=== PATIENT | male | born 1940 | race Caucasian/White ===

== ENCOUNTER 2016-10-16 04:47 | Observation (INO) | payer OTHER ==
[2016-10-08 10:37] VITALS: BMI 28.0
--- NOTE | 2016-10-08 11:37 | PAT Medication Instructions ---
Service Date Oct 08, 2016. Current Home Medication List Acetaminophen (Tylenol), 325 MG PO Q4 Carbidopa/Levodopa (Sinemet 25MG/100MG), 1 TAB PO TID Cholecalciferol (Vitamin D3), 5,000 PO QDL Docusate Sodium (Docusate Sodium), 1 CAP PO BID Enalapril (Vasotec), 10 MG PO QAM Levothyroxine Sodium (Levothyroxine Sodium), 1 TAB PO QAM Omeprazole (Prilosec), 20 MG PO QAM Venlafaxine Hcl (Effexor), 75 MG PO QAM Medication Instructions For Your Scheduled Surgery - Hold the following medications the morning of surgery: Enalapril (Vasotec), 10 MG PO QAM Docusate Sodium (Docusate Sodium), 1 CAP PO BID Cholecalciferol (Vitamin D3), 5,000 PO QDL - Take the following medications the morning of surgery with a sip of water: Omeprazole (Prilosec), 20 MG PO QAM Venlafaxine Hcl (Effexor), 75 MG PO QAM Levothyroxine Sodium (Levothyroxine Sodium), 1 TAB PO QAM Carbidopa/Levodopa (Sinemet 25MG/100MG), 1 TAB PO TID Acetaminophen (Tylenol), 325 MG PO Q4 (if needed) - Take the following medications as scheduled the night before surgery: Docusate Sodium (Docusate Sodium), 1 CAP PO BID. Acetaminophen (Tylenol), 325 MG PO Q4 Carbidopa/Levodopa (Sinemet 25MG/100MG), 1 TAB PO TID If you have any questions please call us at [phone] or [phone] ( Luanne) or [phone]
[2016-10-08 12:46] LABS: BASO % 0.4 %; BASO ABS # 0.03 K/uL (0-0.2); COMPLETE YES; EOS % 5.1 %; HEMATOCRIT 46.5 % (42-52); IG% 0.3 %; LYMPH % 20.5 %; LYMPH ABS # 1.56 K/uL (1.2-3.4); MEAN CELL VOLUME 88.9 fL (80-100); MEAN CORPUSCULAR HEMOGLOBIN 29.4 pg (25-34); MEAN CORPUSCULAR HGB CONC 33.1 g/dl (32-36); MEAN PLATELET VOLUME 10.4 fL (7.4-10.4); NEUT % 67.7 %; PLATELET COUNT 205 K/uL (130-400); RED BLOOD COUNT 5.23 M/uL (4.7-6.1); WHITE BLOOD COUNT 7.61 K/uL (4.8-10.8)
[2016-10-08 13:17] LABS: BUN/CREATININE RATIO 18.5 (10-20); CALCIUM 9.2 mg/dl (8.5-10.1); POTASSIUM 3.6 mmol/L (3.5-5.1)
[2016-10-16] VITALS (12 sets, daily range): BP systolic 159–192; BP diastolic 81–122; PULSE 73–95; TEMP 36.7–37.1; O2SAT 93–97; Ht 162.6 cm; Wt 75.7 kg
[~2016-10-16] VITALS: Ht 162.6 cm; Wt 75.7 kg
[~2016-10-16 04:47] MED LIST: ACET-1311 PO
[2016-10-16] MEDS ORDERED: CLINDAMYCIN IV 900 MG in DEXTROSE 5% ADD-VANTAGE 100ML 100 ML IV SCH (06:00)
[2016-10-16] MEDS ORDERED: LACTATED RINGER'S 1000ML 1,000 ML IV SCH (06:00)
[2016-10-16] MEDS ORDERED: LIDOCAINE HCL 2% 2 ML VIAL (20MG/ML) ONE (06:46)
[2016-10-16] MEDS ORDERED: ROCURONIUM BROMIDE 10 MG/ML 5 ML VIAL ONE ×2 (06:46→07:40)
[2016-10-16] MEDS ORDERED: FENTANYL CITRATE INJ 50 MCG/1 ML 2 ML VIAL ONE ×2 (06:46→08:19)
[2016-10-16] MEDS ORDERED: PROPOFOL IV EMULSION 10 MG/ML 20 ML VIAL IV ONE (06:46)
[2016-10-16] MEDS ORDERED: MIDAZOLAM HCL 1 MG/ML 2ML VIAL ONE (06:46)
--- NOTE | 2016-10-16 06:49 | History & Physical Bridge Note ---
H&P Re-Evaluation Bridge Note: I have examined the patient, reviewed the History & Physical and in the interval since the performance of the History & Physical I have noted the following changes of clinical significance: No changes noted
[2016-10-16] MEDS ORDERED: DEXAMETHASONE SOD INJ 4 MG/ML VIAL ONE (07:09)
[2016-10-16] MEDS ORDERED: ONDANSETRON INJ 2 MG/ML 2 ML VIAL ONE (07:09)
[2016-10-16] MEDS ORDERED: GLYCOPYRROLATE INJ 0.2 MG/ML VIAL ONE ×2 (07:09→09:00)
[2016-10-16] MEDS ORDERED: NEOSTIGMINE METHYLSULFATE 5 MG/5 ML SYR ONE (07:09)
[2016-10-16] MEDS ORDERED: LACTATED RINGER'S 1000ML 1,000 ML IV PRN (07:12)
[2016-10-16] MEDS ORDERED: FENTANYL CITRATE INJ 50 MCG/1 ML 2 ML VIAL IV PRN (07:15)
[2016-10-16] MEDS ORDERED: ONDANSETRON INJ 2 MG/ML 2 ML VIAL IV PRN ×2 (07:15→09:00)
[2016-10-16] MEDS ORDERED: BUPIVACAINE 0.5 % 5 MG/1 ML MPF 30ML VIAL INJ ONE (08:35)
[2016-10-16] MEDS ORDERED: CEFAZOLIN SOD 1 GM VIAL IRRIG ONE (08:43)
--- NOTE | 2016-10-16 08:59 | [facility] Operative Report ---
Operative Report Operative Date Oct 16, 2016. Pre-Operative Diagnosis Bilateral Inguinal Hernias Post-Operative Diagnosis same Procedure(s) Performed bilateral inguinal hernia repairs Surgeon Dr. Armand Mukherjee Manager Of Development Surgeon(s) Daniel Baires PA-C Estimated Blood Loss 20mL Findings Lg both sides- indirect RT with colon in sac Specimens none, Per Surgeon Drains #[address] Rd GALLITO to Rt side Complication(s) None Disposition Recovery Room / PACU I attest to the content of the Intraoperative Record and any orders documented therein. Any exceptions are noted below.
[2016-10-16] MEDS ORDERED: MoRPHine SULFATE 4 MG/ML 1 ML CARP\\VIAL IV PRN (09:00)
[2016-10-16] MEDS ORDERED: PROMETHAZINE HCL INJ 25 MG in SODIUM CHLORIDE 0.9% 50ML 50 ML IV PRN (09:00)
[2016-10-16] MEDS: CARBIDOPA/LEVODOPA 25/100MG TAB PO SCH ×3 (09:00→21:36)
[2016-10-16] MEDS ORDERED: HYDROCODONE/ACETAMOPHEN 5/325MG TAB PO PRN ×2 (09:00)
[2016-10-16] MEDS ORDERED: MoRPHine SULFATE 2 MG/ML CARP IV PRN (09:00)
--- NOTE | 2016-10-16 09:16 | OPERATIVE REPORT ---
DATE OF OPERATION: 10/16/2016 PREOPERATIVE DIAGNOSIS: Bilateral inguinal hernias. POSTOPERATIVE DIAGNOSIS: Same. NAME OF OPERATION: Bilateral inguinal hernia repair. STAFF SURGEON: Dr. Mukherjee. HEAD UP OPERATOR HELPER: Jenaro Baires PA-C. FINDINGS: The patient had bilateral large indirect hernia sacs with the colon in the right side. ANESTHESIA: General. OPERATION AND FINDINGS: PROCEDURE: The patient was brought in the operating room and placed on the operating table in supine position. Rodriguez catheter was placed. His inguinal areas were prepped and draped bilaterally. The right side was approached first. This was larger side, 0.5% plain Marcaine was used to anesthetize skin and subcutaneous tissue on both sides. Incision made carrying dissection down on the right side to the external oblique fibers incising them along their length to the external ring. The patient had a very large hernia which on dissection was a large indirect hernia with colon. The colon was reduced. The hernia sac was opened and dissected away from the cord structures and then closed using 2-0 Ethibond suture and 0 chromic catgut suture. It was then reduced. An extra large mesh plug was then placed into the defect, secured to surrounding tissue using 2-0 Ethibond suture, then a large piece of mesh placed into the floor of the canal around the cord structures over the plug and secured to surrounding tissue using 2-0 Ethibond suture. The site was irrigated with antibiotic solution. The external oblique fibers were then closed over the mesh around the cord structures using 2-0 Ethibond suture. A 15 round Yosef-Huynh drain placed into the wound down into the hernia sac into the scrotum, secured to the skin using 3-0 nylon suture. Subcutaneous tissue was reapproximated using 2-0 plain catgut suture then the skin reapproximated using 4-0 nylon suture. At this point, the left side was approached similar incision, carrying dissection down to the external oblique fibers incising them along their length, mobilizing the cord structures. The patient had a large indirect hernia. I did not think there was bowel within the sac. The sac was reduced and then the defect at the internal ring reinforced using a mesh plug, secured to surrounding tissue using 2-0 Ethibond suture. A large mesh patch was then placed into the floor of the canal around the cord structures secured using 2-0 Ethibond suture. The external oblique fibers were then closed over the mesh around the cord structures using 2-0 Ethibond suture. The site was then anesthetized using 0.5% plain Marcaine. This was also done on the right side. Subcutaneous tissue on the left then closed using 2-0 plain catgut suture then the skin reapproximated using 4-0 nylon suture. On both sides the ilioinguinal and iliohypogastric nerves were identified. Dressings were applied. Rodriguez was left in place. The patient transferred to recovery room in stable condition. I attest to the content of the Intraoperative Record and any orders documented therein. Any exceptio ns are noted below.
--- NOTE | 2016-10-16 09:27 | Anesthesiology Progress Note ---
Anesthesia Post Op Note Date & Time Oct 16, 2016 at 09:26 Vital Signs Pain Intensity: 0 Vital Signs Past 12 Hours Date Time Temp Pulse Resp B/P Pulse Ox O2 Delivery O2 Flow Rate FiO2 10/16/16 09:20 87 19 165/105 98 Mask 10 10/16/16 09:11 37.1 93 20 162/103 96 Mask 10 10/16/16 06:08 36.7 91 22 185/122 95 Room Air Notes Mental Status: alert / awake / arousable, participated in evaluation Pt Amnestic to Procedure: Yes Nausea / Vomiting: adequately controlled Pain: adequately controlled Airway Patency, RR, SpO2: stable & adequate BP & HR: stable & adequate Hydration State: stable & adequate Anesthetic Complications: no major complications apparent Pt doing well. No pain. DBP remains elevated as it was in PAT and pre-op today.
[2016-10-16] MEDS ORDERED: PHENYLEPHRINE 100MCG/ML 5ML SYR ONE (10:08)
[2016-10-16] MEDS: LACTATED RINGER'S 1000ML 1,000 ML IV SCH (10:35)
[2016-10-16] MEDS ORDERED: IV FLUIDS COMPLETED PRN (11:15)
[2016-10-16] MEDS ORDERED: PROMETHAZINE HCL INJ 12.5 MG in SODIUM CHLORIDE 0.9% 50ML 50 ML IV PRN (11:30)
[2016-10-16] MEDS ORDERED: HydrALAZINE HCL 20 MG/ML VIAL IV. PRN ×2 (11:45→17:45)
--- NOTE | 2016-10-16 12:56 | Medical Consult ---
Consultation Date of Consultation: Oct 16, 2016. Attending Physician: Armand Mukherjee M.D. Reason for Consultation: Medical management History of Present Illness This patient is a 76-year-old male that underwent a bilateral inguinal hernia repair today with Dr. Mukherjee. The patient currently complains of minimal pain. He is having difficulty urinating. He did have a Rodriguez catheter that was discontinued in the PACU. He denies any dysuria or hematuria. He denies any recent urinary symptoms. No fever or chills. He denies any nausea. He has not yet passed gas since the surgery. He denies any recent chest pain or pressure. No shortness of breath. No dizziness or heart palpitations. The patient denies any known history of coronary artery disease or blood clots. Past Medical/Surgical History Medical Problems: (1) Proximal humerus fracture Status: Acute History of "Parkinson's" like symptoms Graves' disease status post radioactive iodine History of dysphasia with PEG tube placement that was discontinued-once dysphasia was resolved. Thought to be due to esophagitis and gastritis Unspecified mood disorder Major depressive disorder OCD Degenerative disc disease Status post cholecystectomy and appendectomy Family History Hypertension Kidney disease or stones Social History Smoking Status: Former Smoker Alcohol Use: none Marital Status: Housing Status: assisted Occupation Status: retired Allergies Coded Allergies: Penicillins (Verified Allergy, Unknown, HIVES, 10/16/16) Home Medications Sinemet 10/100 TID Enalapril 10 mg in the morning Synthroid 130 g daily Prilosec 20 mg daily Effexor 75 mg daily Current Inpatient Medications Current Inpatient Medications Medications (Trade) Dose Ordered Sig/Aiden Route Start Time Stop Time Status Last Admin Dose Admin Lactated Ringer's (Lr 1000ml) 1,000 ml @ 15 mls/hr Q24H IV 10/16/16 06:00 10/17/16 05:59 10/16/16 06:36 15 MLS/HR Carbidopa/Levodopa (Sinemet 25/ 100MG Tab) 1 tab TID PO 10/16/16 09:00 11/15/16 08:59 Enalapril Maleate (Vasotec Tab) 10 mg QAM PO 10/17/16 09:00 11/16/16 08:59 Levothyroxine Sodium (Synthroid Tab) 137 mcg DAILYBB PO 10/17/16 06:00 11/16/16 05:59 Venlafaxine HCl (effeXOR EXTENDED REL CAP) 75 mg QAM PO 10/17/16 09:00 11/16/16 08:59 Pantoprazole Sodium 40 mg 40 mg QAM PO 10/17/16 09:00 11/16/16 08:59 Lactated Ringer's 1,000 ml @ 50 mls/hr Q20H IV 10/16/16 08:49 11/15/16 08:48 10/16/16 10:35 50 MLS/HR Clindamycin Phosphate/Dextrose (Cleocin Iv/ Dextrose Add-Hermosa 50ML) 54 ml @ 100 mls/hr Q8H IV 10/16/16 14:00 10/17/16 13:59 Acetaminophen/ Hydrocodone Bitart ([place] 5/325 Tab) 1 tab Q4 PRN PO 10/16/16 09:00 10/30/16 08:59 Acetaminophen/ Hydrocodone Bitart ([place] 5/325 Tab) 2 tab Q4 PRN PO 10/16/16 09:00 10/30/16 08:59 Morphine Sulfate (MoRPHine SULFATE INJ) 2 mg Q4H PRN IV 10/16/16 09:00 10/30/16 08:59 10/16/16 10:35 2 MG Morphine Sulfate 4 mg 4 mg Q4H PRN IV 10/16/16 09:00 10/30/16 08:59 Promethazine HCl/ Sodium Chloride (Phenergan Inj/ Nss 50ml) 51 ml @ 204 mls/hr Q6H PRN IV 10/16/16 09:00 11/15/16 08:59 Senna/Docusate Sodium (Senokot S Tab) 1 tab BID PO 10/16/16 13:00 11/15/16 12:59 Magnesium Hydroxide (Milk Of Magnesia Susp) 30 ml BID PO 10/16/16 13:00 11/15/16 12:59 Ondansetron HCl (Zofran Inj) 4 mg Q6H PRN IV 10/16/16 09:00 11/15/16 08:59 Miscellaneous 1 ea 1 ea PRN PRN N/A 10/16/16 11:15 10/16/17 11:14 Promethazine HCl/ Sodium Chloride (Phenergan Inj/ Nss 50ml) 50.5 ml @ 202 mls/hr Q6H PRN IV 10/16/16 11:30 11/15/16 11:29 Hydralazine HCl (HydrALAZINE INJ) 5 mg Q6H PRN IV. 10/16/16 11:45 11/15/16 11:44 10/16/16 11:51 5 MG Review of Systems 10 system review performed and negative unless noted in HPI or below Physical Exam Date Time Temp Pulse Resp B/P Pulse Ox O2 Delivery O2 Flow Rate FiO2 10/16/16 11:15 36.8 79 16 175/95 96 2.0 10/16/16 10:48 36.8 84 16 171/98 95 2.0 10/16/16 10:44 94 Nasal Cannula 2.0 10/16/16 10:28 94 Nasal Cannula 2.0 10/16/16 10:15 37.1 82 18 169/104 94 Nasal Cannula 2.0 10/16/16 10:00 77 24 159/97 94 Nasal Cannula 2 10/16/16 09:50 84 20 159/97 95 Nasal Cannula 2 10/16/16 09:40 37.2 82 24 165/103 94 Nasal Cannula 2 10/16/16 09:30 81 22 158/105 98 Mask 10 10/16/16 09:20 87 19 165/105 98 Mask 10 10/16/16 09:11 37.1 93 20 162/103 96 Mask 10 10/16/16 06:08 36.7 91 22 185/122 95 Room Air General Appearance: no apparent distress Head: normocephalic Eyes: EOMI ENT: + pertinent finding (oral mucosa dry) Neck: no JVD Respiratory/Chest: lungs clear Cardiovascular: + pertinent finding (regularly irregular) Abdomen/GI: soft, + pertinent finding (no tenderness appreciated in the upper abdomen. Dressing clean. Bowel sounds present, but hypoactive.) Extremities/Musculoskelatal: no calf tenderness, no pedal edema Neurologic/Psych: no motor/sensory deficits, oriented x 3 Skin: warm/dry Assessment & Plan 76-year-old male with a history of major depressive disorder, hypertension, OCD , Parkinson's like syndrome and Graves' disease underwent a bilateral inguinal hernia repair today Inguinal hernia repair 10/16/2016 -pain management, DVT prophylaxis, PT per primary team Hypertension-the patient is hypertensive. He did not take his enalapril yet today. Also, has IVF running -Hydralazine 10 mg IV q 6 hr PRN -Hold enalapril today to ensure no hypotensive episodes or renal dysfunction overnight -May start enalapril 10 mg (home dose) tomorrow morning. If he remains hypertensive, consider going up on his enalapril to 20 mg daily. This was discussed at his last PCP appointment ? Urinary retention-bladder scan reveals only 34 mL a urine -Bladder scan every 8 hour-insert Rodriguez if greater than 400 mL -If symptoms persist, will send a UA tomorrow ? Irregular heart rhythm-noted on outpt records. Asymptomatic. Had cardiac w/ u in Nov 28-no tx recommended. Parkinson's like syndrome -Continue home dose of Sinemet Graves' disease status post radioactive iodine -Continue Synthroid 130 g daily Major depressive disorder/mood disorder -Continue Effexor 75 mg daily -May use low-dose Haldol sparingly if patient comes agitated overnight Thank you for this consult, we will continue to follow Additional Copies To Annamarie Bean PA-C Reviewed: Pt Seen/Exam by Me, RN Notes, HO Notes, Prior Records, Labs, RAD, EKG History I agree with PA consult with some modifications as below 76-year-old male with a history of major depressive disorder, hypertension, OCD , Parkinson's like syndrome and Graves' disease underwent a bilateral inguinal hernia repair today. C/o pain in his abdomen and also feels that he can`t urinate EENTM: denies: blurred vision Respiratory: negative: cough Gastrointestinal/Abdominal: positive: abdominal pain Genitourinary: negative discharge Musculoskeletal: negative: back pain Skin: negative: change in color Neurological/Psych: negative: anxiety Hematologic/Lymphatic: negative: anemia General Appearance: WD/WN, no apparent distress Eye Exam: bilateral eye normal inspection Ears, Nose, Throat: hearing grossly normal, pharynx normal Neck: non-tender, supple Respiratory: lungs clear, no respiratory distress Cardiovascular: normal peripheral pulses, no edema Gastrointestinal: normal bowel sounds, no organomegaly, tenderness (diffuse), other (dressing in place) Extremities: non-tender, normal inspection Neurologic/Psychiatric: no motor/sensory deficits, normal mood/affect Skin Characteristics: normal color Assessment/Plan 76-year-old male with a history of major depressive disorder, hypertension, OCD , Parkinson's like syndrome and Graves' disease underwent a bilateral inguinal hernia repair today Inguinal hernia repair 10/16/2016 cont pain management, DVT prophylaxis, PT per primary team Hypertension-the patient is hypertensive. cont Hydralazine 10 mg IV q 6 hr PRN Hold enalapril Urinary retention-bladder scan reveals only 34 mL a urine Bladder scan every 8 hour-insert Rodriguez if greater than 400 mL Irregular heart rhythm-noted on outpt records. Asymptomatic. Had cardiac w/u in Nov 28-no tx recommended. Parkinson's like syndrome Continue home dose of Sinemet Graves' disease status post radioactive iodine Continue Synthroid 130 g daily Major depressive disorder/mood disorder Continue Effexor 75 mg daily case discussed with Bindu Lagos time spent 40 min
[2016-10-16] MEDS: DOCUSATE SODIUM/SENNA 50/8.6MG TAB PO SCH ×2 (13:00→21:36)
[2016-10-16] MEDS: MAGNESIUM HYDROXIDE SUSP 30 ML UDC PO SCH ×2 (13:00→21:00)
[2016-10-16] MEDS: CLINDAMYCIN IV 600 MG in DEXTROSE 5% ADD-VANTAGE 50ML 50 ML IV SCH ×2 (13:30→21:40)
[2016-10-16] MEDS ORDERED: HYDR-5688 PO (15:26)
[2016-10-16] MEDS ORDERED: CIPR-255 PO (15:26)
--- NOTE | 2016-10-16 15:29 | Discharge Instructions ---
Discharge Instructions Admission Reason for Admission: Bilateral Inguinal Hernias Discharge Discharge Diagnosis / Problem: bilateral inguinal hernias Discharge Goals Goal(s): Decrease discomfort, Improve function, Improve disease control Activity Recommendations Activity Limitations: as noted below Lifting Limitations: no more than 10 pounds Exercise/Sports Limitations: until after follow-up appointment May Resume Sexual Activity: when tolerated Shower/Bathe: tomorrow Driving or Machine Use: 1 week . Instructions / Follow-Up Instructions / Follow-Up SPECIAL CARE INSTRUCTIONS: * Cover incisions and change daily for comfort/drainage. * Empty drain 2-3 times per day and record. * Avoid constipation- may use Milk of magnesia and Senokot S twice daily as directed on the package * May use ibuprofen for pain as tolerated. * Expect some swelling and bruising. Call your doctor if: * Temperature above 101 degrees * Pain not relieved by pain medicine ordered * There is increased drainage or redness from any incision * You have any unanswered questions or concerns [phone]. FOLLOW UP VISIT: If not already scheduled, please call the office for a follow-up visit. for - drain check, possible removal OFFICE PHONE NUMBER: Dr. Mukherjee Office Current Hospital Diet Patient's current hospital diet: Regular Diet Discharge Diet Recommended Diet: Regular Diet Procedures Procedures Performed: Open bilateral inguinal hernia repair with mesh Pending Studies Studies pending at discharge: no Medical Emergencies . Who to Call and When: Medical Emergencies: If at any time you feel your situation is an emergency, please call 911 immediately. . Non-Emergent Contact Non-Emergency issues call your: Surgeon . "Provider Documentation" section prepared by Armand Mukherjee. VTE Core Measure Inpt VTE Proph given/why not?: SCD's
[2016-10-16] MEDS ORDERED: NURSING VERBAL MED ORDER ONE (18:00)
[2016-10-16] MEDS ORDERED: ACETAMINOPHEN 325 MG TAB PO PRN (18:15)
[2016-10-17 03:52] VITALS: BP 173/98; PULSE 79; TEMP 36.8; O2SAT 96
[2016-10-17] MEDS: LACTATED RINGER'S 1000ML 1,000 ML IV SCH (05:37)
[2016-10-17] MEDS: CLINDAMYCIN IV 600 MG in DEXTROSE 5% ADD-VANTAGE 50ML 50 ML IV SCH (05:37)
[2016-10-17] MEDS ORDERED: LEVOTHYROXINE 137 MCG TAB PO SCH (06:00)
[2016-10-17 06:02] LABS: BASO % 0.1 %; BASO ABS # 0.01 K/uL (0-0.2); COMPLETE YES; EOS % 0.2 %; HEMATOCRIT 44.3 % (42-52); IG% 0.2 %; LYMPH % 11.2 %; LYMPH ABS # 1.49 K/uL (1.2-3.4); MEAN CELL VOLUME 89.9 fL (80-100); MEAN CORPUSCULAR HEMOGLOBIN 29.8 pg (25-34); MEAN CORPUSCULAR HGB CONC 33.2 g/dl (32-36); MEAN PLATELET VOLUME 10.7 fL (7.4-10.4); MONO % 9.4 %; NEUT % 78.9 %; PLATELET COUNT 194 K/uL (130-400); RED BLOOD COUNT 4.93 M/uL (4.7-6.1); WHITE BLOOD COUNT 13.27 K/uL (4.8-10.8)
[2016-10-17 06:10] VITALS: BP 179/101
[2016-10-17] MEDS ORDERED: OXYC-57 PO (06:25)
[2016-10-17] MEDS ORDERED: OXYCODONE/ACETAMINOPHEN 5-325 TAB PO PRN (06:30)
--- NOTE | 2016-10-17 06:30 | Surgery Progress Note ---
Surgery Progress Note Date of Service Oct 17, 2016. Subjective Post OP Day: 1 min pain, good ur outpt, had some emesis- no N/V now Objective Vital Signs: Date Time Temp Pulse Resp B/P Pulse Ox O2 Delivery O2 Flow Rate FiO2 10/17/16 06:10 179/101 10/17/16 03:52 36.8 79 16 173/98 96 Nasal Cannula 2.0 10/16/16 23:13 36.8 79 16 159/97 95 Nasal Cannula 2.0 10/16/16 23:12 Nasal Cannula 2.0 10/16/16 21:34 85 167/103 10/16/16 18:44 166/103 10/16/16 15:30 93 Nasal Cannula 2.0 10/16/16 15:00 36.8 95 20 175/81 93 Nasal Cannula 2.0 10/16/16 13:15 36.7 73 16 192/81 97 2.0 10/16/16 11:15 36.8 79 16 175/95 96 2.0 10/16/16 10:48 36.8 84 16 171/98 95 2.0 10/16/16 10:44 94 Nasal Cannula 2.0 10/16/16 10:28 94 Nasal Cannula 2.0 10/16/16 10:15 37.1 82 18 169/104 94 Nasal Cannula 2.0 10/16/16 10:00 77 24 159/97 94 Nasal Cannula 2 10/16/16 09:50 84 20 159/97 95 Nasal Cannula 2 10/16/16 09:40 37.2 82 24 165/103 94 Nasal Cannula 2 10/16/16 09:30 81 22 158/105 98 Mask 10 10/16/16 09:20 87 19 165/105 98 Mask 10 10/16/16 09:11 37.1 93 20 162/103 96 Mask 10 General Appearance: no apparent distress Respiratory/Chest: no respiratory distress Incision(s): dry, intact, drainage (GALLITO with expected output) Laboratory Results: Results Past 24 Hours Test 10/17/16 05:07 Range/Units White Blood Count 13.27 4.8-10.8 K/uL Red Blood Count 4.93 4.7-6.1 M/uL Hemoglobin 14.7 14.0-18.0 g/dL Hematocrit 44.3 42-52 % Mean Corpuscular Volume 89.9 80-100 fL Mean Corpuscular Hemoglobin 29.8 25-34 pg Mean Corpuscular Hemoglobin Concent 33.2 32-36 g/dl Platelet Count 194 130-400 K/uL Mean Platelet Volume 10.7 7.4-10.4 fL Neutrophils (%) (Auto) 78.9 % Lymphocytes (%) (Auto) 11.2 % Monocytes (%) (Auto) 9.4 % Eosinophils (%) (Auto) 0.2 % Basophils (%) (Auto) 0.1 % Neutrophils # (Auto) 10.47 1.4-6.5 K/uL Lymphocytes # (Auto) 1.49 1.2-3.4 K/uL Monocytes # (Auto) 1.25 0.11-0.59 K/uL Eosinophils # (Auto) 0.03 0-0.5 K/uL Basophils # (Auto) 0.01 0-0.2 K/uL RDW Standard Deviation 47.1 36.4-46.3 fL RDW Coefficient of Variation 14.3 11.5-14.5 % Immature Granulocyte % (Auto) 0.2 % Immature Granulocyte # (Auto) 0.02 0.00-0.02 K/uL Assessment & Plan 10/17/16- s/p bilateral open ing hernia repair- plan d/c back to [facility] if able to take po and assistance available
[2016-10-17 06:35] LABS: BUN/CREATININE RATIO 14.4 (10-20); CALCIUM 8.6 mg/dl (8.5-10.1)
[2016-10-17 06:54] VITALS: BP 143/88; PULSE 98; TEMP 36.9; O2SAT 96
[2016-10-17] MEDS: OXYCODONE/ACETAMINOPHEN 5-325 TAB PO PRN ×2 (07:37→12:28)
--- NOTE | 2016-10-17 08:18 | Anesthesiology Progress Note ---
Anesthesia Post Op Note Date & Time Oct 17, 2016 at 08:17 Vital Signs Vital Signs Past 12 Hours Date Time Temp Pulse Resp B/P Pulse Ox O2 Delivery O2 Flow Rate FiO2 10/17/16 06:54 36.9 98 16 143/88 96 Nasal Cannula 2.0 10/17/16 06:10 179/101 10/17/16 03:52 36.8 79 16 173/98 96 Nasal Cannula 2.0 10/16/16 23:13 36.8 79 16 159/97 95 Nasal Cannula 2.0 10/16/16 23:12 Nasal Cannula 2.0 10/16/16 21:34 85 167/103 Notes Mental Status: alert / awake / arousable, participated in evaluation Pt Amnestic to Procedure: Yes Nausea / Vomiting: adequately controlled Pain: adequately controlled Airway Patency, RR, SpO2: stable & adequate BP & HR: stable & adequate Hydration State: stable & adequate Anesthetic Complications: no major complications apparent
[2016-10-17] MEDS: CARBIDOPA/LEVODOPA 25/100MG TAB PO SCH (08:57)
[2016-10-17] MEDS: MAGNESIUM HYDROXIDE SUSP 30 ML UDC PO SCH (08:57)
[2016-10-17] MEDS ORDERED: PANTOprazole SOD 40 MG TAB PO SCH (09:00)
[2016-10-17] MEDS: DOCUSATE SODIUM/SENNA 50/8.6MG TAB PO SCH (09:00)
[2016-10-17] MEDS ORDERED: ENALAPRIL MALEATE 10 MG TAB PO SCH (09:00)
[2016-10-17] MEDS ORDERED: VENLAFAXINE HCL XR 75 MG CAPXR PO SCH (09:00)
[2016-10-17 12:00] VITALS: BP 143/88; PULSE 98; TEMP 36.9; O2SAT 96
[2016-10-17 12:08] VITALS: BP 113/67; PULSE 85; TEMP 36.7; O2SAT 93
--- NOTE | 2016-10-17 12:27 | Hospitalist Progress Note ---
Hospitalist Progress Note Date of Service Oct 17, 2016. (Cat Lagos PA-C) 10/17/16 pt denies complains, feels better agree with PA Note (Napoleon Medel MD) Subjective Pt evaluation today including: conversation w/ patient, conversation w/ family , chart review, lab review, review of inpatient medication list feeling well. Urinating w/o difficulty. Denies burning. No significant pain. Passing gas. No nausea. Tolerating a diet. Additional Comments: 6 system review negative. Please see pertinent positives in the history of present illness section. (Cat Lagos PA-C) Pt evaluation today including: conversation w/ patient, physical exam, chart review, review of studies, review of inpatient medication list Constitutional: No fever ENT: No hearing loss Respiratory: No cough Abdomen: No pain Male : No dysuria Neurologic: No memory loss Psychiatric: No depression symptoms Endo: No fatigue (Napoleon Medel MD) Objective Vital Signs Date Time Temp Pulse Resp B/P Pulse Ox O2 Delivery O2 Flow Rate FiO2 10/17/16 12:08 36.7 85 18 113/67 93 Room Air 10/17/16 12:00 36.9 98 16 96 Room Air 10/17/16 07:30 Room Air 10/17/16 06:54 36.9 98 16 143/88 96 Nasal Cannula 2.0 10/17/16 06:10 179/101 10/17/16 03:52 36.8 79 16 173/98 96 Nasal Cannula 2.0 10/16/16 23:13 36.8 79 16 159/97 95 Nasal Cannula 2.0 10/16/16 23:12 Nasal Cannula 2.0 10/16/16 21:34 85 167/103 10/16/16 18:44 166/103 10/16/16 15:30 93 Nasal Cannula 2.0 10/16/16 15:00 36.8 95 20 175/81 93 Nasal Cannula 2.0 10/16/16 13:15 36.7 73 16 192/81 97 2.0 (Cat Lagos PA-C) Physical Exam General Appearance: WD/WN, no apparent distress Eyes: normal inspection, EOMI ENT: hearing grossly normal, pharynx normal Neck: supple, no JVD Respiratory/Chest: normal breath sounds Cardiovascular: no gallop Abdomen: normal bowel sounds, no organomegaly Extremities: normal inspection Neurologic/Psychiatric: normal mood/affect Skin: normal color (Napoleon Medel MD) Laboratory Results Last 24 Hours Test 10/17/16 05:07 White Blood Count 13.27 K/uL Red Blood Count 4.93 M/uL Hemoglobin 14.7 g/dL Hematocrit 44.3 % Mean Corpuscular Volume 89.9 fL Mean Corpuscular Hemoglobin 29.8 pg Mean Corpuscular Hemoglobin Concent 33.2 g/dl Platelet Count 194 K/uL Mean Platelet Volume 10.7 fL Neutrophils (%) (Auto) 78.9 % Lymphocytes (%) (Auto) 11.2 % Monocytes (%) (Auto) 9.4 % Eosinophils (%) (Auto) 0.2 % Basophils (%) (Auto) 0.1 % Neutrophils # (Auto) 10.47 K/uL Lymphocytes # (Auto) 1.49 K/uL Monocytes # (Auto) 1.25 K/uL Eosinophils # (Auto) 0.03 K/uL Basophils # (Auto) 0.01 K/uL RDW Standard Deviation 47.1 fL RDW Coefficient of Variation 14.3 % Immature Granulocyte % (Auto) 0.2 % Immature Granulocyte # (Auto) 0.02 K/uL Sodium Level 141 mmol/L Potassium Level 4.0 mmol/L Chloride Level 103 mmol/L Carbon Dioxide Level 31 mmol/L Anion Gap 7.0 mmol/L Blood Urea Nitrogen 14 mg/dl Creatinine 1.00 mg/dl Est Creatinine Clear Calc Drug Dose 57.6 ml/min Estimated GFR () 83.8 Estimated GFR (Non- 72.3 BUN/Creatinine Ratio 14.4 Random Glucose 84 mg/dl Calcium Level 8.6 mg/dl (Cat Lagos, PAIrvingC) Assessment and Plan 76-year-old male with a history of major depressive disorder, hypertension, OCD , Parkinson's like syndrome and Graves' disease underwent a bilateral inguinal hernia repair 10/16 Inguinal hernia repair 10/16/2016 -pain management, DVT prophylaxis, PT per primary team BP improved -Restart enalapril 10 mg daily today Urinary retention-resolved Parkinson's like syndrome -Continue home dose of Sinemet Graves' disease status post radioactive iodine -Continue Synthroid 130 g daily Major depressive disorder/mood disorder -Continue Effexor 75 mg daily Stable for D/C from a medical stand point. The medicine service will sign off. Please contact the [facility] Hospitalist for any further medical concerns. (Cat Lagos PA-C) 76-year-old male with a history of major depressive disorder, hypertension, OCD , Parkinson's like syndrome and Graves' disease underwent a bilateral inguinal hernia repair 10/16 Inguinal hernia repair 10/16/2016 pain management, DVT prophylaxis, PT per primary team BP improved Restart enalapril 10 mg daily today Urinary retention-resolved Parkinson's like syndrome Continue home dose of Sinemet Graves' disease status post radioactive iodine Continue Synthroid 130 g daily Major depressive disorder/mood disorder Continue Effexor 75 mg daily Stable for D/C from a medical stand point. f/u PCP 2 weeks (Napoleon Medel MD)
--- NOTE | 2016-10-22 14:11 | DISCHARGE SUMMARY ---
PRIMARY DISCHARGE DIAGNOSIS: Bilateral inguinal hernias. SECONDARY DISCHARGE DIAGNOSES: 1. Hypertension. 2. Depression. 3. Graves' disease. PROCEDURE PERFORMED: Open bilateral inguinal hernia repairs with mesh. CONSULTATIONS: [facility] Hospitalist to assist in medical management. HOSPITAL COURSE: The patient is a 76-year-old male with large bilateral inguinal hernias, admitted through same day and taken to the operating room for open repairs. The procedure was well tolerated. He was transferred to the surgical floor and observed overnight. Rodriguez catheter was removed in PACU. He is able to later void without difficulty. On postoperative day 1, he was tolerating diet and oral analgesics. His blood pressure had been elevated postoperatively, likely due to pain, but at discharge was 113/67. The incisions were clean and dry. He was stable for transfer back to [facility]. DISCHARGE INSTRUCTIONS: Transfer back to [facility]. Follow up with Dr. Mukherjee in 5 days. He was discharged home with a drain on the right side. DISCHARGE MEDICATIONS: Cipro 500 mg p.o. b.i.d. x7 and Percocet 1-2 tablets every 4-6 hours as needed. Continue his home Sinemet 25/100 mg daily, vitamin D supplement, docusate 100 mg b.i.d., Vasotec 10 mg daily, levothyroxine 137 mcg daily, Prilosec 20 mg daily, Effexor 75 mg daily. MTDD
[2016-12-18] MEDS ORDERED: NITR1CAP32 PO (09:41)
[2017-01-06] MEDS ORDERED: OXYC-57 PO (09:41)
[2017-01-06] MEDS ORDERED: NITR-5 PO (09:55)
[2017-01-06] MEDS ORDERED: EFF75 PO (10:36)
[2017-01-06] MEDS ORDERED: PRLSR20 PO (10:36)
[2017-01-06] MEDS ORDERED: ENAL10TA88 PO (10:36)
[2017-01-06] MEDS ORDERED: DOCU100C31 PO (10:36)
[2017-01-06] MEDS ORDERED: LEVO137T3 PO (10:36)
[2017-01-06] MEDS ORDERED: CARB25TA12 PO ×2 (10:36→15:28)
[2017-01-06] MEDS ORDERED: VTMD1000 PO (10:36)
== END 2016-10-17 13:40 | disposition home or self-care (01) ==
LOC: ENRESERVTM → ENRESERVDT → C.ACU 04:47 → C.MSN 08:56
PROVIDERS: ADMIT Surgery; ATTEND Surgery
DX: K40.20 Bilateral inguinal hernia, without obstruction or gangrene, not specified as recurrent (principal); R33.9 Retention of urine, unspecified; F32.9 Major depressive disorder, single episode, unspecified; F60.5 Obsessive-compulsive personality disorder; E05.00 Thyrotoxicosis with diffuse goiter without thyrotoxic crisis or storm; I10 Essential (primary) hypertension; E78.5 Hyperlipidemia, unspecified; E55.9 Vitamin D deficiency, unspecified; E03.9 Hypothyroidism, unspecified; Z87.440 Personal history of urinary (tract) infections; Z88.0 Allergy status to penicillin; Z87.891 Personal history of nicotine dependence; Z82.49 Family history of ischemic heart disease and other diseases of the circulatory system; Z81.8 Family history of other mental and behavioral disorders; Z80.42 Family history of malignant neoplasm of prostate

== ENCOUNTER → 2016-11-29 | Outpatient (CLI) | payer OTHER ==
[~2016-11-29] MED LIST changes: +CARB25TA12 PO; +CIPR-255 PO; +DOCU100C31 PO; +EFF75 PO; +EFFSR/75 PO; +ENAL10TA88 PO; +IBUP-1050 PO; +LEVO137T3 PO; +MENTOIN12 TOP; +NITR-5 PO; +NITR1CAP32 PO; +OXYC-57 PO; +PRLSR20 PO; +TIZA2TAB3 PO; +VTMD1000 PO
--- NOTE | 2016-11-29 10:29 | DIAGNOSTIC IMAGING REPORT ---
L-SPINE MIN 4 VIEWS ROUTINE CLINICAL HISTORY: Chronic back pain. COMPARISON: Lumbar spine radiograph January 24, 2012. FINDINGS: Note is made of a 4.6 x 2.3 cm staghorn calculus within the lower pole of the left kidney. A few smaller bilateral renal calculi measure up to 1.1 cm. Pelvic calcifications represent phleboliths. No ureteral calculi are identified. There is slight loss of height of the superior endplates of of L3 and L4 when compared to exam of January 24, 2012. There is moderate disc space narrowing at L5-S1. Mild multilevel facet arthrosis is present. IMPRESSION: 1. Mild interval loss of height of the superior endplates of L3 and L4 since exam of January 24, 2012. The findings likely reflect old mild compression deformities. 2. Mild to moderate multilevel degenerative disc disease and facet arthrosis lumbar spine. 3. Extensive bilateral nephrolithiasis, including a 4.6 x 2.3 cm left renal staghorn calculus. Electronically signed by: Sae Gregorio M.D. 11/29/2016 10:28 AM Dictated Date/Time: 11/29/2016 10:24 AM
== END | disposition home or self-care (01) ==
LOC: C.RAD1850 10:05
PROVIDERS: ATTEND Internal Medicine
DX: M54.9 Dorsalgia, unspecified (principal); N20.0 Calculus of kidney

== ENCOUNTER → 2016-12-03 | Outpatient (CLI) | payer OTHER | END | disposition home or self-care (01) | LOC: C.LABSPEC 17:32 | PROVIDERS: ATTEND Nurse Practitioner Adult Health | DX: N20.0 Calculus of kidney (principal) ==

== ENCOUNTER 2017-01-06 13:37 | Inpatient (IN) | payer OTHER ==
[~2017-01-06] VITALS: Ht 162.6 cm; Wt 87.2 kg
[~2017-01-06 13:37] MED LIST changes: -ACET-1311 PO; -CIPR-255 PO; -EFFSR/75 PO; -IBUP-1050 PO; -MENTOIN12 TOP; -TIZA2TAB3 PO
[2017-01-06] MEDS ORDERED: SODIUM CHLORIDE 0.9% 1000ML 1,000 ML IV ONE (14:00)
--- NOTE | 2017-01-06 14:15 | EMERGENCY ROOM VISIT NOTE ---
History Report prepared by Anyi: Mau Strauss Under the Supervision of: Dr. Bruce Rabago M.D. First contact with patient: 13:45 Stated Complaint: AMS/PEDAL EDEMA History of Present Illness The patient is a 76 year old male who presents to the Emergency Room with complaints of persistent confusion for the past few days. The patient's son notes that he has been acting more confused than normal for the past few days and saying things that don't make sense. He has had two falls in the past few days as well. Per nursing staff, he has bruises on his back and it is unclear if he hit his head when he fell. He also has two kidney stones which he has been taking Ibuprofen and Percocet to help relieve his discomfort since he has been complaining about low back pain. Per patient's son, the patient has also been complaining of some shortness of breath and has swelling in his ankles. He also had a low temperature of about 94 when they took it at his skilled nursing, [facility]. Upon arrival at the ED, the patient had an episode of vomiting with yellow fluid, his nails started to turn blue, and he is hypotensive. Per patient's son, the patient pressure is usually normal or high. Recently, it has been pretty well controlled on his hypertension medications. Source of History: patient, family, skilled nursing notes Onset: the past few days Position: other (global) Timing: other (persistent) Associated Symptoms: + SOB, + back pain (lower back ), + vomiting (yellow fluid) Note: Other associated symptoms: falls, kidney stones, swelling in his ankles, low temperature, hypotensive, fingernails turning blue Review of Systems All systems have been listed, reviewed, and are negative other than those previously mentioned. Please see Additional Medical History Sheet. 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 (15) UTI (lower urinary tract infection) (16) UTI (urinary tract infection) Surgical Problems: (1) H/O lithotripsy (2) S/P appendectomy (3) S/P cholecystectomy Family History Hypertension Kidney disease or stones Social History Smoking Status: Former Smoker Marital Status: Housing Status: skilled nursing Occupation Status: retired Current/Historical Medications Scheduled Carbidopa/Levodopa (Sinemet 25MG/100MG), 1 TAB PO TID Carbidopa/Levodopa (Sinemet 25MG/100MG), 2 TAB PO DAILY Cholecalciferol (Vitamin D3), 5,000 PO QDL Docusate Sodium (Docusate Sodium), 1 CAP PO BID Enalapril (Vasotec), 10 MG PO QAM Levothyroxine Sodium (Levothyroxine Sodium), 1 TAB PO QAM Nitrofurantoin Monohyd Macrocr (Macrobid), 100 MG PO HS Omeprazole (Prilosec), 20 MG PO QAM Oxycodone/Acetaminophen 5MG/325MG (Percocet 5MG/325MG), 1 TABLET PO Q12 Venlafaxine Hcl (Effexor), 75 MG PO QAM Scheduled PRN Ibuprofen (Advil), 400 MG PO Q6 PRN for Pain Menthol-Zinc Oxide (Risamine), 1 APPLN TOP for BUTTOCKS EXCORIATION Tizanidine Hcl (Zanaflex), 2 MG PO Q12 PRN for Muscle Spasms Allergies Coded Allergies: Penicillins (Verified Allergy, Unknown, HIVES, 10/16/16) Physical Exam Vital Signs Date Time Temp Pulse Resp B/P Pulse Ox O2 Delivery O2 Flow Rate FiO2 01/06/17 16:18 99 18 107/60 100 Nasal Cannula 4.0 01/06/17 15:33 90 16 95/65 100 Nasal Cannula 4.0 01/06/17 14:56 67 20 108/57 100 01/06/17 14:50 100 01/06/17 14:45 93 98/60 01/06/17 14:40 90 01/06/17 14:38 98/62 01/06/17 14:35 92 01/06/17 14:30 88 01/06/17 14:25 79 01/06/17 13:50 36.5 115 18 93/77 Nasal Cannula 4.0 01/06/17 13:50 90 01/06/17 13:50 Nasal Cannula 4.0 01/06/17 13:50 Room Air Physical Exam GENERAL: Patient is confused and disoriented. SKIN: No erythema, pallor, cyanosis or rash HEENT: Normal head, no bruises or bumps noted, pupils equal, reactive to light and accommodation. Ears normal. Oral cavity and posterior pharynx appear normal. Neck: Without adenopathy, no neck vein distention. LUNGS: Clear to auscultation. No wheezes, no rales, no rhonchi. HEART: Muffled tones appreciated. ABDOMEN: No masses, no rebound, no hepatomegaly or splenomegaly. Soft nontender right-sided oblique scar and bilateral inguinal bruises noted. BACK: Patient has moderate kyphosis. EXTREMITIES: Patient has blue fingernails, 3+ non-pitting pretibial and pedal edema. No calf or thigh tenderness. NEUROLOGIC: Cranial nerves II-XII within normal limits. No gross motor sensory function deficits. Medical Decision & Procedures ER Provider Diagnostic Interpretation: X ray results are stated below per my interpretation and the radiologist's interpretation. CHEST ONE VIEW PORTABLE CLINICAL HISTORY: Central line placement COMPARISON STUDY: 03/22/2016 FINDINGS: The heart is enlarged. There is been interval placement of a right subclavian central venous catheter. The tip projects in the right atrium. No pneumothorax is visualized. There is no focal pulmonary consolidation. There is mild right hilar prominence. There is no failure.[ IMPRESSION: No evidence of pneumothorax status post right subclavian central venous catheter placement. The tip projects over the right atrium. Electronically signed by: Naveen Parks M.D. 01/06/2017 3:17 PM Dictated Date/Time: 01/06/2017 3:17 PM Laboratory Results 01/06/17 14:15 Red Blood Count 3.93, Mean Corpuscular Volume 88.0, Mean Corpuscular Hemoglobin 29.8, Mean Corpuscular Hemoglobin Concent 33.8, Mean Platelet Volume 10.5, Neutrophils (%) (Auto) 79.3, Lymphocytes (%) (Auto) 8.9, Monocytes (%) (Auto) 6.7, Eosinophils (%) (Auto) 4.2, Basophils (%) (Auto) 0.4, Neutrophils # (Auto) 8.78, Lymphocytes # (Auto) 0.99, Monocytes # (Auto) 0.74, Eosinophils # (Auto) 0.47, Basophils # (Auto) 0.04 01/06/17 14:15 Test 01/06/17 14:15 01/06/17 15:00 01/06/17 15:45 01/06/17 16:52 White Blood Count 11.07 K/uL (4.8-10.8) Red Blood Count 3.93 M/uL (4.7-6.1) Hemoglobin 11.7 g/dL (14.0-18.0) Hematocrit 34.6 % (42-52) Mean Corpuscular Volume 88.0 fL (80-100) Mean Corpuscular Hemoglobin 29.8 pg (25-34) Mean Corpuscular Hemoglobin Concent 33.8 g/dl (32-36) Platelet Count 196 K/uL (130-400) Mean Platelet Volume 10.5 fL (7.4-10.4) Neutrophils (%) (Auto) 79.3 % Lymphocytes (%) (Auto) 8.9 % Monocytes (%) (Auto) 6.7 % Eosinophils (%) (Auto) 4.2 % Basophils (%) (Auto) 0.4 % Neutrophils # (Auto) 8.78 K/uL (1.4-6.5) Lymphocytes # (Auto) 0.99 K/uL (1.2-3.4) Monocytes # (Auto) 0.74 K/uL (0.11-0.59) Eosinophils # (Auto) 0.47 K/uL (0-0.5) Basophils # (Auto) 0.04 K/uL (0-0.2) RDW Standard Deviation 49.4 fL (36.4-46.3) RDW Coefficient of Variation 15.3 % (11.5-14.5) Immature Granulocyte % (Auto) 0.5 % Immature Granulocyte # (Auto) 0.05 K/uL (0.00-0.02) Anion Gap 13.0 mmol/L (3-11) Est Creatinine Clear Calc Drug Dose 10.9 ml/min Estimated GFR () 11.4 Estimated GFR (Non- 9.8 BUN/Creatinine Ratio 18.4 (10-20) Calcium Level 9.0 mg/dl (8.5-10.1) Total Bilirubin 0.4 mg/dl (0.2-1) Aspartate Amino Transf (AST/SGOT) 25 U/L (15-37) Alanine Aminotransferase (ALT/SGPT) 8 U/L (12-78) Alkaline Phosphatase 137 U/L (45-117) Troponin I < 0.015 ng/ml (0-0.045) Total Protein 8.0 gm/dl (6.4-8.2) Albumin 3.4 gm/dl (3.4-5.0) Globulin 4.6 gm/dl (2.5-4.0) Albumin/Globulin Ratio 0.7 (0.9-2) Lactic Acid Level 0.7 mmol/L (0.4-2.0) Urine Color DK YELLOW Urine Appearance CLOUDY (CLEAR) Urine pH 5.0 (4.5-7.5) Urine Specific [place]nis 1.022 (1.000-1.030) Urine Protein 2+ (NEG) Urine Glucose (UA) NEG (NEG) Urine Ketones NEG (NEG) Urine Occult Blood 2+ (NEG) Urine Nitrite POS (NEG) Urine Bilirubin NEG (NEG) Urine Urobilinogen NEG (NEG) Urine Leukocyte Esterase MODERATE (NEG) Urine WBC (Auto) >30 /hpf (0-5) Urine RBC (Auto) 10-30 /hpf (0-4) Urine Hyaline Casts (Auto) 5-10 /lpf (0-5) Urine Epithelial Cells (Auto) >30 /lpf (0-5) Urine Bacteria (Auto) NEG (NEG) Urine Renal Epithelial Cells /lpf (0-5) Urine Pathogenic Casts /lpf (0) Laboratory results as stated above per my review. Medications Administered Medications (Trade) Dose Ordered Sig/Aiden Route Start Time Stop Time Status Last Admin Dose Admin Sodium Chloride (Nss 1000ml) 1,000 ml @ 1,000 mls/hr Q1H ONCE IV 01/06/17 14:00 01/06/17 14:59 DC 01/06/17 14:00 1,000 MLS/HR Procedure Central Venous Catheter Indication: Hypotension Catheter type: 16 gauge triple lumen Location: Right subclavian Verbal consent was obtained after the risks and benefits were explained. At this time, the risks of the procedure are less than the risks of NOT performing the procedure. A time out was taken and the correct patient and site identified. The patient was placed in the Tredelenburg position and the skin was prepped in the standard fashion with chlorhexidine and full sterile drapes applied. The proper landmarks were identified with ultrasound, anesthetized with 1% lidocaine without epinephrine, and the needle was inserted through the skin in the standard fashion. The guidewire was placed uneventfully. The vessel is dilated and the catheter was placed. It was sutured into position. There was good blood return from all ports. The patient tolerated the procedure well and there were no complications. Post procedure x-ray was normal. ECG Indication: other Rate (beats per minute): 101 Rhythm: atrial fibrillation Findings: nonspecific-ST abn, other (rapid ventricular response) ED Course 1354: Past medical records reviewed. The patient was evaluated in room B12. A complete history and physical examination was performed. 1400: Ordered NSS 1000 ml @ 1000 mls/hr IV 1401: At this time, I discussed the patient's care with his son. He said he would want his father to be resuscitated if necessary. 1436: At this time, I performed a Central Venous Procedure on the patient. See procedure note above. 1521: At this time, I discussed the patients case with Dr. Matamoros - Yong BOWMAN and she agreed to accept the patient for further evaluation. Medical Decision Differential diagnoses include shock, sepsis, multiple contusions, CHF, peripheral edema, metabolic disorder, anemia, UTI, or pneumonia. The patient arrives here confused and disoriented. He has blue nailbeds. Blood pressure was low. An IV was started and he was started on IV fluids. Central line was placed in the right subclavian without complication. Please see above. Multiple labs, EKG and imaging were obtained and evaluated. Please see above. The patient appears to be in acute renal failure. Potassium is not elevated. The patient does not appear septic at this time. The patient does have a urinary tract infection and may have urinary obstruction. Versus dehydration. The patient did improve with IV fluid administration. I started the patient on high volumes of IV fluids but with caution due to his significant peripheral edema and known renal failure. I discussed care at length with the patient, patient's son and hospitalist. The patient will obviously require further evaluation in the hospital. Consults Time Called: 1516 Consulting Physician: Dr. Shiloh BOWMAN Returned Call: 1521 At this time, I discussed the patients case with Dr. Matamoros and she agreed to accept the patient for further evaluation. Impression Primary Impression: Shock Additional Impressions: Renal failure Urinary tract infection Critical Care I have personally spent greater than 35 minutes of critical care time in the direct management of this patient. This includes bedside care, interpretation of diagnostic studies, and testing, discussion with consultants, patient, and family members, and other required patient management activities. This 35 minutes is in excess of all separately billable procedures. Scribe Attestation The scribe's documentation has been prepared under my direction and personally reviewed by me in its entirety. I confirm that the note above accurately reflects all work, treatment, procedures, and medical decision making performed by me. Departure Information Dispostion Being Evaluated By Hospitalist Referrals RV. Mendoza MD (PCP) Problem Qualifiers
[2017-01-06 14:40] LABS: BASO % 0.4 %; BASO ABS # 0.04 K/uL (0-0.2); COMPLETE YES; EOS % 4.2 %; HEMATOCRIT 34.6 % (42-52); IG% 0.5 %; LYMPH % 8.9 %; LYMPH ABS # 0.99 K/uL (1.2-3.4); MEAN CORPUSCULAR HEMOGLOBIN 29.8 pg (25-34); MEAN CORPUSCULAR HGB CONC 33.8 g/dl (32-36); MEAN PLATELET VOLUME 10.5 fL (7.4-10.4); MONO % 6.7 %; NEUT % 79.3 %; PLATELET COUNT 196 K/uL (130-400); RED BLOOD COUNT 3.93 M/uL (4.7-6.1); WHITE BLOOD COUNT 11.07 K/uL (4.8-10.8)
[2017-01-06 15:12] LABS: ALB/GLOB RATIO 0.7 (0.9-2); ALKALINE PHOSPHATASE 137 U/L (45-117); ALT/SGPT 8 U/L (12-78); AST/SGOT 25 U/L (15-37); BLOOD UREA NITROGEN 94 mg/dl (7-18); BUN/CREATININE RATIO 18.4 (10-20); CARBON DIOXIDE 25 mmol/L (21-32); CHLORIDE 99 mmol/L (98-107); GLUCOSE 85 mg/dl (70-99); POTASSIUM 3.7 mmol/L (3.5-5.1); SODIUM 137 mmol/L (136-145)
--- NOTE | 2017-01-06 15:19 | DIAGNOSTIC IMAGING REPORT ---
CHEST ONE VIEW PORTABLE CLINICAL HISTORY: Central line placement COMPARISON STUDY: 03/22/2016 FINDINGS: The heart is enlarged. There is been interval placement of a right subclavian central venous catheter. The tip projects in the right atrium. No pneumothorax is visualized. There is no focal pulmonary consolidation. There is mild right hilar prominence. There is no failure.[ IMPRESSION: No evidence of pneumothorax status post right subclavian central venous catheter placement. The tip projects over the right atrium. Electronically signed by: Naveen Parks M.D. 01/06/2017 3:17 PM Dictated Date/Time: 01/06/2017 3:17 PM
[2017-01-06] MEDS ORDERED: CARB25TA12 PO (15:28)
[2017-01-06] MEDS ORDERED: MENTOIN12 TOP (15:28)
[2017-01-06] MEDS ORDERED: TIZA2TAB3 PO (15:28)
[2017-01-06] MEDS ORDERED: IBUP-1050 PO (15:28)
[2017-01-06 16:22] LABS: URINE APPEARANCE CLOUDY (CLEAR); URINE COLOR DK YELLOW; URINE EPITHELIAL CELL AUTO >30 /lpf (0-5); URINE NITRITE POS (NEG); URINE SPECIFIC GRAVITY 1.022 (1.000-1.030); UROBILINOGEN NEG (NEG); ZZURINE CULT IF INDIC CATH YES
[2017-01-06 16:27] LABS: MANUAL MICROSCOPIC REQUIRED? NO; REVIEW REQ? YES
[2017-01-06 16:29] LABS: URINE BILIRUBIN NEG (NEG)
[2017-01-06] MEDS ORDERED: ONDANSETRON INJ 2 MG/ML 2 ML VIAL IV PRN (16:45)
[2017-01-06] MEDS ORDERED: ACETAMINOPHEN 325 MG TAB PO PRN (16:45)
[2017-01-06] MEDS ORDERED: MENTHOL-ZINC OXIDE 360 APPLN/120 GM TUBE EXT PRN (17:00)
--- NOTE | 2017-01-06 17:09 | DIAGNOSTIC IMAGING REPORT ---
HEAD CT NONCONTRAST CT DOSE: 1437.38 mGy.cm HISTORY: Trauma. Mental status change. confusion recent falls TECHNIQUE: Multiaxial CT images of the head were performed without the use of intravenous contrast. Comparison: 01/31/2013 Findings: The paranasal sinuses and mastoid air cells are clear. There is a considerable chronic small vessel change throughout the cerebral hemispheres bilaterally. No acute intracranial hemorrhage. No midline shift. Impression: Considerable age-related chronic small vessel change. No acute intracranial abnormality. Electronically signed by: Shakeel Coello M.D. 01/06/2017 5:08 PM Dictated Date/Time: 01/06/2017 5:07 PM
--- NOTE | 2017-01-06 17:21 | DIAGNOSTIC IMAGING REPORT ---
ABDOMEN AND PELVIS CT WITHOUT CONTRAST CT DOSE: 294.03 mGy.cm HISTORY: Pain. Renal failure. renal failure, r/o ureterolithiasis, hydronephrosis TECHNIQUE: Multiaxial CT images of the abdomen and pelvis were performed without contrast. COMPARISON STUDY: 10/26/2011 FINDINGS: Small parenchymal infiltrate right base. Minimal infiltrative/atelectatic changes left base. Hepatic cirrhotic change with progressive space-occupying lesions within the right as well as left hepatic lobe. Spleen is uniform. Interval development of bulky periaortic and mesenteric adenopathy. Conglomerate vonda dimensions at the level of the renal arteries is approximately 7.5 x 5.5 cm. Adenopathy extends inferiorly and occupies components of the para-aortic region. Enlarged nodes are identified scattered throughout the mesentery. There are findings of significant nodes within the left and to a lesser extent right lobe pelvic sidewall and lower pelvic inguinal regions. Nodes on the left measuring up to 2.2 cm with nodes of the right 2.15 cm. Bowel pattern overall is nonobstructive. There is atherosclerotic change of the abdominal aorta as well as iliac vasculature. There are bilateral renal calcifications. There is developing staghorn calculus of the left renal pelvis. There are multiple smaller renal calcifications of the right kidney. Cortical scarring of the kidneys bilaterally with several renal hypodensities are present there is trace amount perihepatic ascites. There is trace amount of ascites within the right paracolic cutters region. IMPRESSION: 1. Development of bulky adenopathy within the retroperitoneum abdomen and mesenteric region. 2. Less prominent vonda change in the pelvic sidewall and inguinal regions bilaterally. 3. Developing staghorn calculus of the left kidney with multiple nonobstructing right renal calcifications. 4. High suspicion of developing hepatic metastatic change. 5. Bibasilar infiltrative change 6. An entity such as lymphoma, with diffuse metastatic change must be consideration. Electronically signed by: Shakeel Coello M.D. 01/06/2017 5:19 PM Dictated Date/Time: 01/06/2017 5:11 PM
[2017-01-06] MEDS ORDERED: LEVOFLOXACIN / D5W 750 MG in PREMIXED IN D5W 150 ML IV ONE (18:15)
[2017-01-06 18:34] VITALS: BP 110/71; PULSE 67; TEMP 36.2; O2SAT 95; Ht 162.6 cm; Wt 87.2 kg
[2017-01-06 18:42] VITALS: BP 110/71; PULSE 67; TEMP 36.2; O2SAT 95
[2017-01-06] MEDS ORDERED: EFFSR/75 PO (18:51)
[2017-01-06 19:33] LABS: INR 1.1 (0.9-1.1); PROTHROMBIN TIME (PATIENT) 11.3 SECONDS (9.0-12.0)
[2017-01-06] MEDS ORDERED: LEVOFLOXACIN CONSULT ACTIVE PRN (19:45)
[2017-01-06 20:00] VITALS: O2SAT 95
[2017-01-06 20:12] VITALS: BP 100/67; PULSE 68; TEMP 36.8; O2SAT 100
[2017-01-06] MEDS: OXYCODONE/ACETAMINOPHEN 5-325 TAB PO PRN (20:13)
[2017-01-06] MEDS: SODIUM CHLORIDE 0.9% 1000ML 1,000 ML IV SCH (20:14)
[2017-01-06] MEDS: CARBIDOPA/LEVODOPA 25/100MG TAB PO SCH (20:15)
[2017-01-06] MEDS: DOCUSATE SODIUM 100 MG CAP PO SCH (20:16)
[2017-01-06] MEDS: HEPARIN SOD 5000 UNIT/0.5 ML CARP SQ SCH (20:44)
--- NOTE | 2017-01-06 22:29 | History and Physical ---
History & Physical Date & Time of Service: Jan 06, 2017 at 16:44 Chief Complaint: Ams/Pedal Edema Primary Care Physician: RV. Mendoza MD History of Present Illness Source: patient, family (son) The patient is a 76-year-old male with a history of nephrolithiasis with a left staghorn calculus, chronic low back pain, hypertension, parkinsonian syndrome, hypothyroidism, GERD, and severe depression, who presents to the ER with some confusion the last 2 days and weakness with 2 falls in the last week. The EMS reports his blood pressure was in the 60s over 40s. When he presented to the ER , he was relatively hypotensive with a systolic blood pressure of 90, and a right-sided subclavian central line was placed by the ER physician and he was bolused with 2 L of normal saline. The son noted that patient's fingertips seemed to had one episode of vomiting prior to coming to the ER. He was found to be in acute renal failure with a creatinine of 5.2 up from a baseline of 1.0 from 2 months ago. The patient and his son report that he has had increasing lower back pain for the last 6 weeks. On x-ray of lumbar spine, he was found to have bilateral kidney stones that were large including a 4 cm left staghorn calculus. He was referred to urology who recommended that he see a urologist at [facility] for possible surgical excision of some sort of this staghorn calculus. That appointment was canceled due to the bad weather in the middle of December. He was however found to have significant urinary tract infection at his appointment at Dr. Sweet's office at the end of November was placed on Cipro. Patient was also seen by pain management in the last month as thought was given that his lower back pain was due to degenerative disc disease. They recommended topical analgesic and Percocet when necessary. He has been taking NSAIDs as needed for his pain. Patient reports since that time, he has been mostly sedentary to the point of developing a sacral decubitus ulcer. He does drink fluids but isn't able to get around very well due to his pain. He is also noted significant leg swelling just in the last 2 or 3 days. He denies urinary frequency and in fact, it sounds like he has not been urinating much at all in the last couple of days. A Rodriguez was placed here in the ER and drained about 100 mL of foul-smelling dark urine. He was also noted to be in atrial fibrillation with a heart rate of 100 which is also new for him. His urinalysis was also grossly abnormal for urinary tract infection in the setting of a known staghorn calculus. He will be admitted to the PCU for acute kidney injury and hypotension. 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 Thought to be due to esophagitis and gastritis (6) tonsillectomy Family History Hypertension Kidney disease or stones Noncontributory Social History Smoking Status: Former Smoker Alcohol Use: none Drug Use: none Marital Status: Housing status: halfway Occupational Status: retired Immunizations History of Influenza Vaccine: No History of Tetanus Vaccine?: Yes History of Pneumococcal: Yes History of Hepatitis B Vaccine: Unknown Multi-Drug Resistant Organisms History of MDRO: No Allergies Coded Allergies: Penicillins (Verified Allergy, Unknown, HIVES, 10/16/16) Home Medications Scheduled Carbidopa/Levodopa (Sinemet 25MG/100MG), 1 TAB PO TID Carbidopa/Levodopa (Sinemet 25MG/100MG), 2 TAB PO DAILY Cholecalciferol (Vitamin D3), 5,000 PO QDL Docusate Sodium (Docusate Sodium), 1 CAP PO BID Enalapril (Vasotec), 10 MG PO QAM Levothyroxine Sodium (Levothyroxine Sodium), 1 TAB PO QAM Nitrofurantoin Monohyd Macrocr (Macrobid), 100 MG PO HS Omeprazole (Prilosec), 20 MG PO QAM Oxycodone/Acetaminophen 5MG/325MG (Percocet 5MG/325MG), 1 TABLET PO Q12 Venlafaxine HCl (Venlafaxine HCl ER), 75 MG PO DAILY Scheduled PRN Ibuprofen (Advil), 400 MG PO Q6 PRN for Pain Menthol-Zinc Oxide (Risamine), 1 APPLN TOP for BUTTOCKS EXCORIATION Tizanidine Hcl (Zanaflex), 2 MG PO Q12 PRN for Muscle Spasms Review of Systems Constitutional: No chills, No fever Eyes: No problem reported ENT: No problem reported Respiratory: No shortness of breath Cardiovascular: + edema, No chest pain, No palpitations Abdomen: + nausea, + vomiting, No GI bleeding, No constipation, No diarrhea, No pain Musculoskeletal: + joint pain (feet and hands) Genitourinary - Male: No dysuria, No hematuria, No urinary frequency, No urinary retention Neurologic: + memory loss, + weakness (in legs, generalized) Psychiatric: + depression symptoms Endocrine: + fatigue Hematologic / Lymphatic: No problem reported Integumentary: + new/changing skin lesions (chronic wounds on the bottom of the right foot and bilateral great toes for years), No rash Allergic / Immunologic: No problem reported Physical Exam Vital Signs Date Time Temp Pulse Resp B/P Pulse Ox O2 Delivery O2 Flow Rate FiO2 01/06/17 16:18 99 18 107/60 100 Nasal Cannula 4.0 01/06/17 15:33 90 16 95/65 100 Nasal Cannula 4.0 01/06/17 14:56 67 20 108/57 100 01/06/17 14:50 100 01/06/17 14:45 93 98/60 01/06/17 14:40 90 01/06/17 14:38 98/62 01/06/17 14:35 92 01/06/17 14:30 88 01/06/17 14:25 79 01/06/17 13:50 36.5 115 18 93/77 Nasal Cannula 4.0 01/06/17 13:50 90 01/06/17 13:50 Nasal Cannula 4.0 01/06/17 13:50 Room Air General Appearance: no apparent distress, + thin (masked facies) Head: normocephalic, atraumatic Eyes: normal inspection, PERRL, EOMI, sclerae normal ENT: hearing grossly normal, + pertinent finding (pharynx with dry tongue and mucous membranes) Neck: supple, trachea midline Respiratory/Chest: lungs clear, normal breath sounds, no respiratory distress, no accessory muscle use Cardiovascular: + irregularly irregular (with normal rate in the 80s, no murmur gallop or rub appreciated), + pertinent finding (3+ pitting edema to the thighs bilaterally) Abdomen/GI: normal bowel sounds, soft, no organomegaly, no pulsatile mass, + tenderness (in bilateral lower quadrants without guarding or rebound, large bilateral incisional scars are well-healed in the inguinal regions) Genitourinary - Male: normal male genitalia (Rodriguez catheter in place draining dark brown cloudy urine) Back: normal inspection Extremities/Musculoskelatal: + pertinent finding (joint deformities in the hands with radial deviation fifth PIPs and DIPs, bilateral hammertoes) Neurologic/Psych: alert, + depressed affect, + pertinent finding (can move all extremities, speech is slow) Skin: normal color, no rash, + pertinent finding (right plantar surface of foot with dressing in place with large callus, no surrounding erythema or drainage, bilateral great toes with superficial ulcerations on the dorsal surface; also with small superficial abrasion on the left elbow ) Diagnostics Laboratory Results Results Past 24 Hours Test 01/06/17 14:15 01/06/17 15:00 01/06/17 15:45 Range/Units White Blood Count 11.07 4.8-10.8 K/uL Red Blood Count 3.93 4.7-6.1 M/uL Hemoglobin 11.7 14.0-18.0 g/dL Hematocrit 34.6 42-52 % Mean Corpuscular Volume 88.0 80-100 fL Mean Corpuscular Hemoglobin 29.8 25-34 pg Mean Corpuscular Hemoglobin Concent 33.8 32-36 g/dl Platelet Count 196 130-400 K/uL Mean Platelet Volume 10.5 7.4-10.4 fL Neutrophils (%) (Auto) 79.3 % Lymphocytes (%) (Auto) 8.9 % Monocytes (%) (Auto) 6.7 % Eosinophils (%) (Auto) 4.2 % Basophils (%) (Auto) 0.4 % Neutrophils # (Auto) 8.78 1.4-6.5 K/uL Lymphocytes # (Auto) 0.99 1.2-3.4 K/uL Monocytes # (Auto) 0.74 0.11-0.59 K/uL Eosinophils # (Auto) 0.47 0-0.5 K/uL Basophils # (Auto) 0.04 0-0.2 K/uL RDW Standard Deviation 49.4 36.4-46.3 fL RDW Coefficient of Variation 15.3 11.5-14.5 % Immature Granulocyte % (Auto) 0.5 % Immature Granulocyte # (Auto) 0.05 0.00-0.02 K/uL Sodium Level 137 136-145 mmol/L Potassium Level 3.7 3.5-5.1 mmol/L Chloride Level 99 98-107 mmol/L Carbon Dioxide Level 25 21-32 mmol/L Anion Gap 13.0 3-11 mmol/L Blood Urea Nitrogen 94 7-18 mg/dl Creatinine 5.20 0.60-1.40 mg/dl Est Creatinine Clear Calc Drug Dose 10.9 ml/min Estimated GFR () 11.4 Estimated GFR (Non- 9.8 BUN/Creatinine Ratio 18.4 10-20 Random Glucose 85 70-99 mg/dl Calcium Level 9.0 8.5-10.1 mg/dl Total Bilirubin 0.4 0.2-1 mg/dl Aspartate Amino Transf (AST/SGOT) 25 15-37 U/L Alanine Aminotransferase (ALT/SGPT) 8 12-78 U/L Alkaline Phosphatase 137 45-117 U/L Troponin I < 0.015 0-0.045 ng/ml Total Protein 8.0 6.4-8.2 gm/dl Albumin 3.4 3.4-5.0 gm/dl Globulin 4.6 2.5-4.0 gm/dl Albumin/Globulin Ratio 0.7 0.9-2 Lactic Acid Level 0.7 0.4-2.0 mmol/L Urine Color DK YELLOW Urine Appearance CLOUDY CLEAR Urine pH 5.0 4.5-7.5 Urine Specific [place] 1.022 1.000-1.030 Urine Protein 2+ NEG Urine Glucose (UA) NEG NEG Urine Ketones NEG NEG Urine Occult Blood 2+ NEG Urine Nitrite POS NEG Urine Bilirubin NEG NEG Urine Urobilinogen NEG NEG Urine Leukocyte Esterase MODERATE NEG Microbiology Results 01/06/17 Blood Culture, Received Pending 01/06/17 Blood Culture, Received Pending 01/06/17 Urine Culture, Received Pending Diagnostic Radiology CT, chest x-ray reviewed EKG EKG with new atrial fibrillation with rapid response, heart rate 101, left axis deviation with nonspecific intraventricular conduction delay and T-wave inversions in the lateral leads unchanged from previous Impression Assessment and Plan The patient is a 76-year-old male with a history of nephrolithiasis with a left staghorn calculus, chronic low back pain, hypertension, parkinsonian syndrome, hypothyroidism, GERD, and severe depression, who presents to the ER with some confusion the last 2 days and weakness with 2 falls in the last week. The EMS reports his blood pressure was in the 60s over 40s. When he presented to the ER , he was relatively hypotensive with a systolic blood pressure of 90, and a right-sided subclavian central line was placed by the ER physician and he was bolused with 2 L of normal saline. The son noted that patient's fingertips seemed to had one episode of vomiting prior to coming to the ER, and had new onset lower extremity edema in the last several days. He was found to be in acute renal failure with a creatinine of 5.2 up from a baseline of 1.0 from 2 months ago. Acute kidney injury/nephrolithiasis/UTI/lower extremity edema-creatinine 5.2 up from baseline of 1.0. He is oliguric and hypotensive and despite the edema in his lower extremities, he is clinically dry. He has known large kidney stones including a left staghorn calculus in his urine appears infected. He is not hyperkalemic or acidotic at this time and no urgent dialysis is needed. White blood cell count is mildly elevated at 11,000 and he was hypotensive and mildly tachycardic. Lactate is normal and he is afebrile. Suspect prerenal azotemia from dehydration but there may be a component of intrinsic renal failure due to infection and stones. -Was bolused 2 L of normal saline in the ER and now will continue at 75 mL per hour -Rodriguez placed, monitor strict I's and O's -Consult to nephrology is appreciated -Follow labs in the morning -Check CT of the abdomen and pelvis to see if kidney stones have progressed and are contributing to the new onset renal failure, check for hydronephrosis -Consult his urologist -Start Levaquin renally dosed for urinary tract infection and follow urine cultures and blood cultures -Check Doppler of the lower extremities to rule out DVT -Check echo to rule out congestive heart failure as cause of lower extremity edema and renal failure -Avoid nephrotoxins and renally dose all meds -Pain meds from home including Percocet when necessary for back pain Rapid atrial fibrillation/hypertension-rate is now controlled in the 80s after IV fluid boluses were given for hypotension. This is new in onset for him. Unable to start beta edie at this time due to hypotension. Will not start anticoagulation as may need procedure in the near future depending on what CT scan shows. Troponin was negative -Hold his BABAK inhibitor -Check echo -Consult cardiology for further evaluation and recommendations -Check ECG in the morning Parkinsonism/history of severe depression-stable at this time, has a history of electroconvulsive therapy with last maintenance treatment in July 2016. Has a history of hospitalization for severe parkinsonism symptoms causing failure to thrive requiring PEG tube placement which has since been removed. -Continue Sinemet and Effexor Hypothyroidism-TSH is mildly elevated at 6 here -Check free T3 and free T4 in the morning Continue levothyroxine at home dose for now GERD-stable -Continue PPI DVT prophylaxis OCRY gonzalez and heparin subcutaneous Disposition: full code, from [facility] Additional Copies To RV. Mendoza MD
[2017-01-06 23:35] VITALS: BP 113/69; PULSE 62; TEMP 36.4; O2SAT 97
[2017-01-07] VITALS (8 sets, daily range): BP systolic 66–113; BP diastolic 44–74; PULSE 56–88; TEMP 36.4–37; O2SAT 95–99
[2017-01-07] MEDS: OXYCODONE/ACETAMINOPHEN 5-325 TAB PO PRN (04:40)
[2017-01-07] MEDS: LEVOTHYROXINE 137 MCG TAB PO SCH (06:00)
[2017-01-07] MEDS: SODIUM CHLORIDE 0.9% 1000ML 1,000 ML IV SCH ×2 (06:02→18:48)
[2017-01-07 06:15] LABS: BASO % 0.4 %; BASO ABS # 0.03 K/uL (0-0.2); COMPLETE YES; HEMATOCRIT 29.2 % (42-52); IG% 0.4 %; LYMPH % 8.5 %; LYMPH ABS # 0.73 K/uL (1.2-3.4); MEAN CELL VOLUME 89.6 fL (80-100); MEAN CORPUSCULAR HEMOGLOBIN 30.1 pg (25-34); MEAN CORPUSCULAR HGB CONC 33.6 g/dl (32-36); MEAN PLATELET VOLUME 10.5 fL (7.4-10.4); MONO % 6.5 %; NEUT % 80.2 %; PLATELET COUNT 155 K/uL (130-400); RED BLOOD COUNT 3.26 M/uL (4.7-6.1); WHITE BLOOD COUNT 8.57 K/uL (4.8-10.8)
[2017-01-07 06:46] LABS: BUN/CREATININE RATIO 22.2 (10-20); CALCIUM 7.8 mg/dl (8.5-10.1); POTASSIUM 3.2 mmol/L (3.5-5.1)
--- NOTE | 2017-01-07 08:27 | Urology Consultation ---
History General Date of Service: Jan 07, 2017. Chief Complaint: Renal failure, stone disease Primary Care Physician: RV. Mendoza MD Pt seen a urologist before?: Yes If yes, why?: Our service for stone disease Nov 2016 History of Present Illness 76 yo male, initially evaluated by our service in outpatient consultation 2 months ago for his stone disease, now admitted with renal failure, hypotension, apparent UTI and a new findings of significant lymphadenopathy, possible lymphoma on CT scan imaging. Outpatient and inpatient notes reviewed, CT scan images personally reviewed. Patient notes his chronic back pain worsened over the past 1-2 weeks and his ER records note confusion per his son. On admission he was found to have a Cr of 5.4, currently improved to 4. His CT scan images showed no hydro or ureteral calculi, + large renal stones, L>R c/w his previous imaging findings as outpatient and diffuse lympadenopathy as well as suspected hepatic metastatic lesions. Patient is sedate in bed but communicative, notes his pain persists, worsened by activity. He denies new voiding symptoms or bother. Rodriguez in place. Urology consultation sought out to assist with his acute care. HPI - Stones Size: Staghorn on left, > 1 cm on R Location: left, right, kidney Pain: left & right flank, intermittent Imaging Imaging: CT Laboratory Last 24 Hours Test 01/06/17 14:08 01/06/17 14:15 01/06/17 15:00 01/06/17 15:45 Prothrombin Time 11.3 SECONDS Prothromb Time International Ratio 1.1 White Blood Count 11.07 K/uL Red Blood Count 3.93 M/uL Hemoglobin 11.7 g/dL Hematocrit 34.6 % Mean Corpuscular Volume 88.0 fL Mean Corpuscular Hemoglobin 29.8 pg Mean Corpuscular Hemoglobin Concent 33.8 g/dl Platelet Count 196 K/uL Mean Platelet Volume 10.5 fL Neutrophils (%) (Auto) 79.3 % Lymphocytes (%) (Auto) 8.9 % Monocytes (%) (Auto) 6.7 % Eosinophils (%) (Auto) 4.2 % Basophils (%) (Auto) 0.4 % Neutrophils # (Auto) 8.78 K/uL Lymphocytes # (Auto) 0.99 K/uL Monocytes # (Auto) 0.74 K/uL Eosinophils # (Auto) 0.47 K/uL Basophils # (Auto) 0.04 K/uL RDW Standard Deviation 49.4 fL RDW Coefficient of Variation 15.3 % Immature Granulocyte % (Auto) 0.5 % Immature Granulocyte # (Auto) 0.05 K/uL Sodium Level 137 mmol/L Potassium Level 3.7 mmol/L Chloride Level 99 mmol/L Carbon Dioxide Level 25 mmol/L Anion Gap 13.0 mmol/L Blood Urea Nitrogen 94 mg/dl Creatinine 5.20 mg/dl Est Creatinine Clear Calc Drug Dose 10.9 ml/min Estimated GFR () 11.4 Estimated GFR (Non- 9.8 BUN/Creatinine Ratio 18.4 Random Glucose 85 mg/dl Calcium Level 9.0 mg/dl Total Bilirubin 0.4 mg/dl Aspartate Amino Transf (AST/SGOT) 25 U/L Alanine Aminotransferase (ALT/SGPT) 8 U/L Alkaline Phosphatase 137 U/L Troponin I < 0.015 ng/ml Total Protein 8.0 gm/dl Albumin 3.4 gm/dl Globulin 4.6 gm/dl Albumin/Globulin Ratio 0.7 Thyroid Stimulating Hormone (TSH) 6.360 uIu/ml Lactic Acid Level 0.7 mmol/L Urine Color DK YELLOW Urine Appearance CLOUDY Urine pH 5.0 Urine Specific [place] 1.022 Urine Protein 2+ Urine Glucose (UA) NEG Urine Ketones NEG Urine Occult Blood 2+ Urine Nitrite POS Urine Bilirubin NEG Urine Urobilinogen NEG Urine Leukocyte Esterase MODERATE Urine WBC (Auto) >30 /hpf Urine RBC (Auto) 10-30 /hpf Urine Hyaline Casts (Auto) 5-10 /lpf Urine Epithelial Cells (Auto) >30 /lpf Urine Bacteria (Auto) NEG Urine Renal Epithelial Cells /lpf Urine Pathogenic Casts /lpf Test 01/07/17 05:40 White Blood Count 8.57 K/uL Red Blood Count 3.26 M/uL Hemoglobin 9.8 g/dL Hematocrit 29.2 % Mean Corpuscular Volume 89.6 fL Mean Corpuscular Hemoglobin 30.1 pg Mean Corpuscular Hemoglobin Concent 33.6 g/dl Platelet Count 155 K/uL Mean Platelet Volume 10.5 fL Neutrophils (%) (Auto) 80.2 % Lymphocytes (%) (Auto) 8.5 % Monocytes (%) (Auto) 6.5 % Eosinophils (%) (Auto) 4.0 % Basophils (%) (Auto) 0.4 % Neutrophils # (Auto) 6.88 K/uL Lymphocytes # (Auto) 0.73 K/uL Monocytes # (Auto) 0.56 K/uL Eosinophils # (Auto) 0.34 K/uL Basophils # (Auto) 0.03 K/uL RDW Standard Deviation 49.6 fL RDW Coefficient of Variation 15.1 % Immature Granulocyte % (Auto) 0.4 % Immature Granulocyte # (Auto) 0.03 K/uL Sodium Level 141 mmol/L Potassium Level 3.2 mmol/L Chloride Level 106 mmol/L Carbon Dioxide Level 24 mmol/L Anion Gap 11.0 mmol/L Blood Urea Nitrogen 89 mg/dl Creatinine 4.00 mg/dl Est Creatinine Clear Calc Drug Dose 14.2 ml/min Estimated GFR () 15.7 Estimated GFR (Non- 13.5 BUN/Creatinine Ratio 22.2 Random Glucose 78 mg/dl Calcium Level 7.8 mg/dl Magnesium Level 2.0 mg/dl Free Thyroxine 1.41 ng/dl Free Triiodothyronine 1.28 pg/ml Problem List Medical Problems: (1) Proximal humerus fracture Status: Acute (2) Renal failure Status: Acute (3) Shock Status: Acute (4) Urinary tract infection Status: Acute Past History anxiety, depression, GERD, high cholesterol, hypertension, kidney stones, renal disease, urinary tract infection, other (constipation, cerebral ischemia, history of Graves' disease, mitral regurgitation, Parkinsonism) Past Surgical History: appendectomy, cholecystectomy, lithotripsy, other ( hernia repair, oral surgery) Family History FHx: asthma Hypertension Kidney disease or stones Father: HTN, asthma, CHF Mother: depression Brother: HTN, CAP Social History Hx Tobacco Use In Past Year?: No Smoking: quit greater than 1 year Alcohol: no current use Marital status: Housing status: senior living Occupation status: retired Immunizations History of Influenza Vaccine: No History of Tetanus Vaccine?: Yes History of Pneumococcal: Yes History of Hepatitis B Vaccine: Unknown History of MDRO No Allergies Coded Allergies: Penicillins (Verified Allergy, Unknown, HIVES, 10/16/16) Medications Home Medications: Home Meds and Scripts Medications Dose Route/Sig Max Daily Dose Days Date Category Dose Instructions Venlafaxine HCl ER (Venlafaxine HCl) 75 Mg Capcr 75 Mg PO DAILY 3/27/17 Reported Sinemet 25MG/100MG (Carbidopa/Levodopa) Tab 2 Tab PO DAILY 01/06/17 Reported Zanaflex (Tizanidine Hcl) 2 Mg Tab 2 Mg PO Q12 PRN 01/06/17 Reported Risamine (Menthol-Zinc Oxide) 1 Oin Oin 1 Appln TOP PRN 01/06/17 Reported Advil (Ibuprofen) 200 Mg Tab 400 Mg PO Q6 PRN 01/06/17 Reported Macrobid (Nitrofurantoin Macrocrystals) 100 Mg Cap 100 Mg PO HS 12/18/16 Reported Percocet 5MG/325MG (Oxycodone/Acetaminophen) Tab 1 Tablet PO Q12 12/18/16 Reported PAIN Vitamin D3 (Cholecalciferol) 1,000 Inter.unit Tab 5,000 PO QDL 10/08/16 Reported Prilosec (Omeprazole) 20 Mg Capcr 20 Mg PO QAM 10/08/16 Reported Levothyroxine Sodium 137 Mcg Tab 1 Tab PO QAM 10/08/16 Reported Vasotec (Enalapril Maleate) 10 Mg Tab 10 Mg PO QAM 10/08/16 Reported Docusate Sodium 100 Mg Cap 1 Cap PO BID 10/08/16 Reported Sinemet 25MG/100MG (Carbidopa/Levodopa) Tab 1 Tab PO TID 10/08/16 Reported Inpatient Medications: Current Inpatient Medications Medications (Trade) Dose Ordered Sig/Aiden Route Start Time Stop Time Status Last Admin Dose Admin Heparin Sodium (Porcine) 5000 unit 5,000 unit Q12 SQ 01/06/17 21:00 02/05/17 20:59 01/06/17 20:44 5,000 UNIT Sodium Chloride (Nss 1000ml) 1,000 ml @ 75 mls/hr [id number] IV 01/06/17 16:45 02/05/17 16:44 01/07/17 06:02 75 MLS/HR Acetaminophen (Tylenol Tab) 650 mg Q4H PRN PO 01/06/17 16:45 02/05/17 16:44 Ondansetron HCl (Zofran Inj) 4 mg Q6H PRN IV 01/06/17 16:45 02/05/17 16:44 Carbidopa/Levodopa (Sinemet 25/ 100MG Tab) 1 tab TIDM PO 01/07/17 08:00 02/06/17 07:59 Carbidopa/Levodopa (Sinemet 25/ 100MG Tab) 2 tab HS PO 01/06/17 21:00 02/05/17 20:59 01/06/17 20:15 2 TAB Docusate Sodium (coLACE CAP) 100 mg BID PO 01/06/17 21:00 02/05/17 20:59 01/06/17 20:16 100 MG Levothyroxine Sodium (Synthroid Tab) 137 mcg DAILYBB PO 01/07/17 06:30 02/06/17 06:29 01/07/17 06:00 137 MCG Menthol/Zinc Oxide (Calmoseptine Oint) 1 appln BID PRN EXT 01/06/17 17:00 02/05/17 16:59 Oxycodone/ Acetaminophen (Percocet 5-325mg Tab) 1 tab Q6 PRN PO 01/06/17 17:00 01/20/17 16:59 01/07/17 04:40 1 TAB Tizanidine HCl (Zanaflex Tab) 2 mg Q12 PRN PO 01/06/17 17:00 02/05/17 16:59 01/07/17 00:04 2 MG Venlafaxine HCl (effeXOR EXTENDED REL CAP) 75 mg DAILY PO 01/07/17 09:00 02/06/17 08:59 Pantoprazole Sodium (Protonix Tab) 40 mg QAM PO 01/07/17 09:00 02/06/17 08:59 Levofloxacin 1 ea 1 ea UD PRN N/A 01/06/17 19:45 02/05/17 19:44 Levofloxacin/Prmx (Levaquin / D5W/ Premixed D5W) 100 ml @ 100 mls/hr Q48H IV 01/08/17 20:00 01/18/17 19:59 Heparin Sodium (Porcine) (Heparin 10 Unit/ ml 5 ml Flush) 5 ml PRN PRN FLUSH 01/07/17 00:15 02/06/17 00:14 01/07/17 05:45 5 ML Review of Systems Review of Systems Neurological: No seizures Endocrine: + tired/sluggish Gastrointestinal: No nausea Cardiovascular: No angina, No chest pain Respiratory: No coughing up blood Musculoskeletal: + arthritis, + back pain Ears / Nose / Throat: No hoarse voice Psychologic / Mental: No difficulty sleeping Male : + infections, + kidney stones, + see HPI Physical Exam Vital Signs: Vital Signs Past 12 Hours Date Time Temp Pulse Resp B/P Pulse Ox O2 Delivery O2 Flow Rate FiO2 01/07/17 07:40 36.8 85 18 76/44 97 Nasal Cannula 3.0 66/46 01/07/17 04:00 Nasal Cannula 3.0 01/07/17 00:00 Nasal Cannula 3.0 01/06/17 23:35 36.4 62 20 113/69 97 Nasal Cannula 3.0 Physical Exam: General Appearance: no apparent distress, + thin ENT: hearing grossly normal Neck: supple, no adenopathy Respiratory/Chest: no accessory muscle use Cardiovascular: no JVD Gastrointestinal: Abdomen: normal abdomen Renal: normal renal Liver: normal liver Spleen: normal spleen Extremities: non-tender Neurologic/Psychiatric: alert (arousable, communicative) Skin: normal color Assessment & Plan Assessment & Plan A/P 76 yo male with R lower pole renal stone, L partial staghorn calculus, UTI and improving renal failure, apparent diffuse lymphadenopathy and hepatic lesions. Suspicion of diffuse lymphoma noted. Patient's stone disease seem consistent with his previous imaging findings, chronic in nature. His imaging suggests his renal failure is not due to ongoing renal obstruction. He currently does not appear septic clinically. I therefore do not think acute ureteral stenting would be indicated in this patient. Patient had been scheduled for consultation for consideration of PCNL in early January 2017 with follow-up with Dr. Sweet in our office, but I suspect his current findings will take priority in terms of evaluation and intervention. Will follow the patient for now. Continue medical management of his ongoing comorbidities. Thank you for allowing us to participate in this patient's care. Please contact our service with any questions or concerns.
--- NOTE | 2017-01-07 09:35 | Clinical Documentation Query ---
CLINICAL DOCUMENTATION QUERY 76 year old male who presents to the Emergency Room with complaints of persistent confusion and falls. Query #1/2 In your clinical opinion is this patient being managed for: ( X ) Metabolic encephalopathy in setting of UTI, ARF, and hypotension. ( ) Other explanation of clinical findings (Please Explain) ( ) Unable to determine (Please Define) ( ) Need to Discuss ( ) Not Agree The medical record reflects the following clinical findings, treatment, and risk factors. Clinical Indicators: Confusion and disorientation, BP 66-70's/40's, WBC's 11.07, BUN 94, Creatinine 5.20, GFR 9.8, Treatment: IV Levofloxacin, IVF bolus, IVF's, Nephrology consult Risk Factors: Age, infection, renal failure, hypotension, Query #2/2 In your clinical opinion is this patient being managed for: (X ) ARF with ATN ( ) Other explanation of clinical findings (Please Explain) ( ) Unable to determine (Please Define) ( ) Need to Discuss ( ) Not Agree The medical record reflects the following clinical findings, treatment, and risk factors. Clinical Indicators: Hypotension 68-76/49-44, BUN 94, Creatinine 5.20, GFR 9.8, Upon placement of Rodriguez dark brown cloudy urine was returned. Treatment: IV Levofloxacin, IVF bolus, IVF's, Nephrology consult, Risk Factors: Age, hypotension, infection, ?obstructing nephrolithiasis. Please clarify and document your clinical opinion in the progress notes and discharge summary. Terms such as "probable", "suspected", "likely", "questionable", "possible", or "still to be ruled out" are acceptable. IF IN AGREEMENT, YOU MUST DOCUMENT ABOVE DIAGNOSTIC STATEMENT IN DAILY PROGRESS NOTES AND DISCHARGE SUMMARY. This document is not part of the patient's record. ATNWhat is Acute Renal Failure with Acute Tubular Necrosis? ARF with ATN is a medical condition involving the of the tubular cells that form the tubule; the tubule is responsible for transporting urine to the ureters while re-absorbing water and highly concentrating salts and metabolic byproducts. Tubular cells continually replace themselves and if the cause of ATN is treated, recovery is likely. There are 2 classifications of ATN: toxic and ischemic (generally due to hypotension). Toxic ATN occurs when the tubular cells are exposed to a nephrotoxic substance. Ischemic ATN occurs when the tubular cells do not get enough oxygen, a condition that they are highly sensitive and susceptible to due to their very high metabolism. What are the Risks? Blood transfusion reactions, injury or trauma that damages the muscles, septic shock or other forms of shock, hypotension lasting longer than 30 minutes (the sensitivity of individual patients to a decrease in renal perfusion is variable - in some patients, a few minutes of hypotension is sufficient to induce ATN, whereas others are able to tolerate hours of renal ischemia without structural damage to the kidney), exposure to medications that are toxic to the kidneys (aminoglycosides, amphotericin B, cisplatin, contrast media, pentamidine, foscarnet, heme-pigments (as in conditions such as rhabdomyolysis), IV immunoglobulin, and mannitol). What are the Clinical Indicators? Some or all of the following: nausea/vomiting, lethargy, delirium, coma, decreased urine output or oliguria (does not always occur), generalized edema How is it Diagnosed? The gold standard is a poor response to a fluid repletion within 24-72 hours. Diagnosis may be made by FeNA (fractional excretion of sodium) >2 and the presence of muddy brown granular and epithelial casts in the urinalysis. Urine sodium may be high (>250 meq/l/day). Importantly, the absence of these urinary findings does not exclude ATN. On histopathology, there is usually tubulorrhexis or localized necrosis of the epithelial lining in the renal tubules. Renal biopsy may be performed but is rarely done; ATN is generally a clinical diagnosis. How is it Treated? In many patients, ATN is reversible. The goal of treatment is supportive and to prevent life threatening complications. Treatment focuses on preventing the excess build-up of fluids and waste by-products, while allowing the kidneys to heal. Treatment may include: identification and treatment of the underlying cause, restricting fluid intake to a volume equal to the volume of urine produced, restricting substances normally filtered by the kidneys (protein, sodium, potassium), and dialysis in severe cases. Prognosis: The duration of symptoms varies. The decreased urine output phase (if it occurs) may last from a few days to 6 weeks or more. This is occasionally followed by a period of high urine output where the healed and newly functioning kidneys try to clear the body of excess fluid and waste. Possible long term acute care registered nurse complications include chronic renal failure. References: Dr. Colby Loving MD - [place], [facility]; Acute Tubular Necrosis (ATN). Nephrology Channel. InfluxDB. 2007; Messi REYNA, Padma J, PAT Haro (August 2001). "Coexpressed nitric oxide synthase and apical bets integrins influence tubule cell adhesion after cytokine-induced injury. Journal of the [place] Society of Nephrology 12(11):2370-83.PMID [id number]; Cheryl AGARWAL (1998). "Epithelial cell shedding in acute renal injury." Clinical and Experimental Pharmacology & Physiology 25 (3-4): 273-5. doi: 10.1111/j.[id number].t01-3.x. PMID [id number]; Acute Tubular Necrosis. www.nlm.nih.gov/medlineplus/ency/article/188095.htm Thank You, Jaleel Belle RN [phone]
[2017-01-07] MEDS: CARBIDOPA/LEVODOPA 25/100MG TAB PO SCH ×4 (09:53→21:01)
--- NOTE | 2017-01-07 10:24 | Cardiology Consultation ---
Cardiology Consultation Date of Consultation: Jan 07, 2017. Requesting Physician: Dr. Matamoros Reason for Consultation: Atrial fibrillation Pt evaluation today including: conversation w/ patient, physical exam, lab review, review of studies, review of inpatient medication list History of Present Illness This is a 76-year-old gentleman is not a very good historian therefore most of his history is from records. He has a long history of psychosis, I believe depression, for which he has received ECT. Additionally he has Parkinson's disease which makes it difficult for him to ambulate. He is therefore at [facility]. He also has a history of hypothyroidism and hypertension. He was also observed in the past to have an irregular heart rate and electrocardiography suggests frequent premature beats. He was evaluated in early 2015 for this irregular rhythm. A 24-hour Holter monitor was done on 11/13, this showed frequent premature atrial beats and brief runs of PAT but no atrial fibrillation. An echocardiogram around that time showed normal left ventricular function with left ventricular hypertrophy, minimal MR and aortic sclerosis. There are 2 electrocardiograms from 09/19/2015. Both show sinus rhythm with frequent premature atrial beats, on the one the baseline is quite irregular and it is interpreted as atrial fibrillation but I believe they are identical and do not represent atrial fibrillation. Otherwise left axis deviation is present, possibly left anterior fascicular block. With no clear documentation of atrial fibrillation and a controlled heart rate we did not treat him with rate control or anticoagulation. He now presents with worsening confusion, weakness and falling and was noted to be hypotensive. He also has been having a lot of difficulty with back pain and has a staghorn calculus, as well as urinary tract infection and presented with worsening renal function. He was also noted to be in atrial fibrillation with a rapid heart rate on admission. He evidently has been extremely inactive lately and has a sacral decubitus. He was admitted to telemetry, his atrial fibrillation quickly reverted to sinus rhythm where he has remained. At the time of my evaluation on the telemetry floor he is not very specific about symptoms, mostly is complaining about being woken up to eat his meal. He is not complaining of chest discomfort, he is not complaining of palpitations or shortness of breath.. 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 (7) Hyperlipidemia Nec/Nos (8) Hypothyroidism Nos (9) Parkinsonism (10) S/P appendectomy (11) S/P cholecystectomy (12) H/O lithotripsy Family History FHx: asthma Hypertension Kidney disease or stones Social History Smoking Status: Former Smoker History of Alcohol Use: No Review of Systems Constitutional: No fever, No weakness, No weight loss Respiratory: No cough, No dyspnea on exertion, No shortness of breath, No wheezing Cardiac: No PND, No chest pain, No edema, No orthopnea, No palpitations Abdomen: No GI bleeding, No diarrhea, No nausea, No pain, No vomiting Male : No nocturia more than once/night, No sexual dysfunction, No slowing stream, No urinary frequency Neurologic: No balance problems, No numbness/tingling, No paralysis, No weakness Heme: No abnormal bleeding/bruising, No clotting problems Endo: No fatigue Skin: No problem reported His review of systems is probably not very reliable All Other Systems: Reviewed and Negative Allergies Coded Allergies: Penicillins (Verified Allergy, Unknown, HIVES, 10/16/16) Medications Current Inpatient Medications Medications (Trade) Dose Ordered Sig/Aiden Route Start Time Stop Time Status Last Admin Dose Admin Heparin Sodium (Porcine) 5000 unit 5,000 unit Q12 SQ 01/06/17 21:00 02/05/17 20:59 01/06/17 20:44 5,000 UNIT Sodium Chloride (Nss 1000ml) 1,000 ml @ 75 mls/hr [id number] IV 01/06/17 16:45 02/05/17 16:44 01/07/17 06:02 75 MLS/HR Acetaminophen (Tylenol Tab) 650 mg Q4H PRN PO 01/06/17 16:45 02/05/17 16:44 Ondansetron HCl (Zofran Inj) 4 mg Q6H PRN IV 01/06/17 16:45 02/05/17 16:44 Carbidopa/Levodopa (Sinemet 25/ 100MG Tab) 1 tab TIDM PO 01/07/17 08:00 02/06/17 07:59 Carbidopa/Levodopa (Sinemet 25/ 100MG Tab) 2 tab HS PO 01/06/17 21:00 02/05/17 20:59 3/27/17 20:15 2 TAB Docusate Sodium (coLACE CAP) 100 mg BID PO 01/06/17 21:00 02/05/17 20:59 01/06/17 20:16 100 MG Levothyroxine Sodium (Synthroid Tab) 137 mcg DAILYBB PO 01/07/17 06:30 02/06/17 06:29 01/07/17 06:00 137 MCG Menthol/Zinc Oxide (Calmoseptine Oint) 1 appln BID PRN EXT 01/06/17 17:00 02/05/17 16:59 Oxycodone/ Acetaminophen (Percocet 5-325mg Tab) 1 tab Q6 PRN PO 01/06/17 17:00 01/20/17 16:59 01/07/17 04:40 1 TAB Tizanidine HCl (Zanaflex Tab) 2 mg Q12 PRN PO 01/06/17 17:00 02/05/17 16:59 01/07/17 00:04 2 MG Venlafaxine HCl (effeXOR EXTENDED REL CAP) 75 mg DAILY PO 01/07/17 09:00 02/06/17 08:59 Pantoprazole Sodium (Protonix Tab) 40 mg QAM PO 01/07/17 09:00 02/06/17 08:59 Levofloxacin 1 ea 1 ea UD PRN N/A 01/06/17 19:45 02/05/17 19:44 Levofloxacin/Prmx (Levaquin / D5W/ Premixed D5W) 100 ml @ 100 mls/hr Q48H IV 01/08/17 20:00 01/18/17 19:59 Heparin Sodium (Porcine) (Heparin 10 Unit/ ml 5 ml Flush) 5 ml PRN PRN FLUSH 01/07/17 00:15 02/06/17 00:14 01/07/17 05:45 5 ML Physical Exam Vital Signs Past 12 Hours Date Time Temp Pulse Resp B/P Pulse Ox O2 Delivery O2 Flow Rate FiO2 01/07/17 09:00 88 88/44 01/07/17 08:00 Nasal Cannula 3.0 01/07/17 07:40 36.8 85 18 76/44 97 Nasal Cannula 3.0 66/46 01/07/17 04:00 Nasal Cannula 3.0 01/07/17 00:00 Nasal Cannula 3.0 01/06/17 23:35 36.4 62 20 113/69 97 Nasal Cannula 3.0 Constitutional: General Apperance: cachectic Level of Distress: mild distress Ambulation: limited ambulation Psychiatric: Mental Status: confused Orientation: not oriented to time, not oriented to place Head: normocephalic Eyes: EOM: EOMI ENMT: normal ENT inspection, hearing grossly normal Neck: supple, no masses Lungs: Respiratory effort: no dyspnea, good air movement Auscultation: breath sounds normal, no wheezing Cardiovascular: Heart Auscultation: RRR, no rubs, no gallops, II/ FRANCISCO Peripheral Pulses: Bruits: none appreciated Abdomen: Bowel Sounds: normal Inspection & Palpation: soft, no tenderness, guarding & rebound, no masses Musculoskeletal: pertinent finding (cannot be adequately evaluated due to the patient's mental status) Extremities: edema (+2 bilaterally) Neurologic: Cranial Nerves: grossly intact Sensation: grossly intact Data Laboratory Results: Last 24 Hours Test 01/06/17 14:08 01/06/17 14:15 01/06/17 15:00 01/06/17 15:45 Prothrombin Time 11.3 SECONDS Prothromb Time International Ratio 1.1 White Blood Count 11.07 K/uL Red Blood Count 3.93 M/uL Hemoglobin 11.7 g/dL Hematocrit 34.6 % Mean Corpuscular Volume 88.0 fL Mean Corpuscular Hemoglobin 29.8 pg Mean Corpuscular Hemoglobin Concent 33.8 g/dl Platelet Count 196 K/uL Mean Platelet Volume 10.5 fL Neutrophils (%) (Auto) 79.3 % Lymphocytes (%) (Auto) 8.9 % Monocytes (%) (Auto) 6.7 % Eosinophils (%) (Auto) 4.2 % Basophils (%) (Auto) 0.4 % Neutrophils # (Auto) 8.78 K/uL Lymphocytes # (Auto) 0.99 K/uL Monocytes # (Auto) 0.74 K/uL Eosinophils # (Auto) 0.47 K/uL Basophils # (Auto) 0.04 K/uL RDW Standard Deviation 49.4 fL RDW Coefficient of Variation 15.3 % Immature Granulocyte % (Auto) 0.5 % Immature Granulocyte # (Auto) 0.05 K/uL Sodium Level 137 mmol/L Potassium Level 3.7 mmol/L Chloride Level 99 mmol/L Carbon Dioxide Level 25 mmol/L Anion Gap 13.0 mmol/L Blood Urea Nitrogen 94 mg/dl Creatinine 5.20 mg/dl Est Creatinine Clear Calc Drug Dose 10.9 ml/min Estimated GFR () 11.4 Estimated GFR (Non- 9.8 BUN/Creatinine Ratio 18.4 Random Glucose 85 mg/dl Calcium Level 9.0 mg/dl Total Bilirubin 0.4 mg/dl Aspartate Amino Transf (AST/SGOT) 25 U/L Alanine Aminotransferase (ALT/SGPT) 8 U/L Alkaline Phosphatase 137 U/L Troponin I < 0.015 ng/ml Total Protein 8.0 gm/dl Albumin 3.4 gm/dl Globulin 4.6 gm/dl Albumin/Globulin Ratio 0.7 Thyroid Stimulating Hormone (TSH) 6.360 uIu/ml Lactic Acid Level 0.7 mmol/L Urine Color DK YELLOW Urine Appearance CLOUDY Urine pH 5.0 Urine Specific [place] 1.022 Urine Protein 2+ Urine Glucose (UA) NEG Urine Ketones NEG Urine Occult Blood 2+ Urine Nitrite POS Urine Bilirubin NEG Urine Urobilinogen NEG Urine Leukocyte Esterase MODERATE Urine WBC (Auto) >30 /hpf Urine RBC (Auto) 10-30 /hpf Urine Hyaline Casts (Auto) 5-10 /lpf Urine Epithelial Cells (Auto) >30 /lpf Urine Bacteria (Auto) NEG Urine Renal Epithelial Cells /lpf Urine Pathogenic Casts /lpf Test 01/07/17 05:40 White Blood Count 8.57 K/uL Red Blood Count 3.26 M/uL Hemoglobin 9.8 g/dL Hematocrit 29.2 % Mean Corpuscular Volume 89.6 fL Mean Corpuscular Hemoglobin 30.1 pg Mean Corpuscular Hemoglobin Concent 33.6 g/dl Platelet Count 155 K/uL Mean Platelet Volume 10.5 fL Neutrophils (%) (Auto) 80.2 % Lymphocytes (%) (Auto) 8.5 % Monocytes (%) (Auto) 6.5 % Eosinophils (%) (Auto) 4.0 % Basophils (%) (Auto) 0.4 % Neutrophils # (Auto) 6.88 K/uL Lymphocytes # (Auto) 0.73 K/uL Monocytes # (Auto) 0.56 K/uL Eosinophils # (Auto) 0.34 K/uL Basophils # (Auto) 0.03 K/uL RDW Standard Deviation 49.6 fL RDW Coefficient of Variation 15.1 % Immature Granulocyte % (Auto) 0.4 % Immature Granulocyte # (Auto) 0.03 K/uL Sodium Level 141 mmol/L Potassium Level 3.2 mmol/L Chloride Level 106 mmol/L Carbon Dioxide Level 24 mmol/L Anion Gap 11.0 mmol/L Blood Urea Nitrogen 89 mg/dl Creatinine 4.00 mg/dl Est Creatinine Clear Calc Drug Dose 14.2 ml/min Estimated GFR () 15.7 Estimated GFR (Non- 13.5 BUN/Creatinine Ratio 22.2 Random Glucose 78 mg/dl Calcium Level 7.8 mg/dl Magnesium Level 2.0 mg/dl Free Thyroxine 1.41 ng/dl Free Triiodothyronine 1.28 pg/ml EKG: His admission electrocardiogram done on 01/06/2017 at 1348 shows atrial fibrillation with a heart rate of 101 bpm, left axis deviation with an IVCD ( possibly left bundle branch block). A repeat electrocardiogram done on 2016 at 7:45 AM shows sinus rhythm with first-degree AV block, similar intraventricular conduction. Telemetry reviewed: On arrival he was in atrial fibrillation with a somewhat rapid heart rate, shortly after presentation (within about an hour) he had reverted back to sinus rhythm and has remained. Assessment & Plan #1. Atrial fibrillation: Historically he has had an irregular heart rate, however when evaluated about one year ago we only clearly identified premature atrial beats causing an irregular rhythm. He now presents clearly with atrial fibrillation, however was very short lived. I don't know if he has atrial fibrillation at other times, it is certainly possible, but this may all be stress related. At the moment I certainly would not treat it, his heart rate was well-controlled when he came in (it was slightly fast but no circumstances that was probably appropriate), I would also not consider anticoagulation at this time. Whether he should be on anticoagulation at a future date is not clear. I would recommend keeping him on telemetry so we can see if he has recurrence of this arrhythmia which may alter our approach. #2. Systolic murmur: He does have a history of aortic sclerosis and a soft systolic murmur, currently this sounds consistent. He is scheduled for an echocardiogram. Thank you for allowing me to participate in his care.
[2017-01-07] MEDS: VENLAFAXINE HCL XR 75 MG CAPXR PO SCH (11:29)
[2017-01-07] MEDS: PANTOprazole SOD 40 MG TAB PO SCH (11:30)
[2017-01-07] MEDS: DOCUSATE SODIUM 100 MG CAP PO SCH ×2 (11:30→21:00)
[2017-01-07] MEDS: HEPARIN SOD 5000 UNIT/0.5 ML CARP SQ SCH (11:32)
--- NOTE | 2017-01-07 13:28 | DIAGNOSTIC IMAGING REPORT ---
ULTRASOUND VENOUS DOPPLER LWR EXT BILA CLINICAL HISTORY: Bilateral leg edema COMPARISON STUDY: No previous studies for comparison. FINDINGS: On the right, there is extensive occlusive thrombus extending from the common femoral vein to the calf. The thrombus diameter the level of the common femoral vein a 16 mm. On the left, there is nonocclusive thrombus within the common femoral greater saphenous profunda and proximal superficial femoral vein. At this point in the examination the patient refused further imaging. IMPRESSION: Extensive bilateral acute DVT. Electronically signed by: Naveen Parks M.D. 01/07/2017 1:26 PM Dictated Date/Time: 01/07/2017 1:24 PM
--- NOTE | 2017-01-07 14:20 | Nephrology Consultation ---
Nephrology Consultation Date & Providers Date of Consultation: Jan 07, 2017. Primary Care Provider: RV. Mendoza MD Referring Provider: Reason for Consultation Evaluation of acute on chronic kidney injury History of Present Illness Mr. Patel is a 76 year old white male who is seen at the request of Dr. Matamoros for the evaluation of acute on chronic kidney injury. Medical records in the EMR were reviewed today and are summarized as follows: Mr. Patel has stage II CKD. His baseline creatinine has been 1.0 w/ EGFR 72 cc/min. He is a resident of [facility]. His medical history is significant for kidney stones w/ left staghorn calculus, HTN, Parkinsons disease, GERD, depression and chronic lower back pain. Several weeks ago his back discomfort became worse. He began taking Ibuprofen on a regular basis. He was seen by Urology at [facility] and plans were made for surgical removal of his staghorn calculus. This was delayed due to inclement weather. Over the last week he suffered two falls and was brought to the [facility] ED yesterday for evaluation. There he was found to cystitis, hypotension (SBP 60's) and YUSUF w/ creatinine 5.2. Contrast negative abdominal CT was negative for hydronephrosis or ureteral stones. It did demonstrate bulky adenopathy within the retroperitoneum of the abdomen and mesenteric region. 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 Surgical: # H/o lithotripsy # Appendectomy # Cholecystectomy # Bilateral inguinal hernia repair # PEG tube placement and later removal Allergies Coded Allergies: Penicillins (Verified Allergy, Unknown, HIVES, 10/16/16) Inpatient Medications Current Inpatient Medications Medications (Trade) Dose Ordered Sig/Aiden Route Start Time Stop Time Status Last Admin Dose Admin Heparin Sodium (Porcine) 5000 unit 5,000 unit Q12 SQ 01/06/17 21:00 02/05/17 20:59 01/07/17 11:32 5,000 UNIT Sodium Chloride (Nss 1000ml) 1,000 ml @ 75 mls/hr [id number] IV 01/06/17 16:45 02/05/17 16:44 01/07/17 06:02 75 MLS/HR Acetaminophen (Tylenol Tab) 650 mg Q4H PRN PO 01/06/17 16:45 02/05/17 16:44 Ondansetron HCl (Zofran Inj) 4 mg Q6H PRN IV 01/06/17 16:45 02/05/17 16:44 Carbidopa/Levodopa (Sinemet 25/ 100MG Tab) 1 tab TIDM PO 01/07/17 08:00 02/06/17 07:59 01/07/17 11:30 1 TAB Carbidopa/Levodopa (Sinemet 25/ 100MG Tab) 2 tab HS PO 01/06/17 21:00 02/05/17 20:59 01/06/17 20:15 2 TAB Docusate Sodium (coLACE CAP) 100 mg BID PO 01/06/17 21:00 02/05/17 20:59 01/07/17 11:30 100 MG Levothyroxine Sodium (Synthroid Tab) 137 mcg DAILYBB PO 01/07/17 06:30 02/06/17 06:29 01/07/17 06:00 137 MCG Menthol/Zinc Oxide (Calmoseptine Oint) 1 appln BID PRN EXT 01/06/17 17:00 02/05/17 16:59 Oxycodone/ Acetaminophen (Percocet 5-325mg Tab) 1 tab Q6 PRN PO 01/06/17 17:00 01/20/17 16:59 01/07/17 04:40 1 TAB Tizanidine HCl (Zanaflex Tab) 2 mg Q12 PRN PO 01/06/17 17:00 02/05/17 16:59 01/07/17 00:04 2 MG Venlafaxine HCl (effeXOR EXTENDED REL CAP) 75 mg DAILY PO 01/07/17 09:00 02/06/17 08:59 01/07/17 11:29 75 MG Pantoprazole Sodium (Protonix Tab) 40 mg QAM PO 01/07/17 09:00 02/06/17 08:59 01/07/17 11:30 40 MG Levofloxacin 1 ea 1 ea UD PRN N/A 01/06/17 19:45 02/05/17 19:44 Levofloxacin/Prmx (Levaquin / D5W/ Premixed D5W) 100 ml @ 100 mls/hr Q48H IV 01/08/17 20:00 01/18/17 19:59 Heparin Sodium (Porcine) (Heparin 10 Unit/ ml 5 ml Flush) 5 ml PRN PRN FLUSH 01/07/17 00:15 02/06/17 00:14 01/07/17 05:45 5 ML Heparin Sodium/ Dextrose 1 ea NOW STAT N/A 01/07/17 14:10 01/07/17 14:11 UNV Family History FHx: asthma Hypertension Kidney disease or stones Negative for CKD/ESRD Social History Smoking Status: Former Smoker Alcohol Use: none Drug Use: none Marital Status: Housing Status: fpc Occupation: retired Retired from [employer]. Resident at [facility] Review of Systems Constitutional: No fever Respiratory: No shortness of breath Cardiovascular: No chest pain Abdomen: No nausea, No pain, No vomiting Musculoskeletal: + problem reported (back pain) Genitourinary - Male: No hematuria Integumentary: No rash A complete review of systems was performed. Pertinent positives are noted above. All other systems are negative. Physical Exam Date Time Temp Pulse Resp B/P Pulse Ox O2 Delivery O2 Flow Rate FiO2 01/07/17 12:00 Nasal Cannula 3.0 01/07/17 11:20 36.4 85 20 98 Room Air 01/07/17 10:54 67 91/56 01/07/17 10:12 84 78/48 01/07/17 09:00 88 88/44 01/07/17 08:00 Nasal Cannula 3.0 01/07/17 07:40 36.8 85 18 76/44 97 Nasal Cannula 3.0 66/46 01/07/17 04:00 Nasal Cannula 3.0 01/07/17 00:00 Nasal Cannula 3.0 01/06/17 23:35 36.4 62 20 113/69 97 Nasal Cannula 3.0 01/06/17 20:12 36.8 68 18 100/67 100 Nasal Cannula 3.0 01/06/17 20:00 95 Nasal Cannula 3.0 01/06/17 18:42 36.2 67 16 110/71 95 01/06/17 18:34 36.2 67 16 110/71 95 Nasal Cannula 3.0 01/06/17 17:36 97 16 108/61 99 Nasal Cannula 3.0 01/06/17 17:15 101 16 81/58 100 Nasal Cannula 3.0 01/06/17 16:18 99 18 107/60 100 Nasal Cannula 4.0 01/06/17 15:33 90 16 95/65 100 Nasal Cannula 4.0 01/06/17 14:56 67 20 108/57 100 01/06/17 14:50 100 01/06/17 14:45 93 98/60 01/06/17 14:40 90 01/06/17 14:38 98/62 01/06/17 14:35 92 01/06/17 14:30 88 01/06/17 14:25 79 General Appearance: + thin (frail, chronically ill appearing) Head: atraumatic (temporal muscle wasting) Eyes: PERRL, EOMI Neck: no adenopathy Respiratory/Chest: lungs clear, no respiratory distress Cardiovascular: regular rate, rhythm Abdomen/GI: normal bowel sounds, non tender Extremities/Musculoskelatal: + swelling (trace pretibial edema) Neurologic/Psych: alert, + pertinent finding (oriented to self and place but not month) Laboratory Results Last 24 Hours Test 01/06/17 15:00 01/06/17 15:45 01/07/17 05:40 Lactic Acid Level 0.7 mmol/L Urine Color DK YELLOW Urine Appearance CLOUDY Urine pH 5.0 Urine Specific [place] 1.022 Urine Protein 2+ Urine Glucose (UA) NEG Urine Ketones NEG Urine Occult Blood 2+ Urine Nitrite POS Urine Bilirubin NEG Urine Urobilinogen NEG Urine Leukocyte Esterase MODERATE Urine WBC (Auto) >30 /hpf Urine RBC (Auto) 10-30 /hpf Urine Hyaline Casts (Auto) 5-10 /lpf Urine Epithelial Cells (Auto) >30 /lpf Urine Bacteria (Auto) NEG Urine Renal Epithelial Cells /lpf Urine Pathogenic Casts /lpf White Blood Count 8.57 K/uL Red Blood Count 3.26 M/uL Hemoglobin 9.8 g/dL Hematocrit 29.2 % Mean Corpuscular Volume 89.6 fL Mean Corpuscular Hemoglobin 30.1 pg Mean Corpuscular Hemoglobin Concent 33.6 g/dl Platelet Count 155 K/uL Mean Platelet Volume 10.5 fL Neutrophils (%) (Auto) 80.2 % Lymphocytes (%) (Auto) 8.5 % Monocytes (%) (Auto) 6.5 % Eosinophils (%) (Auto) 4.0 % Basophils (%) (Auto) 0.4 % Neutrophils # (Auto) 6.88 K/uL Lymphocytes # (Auto) 0.73 K/uL Monocytes # (Auto) 0.56 K/uL Eosinophils # (Auto) 0.34 K/uL Basophils # (Auto) 0.03 K/uL RDW Standard Deviation 49.6 fL RDW Coefficient of Variation 15.1 % Immature Granulocyte % (Auto) 0.4 % Immature Granulocyte # (Auto) 0.03 K/uL Sodium Level 141 mmol/L Potassium Level 3.2 mmol/L Chloride Level 106 mmol/L Carbon Dioxide Level 24 mmol/L Anion Gap 11.0 mmol/L Blood Urea Nitrogen 89 mg/dl Creatinine 4.00 mg/dl Est Creatinine Clear Calc Drug Dose 14.2 ml/min Estimated GFR () 15.7 Estimated GFR (Non- 13.5 BUN/Creatinine Ratio 22.2 Random Glucose 78 mg/dl Calcium Level 7.8 mg/dl Magnesium Level 2.0 mg/dl Free Thyroxine 1.41 ng/dl Free Triiodothyronine 1.28 pg/ml Impression (1) Acute kidney injury (2) Chronic kidney disease, stage 2, mildly decreased GFR (3) Shock (4) Dehydration (5) UTI (lower urinary tract infection) (6) Kidney stones (7) Parkinsonian syndrome Mr. Patel was admitted to the hospital for evaluation of weakness and recurrent falls. He presented to the ED with hypotension and YUSUF. Evaluation revealed that he has been suffering from back pain. He has been treating this w / Ibuprofen. He was diagnosed w/ UTI and dehydration. His kidney function is improving w/ volume resuscitation. Patient has h/o kidney stones. Abdominal CT without contrast was negative for hydronephrosis. CT did reveal bulky retroperitoneal and mesenteric lymphadenopathy w/ possible liver metastasis concerning for lymphoma. 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 No IV contrast administered. No hydronephrosis. Patient does have bilateral renal calculi. Stone on the left is a staghorn -- Volume status and electrolyte balance remain acceptable at this time. No acute indication for OB/GYN NURSE. Monitor serial PRP -- Continue gentle hydration -- Avoid NSAIDS and known nephrotoxic agents CHRONIC KIDNEY DISEASE: -- Baseline creatinine has been 1.0 w/ EGFR 72 cc/min KIDNEY STONES: -- Management as per Urology -- No hydronephrosis on Abdominal CT ID: -- Agree w/ empiric antibiotic therapy (Levaquin) -- Pharmacy to dose adjust antibiotics for YUSUF -- Await results of blood and urine cultures ONCOLOGY: -- Recommend surgical consultation to evaluate for lymph node biopsy -- Recommend consultation w/ Oncology due to retroperitoneal and mesenteric lymphadenopathy
[2017-01-07 14:54] LABS: BASO % 0.3 %; BASO ABS # 0.02 K/uL (0-0.2); EOS % 4.3 %; HEMATOCRIT 30.5 % (42-52); IG% 0.3 %; LYMPH % 6.2 %; LYMPH ABS # 0.48 K/uL (1.2-3.4); MEAN CELL VOLUME 88.9 fL (80-100); MEAN CORPUSCULAR HEMOGLOBIN 29.7 pg (25-34); MEAN PLATELET VOLUME 10.2 fL (7.4-10.4); MONO % 7.6 %; NEUT % 81.3 %; PLATELET COUNT 124 K/uL (130-400); RED BLOOD COUNT 3.43 M/uL (4.7-6.1); WHITE BLOOD COUNT 7.75 K/uL (4.8-10.8)
[2017-01-07 14:55] LABS: COMPLETE YES; MEAN CORPUSCULAR HGB CONC 33.4 g/dl (32-36)
[2017-01-07] MEDS ORDERED: HEPARIN IV BOLUS 5,000 UNIT in SYRINGE 0 ML IV ONE (15:00)
[2017-01-07 15:11] LABS: INR 1.1 (0.9-1.1); PARTIAL THROMBOPLASTIN RATIO 1.2
[2017-01-07] MEDS: HEPARIN 25,000 UNIT/500ML D5W 500 ML IV PRN ×2 (15:13→23:10)
[2017-01-07 15:14] LABS: BUN/CREATININE RATIO 26.4 (10-20); CALCIUM 8.3 mg/dl (8.5-10.1); CREATININE 3.4 mg/dl (0.60-1.40); POTASSIUM 3.1 mmol/L (3.5-5.1)
--- NOTE | 2017-01-07 17:54 | Progress Note ---
Subjective Date of Service: Jan 07, 2017. Subjective Pt evaluation today including: conversation w/ patient, physical exam, lab review Problem List Medical Problems: (1) Proximal humerus fracture Status: Acute (2) Renal failure Status: Acute (3) Shock Status: Acute (4) Urinary tract infection Status: Acute Review of Systems Constitutional: + weakness, + weight loss Respiratory: No cough, No dyspnea at rest, No dyspnea on exertion, No hemoptysis, No problem reported, No see HPI, No shortness of breath, No sputum, No wheezing Cardiac: No PND, No chest pain, No claudication, No edema, No orthopnea, No palpitations, No problem reported, No see HPI Medications Medications (Trade) Dose Ordered Sig/Aiden Route Start Time Stop Time Status Last Admin Dose Admin Heparin Sodium (Porcine) 5000 unit 5,000 unit Q12 SQ 01/06/17 21:00 01/07/17 14:40 DC 01/07/17 11:32 5,000 UNIT Levofloxacin/Prmx (Levaquin / D5W/ Premixed D5W) 150 ml @ 100 mls/hr ONE ONCE IV 01/06/17 18:15 01/06/17 19:44 DC 01/06/17 20:13 100 MLS/HR Carbidopa/Levodopa (Sinemet 25/ 100MG Tab) 1 tab TIDM PO 01/07/17 08:00 02/06/17 07:59 01/07/17 16:47 1 TAB Carbidopa/Levodopa (Sinemet 25/ 100MG Tab) 2 tab HS PO 01/06/17 21:00 02/05/17 20:59 01/06/17 20:15 2 TAB Docusate Sodium (coLACE CAP) 100 mg BID PO 01/06/17 21:00 02/05/17 20:59 01/07/17 11:30 100 MG Levothyroxine Sodium (Synthroid Tab) 137 mcg DAILYBB PO 01/07/17 06:30 02/06/17 06:29 01/07/17 06:00 137 MCG Venlafaxine HCl (effeXOR EXTENDED REL CAP) 75 mg DAILY PO 01/07/17 09:00 02/06/17 08:59 01/07/17 11:29 75 MG Pantoprazole Sodium (Protonix Tab) 40 mg QAM PO 01/07/17 09:00 02/06/17 08:59 01/07/17 11:30 40 MG Heparin Sodium (Porcine) 5 ml 5 ml PRN PRN FLUSH 01/07/17 00:15 02/06/17 00:14 01/07/17 05:45 5 ML Heparin Sodium (Porcine) 5000 unit/Syringe 5 ml @ 10 mls/min TODAY@1500 ONCE IV 01/07/17 15:00 01/07/17 15:01 DC 01/07/17 15:12 10 MLS/MIN Heparin Sodium/ Dextrose (Heparin 25,000 Unit/500ml D5W) 500 ml @ 23 mls/hr [id number] PRN IV 01/07/17 14:30 02/06/17 14:29 01/07/17 15:13 23 MLS/HR Objective Vital Signs Date Time Temp Pulse Resp B/P Pulse Ox O2 Delivery O2 Flow Rate FiO2 01/07/17 16:00 Nasal Cannula 3.0 01/07/17 14:45 37.0 56 20 103/68 95 01/07/17 12:00 Nasal Cannula 3.0 01/07/17 11:20 36.4 85 20 98 Room Air 01/07/17 10:54 67 91/56 01/07/17 10:12 84 78/48 01/07/17 09:00 88 88/44 01/07/17 08:00 Nasal Cannula 3.0 01/07/17 07:40 36.8 85 18 76/44 97 Nasal Cannula 3.0 66/46 01/07/17 04:00 Nasal Cannula 3.0 01/07/17 00:00 Nasal Cannula 3.0 01/06/17 23:35 36.4 62 20 113/69 97 Nasal Cannula 3.0 01/06/17 20:12 36.8 68 18 100/67 100 Nasal Cannula 3.0 01/06/17 20:00 95 Nasal Cannula 3.0 01/06/17 18:42 36.2 67 16 110/71 95 01/06/17 18:34 36.2 67 16 110/71 95 Nasal Cannula 3.0 Physical Exam General Appearance: no apparent distress, + cachetic Eyes: normal inspection, PERRL ENT: normal ENT inspection Neck: supple, no adenopathy Respiratory/Chest: chest non-tender, lungs clear Cardiovascular: regular rate, rhythm Abdomen: normal bowel sounds, non tender, no organomegaly Extremities: normal range of motion Neurologic/Psychiatric: senior test analyst II-XII nml as tested, alert, oriented x 3 Laboratory Results Last 24 Hours Test 01/07/17 05:40 01/07/17 14:44 White Blood Count 8.57 K/uL 7.75 K/uL Red Blood Count 3.26 M/uL 3.43 M/uL Hemoglobin 9.8 g/dL 10.2 g/dL Hematocrit 29.2 % 30.5 % Mean Corpuscular Volume 89.6 fL 88.9 fL Mean Corpuscular Hemoglobin 30.1 pg 29.7 pg Mean Corpuscular Hemoglobin Concent 33.6 g/dl 33.4 g/dl Platelet Count 155 K/uL 124 K/uL Mean Platelet Volume 10.5 fL 10.2 fL Neutrophils (%) (Auto) 80.2 % 81.3 % Lymphocytes (%) (Auto) 8.5 % 6.2 % Monocytes (%) (Auto) 6.5 % 7.6 % Eosinophils (%) (Auto) 4.0 % 4.3 % Basophils (%) (Auto) 0.4 % 0.3 % Neutrophils # (Auto) 6.88 K/uL 6.31 K/uL Lymphocytes # (Auto) 0.73 K/uL 0.48 K/uL Monocytes # (Auto) 0.56 K/uL 0.59 K/uL Eosinophils # (Auto) 0.34 K/uL 0.33 K/uL Basophils # (Auto) 0.03 K/uL 0.02 K/uL RDW Standard Deviation 49.6 fL 49.4 fL RDW Coefficient of Variation 15.1 % 15.3 % Immature Granulocyte % (Auto) 0.4 % 0.3 % Immature Granulocyte # (Auto) 0.03 K/uL 0.02 K/uL Sodium Level 141 mmol/L 141 mmol/L Potassium Level 3.2 mmol/L 3.1 mmol/L Chloride Level 106 mmol/L 106 mmol/L Carbon Dioxide Level 24 mmol/L 23 mmol/L Anion Gap 11.0 mmol/L 12.0 mmol/L Blood Urea Nitrogen 89 mg/dl 90 mg/dl Creatinine 4.00 mg/dl 3.40 mg/dl Est Creatinine Clear Calc Drug Dose 14.2 ml/min 16.7 ml/min Estimated GFR () 15.7 19.1 Estimated GFR (Non- 13.5 16.5 BUN/Creatinine Ratio 22.2 26.4 Random Glucose 78 mg/dl 77 mg/dl Calcium Level 7.8 mg/dl 8.3 mg/dl Magnesium Level 2.0 mg/dl Free Thyroxine 1.41 ng/dl Free Triiodothyronine 1.28 pg/ml Prothrombin Time 12.0 SECONDS Prothromb Time International Ratio 1.1 Activated Partial Thromboplast Time 30.5 SECONDS Partial Thromboplastin Ratio 1.2 Assessment and Plan (1) Acute kidney failure (2) Hypertension (3) Chronic kidney disease, stage 2, mildly decreased GFR The patient is a 76-year-old male with a history of nephrolithiasis with a left staghorn calculus, chronic low back pain, hypertension, parkinsonian syndrome, hypothyroidism, GERD, and severe depression, who presents to the ER with some confusion the last 2 days and weakness with 2 falls in the last week. The EMS reports his blood pressure was in the 60s over 40s. When he presented to the ER , he was relatively hypotensive with a systolic blood pressure of 90, and a right-sided subclavian central line was placed by the ER physician and he was bolused with 2 L of normal saline. The son noted that patient's fingertips seemed to had one episode of vomiting prior to coming to the ER, and had new onset lower extremity edema in the last several days. He was found to be in acute renal failure with a creatinine of 5.2 up from a baseline of 1.0 from 2 months ago. Acute kidney injury/nephrolithiasis/UTI/lower extremity edema-creatinine 5.2 up from baseline of 1.0. He is oliguric and hypotensive and despite the edema in his lower extremities, he is clinically dry. He has known large kidney stones including a left staghorn calculus in his urine appears infected. He is not hyperkalemic or acidotic at this time and no urgent dialysis is needed. White blood cell count is mildly elevated at 11,000 and he was hypotensive and mildly tachycardic. Lactate is normal and he is afebrile. Suspect prerenal azotemia from dehydration but there may be a component of intrinsic renal failure due to infection and stones. -Was bolused 2 L of normal saline in the ER and now will continue at 75 mL per hour -Rodriguez placed, monitor strict I's and O's -Consult to nephrology is appreciated -Follow labs in the morning -Check CT of the abdomen and pelvis to see if kidney stones have progressed and are contributing to the new onset renal failure, check for hydronephrosis -Consult his urologist -Start Levaquin renally dosed for urinary tract infection and follow urine cultures and blood cultures -Doppler of the lower extremities + for extensive bilateral DVT- will start on heparin gtt. -Check echo to rule out congestive heart failure as cause of lower extremity edema and renal failure -Avoid nephrotoxins and renally dose all meds -Pain meds from home including Percocet when necessary for back pain Rapid atrial fibrillation/hypertension-rate is now controlled in the 80s after IV fluid boluses were given for hypotension. This is new in onset for him. Unable to start beta edie at this time due to hypotension. Troponin was negative -Hold his BABAK inhibitor -Check echo -Consult cardiology appreciated. Parkinsonism/history of severe depression-stable at this time, has a history of electroconvulsive therapy with last maintenance treatment in July 2016. Has a history of hospitalization for severe parkinsonism symptoms causing failure to thrive requiring PEG tube placement which has since been removed. -Continue Sinemet and Effexor Hypothyroidism-TSH is mildly elevated at 6 here -Check free T3 and free T4 in the morning Continue levothyroxine at home dose for now GERD-stable -Continue PPI
[2017-01-07 22:06] LABS: PARTIAL THROMBOPLASTIN RATIO 3.6
[2017-01-08] VITALS (9 sets, daily range): BP systolic 93–123; BP diastolic 62–74; PULSE 61–127; TEMP 36.3–37.1; O2SAT 91–100
[2017-01-08 04:13] LABS: BASO % 0.3 %; BASO ABS # 0.02 K/uL (0-0.2); COMPLETE YES; EOS % 3.8 %; HEMATOCRIT 30.1 % (42-52); IG% 0.3 %; LYMPH % 7.4 %; LYMPH ABS # 0.59 K/uL (1.2-3.4); MEAN CELL VOLUME 89.6 fL (80-100); MEAN CORPUSCULAR HEMOGLOBIN 30.1 pg (25-34); MEAN CORPUSCULAR HGB CONC 33.6 g/dl (32-36); MEAN PLATELET VOLUME 10.2 fL (7.4-10.4); MONO % 7.3 %; NEUT % 80.9 %; PLATELET COUNT 128 K/uL (130-400); RED BLOOD COUNT 3.36 M/uL (4.7-6.1); WHITE BLOOD COUNT 7.92 K/uL (4.8-10.8)
[2017-01-08 04:29] LABS: PARTIAL THROMBOPLASTIN RATIO 2.5
[2017-01-08 04:40] LABS: BUN/CREATININE RATIO 33.8 (10-20); CREATININE 2.2 mg/dl (0.60-1.40)
[2017-01-08] MEDS: LEVOTHYROXINE 137 MCG TAB PO SCH (06:03)
--- NOTE | 2017-01-08 07:24 | Progress Note ---
Subjective Date of Service: Jan 08, 2017. Subjective Pt evaluation today including: conversation w/ patient, physical exam, chart review Voiding: chaves catheter in place Problem List Medical Problems: (1) Proximal humerus fracture Status: Acute (2) Renal failure Status: Acute (3) Shock Status: Acute (4) Urinary tract infection Status: Acute Review of Systems Respiratory: No cough, No dyspnea at rest, No dyspnea on exertion, No hemoptysis, No problem reported, No see HPI, No shortness of breath, No sputum, No wheezing Cardiac: + edema Abdomen: No GI bleeding, No constipation, No diarrhea, No nausea, No pain, No problem reported, No see HPI, No vomiting Medications Medications (Trade) Dose Ordered Sig/Aiden Route Start Time Stop Time Status Last Admin Dose Admin Carbidopa/Levodopa (Sinemet 25/ 100MG Tab) 1 tab TIDM PO 01/07/17 08:00 02/06/17 07:59 01/07/17 16:47 1 TAB Venlafaxine HCl (effeXOR EXTENDED REL CAP) 75 mg DAILY PO 01/07/17 09:00 02/06/17 08:59 01/07/17 11:29 75 MG Pantoprazole Sodium 40 mg 40 mg QAM PO 01/07/17 09:00 02/06/17 08:59 01/07/17 11:30 40 MG Heparin Sodium (Porcine) 5000 unit/Syringe 5 ml @ 10 mls/min TODAY@1500 ONCE IV 01/07/17 15:00 01/07/17 15:01 DC 01/07/17 15:12 10 MLS/MIN Heparin Sodium/ Dextrose (Heparin 25,000 Unit/500ml D5W) 500 ml @ 20 mls/hr Q24H PRN IV 01/07/17 14:30 02/06/17 14:29 01/07/17 23:10 20 MLS/HR Objective Vital Signs Date Time Temp Pulse Resp B/P Pulse Ox O2 Delivery O2 Flow Rate FiO2 01/08/17 04:00 Nasal Cannula 3.0 01/08/17 03:05 37.1 70 18 96/65 91 Nasal Cannula 3.0 01/08/17 00:01 Nasal Cannula 3.0 01/07/17 23:15 36.7 66 18 101/70 97 Nasal Cannula 3.0 01/07/17 20:01 36.9 67 16 113/74 99 Nasal Cannula 3.0 01/07/17 20:00 Nasal Cannula 3.0 01/07/17 16:00 Nasal Cannula 3.0 01/07/17 14:45 37.0 56 20 103/68 95 01/07/17 12:00 Nasal Cannula 3.0 01/07/17 11:20 36.4 85 20 98 Room Air 01/07/17 10:54 67 91/56 01/07/17 10:12 84 78/48 01/07/17 09:00 88 88/44 01/07/17 08:00 Nasal Cannula 3.0 01/07/17 07:40 36.8 85 18 76/44 97 Nasal Cannula 3.0 66/46 Physical Exam General Appearance: WD/WN, no apparent distress Eyes: normal inspection, PERRL, EOMI ENT: normal ENT inspection, hearing grossly normal, TMs normal, pharynx normal Neck: supple, no adenopathy, thyroid normal Respiratory/Chest: chest non-tender, lungs clear, normal breath sounds Cardiovascular: no JVD, + irregularly irregular Abdomen: normal bowel sounds, non tender, soft Extremities: + pedal edema Neurologic/Psychiatric: hat binder II-XII nml as tested, oriented x 3 Skin: normal color Laboratory Results Last 24 Hours Test 01/07/17 14:44 01/07/17 21:31 01/08/17 04:00 White Blood Count 7.75 K/uL 7.92 K/uL Red Blood Count 3.43 M/uL 3.36 M/uL Hemoglobin 10.2 g/dL 10.1 g/dL Hematocrit 30.5 % 30.1 % Mean Corpuscular Volume 88.9 fL 89.6 fL Mean Corpuscular Hemoglobin 29.7 pg 30.1 pg Mean Corpuscular Hemoglobin Concent 33.4 g/dl 33.6 g/dl Platelet Count 124 K/uL 128 K/uL Mean Platelet Volume 10.2 fL 10.2 fL Neutrophils (%) (Auto) 81.3 % 80.9 % Lymphocytes (%) (Auto) 6.2 % 7.4 % Monocytes (%) (Auto) 7.6 % 7.3 % Eosinophils (%) (Auto) 4.3 % 3.8 % Basophils (%) (Auto) 0.3 % 0.3 % Neutrophils # (Auto) 6.31 K/uL 6.41 K/uL Lymphocytes # (Auto) 0.48 K/uL 0.59 K/uL Monocytes # (Auto) 0.59 K/uL 0.58 K/uL Eosinophils # (Auto) 0.33 K/uL 0.30 K/uL Basophils # (Auto) 0.02 K/uL 0.02 K/uL RDW Standard Deviation 49.4 fL 49.5 fL RDW Coefficient of Variation 15.3 % 15.1 % Immature Granulocyte % (Auto) 0.3 % 0.3 % Immature Granulocyte # (Auto) 0.02 K/uL 0.02 K/uL Prothrombin Time 12.0 SECONDS Prothromb Time International Ratio 1.1 Activated Partial Thromboplast Time 30.5 SECONDS 94.0 SECONDS 64.8 SECONDS Partial Thromboplastin Ratio 1.2 3.6 2.5 Sodium Level 141 mmol/L 144 mmol/L Potassium Level 3.1 mmol/L 3.0 mmol/L Chloride Level 106 mmol/L 110 mmol/L Carbon Dioxide Level 23 mmol/L 24 mmol/L Anion Gap 12.0 mmol/L 10.0 mmol/L Blood Urea Nitrogen 90 mg/dl 74 mg/dl Creatinine 3.40 mg/dl 2.20 mg/dl Est Creatinine Clear Calc Drug Dose 16.7 ml/min 25.8 ml/min Estimated GFR () 19.1 32.3 Estimated GFR (Non- 16.5 27.9 BUN/Creatinine Ratio 26.4 33.8 Random Glucose 77 mg/dl 73 mg/dl Calcium Level 8.3 mg/dl 8.0 mg/dl ULTRASOUND VENOUS DOPPLER LWR EXT BILA CLINICAL HISTORY: Bilateral leg edema COMPARISON STUDY: No previous studies for comparison. FINDINGS: On the right, there is extensive occlusive thrombus extending from the common femoral vein to the calf. The thrombus diameter the level of the common femoral vein a 16 mm. On the left, there is nonocclusive thrombus within the common femoral greater saphenous profunda and proximal superficial femoral vein. At this point in the examination the patient refused further imaging. IMPRESSION: Extensive bilateral acute DVT. Electronically signed by: Naveen Parks M.D. 01/07/2017 1:26 PM Dictated Date/Time: 01/07/2017 1:24 PM Assessment and Plan (1) Acute kidney failure (2) Hypertension (3) Chronic kidney disease, stage 2, mildly decreased GFR The patient is a 76-year-old male with a history of nephrolithiasis with a left staghorn calculus, chronic low back pain, hypertension, parkinsonian syndrome, hypothyroidism, GERD, and severe depression, who presents to the ER with some confusion the last 2 days and weakness with 2 falls in the last week. The EMS reports his blood pressure was in the 60s over 40s. When he presented to the ER , he was relatively hypotensive with a systolic blood pressure of 90, and a right-sided subclavian central line was placed by the ER physician and he was bolused with 2 L of normal saline. The son noted that patient's fingertips seemed to had one episode of vomiting prior to coming to the ER, and had new onset lower extremity edema in the last several days. He was found to be in acute renal failure with a creatinine of 5.2 up from a baseline of 1.0 from 2 months ago. Acute kidney injury/nephrolithiasis/UTI/lower extremity edema-creatinine 5.2 up from baseline of 1.0. He is oliguric and hypotensive and despite the edema in his lower extremities, he is clinically dry. He has known large kidney stones including a left staghorn calculus in his urine appears infected. He is not hyperkalemic or acidotic at this time and no urgent dialysis is needed. White blood cell count is mildly elevated at 11,000 and he was hypotensive and mildly tachycardic. Lactate is normal and he is afebrile. Suspect prerenal azotemia from dehydration but there may be a component of intrinsic renal failure due to infection and stones.Likely YUSUF with ATN -Renal function has improved with IV fluids. Appreciate Renal input. Cont. with IV fluids. -Chaves placed, monitor strict I's and O's -Start Levaquin renally dosed for urinary tract infection and follow urine cultures and blood cultures -Avoid nephrotoxins and renally dose all meds Bilateral lower extremities DVT -Doppler of the lower extremities + for extensive bilateral DVT- Continue heparin gtt, consider overlap with coumadin or NOAC (renally dosed) tomorrow. -Check echo to rule out congestive heart failure as cause of lower extremity edema and renal failure Altered MS Likely multifactorial-Metabolic encephalopathy in the setting of UTI, ARF, hypotension Improving. Rapid atrial fibrillation/hypertension-rate is now controlled in the 80s after IV fluid boluses were given for hypotension. This is new in onset for him. Unable to start beta edie at this time due to hypotension. Troponin was negative -Hold his BABAK inhibitor -Check echo -Consult cardiology appreciated. Renal stones/Staghorn calculus left kidney. Appreciate urology input. No indication for stenting at the present time. Parkinsonism/history of severe depression-stable at this time, has a history of electroconvulsive therapy with last maintenance treatment in July 2016. Has a history of hospitalization for severe parkinsonism symptoms causing failure to thrive requiring PEG tube placement which has since been removed. -Continue Sinemet and Effexor Hypothyroidism-TSH is mildly elevated at 6 here -Check free T3 and free T4 in the morning Continue levothyroxine at home dose for now GERD-stable -Continue PPI
[2017-01-08] MEDS: DOCUSATE SODIUM 100 MG CAP PO SCH ×2 (07:34→20:05)
[2017-01-08] MEDS: CARBIDOPA/LEVODOPA 25/100MG TAB PO SCH ×4 (07:34→20:05)
[2017-01-08] MEDS: VENLAFAXINE HCL XR 75 MG CAPXR PO SCH (07:34)
[2017-01-08] MEDS: PANTOprazole SOD 40 MG TAB PO SCH (07:36)
[2017-01-08] MEDS: SODIUM CHLORIDE 0.9% 1000ML 1,000 ML IV SCH ×2 (07:37→20:04)
--- NOTE | 2017-01-08 08:39 | Progress Note ---
Subjective Date of Service: Jan 08, 2017. Subjective Pt evaluation today including: conversation w/ patient, chart review, lab review Voiding: chaves catheter in place (patent, draining dark yellow urine ) 76 yo male with left staghorn calculus. Currently afebrile. White count has normalized. Cr improved to 2.2. Denies pain. + nausea. Blood and urine cultures preliminarily negative. Pt reports he has not been informed regarding CT findings and the possibility of lymphoma. Problem List Medical Problems: (1) Proximal humerus fracture Status: Acute (2) Renal failure Status: Acute (3) Shock Status: Acute (4) Urinary tract infection Status: Acute Review of Systems Constitutional: No chills, No fever Respiratory: No shortness of breath Cardiac: No chest pain Abdomen: + nausea, No pain, No vomiting Male : No hematuria Heme: No abnormal bleeding/bruising Objective Vital Signs Date Time Temp Pulse Resp B/P Pulse Ox O2 Delivery O2 Flow Rate FiO2 01/08/17 08:14 94 Nasal Cannula 3.0 01/08/17 07:55 36.3 127 20 107/66 94 Nasal Cannula 3.0 01/08/17 04:00 Nasal Cannula 3.0 01/08/17 03:05 37.1 70 18 96/65 91 Nasal Cannula 3.0 01/08/17 00:01 Nasal Cannula 3.0 01/07/17 23:15 36.7 66 18 101/70 97 Nasal Cannula 3.0 01/07/17 20:01 36.9 67 16 113/74 99 Nasal Cannula 3.0 01/07/17 20:00 Nasal Cannula 3.0 01/07/17 16:00 Nasal Cannula 3.0 01/07/17 14:45 37.0 56 20 103/68 95 01/07/17 12:00 Nasal Cannula 3.0 01/07/17 11:20 36.4 85 20 98 Room Air 01/07/17 10:54 67 91/56 01/07/17 10:12 84 78/48 01/07/17 09:00 88 88/44 Physical Exam General Appearance: no apparent distress Eyes: normal inspection ENT: hearing grossly normal Neck: no JVD Respiratory/Chest: no respiratory distress, no accessory muscle use Cardiovascular: no JVD Laboratory Results Last 24 Hours Test 01/07/17 14:44 3/28/17 21:31 01/08/17 04:00 White Blood Count 7.75 K/uL 7.92 K/uL Red Blood Count 3.43 M/uL 3.36 M/uL Hemoglobin 10.2 g/dL 10.1 g/dL Hematocrit 30.5 % 30.1 % Mean Corpuscular Volume 88.9 fL 89.6 fL Mean Corpuscular Hemoglobin 29.7 pg 30.1 pg Mean Corpuscular Hemoglobin Concent 33.4 g/dl 33.6 g/dl Platelet Count 124 K/uL 128 K/uL Mean Platelet Volume 10.2 fL 10.2 fL Neutrophils (%) (Auto) 81.3 % 80.9 % Lymphocytes (%) (Auto) 6.2 % 7.4 % Monocytes (%) (Auto) 7.6 % 7.3 % Eosinophils (%) (Auto) 4.3 % 3.8 % Basophils (%) (Auto) 0.3 % 0.3 % Neutrophils # (Auto) 6.31 K/uL 6.41 K/uL Lymphocytes # (Auto) 0.48 K/uL 0.59 K/uL Monocytes # (Auto) 0.59 K/uL 0.58 K/uL Eosinophils # (Auto) 0.33 K/uL 0.30 K/uL Basophils # (Auto) 0.02 K/uL 0.02 K/uL RDW Standard Deviation 49.4 fL 49.5 fL RDW Coefficient of Variation 15.3 % 15.1 % Immature Granulocyte % (Auto) 0.3 % 0.3 % Immature Granulocyte # (Auto) 0.02 K/uL 0.02 K/uL Prothrombin Time 12.0 SECONDS Prothromb Time International Ratio 1.1 Activated Partial Thromboplast Time 30.5 SECONDS 94.0 SECONDS 64.8 SECONDS Partial Thromboplastin Ratio 1.2 3.6 2.5 Sodium Level 141 mmol/L 144 mmol/L Potassium Level 3.1 mmol/L 3.0 mmol/L Chloride Level 106 mmol/L 110 mmol/L Carbon Dioxide Level 23 mmol/L 24 mmol/L Anion Gap 12.0 mmol/L 10.0 mmol/L Blood Urea Nitrogen 90 mg/dl 74 mg/dl Creatinine 3.40 mg/dl 2.20 mg/dl Est Creatinine Clear Calc Drug Dose 16.7 ml/min 25.8 ml/min Estimated GFR () 19.1 32.3 Estimated GFR (Non- 16.5 27.9 BUN/Creatinine Ratio 26.4 33.8 Random Glucose 77 mg/dl 73 mg/dl Calcium Level 8.3 mg/dl 8.0 mg/dl Assessment and Plan A/P 76 yo male with R lower pole renal stone, L partial staghorn calculus, apparent diffuse lymphadenopathy and hepatic lesions. Suspicion of diffuse lymphoma noted. Patient's stone disease seem consistent with his previous imaging findings, chronic in nature. His imaging suggests his renal failure is not due to ongoing renal obstruction. He currently does not appear septic clinically. Would avoid ureteral stent placement at this time. Patient had been scheduled for consultation for consideration of PCNL in early January 2017 with follow-up with Dr. Sweet in our office. Further management of CT findings per primary service. Consideration of stent placement or transfer for PCN in the event the pt were to decompensate.
--- NOTE | 2017-01-08 09:58 | Cardiology Follow-Up ---
Subjective Date of Service: Jan 08, 2017. Pt evaluation today including: conversation w/ patient, physical exam, lab review, review of studies, review of inpatient medication list History of Present Illness This is a 76-year-old gentleman is not a very good historian therefore most of his history is from records. He has a long history of psychosis, I believe depression, for which he has received ECT. Additionally he has Parkinson's disease which makes it difficult for him to ambulate. He is therefore at [facility]. He also has a history of hypothyroidism and hypertension. He was also observed in the past to have an irregular heart rate and electrocardiography suggests frequent premature beats. He was evaluated in early 2015 for this irregular rhythm. A 24-hour Holter monitor was done on 11/13, this showed frequent premature atrial beats and brief runs of PAT but no atrial fibrillation. An echocardiogram around that time showed normal left ventricular function with left ventricular hypertrophy, minimal MR and aortic sclerosis. There are 2 electrocardiograms from 09/19/2015. Both show sinus rhythm with frequent premature atrial beats, on the one the baseline is quite irregular and it is interpreted as atrial fibrillation but I believe they are identical and do not represent atrial fibrillation. Otherwise left axis deviation is present, possibly left anterior fascicular block. With no clear documentation of atrial fibrillation and a controlled heart rate we did not treat him with rate control or anticoagulation. He now presents with worsening confusion, weakness and falling and was noted to be hypotensive. He also has been having a lot of difficulty with back pain and has a staghorn calculus, as well as urinary tract infection and presented with worsening renal function. He was also noted to be in atrial fibrillation with a rapid heart rate on admission. He evidently has been extremely inactive lately and has a sacral decubitus. He was admitted to telemetry, his atrial fibrillation quickly reverted to sinus rhythm where he has remained. He was however started on intravenous heparin yesterday. He is not complaining of chest discomfort, he is not complaining of palpitations or shortness of breath.. Social History Smoking Status: Former Smoker History of Alcohol Use: No Review of Systems Respiratory: No shortness of breath Cardiac: No chest pain His review of systems is probably not very reliable Medications Cardiovascular: Item Value Date Time Heparin Sodium/ 500 ml @ 20 mls/hr 01/07/17 1430 Dextrose .Q24H PRN/IV 01/07/17 2310 Objective Vital Signs Past 12 Hours Date Time Temp Pulse Resp B/P Pulse Ox O2 Delivery O2 Flow Rate FiO2 01/08/17 08:14 94 Nasal Cannula 3.0 01/08/17 07:55 36.3 127 20 107/66 94 Nasal Cannula 3.0 01/08/17 04:00 Nasal Cannula 3.0 01/08/17 03:05 37.1 70 18 96/65 91 Nasal Cannula 3.0 01/08/17 00:01 Nasal Cannula 3.0 01/07/17 23:15 36.7 66 18 101/70 97 Nasal Cannula 3.0 Last Recorded Weight-Kilograms: 74.500 Intake & Output 8-Hour Column 01/07/17 01/07/17 01/08/17 15:59 23:59 07:59 Intake Total 563 ml 750 ml 760 ml Output Total 200 ml 525 ml 550 ml Balance 363 ml 225 ml 210 ml 24-Hour Column 01/08/17 07:59 Intake Total 2073 ml Output Total 1275 ml Balance 798 ml Physical Exam Constitutional: General Apperance: cachectic Level of Distress: mild distress Ambulation: limited ambulation Lungs: Respiratory effort: no dyspnea, good air movement Auscultation: breath sounds normal, no wheezing Cardiovascular: Heart Auscultation: RRR, no rubs, no gallops, II/ FRANCISCO, pertinent finding ( frequent premature beats) Peripheral Pulses: Bruits: none appreciated Extremities: edema (+2 bilaterally) Data Laboratory Results: Last 24 Hours Test 01/07/17 14:44 01/07/17 21:31 01/08/17 04:00 White Blood Count 7.75 K/uL 7.92 K/uL Red Blood Count 3.43 M/uL 3.36 M/uL Hemoglobin 10.2 g/dL 10.1 g/dL Hematocrit 30.5 % 30.1 % Mean Corpuscular Volume 88.9 fL 89.6 fL Mean Corpuscular Hemoglobin 29.7 pg 30.1 pg Mean Corpuscular Hemoglobin Concent 33.4 g/dl 33.6 g/dl Platelet Count 124 K/uL 128 K/uL Mean Platelet Volume 10.2 fL 10.2 fL Neutrophils (%) (Auto) 81.3 % 80.9 % Lymphocytes (%) (Auto) 6.2 % 7.4 % Monocytes (%) (Auto) 7.6 % 7.3 % Eosinophils (%) (Auto) 4.3 % 3.8 % Basophils (%) (Auto) 0.3 % 0.3 % Neutrophils # (Auto) 6.31 K/uL 6.41 K/uL Lymphocytes # (Auto) 0.48 K/uL 0.59 K/uL Monocytes # (Auto) 0.59 K/uL 0.58 K/uL Eosinophils # (Auto) 0.33 K/uL 0.30 K/uL Basophils # (Auto) 0.02 K/uL 0.02 K/uL RDW Standard Deviation 49.4 fL 49.5 fL RDW Coefficient of Variation 15.3 % 15.1 % Immature Granulocyte % (Auto) 0.3 % 0.3 % Immature Granulocyte # (Auto) 0.02 K/uL 0.02 K/uL Prothrombin Time 12.0 SECONDS Prothromb Time International Ratio 1.1 Activated Partial Thromboplast Time 30.5 SECONDS 94.0 SECONDS 64.8 SECONDS Partial Thromboplastin Ratio 1.2 3.6 2.5 Sodium Level 141 mmol/L 144 mmol/L Potassium Level 3.1 mmol/L 3.0 mmol/L Chloride Level 106 mmol/L 110 mmol/L Carbon Dioxide Level 23 mmol/L 24 mmol/L Anion Gap 12.0 mmol/L 10.0 mmol/L Blood Urea Nitrogen 90 mg/dl 74 mg/dl Creatinine 3.40 mg/dl 2.20 mg/dl Est Creatinine Clear Calc Drug Dose 16.7 ml/min 25.8 ml/min Estimated GFR () 19.1 32.3 Estimated GFR (Non- 16.5 27.9 BUN/Creatinine Ratio 26.4 33.8 Random Glucose 77 mg/dl 73 mg/dl Calcium Level 8.3 mg/dl 8.0 mg/dl Telemetry reviewed: Sinus rhythm with frequent premature beats and brief runs of PAT, no atrial fibrillation since just after admission. Assessment and Plan #1. Atrial fibrillation: Historically he has had an irregular heart rate, however when evaluated about one year ago we only clearly identified premature atrial beats and runs of atrial tachycardia causing an irregular rhythm. He now presents clearly with atrial fibrillation, however it was very short lived. I don't know if he has atrial fibrillation at other times, it is certainly possible, but this episode may be stress related. At the moment I would not treat it, his heart rate was well-controlled when he came in (it was slightly fast but no circumstances that was probably appropriate), I would also not consider anticoagulation at this time for his atrial fibrillation. Whether he should be on anticoagulation at a future date is not clear. I would recommend keeping him on telemetry so we can see if he has recurrence of this arrhythmia which may alter our approach. #2. Irregular rhythm: Telemetry shows sinus with frequent brief runs of paroxysmal atrial tachycardia and frequent premature atrial beats. These types of rhythm that can induce atrial fibrillation, however other than on admission we have not observed atrial fibrillation. In his case I don't know that this warrants anticoagulation. #3. Systolic murmur: He does have a history of aortic sclerosis and a soft systolic murmur, currently this sounds consistent. He is scheduled for an echocardiogram. Thank you for allowing me to participate in his care.
--- NOTE | 2017-01-08 10:49 | Nephrology Progress Note ---
Nephrology Progress Note Date of Service Jan 08, 2017. Chief Complaint Evaluation of acute on chronic kidney injury Subjective Mr. Patel was seen & examined in his hospital room this morning. He is alert and will answer questions appropriately. He appears to be very weak. He denies dyspnea or uremic symptoms. He is tolerating IV hydration. Review of Systems Constitutional: No fever Cardiovascular: No chest pain Respiratory: No dyspnea at rest Abdomen: No nausea, No pain, No vomiting Extremities: No leg edema A complete review of systems was performed. Pertinent positives are noted above. All other systems are negative. Vital Signs Last 8 Hrs Date Time Temp Pulse Resp B/P Pulse Ox O2 Delivery O2 Flow Rate FiO2 01/08/17 08:14 94 Nasal Cannula 3.0 01/08/17 07:55 36.3 127 20 107/66 94 Nasal Cannula 3.0 01/08/17 04:00 Nasal Cannula 3.0 01/08/17 03:05 37.1 70 18 96/65 91 Nasal Cannula 3.0 I & O 24-Hour Column 01/08/17 08:00 Intake Total 2073 ml Output Total 1275 ml Balance 798 ml Last Recorded Weight Weight (Kilograms): 74.500 Physical Exam General Appearance: no apparent distress Head: normocephalic, atraumatic Eyes: PERRL, EOMI Neck: no adenopathy Respiratory/Chest: lungs clear, no respiratory distress Cardiovascular: + tachycardia Abdomen/GI: normal bowel sounds, non tender, soft Extremities/Musculoskelatal: no calf tenderness, no pedal edema Neurologic/Psych: alert Family History FHx: asthma Hypertension Kidney disease or stones Negative for CKD/ESRD Social History Smoking Status: Former smoker Alcohol Use: none Drug Use: none Marital Status: Housing Status: long-term Occupation: retired Retired from [employer]. Resident at [facility] Laboratory Results Past 24 Hours 01/07/17 14:44 Red Blood Count 3.43, Mean Corpuscular Volume 88.9, Mean Corpuscular Hemoglobin 29.7, Mean Corpuscular Hemoglobin Concent 33.4, Mean Platelet Volume 10.2, Neutrophils (%) (Auto) 81.3, Lymphocytes (%) (Auto) 6.2, Monocytes (%) (Auto) 7.6, Eosinophils (%) (Auto) 4.3, Basophils (%) (Auto) 0.3, Neutrophils # (Auto) 6.31, Lymphocytes # (Auto) 0.48, Monocytes # (Auto) 0.59, Eosinophils # (Auto) 0.33, Basophils # (Auto) 0.02 01/08/17 04:00 Red Blood Count 3.36, Mean Corpuscular Volume 89.6, Mean Corpuscular Hemoglobin 30.1, Mean Corpuscular Hemoglobin Concent 33.6, Mean Platelet Volume 10.2, Neutrophils (%) (Auto) 80.9, Lymphocytes (%) (Auto) 7.4, Monocytes (%) (Auto) 7.3, Eosinophils (%) (Auto) 3.8, Basophils (%) (Auto) 0.3, Neutrophils # (Auto) 6.41, Lymphocytes # (Auto) 0.59, Monocytes # (Auto) 0.58, Eosinophils # (Auto) 0.30, Basophils # (Auto) 0.02 01/07/17 14:44 01/08/17 04:00 Test 01/07/17 14:44 01/07/17 21:31 01/08/17 04:00 White Blood Count 7.75 K/uL (4.8-10.8) 7.92 K/uL (4.8-10.8) Red Blood Count 3.43 M/uL (4.7-6.1) 3.36 M/uL (4.7-6.1) Hemoglobin 10.2 g/dL (14.0-18.0) 10.1 g/dL (14.0-18.0) Hematocrit 30.5 % (42-52) 30.1 % (42-52) Mean Corpuscular Volume 88.9 fL (80-100) 89.6 fL (80-100) Mean Corpuscular Hemoglobin 29.7 pg (25-34) 30.1 pg (25-34) Mean Corpuscular Hemoglobin Concent 33.4 g/dl (32-36) 33.6 g/dl (32-36) Platelet Count 124 K/uL (130-400) 128 K/uL (130-400) Mean Platelet Volume 10.2 fL (7.4-10.4) 10.2 fL (7.4-10.4) Neutrophils (%) (Auto) 81.3 % 80.9 % Lymphocytes (%) (Auto) 6.2 % 7.4 % Monocytes (%) (Auto) 7.6 % 7.3 % Eosinophils (%) (Auto) 4.3 % 3.8 % Basophils (%) (Auto) 0.3 % 0.3 % Neutrophils # (Auto) 6.31 K/uL (1.4-6.5) 6.41 K/uL (1.4-6.5) Lymphocytes # (Auto) 0.48 K/uL (1.2-3.4) 0.59 K/uL (1.2-3.4) Monocytes # (Auto) 0.59 K/uL (0.11-0.59) 0.58 K/uL (0.11-0.59) Eosinophils # (Auto) 0.33 K/uL (0-0.5) 0.30 K/uL (0-0.5) Basophils # (Auto) 0.02 K/uL (0-0.2) 0.02 K/uL (0-0.2) RDW Standard Deviation 49.4 fL (36.4-46.3) 49.5 fL (36.4-46.3) RDW Coefficient of Variation 15.3 % (11.5-14.5) 15.1 % (11.5-14.5) Immature Granulocyte % (Auto) 0.3 % 0.3 % Immature Granulocyte # (Auto) 0.02 K/uL (0.00-0.02) 0.02 K/uL (0.00-0.02) Prothrombin Time 12.0 SECONDS (9.0-12.0) Prothromb Time International Ratio 1.1 (0.9-1.1) Activated Partial Thromboplast Time 30.5 SECONDS (21.0-31.0) 94.0 SECONDS (21.0-31.0) 64.8 SECONDS (21.0-31.0) Partial Thromboplastin Ratio 1.2 3.6 2.5 Anion Gap 12.0 mmol/L (3-11) 10.0 mmol/L (3-11) Est Creatinine Clear Calc Drug Dose 16.7 ml/min 25.8 ml/min Estimated GFR () 19.1 32.3 Estimated GFR (Non- 16.5 27.9 BUN/Creatinine Ratio 26.4 (10-20) 33.8 (10-20) Calcium Level 8.3 mg/dl (8.5-10.1) 8.0 mg/dl (8.5-10.1) Allergies Coded Allergies: Penicillins (Verified Allergy, Unknown, HIVES, 10/16/16) Medications Current Inpatient Medications Medications (Trade) Dose Ordered Sig/Aiden Route Start Time Stop Time Status Last Admin Dose Admin Sodium Chloride (Nss 1000ml) 1,000 ml @ 75 mls/hr [id number] IV 01/06/17 16:45 02/05/17 16:44 01/08/17 07:37 75 MLS/HR Acetaminophen (Tylenol Tab) 650 mg Q4H PRN PO 01/06/17 16:45 02/05/17 16:44 Ondansetron HCl (Zofran Inj) 4 mg Q6H PRN IV 01/06/17 16:45 02/05/17 16:44 Carbidopa/Levodopa (Sinemet 25/ 100MG Tab) 1 tab TIDM PO 01/07/17 08:00 02/06/17 07:59 01/08/17 07:34 1 TAB Carbidopa/Levodopa (Sinemet 25/ 100MG Tab) 2 tab HS PO 01/06/17 21:00 02/05/17 20:59 01/07/17 21:01 2 TAB Docusate Sodium (coLACE CAP) 100 mg BID PO 01/06/17 21:00 02/05/17 20:59 01/08/17 07:34 100 MG Levothyroxine Sodium (Synthroid Tab) 137 mcg DAILYBB PO 01/07/17 06:30 02/06/17 06:29 01/08/17 06:03 137 MCG Menthol/Zinc Oxide (Calmoseptine Oint) 1 appln BID PRN EXT 01/06/17 17:00 02/05/17 16:59 Oxycodone/ Acetaminophen (Percocet 5-325mg Tab) 1 tab Q6 PRN PO 01/06/17 17:00 01/20/17 16:59 01/07/17 04:40 1 TAB Tizanidine HCl (Zanaflex Tab) 2 mg Q12 PRN PO 01/06/17 17:00 02/05/17 16:59 01/07/17 00:04 2 MG Venlafaxine HCl (effeXOR EXTENDED REL CAP) 75 mg DAILY PO 01/07/17 09:00 02/06/17 08:59 01/08/17 07:34 75 MG Pantoprazole Sodium (Protonix Tab) 40 mg QAM PO 01/07/17 09:00 02/06/17 08:59 01/08/17 07:36 40 MG Levofloxacin 1 ea 1 ea UD PRN N/A 01/06/17 19:45 02/05/17 19:44 Levofloxacin/Prmx (Levaquin / D5W/ Premixed D5W) 100 ml @ 100 mls/hr Q48H IV 01/08/17 20:00 01/18/17 19:59 Heparin Sodium (Porcine) 5 ml 5 ml PRN PRN FLUSH 01/07/17 00:15 02/06/17 00:14 01/08/17 04:12 5 ML Heparin Sodium/ Dextrose (Heparin 25,000 Unit/500ml D5W) 500 ml @ 20 mls/hr Q24H PRN IV 01/07/17 14:30 02/06/17 14:29 01/07/17 23:10 20 MLS/HR Impression (1) Acute kidney injury (2) Chronic kidney disease, stage 2, mildly decreased GFR (3) Shock (4) Dehydration (5) UTI (lower urinary tract infection) (6) Kidney stones (7) Parkinsonian syndrome Mr. Patel was admitted to the hospital for evaluation of weakness and recurrent falls. He presented to the ED with hypotension and YUSUF. Evaluation revealed that he has been suffering from back pain. He has been treating this w / Ibuprofen. He was diagnosed w/ UTI and dehydration. His kidney function is improving w/ volume resuscitation. Patient has h/o kidney stones. Abdominal CT without contrast was negative for hydronephrosis. CT did reveal bulky retroperitoneal and mesenteric lymphadenopathy w/ possible liver metastasis concerning for lymphoma. 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 No hydronephrosis. Patient does have bilateral renal calculi. Stone on the left is a staghorn -- Volume status and electrolyte balance remain acceptable at this time. 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 Continue IV hydration. Monitor volume status and serial PRP -- Avoid NSAIDS and known nephrotoxic agents CHRONIC KIDNEY DISEASE: -- Baseline creatinine has been 1.0 w/ EGFR 72 cc/min KIDNEY STONES: -- Management as per Urology -- No hydronephrosis on Abdominal CT ID: -- Urine culture w/ gram negative bacilli. Sensitivities pending -- Agree w/ empiric antibiotic therapy (Levaquin) -- Pharmacy to dose adjust antibiotics for YUSUF ONCOLOGY: -- Recommend surgical consultation to evaluate for lymph node biopsy -- Recommend consultation w/ Oncology due to retroperitoneal and mesenteric lymphadenopathy
[2017-01-08] MEDS: HEPARIN 25,000 UNIT/500ML D5W 500 ML IV PRN (16:52)
[2017-01-08] MEDS ORDERED: LEVOFLOXACIN 500MG / D5W IV SCH (20:00)
[2017-01-08] MEDS ORDERED: LEVOFLOXACIN / D5W 750 MG in PREMIXED IN D5W 150 ML IV SCH (20:00)
[2017-01-08] MEDS: OXYCODONE/ACETAMINOPHEN 5-325 TAB PO PRN (22:41)
[2017-01-09] VITALS (7 sets, daily range): BP systolic 102–132; BP diastolic 70–82; PULSE 71–95; TEMP 36.3–37.2; O2SAT 94–100
[2017-01-09 05:12] LABS: BASO % 0.2 %; BASO ABS # 0.02 K/uL (0-0.2); COMPLETE YES; EOS % 4.8 %; HEMATOCRIT 29.2 % (42-52); IG% 0.4 %; LYMPH % 7.5 %; LYMPH ABS # 0.68 K/uL (1.2-3.4); MEAN CELL VOLUME 88.5 fL (80-100); MEAN CORPUSCULAR HEMOGLOBIN 29.7 pg (25-34); MEAN CORPUSCULAR HGB CONC 33.6 g/dl (32-36); MEAN PLATELET VOLUME 9.9 fL (7.4-10.4); MONO % 7.5 %; NEUT % 79.6 %; PLATELET COUNT 140 K/uL (130-400); WHITE BLOOD COUNT 9.02 K/uL (4.8-10.8)
[2017-01-09 05:39] LABS: PARTIAL THROMBOPLASTIN RATIO 2.1
[2017-01-09 05:44] LABS: ALB/GLOB RATIO 0.6 (0.9-2); BUN/CREATININE RATIO 34.9 (10-20); CALCIUM 8.5 mg/dl (8.5-10.1); CREATININE 1.4 mg/dl (0.60-1.40)
[2017-01-09] MEDS: LEVOTHYROXINE 137 MCG TAB PO SCH (06:13)
--- NOTE | 2017-01-09 07:26 | Hospitalist Progress Note ---
Hospitalist Progress Note Date of Service Jan 09, 2017. Subjective Pt evaluation today including: conversation w/ patient, physical exam, chart review Medications Medications (Trade) Dose Ordered Sig/Aiden Route Start Time Stop Time Status Last Admin Dose Admin Levofloxacin/Prmx (Levaquin / D5W/ Premixed D5W) 150 ml @ 100 mls/hr Q48H IV 01/08/17 20:00 01/15/17 23:59 01/08/17 20:04 100 MLS/HR Objective Vital Signs Date Time Temp Pulse Resp B/P Pulse Ox O2 Delivery O2 Flow Rate FiO2 01/09/17 04:00 36.3 79 18 102/70 98 Nasal Cannula 3.0 01/09/17 04:00 Nasal Cannula 3.0 01/09/17 00:28 37.2 71 18 109/72 95 Nasal Cannula 3.0 01/09/17 00:00 Nasal Cannula 3.0 01/08/17 20:03 36.8 61 20 101/68 100 Nasal Cannula 3.0 01/08/17 20:00 Nasal Cannula 3.0 01/08/17 20:00 36.8 98 20 123/74 100 Nasal Cannula 3.0 01/08/17 16:09 99 Nasal Cannula 3.0 01/08/17 15:03 36.8 77 18 99/69 92 Nasal Cannula 3.0 01/08/17 12:19 99 Nasal Cannula 3.0 01/08/17 11:57 36.6 65 18 93/62 99 Nasal Cannula 3.0 01/08/17 08:14 94 Nasal Cannula 3.0 01/08/17 07:55 36.3 127 20 107/66 94 Nasal Cannula 3.0 Physical Exam General Appearance: WD/WN, no apparent distress Eyes: normal inspection, PERRL ENT: normal ENT inspection, hearing grossly normal, TMs normal Neck: supple, no adenopathy, thyroid normal Respiratory/Chest: chest non-tender, lungs clear, normal breath sounds Cardiovascular: regular rate, rhythm, no edema, no gallop, no JVD Abdomen: normal bowel sounds, non tender, soft, no organomegaly Extremities: normal range of motion, non-tender, normal inspection, + pedal edema 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, normal mood/affect, oriented x 3 Laboratory Results Last 24 Hours Test 01/08/17 12:50 01/09/17 04:35 Lactate Dehydrogenase 579 U/L White Blood Count 9.02 K/uL Red Blood Count 3.30 M/uL Hemoglobin 9.8 g/dL Hematocrit 29.2 % Mean Corpuscular Volume 88.5 fL Mean Corpuscular Hemoglobin 29.7 pg Mean Corpuscular Hemoglobin Concent 33.6 g/dl Platelet Count 140 K/uL Mean Platelet Volume 9.9 fL Neutrophils (%) (Auto) 79.6 % Lymphocytes (%) (Auto) 7.5 % Monocytes (%) (Auto) 7.5 % Eosinophils (%) (Auto) 4.8 % Basophils (%) (Auto) 0.2 % Neutrophils # (Auto) 7.17 K/uL Lymphocytes # (Auto) 0.68 K/uL Monocytes # (Auto) 0.68 K/uL Eosinophils # (Auto) 0.43 K/uL Basophils # (Auto) 0.02 K/uL RDW Standard Deviation 49.3 fL RDW Coefficient of Variation 15.2 % Immature Granulocyte % (Auto) 0.4 % Immature Granulocyte # (Auto) 0.04 K/uL Activated Partial Thromboplast Time 53.4 SECONDS Partial Thromboplastin Ratio 2.1 Sodium Level 147 mmol/L Potassium Level 3.0 mmol/L Chloride Level 113 mmol/L Carbon Dioxide Level 26 mmol/L Anion Gap 8.0 mmol/L Blood Urea Nitrogen 49 mg/dl Creatinine 1.40 mg/dl Est Creatinine Clear Calc Drug Dose 40.8 ml/min Estimated GFR () 55.8 Estimated GFR (Non- 48.1 BUN/Creatinine Ratio 34.9 Random Glucose 97 mg/dl Calcium Level 8.5 mg/dl Total Bilirubin 0.6 mg/dl Aspartate Amino Transf (AST/SGOT) 21 U/L Alanine Aminotransferase (ALT/SGPT) 9 U/L Alkaline Phosphatase 105 U/L Total Protein 6.1 gm/dl Albumin 2.3 gm/dl Globulin 3.8 gm/dl Albumin/Globulin Ratio 0.6 Diagnostic Results [~ rep ct add3]] ABDOMEN AND PELVIS CT WITHOUT CONTRAST CT DOSE: 294.03 mGy.cm HISTORY: Pain. Renal failure. renal failure, r/o ureterolithiasis, hydronephrosis TECHNIQUE: Multiaxial CT images of the abdomen and pelvis were performed without contrast. COMPARISON STUDY: 10/26/2011 FINDINGS: Small parenchymal infiltrate right base. Minimal infiltrative/atelectatic changes left base. Hepatic cirrhotic change with progressive space-occupying lesions within the right as well as left hepatic lobe. Spleen is uniform. Interval development of bulky periaortic and mesenteric adenopathy. Conglomerate vonda dimensions at the level of the renal arteries is approximately 7.5 x 5.5 cm. Adenopathy extends inferiorly and occupies components of the para-aortic region. Enlarged nodes are identified scattered throughout the mesentery. There are findings of significant nodes within the left and to a lesser extent right lobe pelvic sidewall and lower pelvic inguinal regions. Nodes on the left measuring up to 2.2 cm with nodes of the right 2.15 cm. Bowel pattern overall is nonobstructive. There is atherosclerotic change of the abdominal aorta as well as iliac vasculature. There are bilateral renal calcifications. There is developing staghorn calculus of the left renal pelvis. There are multiple smaller renal calcifications of the right kidney. Cortical scarring of the kidneys bilaterally with several renal hypodensities are present there is trace amount perihepatic ascites. There is trace amount of ascites within the right paracolic cutters region. IMPRESSION: 1. Development of bulky adenopathy within the retroperitoneum abdomen and mesenteric region. 2. Less prominent vonda change in the pelvic sidewall and inguinal regions bilaterally. 3. Developing staghorn calculus of the left kidney with multiple nonobstructing right renal calcifications. 4. High suspicion of developing hepatic metastatic change. 5. Bibasilar infiltrative change 6. An entity such as lymphoma, with diffuse metastatic change must be consideration. Electronically signed by: Shakeel Coello M.D. 01/06/2017 5:19 PM Dictated Date/Time: 01/06/2017 5:11 PM Assessment and Plan (1) Acute kidney failure (2) Hypertension (3) Chronic kidney disease, stage 2, mildly decreased GFR The patient is a 76-year-old male with a history of nephrolithiasis with a left staghorn calculus, chronic low back pain, hypertension, parkinsonian syndrome, hypothyroidism, GERD, and severe depression, who presents to the ER with some confusion the last 2 days and weakness with 2 falls in the last week. The EMS reports his blood pressure was in the 60s over 40s. When he presented to the ER , he was relatively hypotensive with a systolic blood pressure of 90, and a right-sided subclavian central line was placed by the ER physician and he was bolused with 2 L of normal saline. The son noted that patient's fingertips seemed to had one episode of vomiting prior to coming to the ER, and had new onset lower extremity edema in the last several days. He was found to be in acute renal failure with a creatinine of 5.2 up from a baseline of 1.0 from 2 months ago. Acute kidney injury/nephrolithiasis/UTI/lower extremity edema-creatinine 5.2 up from baseline of 1.0. He is oliguric and hypotensive and despite the edema in his lower extremities, he is clinically dry. He has known large kidney stones including a left staghorn calculus in his urine appears infected. He is not hyperkalemic or acidotic at this time and no urgent dialysis is needed. White blood cell count is mildly elevated at 11,000 and he was hypotensive and mildly tachycardic. Lactate is normal and he is afebrile. Suspect prerenal azotemia from dehydration but there may be a component of intrinsic renal failure due to infection and stones.Likely YUSUF with ATN -Renal function has improved with IV fluids. Appreciate Renal input. Cont. with IV fluids. -Rodriguez placed, monitor strict I's and O's -Start Levaquin renally dosed for urinary tract infection and follow urine cultures and blood cultures -Urine Cx are positive for Gram neg. rods. -Avoid nephrotoxins and renally dose all meds Bilateral lower extremities DVT -Doppler of the lower extremities + for extensive bilateral DVT- Continue heparin gtt, consider overlap with coumadin or NOAC (renally dosed) tomorrow. -Check echo to rule out congestive heart failure as cause of lower extremity edema and renal failure Altered MS Likely multifactorial-Metabolic encephalopathy in the setting of UTI, ARF, hypotension Improving. Rapid atrial fibrillation/hypertension-rate is now controlled in the 80s after IV fluid boluses were given for hypotension. This is new in onset for him. Unable to start beta edie at this time due to hypotension. Troponin was negative -Hold his BABAK inhibitor -Check echo -Consult cardiology appreciated. Renal stones/Staghorn calculus left kidney. Appreciate urology input. No indication for stenting at the present time. Parkinsonism/history of severe depression-stable at this time, has a history of electroconvulsive therapy with last maintenance treatment in July 2016. Has a history of hospitalization for severe parkinsonism symptoms causing failure to thrive requiring PEG tube placement which has since been removed. -Continue Sinemet and Effexor Hypothyroidism-TSH is mildly elevated at 6 here -Check free T3 and free T4 in the morning Continue levothyroxine at home dose for now GERD-stable -Continue PPI
[2017-01-09] MEDS: CARBIDOPA/LEVODOPA 25/100MG TAB PO SCH ×4 (08:22→19:23)
[2017-01-09] MEDS: DOCUSATE SODIUM 100 MG CAP PO SCH ×2 (08:22→19:22)
[2017-01-09] MEDS: PANTOprazole SOD 40 MG TAB PO SCH (08:22)
[2017-01-09] MEDS: VENLAFAXINE HCL XR 75 MG CAPXR PO SCH (08:22)
[2017-01-09] MEDS: SODIUM CHLORIDE 0.9% 1000ML 1,000 ML IV SCH ×2 (09:49→22:43)
[2017-01-09] MEDS: OXYCODONE/ACETAMINOPHEN 5-325 TAB PO PRN ×2 (10:48→19:24)
--- NOTE | 2017-01-09 10:59 | Progress Note ---
Subjective Date of Service: Jan 09, 2017. Subjective Pt evaluation today including: conversation w/ patient, chart review, lab review Voiding: chaves catheter in place (patent, draining clear, yellow urine ) 76 yo male with left staghorn calculus. Cr has normalized at 1.4. Pt denies pain this morning. Primarily c/o reflux this morning with occasional nausea. Denies vomiting. UC&S noted to be preliminarily positive and growing 40,000 colonies of gram negative bacilli. He is currently on Levaquin. Chaves remains in place draining clear, yellow urine. Problem List Medical Problems: (1) Proximal humerus fracture Status: Acute (2) Renal failure Status: Acute (3) Shock Status: Acute (4) Urinary tract infection Status: Acute Review of Systems Constitutional: No chills, No fever Respiratory: No shortness of breath Cardiac: No chest pain Abdomen: No nausea, No pain Male : No hematuria Heme: No abnormal bleeding/bruising Objective Vital Signs Date Time Temp Pulse Resp B/P Pulse Ox O2 Delivery O2 Flow Rate FiO2 01/09/17 08:00 Nasal Cannula 2.0 01/09/17 07:56 36.6 80 18 119/82 99 Nasal Cannula 2.0 01/09/17 04:00 36.3 79 18 102/70 98 Nasal Cannula 3.0 01/09/17 04:00 Nasal Cannula 3.0 01/09/17 00:28 37.2 71 18 109/72 95 Nasal Cannula 3.0 01/09/17 00:00 Nasal Cannula 3.0 01/08/17 20:03 36.8 61 20 101/68 100 Nasal Cannula 3.0 01/08/17 20:00 Nasal Cannula 3.0 01/08/17 20:00 36.8 98 20 123/74 100 Nasal Cannula 3.0 01/08/17 16:09 99 Nasal Cannula 3.0 01/08/17 15:03 36.8 77 18 99/69 92 Nasal Cannula 3.0 01/08/17 12:19 99 Nasal Cannula 3.0 01/08/17 11:57 36.6 65 18 93/62 99 Nasal Cannula 3.0 Physical Exam General Appearance: no apparent distress Eyes: normal inspection ENT: hearing grossly normal Neck: no JVD Respiratory/Chest: no respiratory distress, no accessory muscle use Cardiovascular: no JVD Extremities: normal inspection Neurologic/Psychiatric: alert, normal mood/affect, oriented x 3 Skin: normal color Laboratory Results Last 24 Hours Test 01/08/17 12:50 01/09/17 04:35 Lactate Dehydrogenase 579 U/L White Blood Count 9.02 K/uL Red Blood Count 3.30 M/uL Hemoglobin 9.8 g/dL Hematocrit 29.2 % Mean Corpuscular Volume 88.5 fL Mean Corpuscular Hemoglobin 29.7 pg Mean Corpuscular Hemoglobin Concent 33.6 g/dl Platelet Count 140 K/uL Mean Platelet Volume 9.9 fL Neutrophils (%) (Auto) 79.6 % Lymphocytes (%) (Auto) 7.5 % Monocytes (%) (Auto) 7.5 % Eosinophils (%) (Auto) 4.8 % Basophils (%) (Auto) 0.2 % Neutrophils # (Auto) 7.17 K/uL Lymphocytes # (Auto) 0.68 K/uL Monocytes # (Auto) 0.68 K/uL Eosinophils # (Auto) 0.43 K/uL Basophils # (Auto) 0.02 K/uL RDW Standard Deviation 49.3 fL RDW Coefficient of Variation 15.2 % Immature Granulocyte % (Auto) 0.4 % Immature Granulocyte # (Auto) 0.04 K/uL Activated Partial Thromboplast Time 53.4 SECONDS Partial Thromboplastin Ratio 2.1 Sodium Level 147 mmol/L Potassium Level 3.0 mmol/L Chloride Level 113 mmol/L Carbon Dioxide Level 26 mmol/L Anion Gap 8.0 mmol/L Blood Urea Nitrogen 49 mg/dl Creatinine 1.40 mg/dl Est Creatinine Clear Calc Drug Dose 40.8 ml/min Estimated GFR () 55.8 Estimated GFR (Non- 48.1 BUN/Creatinine Ratio 34.9 Random Glucose 97 mg/dl Calcium Level 8.5 mg/dl Total Bilirubin 0.6 mg/dl Aspartate Amino Transf (AST/SGOT) 21 U/L Alanine Aminotransferase (ALT/SGPT) 9 U/L Alkaline Phosphatase 105 U/L Total Protein 6.1 gm/dl Albumin 2.3 gm/dl Globulin 3.8 gm/dl Albumin/Globulin Ratio 0.6 Assessment and Plan A/P 76 yo male with R lower pole renal stone, L partial staghorn calculus, apparent diffuse lymphadenopathy and hepatic lesions, ARF, UTI Suspicion of diffuse lymphoma noted. Further management and evaluation per primary service. Patient's stone disease seem consistent with his previous imaging findings, chronic in nature. No hydro noted on CT scan, and renal failure improved. Would avoid stent placement for now. Consideration of stent placement or transfer for PCN in the event the pt were to decompensate. May attempt trial of void when chaves catheter no longer needed by primary service. Patient had been scheduled for consultation for consideration of PCNL in early January 2017 with follow-up with Dr. Sweet in our office later in the month. Continue Levaquin pending culture sensitivities. Adjust abx as needed per sensitivities. Would recommend a total of 10 days of therapy, and then would recommend he start a prophylactic abx such as nightly nitrofurantoin or trimethoprim until his stone has been managed. No further management at this time. Thanks for allowing us to participate in this pt's care. Recall PRN issues.
--- NOTE | 2017-01-09 12:18 | ONCOLOGY CONSULTATION ---
DATE OF CONSULTATION: 01/09/2017 MEDICAL ONCOLOGY CONSULTATION REASON FOR CONSULTATION: Suspicious findings on CT scan suggestive of emerging lymphoma. HISTORY OF PRESENT ILLNESS: Mr. Patel is a pleasant 76-year-old gentleman with multiple comorbid issues who presented to the Emergency Room hypotensive with confusion and generalized weakness. Apparently while at home, he suffered a couple of falls and when EMS was activated, his blood pressure was found to be in the 60/40 range. Workup in the Emergency Room confirmed the patient to be an active renal failure with a creatinine of 5.2, up from baseline of 1 a few months prior. Radiographic workup which included a KUB and CT scan of the abdomen and pelvis revealed left staghorn calculus and diffuse retroperitoneal and mesenteric lymphadenopathy. Again, Mr. Patel has multiple other comorbid issues ongoing including possible urinary tract infection and paroxysmal atrial fibrillation. I have been asked to evaluate him for possible emerging lymphoma. 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 PAST SURGICAL HISTORY: Includes lithotripsy, appendectomy, cholecystectomy, open bilateral inguinal hernia repair, PEG tube placement, and tonsillectomy. FAMILY HISTORY: Positive for hypertension and renal disease. SOCIAL HISTORY: Reformed smoker. He is , resides in a residential. Negative for alcohol or drugs. MEDICATIONS: Prior to admission include Sinemet 25/100 two tablets p.o. every day, cholecalciferol 5000 units p.o. every day, docusate sodium 1 capsule p.o. b.i.d., Vasotec 10 mg p.o. q.a.m., levothyroxine 1 tablet p.o. q.a.m. dose unknown, nitrofurantoin 100 mg p.o. at bedtime, omeprazole 25 mg p.o. every day, oxycodone/acetaminophen 5/325 one tablet p.o. q. 12 hours and Effexor 75 mg p.o. every day. ALLERGIES: PENICILLINS. REVIEW OF SYSTEMS: The patient is slow to respond to simple questions and therefore review of systems not performed. PHYSICAL EXAMINATION: GENERAL: Mr. Patel is lying supine in bed in no apparent distress. VITAL SIGNS: Temperature 36.6, pulse 80, respirations 18, blood pressure 119/82. SKIN: Warm, dry, noncyanotic with petechia, rash or ecchymosis. HEENT: Head atraumatic, normocephalic. EYES: PERRLA, EOMI. Sclerae nonicteric. No conjunctival injection. Nares patent without rhinorrhea or discharge. Throat clear. Tongue midline. Mucous membranes are moist. NECK: Supple without JVD or thyromegaly. LYMPH: No palpable cervical, supraclavicular or axillary lymphadenopathy. HEART: Regular rate and rhythm. LUNGS: Clear to auscultation bilaterally. ABDOMEN: Soft, nontender, nondistended, without palpable hepatosplenomegaly. EXTREMITIES: 2+ peripheral edema bilaterally. Strength is not tested. Pulses are equal. NEUROLOGICALLY: He is awake and alert but certainly orientation is in question. Motor and sensory testing not done. LABORATORY DATA: WBC count 9020, hemoglobin 9.8, platelet count 140,000. Sodium 147, potassium 3.0, chloride 113, carbon dioxide 26, creatinine 1.40, BUN 49. LDH 579, albumin 2.3. LFTs otherwise unremarkable. IMPRESSION: 1. Acute renal injury/nephrolithiasis/urinary tract infection. 2. Paroxysmal atrial fibrillation. 3. Parkinsonism. 4. Lymphadenopathy suspected lymphoproliferative process. 5. Hypothyroidism. 6. Bilateral deep vein thromboses. PLAN: The primary service asked me to evaluate Mr. Patel for the radiographs described in the HPI. Bulky retroperitoneal and midline mesenteric lymphadenopathy was identified. It is unclear whether the lymphadenopathy actually resulted in an obstructive uropathy translating into his acute renal injury. Nonetheless, these findings are suspicious for a neoplastic/lymphoproliferative process and unfortunately the only way to confirm the diagnosis is a laparoscopic harvest of a lymph node. Discussed this with the hospitalist service and they will pursue general surgery consultation. Once diagnosis is confirmed, I will provide formal recommendations. For now, agree with current medical management, his renal function seems to be improving and will follow with him periodically during his hospital stay. Thank you very much for allowing me to participate in his care. If you have any questions or concerns, feel free to contact me at any time. ROXANNE
--- NOTE | 2017-01-09 15:40 | Nephrology Progress Note ---
Nephrology Progress Note Date of Service Jan 09, 2017. Chief Complaint Evaluation of acute on chronic kidney injury Subjective Mr. Patel was seen & examined in his hospital room this morning. He is alert and will answer questions appropriately. He remains weak. He denies dyspnea or uremic symptoms. He is tolerating IV hydration. Review of Systems Constitutional: No fever Cardiovascular: No chest pain Respiratory: No dyspnea at rest Abdomen: + problem reported (back pain), No nausea, No pain, No vomiting Extremities: No leg edema A complete review of systems was performed. Pertinent positives are noted above. All other systems are negative. Vital Signs Last 8 Hrs Date Time Temp Pulse Resp B/P Pulse Ox O2 Delivery O2 Flow Rate FiO2 01/09/17 14:59 36.3 82 18 121/81 100 Nasal Cannula 3.0 01/09/17 12:00 Nasal Cannula 2.0 01/09/17 11:58 36.6 86 20 115/78 99 Nasal Cannula 3.0 01/09/17 08:00 Nasal Cannula 2.0 01/09/17 07:56 36.6 80 18 119/82 99 Nasal Cannula 2.0 I & O 24-Hour Column 01/09/17 08:00 Intake Total 2885 ml Output Total 1500 ml Balance 1385 ml Last Recorded Weight Weight (Kilograms): 75.900 Physical Exam General Appearance: no apparent distress, + thin (frail, chronically ill appearing) Head: atraumatic (temporal muscle wasting) Eyes: PERRL Neck: no adenopathy Respiratory/Chest: lungs clear Cardiovascular: regular rate, rhythm Abdomen/GI: normal bowel sounds, non tender, soft Extremities/Musculoskelatal: no calf tenderness, no pedal edema Neurologic/Psych: alert Family History FHx: asthma Hypertension Kidney disease or stones Negative for CKD/ESRD Social History Smoking Status: Former smoker Alcohol Use: none Drug Use: none Marital Status: Housing Status: custodial Occupation: retired Retired from [employer]. Resident at [facility] Laboratory Results Past 24 Hours 01/09/17 04:35 Red Blood Count 3.30, Mean Corpuscular Volume 88.5, Mean Corpuscular Hemoglobin 29.7, Mean Corpuscular Hemoglobin Concent 33.6, Mean Platelet Volume 9.9, Neutrophils (%) (Auto) 79.6, Lymphocytes (%) (Auto) 7.5, Monocytes (%) (Auto) 7.5, Eosinophils (%) (Auto) 4.8, Basophils (%) (Auto) 0.2, Neutrophils # (Auto) 7.17, Lymphocytes # (Auto) 0.68, Monocytes # (Auto) 0.68, Eosinophils # (Auto) 0.43, Basophils # (Auto) 0.02 01/09/17 04:35 Test 01/09/17 04:35 White Blood Count 9.02 K/uL (4.8-10.8) Red Blood Count 3.30 M/uL (4.7-6.1) Hemoglobin 9.8 g/dL (14.0-18.0) Hematocrit 29.2 % (42-52) Mean Corpuscular Volume 88.5 fL (80-100) Mean Corpuscular Hemoglobin 29.7 pg (25-34) Mean Corpuscular Hemoglobin Concent 33.6 g/dl (32-36) Platelet Count 140 K/uL (130-400) Mean Platelet Volume 9.9 fL (7.4-10.4) Neutrophils (%) (Auto) 79.6 % Lymphocytes (%) (Auto) 7.5 % Monocytes (%) (Auto) 7.5 % Eosinophils (%) (Auto) 4.8 % Basophils (%) (Auto) 0.2 % Neutrophils # (Auto) 7.17 K/uL (1.4-6.5) Lymphocytes # (Auto) 0.68 K/uL (1.2-3.4) Monocytes # (Auto) 0.68 K/uL (0.11-0.59) Eosinophils # (Auto) 0.43 K/uL (0-0.5) Basophils # (Auto) 0.02 K/uL (0-0.2) RDW Standard Deviation 49.3 fL (36.4-46.3) RDW Coefficient of Variation 15.2 % (11.5-14.5) Immature Granulocyte % (Auto) 0.4 % Immature Granulocyte # (Auto) 0.04 K/uL (0.00-0.02) Activated Partial Thromboplast Time 53.4 SECONDS (21.0-31.0) Partial Thromboplastin Ratio 2.1 Anion Gap 8.0 mmol/L (3-11) Est Creatinine Clear Calc Drug Dose 40.8 ml/min Estimated GFR () 55.8 Estimated GFR (Non- 48.1 BUN/Creatinine Ratio 34.9 (10-20) Calcium Level 8.5 mg/dl (8.5-10.1) Total Bilirubin 0.6 mg/dl (0.2-1) Aspartate Amino Transf (AST/SGOT) 21 U/L (15-37) Alanine Aminotransferase (ALT/SGPT) 9 U/L (12-78) Alkaline Phosphatase 105 U/L (45-117) Total Protein 6.1 gm/dl (6.4-8.2) Albumin 2.3 gm/dl (3.4-5.0) Globulin 3.8 gm/dl (2.5-4.0) Albumin/Globulin Ratio 0.6 (0.9-2) Allergies Coded Allergies: Penicillins (Verified Allergy, Unknown, HIVES, 10/16/16) Medications Current Inpatient Medications Medications (Trade) Dose Ordered Sig/Aiden Route Start Time Stop Time Status Last Admin Dose Admin Sodium Chloride (Nss 1000ml) 1,000 ml @ 75 mls/hr [id number] IV 01/06/17 16:45 02/05/17 16:44 01/09/17 09:49 75 MLS/HR Acetaminophen (Tylenol Tab) 650 mg Q4H PRN PO 01/06/17 16:45 02/05/17 16:44 Ondansetron HCl (Zofran Inj) 4 mg Q6H PRN IV 01/06/17 16:45 02/05/17 16:44 Carbidopa/Levodopa (Sinemet 25/ 100MG Tab) 1 tab TIDM PO 01/07/17 08:00 02/06/17 07:59 01/09/17 12:37 1 TAB Carbidopa/Levodopa (Sinemet 25/ 100MG Tab) 2 tab HS PO 01/06/17 21:00 02/05/17 20:59 01/08/17 20:05 2 TAB Docusate Sodium (coLACE CAP) 100 mg BID PO 01/06/17 21:00 02/05/17 20:59 01/09/17 08:22 100 MG Levothyroxine Sodium (Synthroid Tab) 137 mcg DAILYBB PO 01/07/17 06:30 02/06/17 06:29 01/09/17 06:13 137 MCG Menthol/Zinc Oxide (Calmoseptine Oint) 1 appln BID PRN EXT 01/06/17 17:00 02/05/17 16:59 Oxycodone/ Acetaminophen (Percocet 5-325mg Tab) 1 tab Q6 PRN PO 01/06/17 17:00 01/20/17 16:59 01/09/17 10:48 1 TAB Tizanidine HCl (Zanaflex Tab) 2 mg Q12 PRN PO 01/06/17 17:00 02/05/17 16:59 01/07/17 00:04 2 MG Venlafaxine HCl (effeXOR EXTENDED REL CAP) 75 mg DAILY PO 01/07/17 09:00 02/06/17 08:59 01/09/17 08:22 75 MG Pantoprazole Sodium (Protonix Tab) 40 mg QAM PO 01/07/17 09:00 02/06/17 08:59 01/09/17 08:22 40 MG Levofloxacin (Consult) 1 ea UD PRN N/A 01/06/17 19:45 01/15/17 23:59 Heparin Sodium (Porcine) 5 ml 5 ml PRN PRN FLUSH 01/07/17 00:15 02/06/17 00:14 01/09/17 04:35 5 ML Heparin Sodium/ Dextrose 500 ml @ 20 mls/hr Q24H PRN IV 01/07/17 14:30 02/06/17 14:29 01/08/17 16:52 20 MLS/HR Levofloxacin/Prmx (Levaquin / D5W/ Premixed D5W) 150 ml @ 100 mls/hr Q48H IV 01/08/17 20:00 01/15/17 23:59 01/08/17 20:04 100 MLS/HR Impression (1) Acute kidney injury (2) Chronic kidney disease, stage 2, mildly decreased GFR (3) Shock (4) Dehydration (5) UTI (lower urinary tract infection) (6) Kidney stones (7) Parkinsonian syndrome Mr. Patel was admitted to the hospital for evaluation of weakness and recurrent falls. He presented to the ED with hypotension and YUSUF. Evaluation revealed that he has been suffering from back pain. He has been treating this w / Ibuprofen. He was diagnosed w/ UTI and dehydration. His kidney function is improving w/ volume resuscitation. Patient has h/o kidney stones. Abdominal CT without contrast was negative for hydronephrosis. CT did reveal bulky retroperitoneal and mesenteric lymphadenopathy w/ possible liver metastasis concerning for lymphoma. 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 No hydronephrosis. Patient does have bilateral renal calculi. Stone on the left is a staghorn -- Avoid NSAIDS and known nephrotoxic agents -- Kidney function is nearing baseline -- Recommend changing IVF to 0.45 NS to avoid hypernatremia CHRONIC KIDNEY DISEASE: -- Baseline creatinine has been 1.0 w/ EGFR 72 cc/min KIDNEY STONES: -- Management as per Urology -- No hydronephrosis on Abdominal CT ID: -- Urine culture w/ gram negative bacilli. Sensitivities pending -- Agree w/ empiric antibiotic therapy (Levaquin) -- Pharmacy to dose adjust antibiotics for YUSUF ONCOLOGY: -- Recommend surgical consultation to evaluate for lymph node biopsy -- Recommend consultation w/ Oncology due to retroperitoneal and mesenteric lymphadenopathy OTHER: -- No further evaluation needed from a nephrology perspective. Kidney function is nearing baseline. IVF should be changed to 0.45 NS to avoid hypernatremia. Will sign off. Please call if further assistance is needed.
[2017-01-09] MEDS: HEPARIN 25,000 UNIT/500ML D5W 500 ML IV PRN (19:22)
[2017-01-10] VITALS: O2SAT 94
[2017-01-10 00:28] VITALS: BP 127/77; PULSE 92; TEMP 36.4; O2SAT 98
--- NOTE | 2017-01-10 01:27 | SURGICAL CONSULTATION ---
DATE OF CONSULTATION: 01/09/2017 I have been asked by Dr. Landa to see this 76-year-old male for evaluation of adenopathy. HISTORY OF PRESENT ILLNESS: The patient was admitted with possible sepsis. He had relative hypotension with systolic blood pressures in the 90s. The patient's son had noticed his fingertips seemed to be blue. He had one episode of vomiting in the ER. Most of this history has been obtained from the chart as the patient was not able to provide much information. He has a history of staghorn calculus. He has had other kidney stones in the past. He was placed on Cipro. He was noted to have acute kidney injury and felt to have a urinary tract infection as well. He underwent a CT scan of the abdomen and pelvis that demonstrated bulky adenopathy in the upper abdomen as well as multiple mesenteric lymph nodes and some dilated inguinal lymph nodes and we have been asked to help evaluate the adenopathy. He denies a history of night sweats. He is quite thin and appears unsure about weight loss. He underwent a CT scan of the abdomen and pelvis that demonstrated redevelopment of bulky adenopathy in the retroperitoneum with notable change in the pelvic sidewall and inguinal regions. This staghorn chronic calculus was also identified. There was also a suspicion of developing metastatic change. There was cerotic change noted with multiple space occupying lesions in both lobes. There was a conglomerate of notable dimension dilation at the level of the renal arteries measuring 7.5 x 5.5 cm. PAST MEDICAL HISTORY: Includes disk degeneration, hyperlipidemia, hypertension, hypothyroidism, kidney stones, Parkinson disease, GERD, and BPH. PAST SURGICAL HISTORY: Lithotripsy, appendectomy, cholecystectomy, bilateral inguinal hernia repair, PEG tube placement, and tonsillectomy. MEDICATIONS: At home included Sinemet, docusate sodium, vitamin D, Vasotec, levothyroxine, Macrobid, Prilosec, and Percocet. ALLERGIES: PENICILLIN. PHYSICAL EXAMINATION: GENERAL: Reveals a cachectic male who is not answering questions but is awake and alert. VITAL SIGNS: Blood pressure 121/81, heart rate 82, respirations 18, temperature 36.3, pulse oximetry is 100% on 3 liter nasal cannula. HEENT: Sclerae are anicteric. Mucous membranes are moist. NECK: Supple without adenopathy. BACK: Has no spinal or CVA tenderness. LUNGS: Clear. HEART: Regular. LYMPH: Axillae are without adenopathy. ABDOMEN: Has normoactive bowel sounds, soft with mild tenderness in multiple areas. Examination of the inguinal regions reveals fullness, but I cannot feel any discrete lymph nodes. LABORATORY DATA: WBC 9.02, H\T\H is 9.8 and 29.2, platelet count is 140,000. Sodium 147, potassium 3.0, chloride 113, CO2 26, BUN 49, creatinine 1.4, glucose is 97. Bilirubin is 0.6, AST is 21, ALT 9, alkaline phosphatase 105. IMAGING DATA: CT as per HPI. ASSESSMENT AND PLAN: This patient has multiple areas of lymphadenopathy suspicious for lymphoma. I would recommend an ultrasound of the inguinal region to identify lymph nodes there. It would be easier to perform an excisional lymph node biopsy there then to have to remove the intraabdominal lymph node which would be more difficult and also at this point I am not sure he would tolerate the general anesthesia. Thank you for allowing me to see this patient and participate in his care.
[2017-01-10 04:35] VITALS: BP 135/84; PULSE 72; TEMP 36.3; O2SAT 98
[2017-01-10 05:20] LABS: HEMATOCRIT 30.9 % (42-52); MEAN CELL VOLUME 91.2 fL (80-100); MEAN CORPUSCULAR HEMOGLOBIN 29.8 pg (25-34); MEAN CORPUSCULAR HGB CONC 32.7 g/dl (32-36); MEAN PLATELET VOLUME 9.8 fL (7.4-10.4); PLATELET COUNT 136 K/uL (130-400); RED BLOOD COUNT 3.39 M/uL (4.7-6.1); WHITE BLOOD COUNT 8.75 K/uL (4.8-10.8)
[2017-01-10 05:35] LABS: PARTIAL THROMBOPLASTIN RATIO 1.9
[2017-01-10] MEDS: LEVOTHYROXINE 137 MCG TAB PO SCH (05:54)
[2017-01-10 05:58] LABS: BUN/CREATININE RATIO 34.3 (10-20); CALCIUM 8.7 mg/dl (8.5-10.1); CREATININE 0.86 mg/dl (0.60-1.40)
[2017-01-10 07:25] VITALS: BP 119/84; PULSE 77; TEMP 36.7; O2SAT 95
[2017-01-10] MEDS: PANTOprazole SOD 40 MG TAB PO SCH (08:28)
[2017-01-10] MEDS: VENLAFAXINE HCL XR 75 MG CAPXR PO SCH (08:28)
[2017-01-10] MEDS: DOCUSATE SODIUM 100 MG CAP PO SCH ×2 (08:30→20:05)
[2017-01-10] MEDS: CARBIDOPA/LEVODOPA 25/100MG TAB PO SCH ×4 (08:30→20:05)
--- NOTE | 2017-01-10 09:04 | Surgery Progress Note ---
Surgery Progress Note Date of Service Jan 10, 2017. Subjective + diet, No nausea, No vomiting Subjectively unchanged Objective Vital Signs: Date Time Temp Pulse Resp B/P Pulse Ox O2 Delivery O2 Flow Rate FiO2 01/10/17 07:25 36.7 77 20 119/84 95 Nasal Cannula 3.0 01/10/17 04:35 36.3 72 18 135/84 98 Nasal Cannula 3.0 01/10/17 04:00 Nasal Cannula 3.0 01/10/17 00:28 36.4 92 18 127/77 98 Nasal Cannula 3.0 01/10/17 00:00 94 Nasal Cannula 3.0 01/09/17 20:12 94 Nasal Cannula 3.0 01/09/17 20:00 95 18 132/72 94 Nasal Cannula 3.0 01/09/17 16:00 Nasal Cannula 2.0 01/09/17 14:59 36.3 82 18 121/81 100 Nasal Cannula 3.0 01/09/17 12:00 Nasal Cannula 2.0 01/09/17 11:58 36.6 86 20 115/78 99 Nasal Cannula 3.0 Laboratory Results: Results Past 24 Hours Test 01/10/17 05:08 Range/Units White Blood Count 8.75 4.8-10.8 K/uL Red Blood Count 3.39 4.7-6.1 M/uL Hemoglobin 10.1 14.0-18.0 g/dL Hematocrit 30.9 42-52 % Mean Corpuscular Volume 91.2 80-100 fL Mean Corpuscular Hemoglobin 29.8 25-34 pg Mean Corpuscular Hemoglobin Concent 32.7 32-36 g/dl RDW Standard Deviation 51.3 36.4-46.3 fL RDW Coefficient of Variation 15.3 11.5-14.5 % Platelet Count 136 130-400 K/uL Mean Platelet Volume 9.8 7.4-10.4 fL Activated Partial Thromboplast Time 49.0 21.0-31.0 SECONDS Partial Thromboplastin Ratio 1.9 Sodium Level 149 136-145 mmol/L Potassium Level 3.0 3.5-5.1 mmol/L Chloride Level 116 98-107 mmol/L Carbon Dioxide Level 29 21-32 mmol/L Anion Gap 4.0 3-11 mmol/L Blood Urea Nitrogen 30 7-18 mg/dl Creatinine 0.86 0.60-1.40 mg/dl Est Creatinine Clear Calc Drug Dose 67.0 ml/min Estimated GFR () 96.9 Estimated GFR (Non- 83.6 BUN/Creatinine Ratio 34.3 10-20 Random Glucose 93 70-99 mg/dl Calcium Level 8.7 8.5-10.1 mg/dl Assessment & Plan Most likely lymphoma Multiple intraabdominal and inguinal nodes. Consider ultrasound guided biopsy of inguinal nodes which are not readily palpable
[2017-01-10 11:24] VITALS: BP 133/88; PULSE 71; TEMP 36.9; O2SAT 98
[2017-01-10] MEDS: LEVOFLOXACIN 250MG / D5W IV SCH (12:18)
[2017-01-10] MEDS: SODIUM CHLORIDE 0.9% 1000ML 1,000 ML IV SCH (12:19)
--- NOTE | 2017-01-10 16:11 | Hospitalist Progress Note ---
Hospitalist Progress Note Date of Service Jan 10, 2017. Subjective Pt evaluation today including: conversation w/ patient, physical exam, chart review Respiratory: No cough, No dyspnea at rest, No dyspnea on exertion, No hemoptysis, No problem reported, No see HPI, No shortness of breath, No sputum, No wheezing Cardiovascular: No PND, No chest pain, No claudication, No edema, No orthopnea, No palpitations, No problem reported, No see HPI Musculoskeletal: + joint pain (back pain) Medications Medications (Trade) Dose Ordered Sig/Aiden Route Start Time Stop Time Status Last Admin Dose Admin Levofloxacin/Prmx (Levaquin / D5W/ Premixed D5W) 50 ml @ 50 mls/hr Q24H IV 01/10/17 11:00 01/15/17 11:59 01/10/17 12:18 50 MLS/HR Objective Vital Signs Date Time Temp Pulse Resp B/P Pulse Ox O2 Delivery O2 Flow Rate FiO2 01/10/17 12:00 Nasal Cannula 2.0 01/10/17 11:24 36.9 71 18 133/88 98 Ambu-Bag 3.0 01/10/17 08:00 Nasal Cannula 2.0 01/10/17 07:25 36.7 77 20 119/84 95 Nasal Cannula 3.0 01/10/17 04:35 36.3 72 18 135/84 98 Nasal Cannula 3.0 01/10/17 04:00 Nasal Cannula 3.0 01/10/17 00:28 36.4 92 18 127/77 98 Nasal Cannula 3.0 01/10/17 00:00 94 Nasal Cannula 3.0 01/09/17 20:12 94 Nasal Cannula 3.0 01/09/17 20:00 95 18 132/72 94 Nasal Cannula 3.0 01/09/17 16:00 Nasal Cannula 2.0 01/09/17 14:59 36.3 82 18 121/81 100 Nasal Cannula 3.0 Physical Exam General Appearance: WD/WN, no apparent distress Eyes: normal inspection ENT: normal ENT inspection Neck: supple, no adenopathy Respiratory/Chest: chest non-tender, lungs clear, normal breath sounds Cardiovascular: regular rate, rhythm, no gallop, no JVD Abdomen: normal bowel sounds, non tender, soft Extremities: + pedal edema Neurologic/Psychiatric: alert, oriented x 3 Skin: + pallor Laboratory Results Last 24 Hours Test 01/10/17 05:08 White Blood Count 8.75 K/uL Red Blood Count 3.39 M/uL Hemoglobin 10.1 g/dL Hematocrit 30.9 % Mean Corpuscular Volume 91.2 fL Mean Corpuscular Hemoglobin 29.8 pg Mean Corpuscular Hemoglobin Concent 32.7 g/dl RDW Standard Deviation 51.3 fL RDW Coefficient of Variation 15.3 % Platelet Count 136 K/uL Mean Platelet Volume 9.8 fL Activated Partial Thromboplast Time 49.0 SECONDS Partial Thromboplastin Ratio 1.9 Sodium Level 149 mmol/L Potassium Level 3.0 mmol/L Chloride Level 116 mmol/L Carbon Dioxide Level 29 mmol/L Anion Gap 4.0 mmol/L Blood Urea Nitrogen 30 mg/dl Creatinine 0.86 mg/dl Est Creatinine Clear Calc Drug Dose 67.0 ml/min Estimated GFR () 96.9 Estimated GFR (Non- 83.6 BUN/Creatinine Ratio 34.3 Random Glucose 93 mg/dl Calcium Level 8.7 mg/dl Assessment and Plan (1) Acute kidney failure (2) Hypertension (3) Chronic kidney disease, stage 2, mildly decreased GFR The patient is a 76-year-old male with a history of nephrolithiasis with a left staghorn calculus, chronic low back pain, hypertension, parkinsonian syndrome, hypothyroidism, GERD, and severe depression, who presents to the ER with some confusion the last 2 days and weakness with 2 falls in the last week. The EMS reports his blood pressure was in the 60s over 40s. When he presented to the ER , he was relatively hypotensive with a systolic blood pressure of 90, and a right-sided subclavian central line was placed by the ER physician and he was bolused with 2 L of normal saline. The son noted that patient's fingertips seemed to had one episode of vomiting prior to coming to the ER, and had new onset lower extremity edema in the last several days. He was found to be in acute renal failure with a creatinine of 5.2 up from a baseline of 1.0 from 2 months ago. Acute kidney injury/nephrolithiasis/UTI/lower extremity edema-creatinine 5.2 up from baseline of 1.0. He is oliguric and hypotensive and despite the edema in his lower extremities, he is clinically dry. He has known large kidney stones including a left staghorn calculus in his urine appears infected. He is not hyperkalemic or acidotic at this time and no urgent dialysis is needed. White blood cell count is mildly elevated at 11,000 and he was hypotensive and mildly tachycardic. Lactate is normal and he is afebrile. Suspect prerenal azotemia from dehydration but there may be a component of intrinsic renal failure due to infection and stones.Likely YUSUF with ATN -Renal function has improved with IV fluids. Appreciate Renal input. Cont. with IV fluids. -Rodriguez placed, monitor strict I's and O's -Start Levaquin renally dosed for urinary tract infection and follow urine cultures and blood cultures -Urine Cx are positive for Gram neg. rods, Pseudomonas aeruginosa -Avoid nephrotoxins and renally dose all meds Bilateral lower extremities DVT -Doppler of the lower extremities + for extensive bilateral DVT- Continue heparin gtt, consider overlap with coumadin or NOAC (renally dosed) tomorrow. -Check echo to rule out congestive heart failure as cause of lower extremity edema and renal failure Mesenteric lymphadenopathy -Will ask Radiology for biopsy of inguinal lymph nodes under US guidance if possible today. Need to stop heparin 2 hours prior to biopsy. -Appreciate Onc and Surg. input Altered MS Likely multifactorial-Metabolic encephalopathy in the setting of UTI, ARF, hypotension Improving. Rapid atrial fibrillation/hypertension-rate is now controlled in the 80s after IV fluid boluses were given for hypotension. This is new in onset for him. Unable to start beta edie at this time due to hypotension. Troponin was negative -Hold his BABAK inhibitor -Check echo -Consult cardiology appreciated. Renal stones/Staghorn calculus left kidney. Appreciate urology input. No indication for stenting at the present time. Parkinsonism/history of severe depression-stable at this time, has a history of electroconvulsive therapy with last maintenance treatment in July 2016. Has a history of hospitalization for severe parkinsonism symptoms causing failure to thrive requiring PEG tube placement which has since been removed. -Continue Sinemet and Effexor Hypothyroidism-TSH is mildly elevated at 6 here -Check free T3 and free T4 in the morning Continue levothyroxine at home dose for now GERD-stable -Continue PPI
--- NOTE | 2017-01-10 16:14 | DIAGNOSTIC IMAGING REPORT ---
ULTRASOUND-GUIDED FINE-NEEDLE ASPIRATION OF THE RIGHT GROIN AND LIVER CLINICAL HISTORY: Hepatic metastases. Mass lesion in the region of the pancreatic head. Peritoneal implants.. COMPARISON STUDY: Abdominal CT dated 01/06/2017. PROCEDURE: The risks, benefits, and alternatives to the procedure were discussed with the patient. Written informed consent was obtained. The patient was placed supine in ultrasound, and the a nodule in the right groin was localized and selected for fine-needle aspiration. The right groin was prepped and draped in the usual sterile fashion. The right groin nodule was aspirated under ultrasound guidance with 4 passes utilizing 25-gauge needles. Specimens were reviewed by the pathologist and deemed unsatisfactory. A lesion in the left lobe of the liver was then localized by ultrasound. The upper abdomen was then prepped and draped in the usual sterile fashion. The liver lesion was aspirated under ultrasound guidance with 3 passes utilizing 25-gauge needles. Specimens were reviewed by the pathologist and deemed satisfactory. The patient tolerated the procedure well and left the department in satisfactory condition. IMPRESSION: 1. Fine-needle aspiration of the right groin was attempted and was inconclusive. 2. A left lobe hepatic lesion was then aspirated. Samples were deemed adequate for diagnosis. Electronically signed by: Ludwig Smith M.D. 01/10/2017 4:12 PM Dictated Date/Time: 01/10/2017 4:00 PM
[2017-01-10] MEDS: OXYCODONE/ACETAMINOPHEN 5-325 TAB PO PRN (17:42)
[2017-01-10 19:13] VITALS: BP 132/94; PULSE 96; TEMP 36.5; O2SAT 90
[2017-01-10] MEDS: HEPARIN 25,000 UNIT/500ML D5W 500 ML IV PRN (22:08)
[2017-01-11] VITALS (7 sets, daily range): BP systolic 110–134; BP diastolic 70–87; PULSE 72–142; TEMP 36.5–37.3; O2SAT 90–97
[2017-01-11] MEDS: SODIUM CHLORIDE 0.9% 1000ML 1,000 ML IV SCH (04:23)
[2017-01-11] MEDS: LEVOTHYROXINE 137 MCG TAB PO SCH (04:34)
[2017-01-11 06:03] LABS: BASO % 0.2 %; BASO ABS # 0.02 K/uL (0-0.2); COMPLETE YES; EOS % 4.4 %; HEMATOCRIT 32.6 % (42-52); IG% 0.3 %; LYMPH % 7.2 %; LYMPH ABS # 0.85 K/uL (1.2-3.4); MEAN CELL VOLUME 90.6 fL (80-100); MEAN CORPUSCULAR HGB CONC 33.1 g/dl (32-36); MONO % 5.8 %; NEUT % 82.1 %; PLATELET COUNT 150 K/uL (130-400); WHITE BLOOD COUNT 11.87 K/uL (4.8-10.8)
[2017-01-11 06:17] LABS: PARTIAL THROMBOPLASTIN RATIO 1.7
[2017-01-11 06:32] LABS: BUN/CREATININE RATIO 27.2 (10-20); CREATININE 0.78 mg/dl (0.60-1.40); POTASSIUM 3.1 mmol/L (3.5-5.1)
[2017-01-11] MEDS: CARBIDOPA/LEVODOPA 25/100MG TAB PO SCH ×4 (08:00→19:25)
[2017-01-11] MEDS: PANTOprazole SOD 40 MG TAB PO SCH (08:21)
[2017-01-11] MEDS: VENLAFAXINE HCL XR 75 MG CAPXR PO SCH (08:21)
[2017-01-11] MEDS: DOCUSATE SODIUM 100 MG CAP PO SCH ×2 (08:21→19:25)
[2017-01-11] MEDS ORDERED: SODIUM CHLOR 0.45% + 20MEQ KCL 1,000 ML IV SCH (10:15)
[2017-01-11] MEDS ORDERED: HEPARIN IV BOLUS 3,000 UNIT in SYRINGE 0 ML IV ONE (10:15)
--- NOTE | 2017-01-11 10:35 | SURGERY PROGRESS NOTE ---
DATE: 01/11/2017 SUBJECTIVE: Duane underwent a fine needle aspiration of a right groin yesterday by the radiologist. The operative site is fine. Bandage is intact. The path report is pending. At this point, we will await the path report until further recommendation. I am covering for Dr. Alva this weekend and he will resume care on Friday.
[2017-01-11] MEDS: LEVOFLOXACIN 250MG / D5W IV SCH (11:10)
--- NOTE | 2017-01-11 12:50 | DIAGNOSTIC IMAGING REPORT ---
CT OF THE THORACIC SPINE WITH AND WITHOUT CONTRAST CLINICAL HISTORY: Severe back pain. Evaluate for metastatic disease. TECHNIQUE: Axial images of the thoracic spine were obtained before and after intravenous ministration of 93 cc Optiray 320 IV. Sagittal and coronal reconstructions were viewed. COMPARISON STUDY: None. FINDINGS: Exaggerated kyphosis of the thoracic spine is noted. No acute thoracic spine fracture is identified. No osseous lesion is identified within the thoracic spine by CT. The central canal and neural foramen are suboptimally assessed by CT technique but no epidural mass is identified. By CT, the central canal is patent. Mild multilevel degenerative disc disease is present. There are small bilateral pleural effusions with associated bilateral lower lobe airspace opacities. Multiple pulmonary nodules are noted, the largest of which is a 1.2 cm left lower lobe nodule. There is mild dilatation of the ascending aorta. The heart is moderately enlarged. Innumerable liver metastases are noted as well as a necrotic retroperitoneal mass. There is mild right hydronephrosis. Renal calculi are noted bilaterally. Several pathologically enlarged thoracic lymph nodes are noted, including a 1.1 cm AP window lymph node. IMPRESSION: 1. No acute thoracic spine fracture or subluxation. 2. No evidence of metastatic disease within the thoracic spine by CT. 3. Redemonstration of the large necrotic retroperitoneal mass consistent with malignancy. Innumerable liver metastases with multiple small suspected pulmonary metastases. 4. Small bilateral pleural effusions with lower lobe opacities which could reflect atelectasis or consolidation. Electronically signed by: Sae Gregorio M.D. 01/11/2017 12:49 PM Dictated Date/Time: 01/11/2017 12:35 PM
--- NOTE | 2017-01-11 12:58 | DIAGNOSTIC IMAGING REPORT ---
CT OF THE LUMBAR SPINE WITH AND WITHOUT CONTRAST CT DOSE: 3289.04 mGy.cm CLINICAL HISTORY: Back pain. Evaluate for metastatic disease. TECHNIQUE: Images of the lumbar spine were obtained before and after intravenous administration 93 cc Optiray 320 IV. Sagittal and coronal reconstructed reviewed. COMPARISON STUDY: Lumbar spine radiographs November 29, 2016. FINDINGS: Alignment of lumbar spine is anatomic. There is mild loss of height of the L3 vertebral body. There is a Schmorl's node involving the superior endplate of L5. There is slight loss of height of L4. These fractures are age indeterminate although likely chronic. No acute fracture is identified within the lumbar spine by CT. No osseous lesion is identified by CT. The central canal and neural foramen are suboptimally assessed by CT but no epidural mass is identified. Mild multilevel degenerative disc disease and facet arthrosis is present. Note is again made of the large necrotic retroperitoneal mass which was shown on abdominal CT of January 06, 2017. This mass encases the celiac axis and superior mesenteric artery. Innumerable liver metastases are noted. There is a left renal cyst. There is a left staghorn calculus. Right renal calculi are noted. There is a calculus within the right renal pelvis. There is mild dilatation of the right renal pelvis. A small amount of retroperitoneal fluid is noted. IMPRESSION: 1. Mild L3 compression fracture with slight loss of height of L4. These compression fractures are age indeterminate although probably chronic. Although suboptimally evaluated by CT, a benign etiology for these fractures is favored. No convincing evidence for pathologic fracture. 2. Mild multilevel degenerative disc disease and facet arthrosis of the lumbar spine. 3. Redemonstration of the large necrotic retroperitoneal mass consistent with malignancy with innumerable liver metastases. 4. Bilateral renal calculi, including a left staghorn calculus. Electronically signed by: Sae Gregorio M.D. 01/11/2017 12:57 PM Dictated Date/Time: 01/11/2017 12:49 PM
--- NOTE | 2017-01-11 13:47 | Hospitalist Progress Note ---
Hospitalist Progress Note Date of Service Jan 11, 2017. Subjective Pt evaluation today including: conversation w/ patient, physical exam, chart review Constitutional: + fatigue Abdomen: + nausea, + vomiting Musculoskeletal: + problem reported (back pain) Objective Vital Signs Date Time Temp Pulse Resp B/P Pulse Ox O2 Delivery O2 Flow Rate FiO2 01/11/17 07:36 37.0 96 16 121/80 90 Nasal Cannula 3.0 01/11/17 05:11 36.5 93 18 132/87 90 Room Air 01/11/17 04:00 Room Air 01/11/17 00:49 36.6 93 18 118/83 91 Room Air 01/11/17 00:09 Room Air 01/10/17 20:00 Room Air 01/10/17 19:13 36.5 96 20 132/94 90 Room Air 01/10/17 12:00 Nasal Cannula 2.0 01/10/17 11:24 36.9 71 18 133/88 98 Ambu-Bag 3.0 Physical Exam General Appearance: WD/WN, no apparent distress Eyes: normal inspection ENT: normal ENT inspection Neck: supple, no adenopathy Respiratory/Chest: chest non-tender, lungs clear Cardiovascular: regular rate, rhythm, no JVD, + systolic murmur Abdomen: normal bowel sounds, non tender, soft Neurologic/Psychiatric: safety companion II-XII nml as tested, oriented x 3, + pertinent finding (Motor function-Severe weaknes of both LEs (proximal strength 1/5, distal 3/5)) Skin: + pallor, + pertinent finding (Ulcer plantar aspect of right foot.) Laboratory Results Last 24 Hours Test 01/11/17 05:27 White Blood Count 11.87 K/uL Red Blood Count 3.60 M/uL Hemoglobin 10.8 g/dL Hematocrit 32.6 % Mean Corpuscular Volume 90.6 fL Mean Corpuscular Hemoglobin 30.0 pg Mean Corpuscular Hemoglobin Concent 33.1 g/dl Platelet Count 150 K/uL Mean Platelet Volume 10.0 fL Neutrophils (%) (Auto) 82.1 % Lymphocytes (%) (Auto) 7.2 % Monocytes (%) (Auto) 5.8 % Eosinophils (%) (Auto) 4.4 % Basophils (%) (Auto) 0.2 % Neutrophils # (Auto) 9.75 K/uL Lymphocytes # (Auto) 0.85 K/uL Monocytes # (Auto) 0.69 K/uL Eosinophils # (Auto) 0.52 K/uL Basophils # (Auto) 0.02 K/uL RDW Standard Deviation 50.9 fL RDW Coefficient of Variation 15.4 % Immature Granulocyte % (Auto) 0.3 % Immature Granulocyte # (Auto) 0.04 K/uL Activated Partial Thromboplast Time 43.6 SECONDS Partial Thromboplastin Ratio 1.7 Sodium Level 151 mmol/L Potassium Level 3.1 mmol/L Chloride Level 117 mmol/L Carbon Dioxide Level 28 mmol/L Anion Gap 6.0 mmol/L Blood Urea Nitrogen 21 mg/dl Creatinine 0.78 mg/dl Est Creatinine Clear Calc Drug Dose 74.5 ml/min Estimated GFR () 100.9 Estimated GFR (Non- 87.1 BUN/Creatinine Ratio 27.2 Random Glucose 91 mg/dl Calcium Level 9.0 mg/dl Diagnostic Results [~ rep ct add3]] ULTRASOUND-GUIDED FINE-NEEDLE ASPIRATION OF THE RIGHT GROIN AND LIVER CLINICAL HISTORY: Hepatic metastases. Mass lesion in the region of the pancreatic head. Peritoneal implants.. COMPARISON STUDY: Abdominal CT dated 01/06/2017. PROCEDURE: The risks, benefits, and alternatives to the procedure were discussed with the patient. Written informed consent was obtained. The patient was placed supine in ultrasound, and the a nodule in the right groin was localized and selected for fine-needle aspiration. The right groin was prepped and draped in the usual sterile fashion. The right groin nodule was aspirated under ultrasound guidance with 4 passes utilizing 25-gauge needles. Specimens were reviewed by the pathologist and deemed unsatisfactory. A lesion in the left lobe of the liver was then localized by ultrasound. The upper abdomen was then prepped and draped in the usual sterile fashion. The liver lesion was aspirated under ultrasound guidance with 3 passes utilizing 25-gauge needles. Specimens were reviewed by the pathologist and deemed satisfactory. The patient tolerated the procedure well and left the department in satisfactory condition. IMPRESSION: 1. Fine-needle aspiration of the right groin was attempted and was inconclusive. 2. A left lobe hepatic lesion was then aspirated. Samples were deemed adequate for diagnosis. Electronically signed by: Ludwig Smith M.D. 01/10/2017 4:12 PM Dictated Date/Time: 01/10/2017 4:[address] OF THE LUMBAR SPINE WITH AND WITHOUT CONTRAST CT DOSE: 3289.04 mGy.cm CLINICAL HISTORY: Back pain. Evaluate for metastatic disease. TECHNIQUE: Images of the lumbar spine were obtained before and after intravenous administration 93 cc Optiray 320 IV. Sagittal and coronal reconstructed reviewed. COMPARISON STUDY: Lumbar spine radiographs November 29, 2016. FINDINGS: Alignment of lumbar spine is anatomic. There is mild loss of height of the L3 vertebral body. There is a Schmorl's node involving the superior endplate of L5. There is slight loss of height of L4. These fractures are age indeterminate although likely chronic. No acute fracture is identified within the lumbar spine by CT. No osseous lesion is identified by CT. The central canal and neural foramen are suboptimally assessed by CT but no epidural mass is identified. Mild multilevel degenerative disc disease and facet arthrosis is present. Note is again made of the large necrotic retroperitoneal mass which was shown on abdominal CT of January 06, 2017. This mass encases the celiac axis and superior mesenteric artery. Innumerable liver metastases are noted. There is a left renal cyst. There is a left staghorn calculus. Right renal calculi are noted. There is a calculus within the right renal pelvis. There is mild dilatation of the right renal pelvis. A small amount of retroperitoneal fluid is noted. IMPRESSION: 1. Mild L3 compression fracture with slight loss of height of L4. These compression fractures are age indeterminate although probably chronic. Although suboptimally evaluated by CT, a benign etiology for these fractures is favored. No convincing evidence for pathologic fracture. 2. Mild multilevel degenerative disc disease and facet arthrosis of the lumbar spine. 3. Redemonstration of the large necrotic retroperitoneal mass consistent with malignancy with innumerable liver metastases. 4. Bilateral renal calculi, including a left staghorn calculus. Electronically signed by: Sae Gregorio M.D. 01/11/2017 12:[address] OF THE THORACIC SPINE WITH AND WITHOUT CONTRAST CLINICAL HISTORY: Severe back pain. Evaluate for metastatic disease. TECHNIQUE: Axial images of the thoracic spine were obtained before and after intravenous ministration of 93 cc Optiray 320 IV. Sagittal and coronal reconstructions were viewed. COMPARISON STUDY: None. FINDINGS: Exaggerated kyphosis of the thoracic spine is noted. No acute thoracic spine fracture is identified. No osseous lesion is identified within the thoracic spine by CT. The central canal and neural foramen are suboptimally assessed by CT technique but no epidural mass is identified. By CT, the central canal is patent. Mild multilevel degenerative disc disease is present. There are small bilateral pleural effusions with associated bilateral lower lobe airspace opacities. Multiple pulmonary nodules are noted, the largest of which is a 1.2 cm left lower lobe nodule. There is mild dilatation of the ascending aorta. The heart is moderately enlarged. Innumerable liver metastases are noted as well as a necrotic retroperitoneal mass. There is mild right hydronephrosis. Renal calculi are noted bilaterally. Several pathologically enlarged thoracic lymph nodes are noted, including a 1.1 cm AP window lymph node. IMPRESSION: 1. No acute thoracic spine fracture or subluxation. 2. No evidence of metastatic disease within the thoracic spine by CT. 3. Redemonstration of the large necrotic retroperitoneal mass consistent with malignancy. Innumerable liver metastases with multiple small suspected pulmonary metastases. 4. Small bilateral pleural effusions with lower lobe opacities which could reflect atelectasis or consolidation. Electronically signed by: Sae Gregorio M.D. 01/11/2017 12:49 PM01/11/17 05:27 Red Blood Count 3.60, Mean Corpuscular Volume 90.6, Mean Corpuscular Hemoglobin 30.0, Mean Corpuscular Hemoglobin Concent 33.1, Mean Platelet Volume 10.0, Neutrophils (%) (Auto) 82.1, Lymphocytes (%) (Auto) 7.2, Monocytes (%) (Auto) 5.8, Eosinophils (%) (Auto) 4.4, Basophils (%) (Auto) 0.2, Neutrophils # (Auto) 9.75, Lymphocytes # (Auto) 0.85, Monocytes # (Auto) 0.69, Eosinophils # (Auto) 0.52, Basophils # (Auto) 0.02 01/11/17 05:27 Test 01/06/17 14:15 01/06/17 15:00 01/06/17 15:45 01/07/17 05:40 Troponin I < 0.015 ng/ml (0-0.045) Thyroid Stimulating Hormone (TSH) 6.360 uIu/ml (0.300-4.500) Lactic Acid Level 0.7 mmol/L (0.4-2.0) Urine Color DK YELLOW Urine Appearance CLOUDY (CLEAR) Urine pH 5.0 (4.5-7.5) Urine Specific Dalton 1.022 (1.000-1.030) Urine Protein 2+ (NEG) Urine Glucose (UA) NEG (NEG) Urine Ketones NEG (NEG) Urine Occult Blood 2+ (NEG) Urine Nitrite POS (NEG) Urine Bilirubin NEG (NEG) Urine Urobilinogen NEG (NEG) Urine Leukocyte Esterase MODERATE (NEG) Urine WBC (Auto) >30 /hpf (0-5) Urine RBC (Auto) 10-30 /hpf (0-4) Urine Hyaline Casts (Auto) 5-10 /lpf (0-5) Urine Epithelial Cells (Auto) >30 /lpf (0-5) Urine Bacteria (Auto) NEG (NEG) Urine Renal Epithelial Cells /lpf (0-5) Urine Pathogenic Casts /lpf (0) Magnesium Level 2.0 mg/dl (1.8-2.4) Free Thyroxine 1.41 ng/dl (0.80-1.60) Free Triiodothyronine 1.28 pg/ml (2.30-4.20) Test 01/07/17 14:44 01/08/17 12:50 01/09/17 04:35 01/11/17 05:27 Prothrombin Time 12.0 SECONDS (9.0-12.0) Prothromb Time International Ratio 1.1 (0.9-1.1) Lactate Dehydrogenase 579 U/L (87-241) Total Bilirubin 0.6 mg/dl (0.2-1) Aspartate Amino Transf (AST/SGOT) 21 U/L (15-37) Alanine Aminotransferase (ALT/SGPT) 9 U/L (12-78) Alkaline Phosphatase 105 U/L (45-117) Total Protein 6.1 gm/dl (6.4-8.2) Albumin 2.3 gm/dl (3.4-5.0) Globulin 3.8 gm/dl (2.5-4.0) Albumin/Globulin Ratio 0.6 (0.9-2) White Blood Count 11.87 K/uL (4.8-10.8) Red Blood Count 3.60 M/uL (4.7-6.1) Hemoglobin 10.8 g/dL (14.0-18.0) Hematocrit 32.6 % (42-52) Mean Corpuscular Volume 90.6 fL (80-100) Mean Corpuscular Hemoglobin 30.0 pg (25-34) Mean Corpuscular Hemoglobin Concent 33.1 g/dl (32-36) Platelet Count 150 K/uL (130-400) Mean Platelet Volume 10.0 fL (7.4-10.4) Neutrophils (%) (Auto) 82.1 % Lymphocytes (%) (Auto) 7.2 % Monocytes (%) (Auto) 5.8 % Eosinophils (%) (Auto) 4.4 % Basophils (%) (Auto) 0.2 % Neutrophils # (Auto) 9.75 K/uL (1.4-6.5) Lymphocytes # (Auto) 0.85 K/uL (1.2-3.4) Monocytes # (Auto) 0.69 K/uL (0.11-0.59) Eosinophils # (Auto) 0.52 K/uL (0-0.5) Basophils # (Auto) 0.02 K/uL (0-0.2) RDW Standard Deviation 50.9 fL (36.4-46.3) RDW Coefficient of Variation 15.4 % (11.5-14.5) Immature Granulocyte % (Auto) 0.3 % Immature Granulocyte # (Auto) 0.04 K/uL (0.00-0.02) Activated Partial Thromboplast Time 43.6 SECONDS (21.0-31.0) Partial Thromboplastin Ratio 1.7 Anion Gap 6.0 mmol/L (3-11) Est Creatinine Clear Calc Drug Dose 74.5 ml/min Estimated GFR () 100.9 Estimated GFR (Non- 87.1 BUN/Creatinine Ratio 27.2 (10-20) Calcium Level 9.0 mg/dl (8.5-10.1) Date/Time Source Procedure Growth Status 01/06/17 15:00 Blood Blood Culture - Preliminary NO GROWTH TO DATE. Resulted 01/06/17 15:45 Urine,Catheterized Urine Culture - Final Pseudomonas Aeruginosa Complete Assessment and Plan (1) Acute kidney failure (2) Hypertension (3) Chronic kidney disease, stage 2, mildly decreased GFR The patient is a 76-year-old male with a history of nephrolithiasis with a left staghorn calculus, chronic low back pain, hypertension, parkinsonian syndrome, hypothyroidism, GERD, and severe depression, who presents to the ER with some confusion the last 2 days and weakness with 2 falls in the last week. The EMS reports his blood pressure was in the 60s over 40s. When he presented to the ER , he was relatively hypotensive with a systolic blood pressure of 90, and a right-sided subclavian central line was placed by the ER physician and he was bolused with 2 L of normal saline. The son noted that patient's fingertips seemed to had one episode of vomiting prior to coming to the ER, and had new onset lower extremity edema in the last several days. He was found to be in acute renal failure with a creatinine of 5.2 up from a baseline of 1.0 from 2 months ago. Acute kidney injury/nephrolithiasis/UTI/lower extremity edema-creatinine 5.2 up from baseline of 1.0. He is oliguric and hypotensive and despite the edema in his lower extremities, he is clinically dry. He has known large kidney stones including a left staghorn calculus in his urine appears infected. He is not hyperkalemic or acidotic at this time and no urgent dialysis is needed. White blood cell count is mildly elevated at 11,000 and he was hypotensive and mildly tachycardic. Lactate is normal and he is afebrile. Suspect prerenal azotemia from dehydration but there may be a component of intrinsic renal failure due to infection and stones.Likely YUSUF with ATN -Renal function has improved with IV fluids. Appreciate Renal input. Cont. with IV fluids. -Will switch to Half NSS given hypernatremia. Serum sodium up to 151 today. -Rodriguez placed, monitor strict I's and O's -Start Levaquin renally dosed for urinary tract infection and follow urine cultures and blood cultures -Urine Cx are positive for Gram neg. rods, Pseudomonas aeruginosa (sensitive to Levaquin) -Avoid nephrotoxins and renally dose all meds Bilateral lower extremities DVT -Doppler of the lower extremities + for extensive bilateral DVT- Continue heparin gtt, consider overlap with coumadin or NOAC (renally dosed) tomorrow. -Check echo to rule out congestive heart failure as cause of lower extremity edema and renal failure Mesenteric lymphadenopathy -s/p Liver biopsy. Await pathology report -Appreciate Onc and Surg. input Back pain Obtained CT of T-L spine which shows no spinal mets and no evidence of spinal cord compression. Altered MS Likely multifactorial-Metabolic encephalopathy in the setting of UTI, ARF, hypotension Improving. Swallowing dysfunction N/V x 1 yesterday. Abd exam-benign. To undergo swallowing eval today Rapid atrial fibrillation/hypertension-rate is now controlled in the 80s after IV fluid boluses were given for hypotension. This is new in onset for him. Unable to start beta edie at this time due to hypotension. Troponin was negative -Hold his BABAK inhibitor -Check echo -Consult cardiology appreciated. Renal stones/Staghorn calculus left kidney. Appreciate urology input. No indication for stenting at the present time. Parkinsonism/history of severe depression-stable at this time, has a history of electroconvulsive therapy with last maintenance treatment in July 2016. Has a history of hospitalization for severe parkinsonism symptoms causing failure to thrive requiring PEG tube placement which has since been removed. -Continue Sinemet and Effexor Hypothyroidism-TSH is mildly elevated at 6 here -Low FT3. Continue Synthroid. GERD-stable -Continue PPI
--- NOTE | 2017-01-11 15:39 | Hospitalist Progress Note ---
Hospitalist Progress Note Date of Service Jan 11, 2017. Subjective ATSP Re: Vomiting Pt vomited x 1 (bilious). Also increased oxygen needs (up to 6 lits from 3 lits). Also A.fib with RVR (now HR in the 80's) Pt denies abd pain, CP, (+) SOB at rest Objective Vital Signs Date Time Temp Pulse Resp B/P Pulse Ox O2 Delivery O2 Flow Rate FiO2 01/11/17 12:00 Room Air 01/11/17 11:45 37.1 72 16 134/87 95 Nasal Cannula 3.0 01/11/17 08:00 Room Air 01/11/17 07:36 37.0 96 16 121/80 90 Nasal Cannula 3.0 01/11/17 05:11 36.5 93 18 132/87 90 Room Air 01/11/17 04:00 Room Air 01/11/17 00:49 36.6 93 18 118/83 91 Room Air 01/11/17 00:09 Room Air 01/10/17 20:00 Room Air 01/10/17 19:13 36.5 96 20 132/94 90 Room Air 01/10/17 16:00 Nasal Cannula 2.0 Physical Exam General Appearance: + mild distress Neck: supple, no adenopathy Respiratory/Chest: + respiratory distress, + decreased breath sounds, + rhonchi Cardiovascular: no JVD, + systolic murmur, + irregularly irregular Abdomen: + pertinent finding (Minimally distended, no rigidity,no RT, scant BS) Laboratory Results Last 24 Hours Test 01/11/17 05:27 White Blood Count 11.87 K/uL Red Blood Count 3.60 M/uL Hemoglobin 10.8 g/dL Hematocrit 32.6 % Mean Corpuscular Volume 90.6 fL Mean Corpuscular Hemoglobin 30.0 pg Mean Corpuscular Hemoglobin Concent 33.1 g/dl Platelet Count 150 K/uL Mean Platelet Volume 10.0 fL Neutrophils (%) (Auto) 82.1 % Lymphocytes (%) (Auto) 7.2 % Monocytes (%) (Auto) 5.8 % Eosinophils (%) (Auto) 4.4 % Basophils (%) (Auto) 0.2 % Neutrophils # (Auto) 9.75 K/uL Lymphocytes # (Auto) 0.85 K/uL Monocytes # (Auto) 0.69 K/uL Eosinophils # (Auto) 0.52 K/uL Basophils # (Auto) 0.02 K/uL RDW Standard Deviation 50.9 fL RDW Coefficient of Variation 15.4 % Immature Granulocyte % (Auto) 0.3 % Immature Granulocyte # (Auto) 0.04 K/uL Activated Partial Thromboplast Time 43.6 SECONDS Partial Thromboplastin Ratio 1.7 Sodium Level 151 mmol/L Potassium Level 3.1 mmol/L Chloride Level 117 mmol/L Carbon Dioxide Level 28 mmol/L Anion Gap 6.0 mmol/L Blood Urea Nitrogen 21 mg/dl Creatinine 0.78 mg/dl Est Creatinine Clear Calc Drug Dose 74.5 ml/min Estimated GFR () 100.9 Estimated GFR (Non- 87.1 BUN/Creatinine Ratio 27.2 Random Glucose 91 mg/dl Calcium Level 9.0 mg/dl Assessment and Plan (1) Acute kidney failure (2) Hypertension (3) Chronic kidney disease, stage 2, mildly decreased GFR ATSP Reg: Vomiting bilious fluid. Suspect ileus vs SBO (favor ileus since not much abd distension, non tender). ? secondary to electrolyte abnormalities Will keep NPO. (Eventual EGD as pt also failed swallowing eval and SLT recommends EGD) NGT to suction. Stat AXR, CXR, ABG Tx to ICU. Cont. with IV fluids. Will check CXR for aspiration given increased oxygen reqs. If aspiration noted will add flagyl and also consult Pulm. A.fib rate controlled. If rates are high use IV lopressor PRN as BP tolerates
[2017-01-11 16:10] LABS: BASO % 0.2 %; BASO ABS # 0.03 K/uL (0-0.2); EOS % 2.5 %; HEMATOCRIT 35.5 % (42-52); IG% 0.5 %; LYMPH % 6.7 %; LYMPH ABS # 1.01 K/uL (1.2-3.4); MEAN CELL VOLUME 89.9 fL (80-100); MEAN CORPUSCULAR HEMOGLOBIN 30.1 pg (25-34); MEAN PLATELET VOLUME 9.5 fL (7.4-10.4); MONO % 5.9 %; NEUT % 84.2 %; PLATELET COUNT 186 K/uL (130-400); RED BLOOD COUNT 3.95 M/uL (4.7-6.1); WHITE BLOOD COUNT 15.07 K/uL (4.8-10.8)
[2017-01-11 16:32] LABS: ALB/GLOB RATIO 0.5 (0.9-2); BUN/CREATININE RATIO 22.4 (10-20); CALCIUM 9.2 mg/dl (8.5-10.1); CREATININE 0.96 mg/dl (0.60-1.40); MAGNESIUM 1.7 mg/dl (1.8-2.4); POTASSIUM 3.5 mmol/L (3.5-5.1)
[2017-01-11 16:40] LABS: COMPLETE YES; MEAN CORPUSCULAR HGB CONC 33.5 g/dl (32-36)
[2017-01-11 16:43] LABS: PARTIAL THROMBOPLASTIN RATIO 2.1
[2017-01-11] MEDS: METRONIDAZOLE / NSS 500 MG in PREMIXED NSS 100 ML IV SCH (17:30)
[2017-01-11] MEDS ORDERED: MAGNESIUM SULFATE 1GM / D5W 1 GM in PREMIXED IN D5W 100 ML IV ONE (17:30)
[2017-01-11 17:42] LABS: ISTAT ALLEN TEST Pass; ISTAT ARTERIAL BLOOD GAS HCO3 24 meq/L (19-24); ISTAT ARTERIAL BLOOD GAS PCO2 36 mmHg (35-46); ISTAT ARTERIAL BLOOD GAS PO2 78 mmHg (80-95); ISTAT ARTERIAL BLOOD GAS pH 7.43 (7.35-7.45); ISTAT CARBON DIOXIDE 25 mEq/l (24-31); ISTAT DELIVERY SYSTEM Cannula; ISTAT SITE R Radial
--- NOTE | 2017-01-11 19:07 | DIAGNOSTIC IMAGING REPORT ---
PA CHEST RADIOGRAPH AND LEFT DECUBITUS AND SUPINE AP RADIOGRAPHS OF THE ABDOMEN CLINICAL HISTORY: Aspiration. Obstruction. COMPARISON STUDY: Chest radiograph and CT of the abdomen and pelvis January 06, 2017. FINDINGS: A right subclavian central line is in place. There is no pneumothorax. Cardiomediastinal silhouette is stable. There are small bilateral pleural effusions and associated bibasilar opacities. There is no evidence of pulmonary edema. No free air is present. There is mild to moderate gaseous distention of the stomach. A left staghorn calculus is present. There is persistent contrast within the right collecting system with moderate dilatation of the right renal pelvis and minimal calyceal dilatation. There is contrast within the bladder. There is no evidence for a bowel obstruction. IMPRESSION: 1. No free air or evidence of bowel obstruction. 2. Mild to moderate gaseous distention of the stomach. 3. Small bilateral pleural effusions with associated bibasilar opacities which could reflect atelectasis or consolidation. 4. Persistent contrast within the right renal collecting system with a suspected delayed right nephrogram. A partial obstruction would be difficult to exclude. 5. Left renal staghorn calculus. Electronically signed by: Sae Gregorio M.D. 01/11/2017 7:06 PM Dictated Date/Time: 01/11/2017 7:02 PM
--- NOTE | 2017-01-11 22:39 | Critical Care Consultation ---
Critical Care Consultation Date of Consultation: Jan 11, 2017. Attending Physician: Lena Matamoros MD Reason for Consultation: Respiratory distress, atrial fibrillation with rapid ventricular response History of Present Illness Patient is a 76-year-old male with a past medical history of nephrolithiasis chronic low back pain and hypertension Parkinson's syndrome hypothyroidism GERD and severe depression who presented to the emergency department on 01/06/2017 with increasing confusion, weakness, falls. EMS reported blood pressure was hypotensive 60/40, in the emergency department patient received a right subclavian line and was resuscitated with 2 L normal saline. Since that time the patient has had bouts of emesis, he has new onset atrial fibrillation with rapid ventricular response, and underwent a fine-needle aspiration of the right groin for suspicious lesions indicative of myeloma versus lymphoproliferative disease. Additionally a left hepatic lesion was aspirated as well. At this time pathology reports are pending. Patient was transferred to the ICU as he had a possible aspiration event and possible inadequate cough to clear his secretions. My conversation with the patient he is unaware whether he is been conclusively diagnosed with cancer, he has not had discussions regarding end-of-life and goals of care should he be a terminal condition. He reports that he would prefer his youngest son Aron at area code [phone] to be his surrogate decision maker if he is unable. At this time he desires to be full cardiac resuscitation in event of cardiac arrest. Past Medical/Surgical History As noted above Family History FHx: asthma Hypertension Kidney disease or stones Social History Smoking Status: Former Smoker Alcohol Use: none Drug Use: none Marital Status: Housing Status: [facility] Occupation Status: retired Allergies Coded Allergies: Penicillins (Verified Allergy, Unknown, HIVES, 10/16/16) Home Medications Scheduled Carbidopa/Levodopa (Sinemet 25MG/100MG), 1 TAB PO TID Carbidopa/Levodopa (Sinemet 25MG/100MG), 2 TAB PO DAILY Cholecalciferol (Vitamin D3), 5,000 PO QDL Docusate Sodium (Docusate Sodium), 1 CAP PO BID Enalapril (Vasotec), 10 MG PO QAM Levothyroxine Sodium (Levothyroxine Sodium), 1 TAB PO QAM Nitrofurantoin Monohyd Macrocr (Macrobid), 100 MG PO HS Omeprazole (Prilosec), 20 MG PO QAM Oxycodone/Acetaminophen 5MG/325MG (Percocet 5MG/325MG), 1 TABLET PO Q12 Venlafaxine HCl (Venlafaxine HCl ER), 75 MG PO DAILY Scheduled PRN Ibuprofen (Advil), 400 MG PO Q6 PRN for Pain Menthol-Zinc Oxide (Risamine), 1 APPLN TOP for BUTTOCKS EXCORIATION Tizanidine Hcl (Zanaflex), 2 MG PO Q12 PRN for Muscle Spasms Current Inpatient Medications Current Inpatient Medications Medications (Trade) Dose Ordered Sig/Aiden Route Start Time Stop Time Status Last Admin Dose Admin Acetaminophen (Tylenol Tab) 650 mg Q4H PRN PO 01/06/17 16:45 02/05/17 16:44 Ondansetron HCl (Zofran Inj) 4 mg Q6H PRN IV 01/06/17 16:45 02/05/17 16:44 01/11/17 04:34 4 MG Carbidopa/Levodopa (Sinemet 25/ 100MG Tab) 1 tab TIDM PO 01/07/17 08:00 02/06/17 07:59 01/10/17 17:31 1 TAB Carbidopa/Levodopa (Sinemet 25/ 100MG Tab) 2 tab HS PO 01/06/17 21:00 02/05/17 20:59 01/09/17 19:23 2 TAB Docusate Sodium (coLACE CAP) 100 mg BID PO 01/06/17 21:00 02/05/17 20:59 01/10/17 08:30 100 MG Levothyroxine Sodium (Synthroid Tab) 137 mcg DAILYBB PO 01/07/17 06:30 02/06/17 06:29 01/10/17 05:54 137 MCG Menthol/Zinc Oxide (Calmoseptine Oint) 1 appln BID PRN EXT 01/06/17 17:00 02/05/17 16:59 Oxycodone/ Acetaminophen (Percocet 5-325mg Tab) 1 tab Q6 PRN PO 01/06/17 17:00 01/20/17 16:59 01/10/17 17:42 1 TAB Tizanidine HCl (Zanaflex Tab) 2 mg Q12 PRN PO 01/06/17 17:00 02/05/17 16:59 01/10/17 08:28 2 MG Venlafaxine HCl (effeXOR EXTENDED REL CAP) 75 mg DAILY PO 01/07/17 09:00 02/06/17 08:59 01/10/17 08:28 75 MG Pantoprazole Sodium (Protonix Tab) 40 mg QAM PO 01/07/17 09:00 02/06/17 08:59 01/10/17 08:28 40 MG Levofloxacin (Consult) 1 ea UD PRN N/A 01/06/17 19:45 01/15/17 23:59 Heparin Sodium (Porcine) 5 ml 5 ml PRN PRN FLUSH 01/07/17 00:15 02/06/17 00:14 01/11/17 05:30 5 ML Heparin Sodium/ Dextrose 500 ml @ 23 mls/hr [id number] PRN IV 01/07/17 14:30 02/06/17 14:29 01/10/17 22:08 20 MLS/HR Levofloxacin 250 mg/Prmx 50 ml @ 50 mls/hr Q24H IV 01/10/17 11:00 01/15/17 11:59 01/11/17 11:10 50 MLS/HR Potassium Chloride/Sodium Chloride 1,000 ml @ 50 mls/hr Q20H IV 01/11/17 10:15 02/10/17 08:59 01/11/17 10:36 50 MLS/HR Metronidazole/Prmx (Flagyl / Nss/ Premixed Nss) 100 ml @ 100 mls/hr Q8@0200,1000,1800 IV 01/11/17 17:30 01/18/17 17:29 01/11/17 17:30 100 MLS/HR Review of Systems Respiratory: + cough, + shortness of breath Endocrine: + fatigue Physical Exam Date Time Temp Pulse Resp B/P Pulse Ox O2 Delivery O2 Flow Rate FiO2 01/11/17 20:00 Nasal Cannula 6.0 01/11/17 20:00 37.2 142 27 110/70 97 Nasal Cannula 6.0 01/11/17 16:00 Nasal Cannula 6.0 01/11/17 12:00 Room Air 01/11/17 11:45 37.1 72 16 134/87 95 Nasal Cannula 3.0 01/11/17 08:00 Room Air 01/11/17 07:36 37.0 96 16 121/80 90 Nasal Cannula 3.0 01/11/17 05:11 36.5 93 18 132/87 90 Room Air 01/11/17 04:00 Room Air 01/11/17 00:49 36.6 93 18 118/83 91 Room Air 01/11/17 00:09 Room Air General Appearance: mild distress, cachetic Head: normocephalic, atraumatic Eyes: PERRLA ENT: other (dry mucous around the lips) Neck: no tenderness, trachea midline Respiratory: rhonchi (diffuse bilaterally) Cardiovasular: irregular rate, abnormal rhythm (tachycardia), ectopy noted Abdomen: non tender, hypoactive bowel sounds Back: normal inspection Upper Extremities: other (right subclavian line in the right anterior chest without purulence) Neuro: alert, oriented x 3 Laboratory Results Last 24 Hours Test 01/11/17 05:27 01/11/17 16:00 01/11/17 17:31 White Blood Count 11.87 K/uL 15.07 K/uL Red Blood Count 3.60 M/uL 3.95 M/uL Hemoglobin 10.8 g/dL 11.9 g/dL Hematocrit 32.6 % 35.5 % Mean Corpuscular Volume 90.6 fL 89.9 fL Mean Corpuscular Hemoglobin 30.0 pg 30.1 pg Mean Corpuscular Hemoglobin Concent 33.1 g/dl 33.5 g/dl Platelet Count 150 K/uL 186 K/uL Mean Platelet Volume 10.0 fL 9.5 fL Neutrophils (%) (Auto) 82.1 % 84.2 % Lymphocytes (%) (Auto) 7.2 % 6.7 % Monocytes (%) (Auto) 5.8 % 5.9 % Eosinophils (%) (Auto) 4.4 % 2.5 % Basophils (%) (Auto) 0.2 % 0.2 % Neutrophils # (Auto) 9.75 K/uL 12.69 K/uL Lymphocytes # (Auto) 0.85 K/uL 1.01 K/uL Monocytes # (Auto) 0.69 K/uL 0.89 K/uL Eosinophils # (Auto) 0.52 K/uL 0.37 K/uL Basophils # (Auto) 0.02 K/uL 0.03 K/uL RDW Standard Deviation 50.9 fL 50.7 fL RDW Coefficient of Variation 15.4 % 15.5 % Immature Granulocyte % (Auto) 0.3 % 0.5 % Immature Granulocyte # (Auto) 0.04 K/uL 0.08 K/uL Activated Partial Thromboplast Time 43.6 SECONDS 54.4 SECONDS Partial Thromboplastin Ratio 1.7 2.1 Sodium Level 151 mmol/L 150 mmol/L Potassium Level 3.1 mmol/L 3.5 mmol/L Chloride Level 117 mmol/L 117 mmol/L Carbon Dioxide Level 28 mmol/L 26 mmol/L Anion Gap 6.0 mmol/L 7.0 mmol/L Blood Urea Nitrogen 21 mg/dl 22 mg/dl Creatinine 0.78 mg/dl 0.96 mg/dl Est Creatinine Clear Calc Drug Dose 74.5 ml/min 60.4 ml/min Estimated GFR () 100.9 88.0 Estimated GFR (Non- 87.1 75.9 BUN/Creatinine Ratio 27.2 22.4 Random Glucose 91 mg/dl 92 mg/dl Calcium Level 9.0 mg/dl 9.2 mg/dl Magnesium Level 1.7 mg/dl Total Bilirubin 0.8 mg/dl Aspartate Amino Transf (AST/SGOT) 23 U/L Alanine Aminotransferase (ALT/SGPT) 18 U/L Alkaline Phosphatase 138 U/L Total Protein 6.7 gm/dl Albumin 2.3 gm/dl Globulin 4.4 gm/dl Albumin/Globulin Ratio 0.5 Blood Gas Sample Site R Radial Bedside Blood Gas pH (LAB) 7.43 Bedside Blood Gas pCO2 (LAB) 36 mmHg Bedside Blood Gas pO2 (LAB) 78 mmHg Bedside Blood Gas HCO3 (LAB) 24 meq/L Bedside Blood Gas Total CO2 25 mEq/l Bedside Blood Gas Base Excess (LAB) 0.0 meq/L Bedside Blood Gas O2 Saturation 96.0 % Poli Test Pass Oxygen Delivery Device Cannula Diagnostic Results I have reviewed the CT scan of his head dated 01/06/2017 as well as the images and report. I reviewed the bilateral venous duplex report findings extensive bilateral acute DVT Reviewed the CT of the thoracic spine findings: Large necrotic retroperitoneal mass consistent with malignancy innumerable liver metastases with small multiple suspected pulmonary metastases, bilateral pleural effusions with lower lobe opacities which could reflect atelectasis or consolidation. Assessment & Plan (1) Malnutrition (2) Inability to swallow (3) Dysphagia (4) Urinary tract infection (5) Shock (6) Dehydration (7) Acute kidney injury (8) Chronic kidney disease, stage 2, mildly decreased GFR (9) Hypertension (10) Kidney stones (11) Sepsis (12) Parkinsonian syndrome Reason Critically Ill: Atrial fibrillation with rapid ventricular response, dehydration, pseudomonas urinary tract infection, multiorgan system failure PLAN: Neuro: CAM-ICU negative monitor for delirium Resp: Acute hypoxic respiratory failure without hypercarbia Probable lung metastases Extensive bilateral DVTs on systemic anticoagulation strong possibility for pulmonary embolus Severe aspiration risk CV: Atrial fibrillation with rapid ventricular response - Reviewed cardiology notes from January 07 of January 08 - Will proceed with digoxin loading for rate control, 250 mg now and 125 mg to be given IV at 6 AM, ordered daily digoxin 125 mg every morning with digoxin level to be obtained with morning labs January 13 - Awaiting echocardiogram, I have placed an order today - Boned to avoid beta blockers given possibility of compromised lungs - Avoiding diltiazem at this time as concerned for inducing hypotension - Need to closely monitor digoxin given recent history of renal dysfunction - Chek EKG patient on Levaquin and QTC was 483 --Repeat EKG revealed atrial fibrillation with a rapid ventricular response ventricular rate of 132, ST segment abnormalities, QTC is 488 Fluids/Renal: Status post acute kidney injury Hypernatremia Hyperchloremia Patient appears to be euvolemic: Patient 8 L positive for hospital stay - Will administer 50 g of albumin - Lasix diuresis given hypernatremia - Continue hypotonic fluid administration for gentle correction - Chek phosphate and replace I have reviewed nephrology and urology consultation of 01/07/2017 ID: Pseudomonas urinary tract infection: Complicated Patient started on 500 mg Flagyl at 1730 today 250 mg Levaquin IV every 24 hours patient is ordered a 6 day course, discontinued 01/12/2017 -Appears patient was on Levaquin and renally adjusted, it has not been changed since improvement in his creatinine clearance - Converted to cefepime 1 g twice a day, I'm not sure if we have maintained effective therapy so I will plan for 7 days of therapy --- Patient's urine is currently malodorous Repeat urine culture to evaluate for possible resistance GI/Nutrition: Nothing by mouth hepatic masses Cachexia, protein calorie malnutrition Needs NG tube placement Heme: Acute DVT - Heparin infusion Endocrine: Sugars within goal range Hypothyroidism Converted by mouth levo thyroxine 137 g daily to 100 g IV daily IV access: Right subclavian triple-lumen CODE STATUS: Full Surrogate decision maker: Youngest son Aron Salgado have personally spent 60 minutes of critical care time from 2300 until 2359 on 01/11/2017 and 60 minutes from 0000 on 11/14/2016 in the direct management of this patient. This is a life/limb threatening event. This includes time spent evaluating patient, direct bedside care, chart review, placing orders, interpretation of diagnostic studies, discussion with consultants, patient, and family members, as well as other required patient management activities. This time is exclusive of all separately billable procedures, and teaching time and separate from and in addition to any other critical care service time. Procedure Note Procedure Date Jan 12, 2017. Procedure Description Procedure Name: Limited bedside thoracic ultrasound Consent obtained: verbal Time of procedure: 23:30 Performed by: attending Indications: diagnostic Contraindications: none Description: Bilateral thorax ultrasound was performed, the right thorax revealed a type C profile with a small pleural effusion in the lung base, there were no B lines. The left hemithorax revealed a type C profile without significant pleural effusion noted. There were no B lines Limited echocardiogram performed there appeared to be global hypokinesis without significant wall motion abnormality with a depressed EF. I was unable to visualize the inferior vena cava to evaluate for respiratory variation Impression: Small right pleural effusion Atelectatic process bilaterally No evidence of pulmonary edema Reduced ejection fraction with global hypokinesis Complications: none Patient tolerated procedure: well Post-procedure vital signs: reviewed and stable
[2017-01-11] MEDS ORDERED: POTASSIUM PHOS 3 MMOL/1 ML INFUSION IV STA (23:41)
[2017-01-11] MEDS ORDERED: ALBUMIN HUMAN 25% 12.5 GM/50 ML VIAL IV ONE (23:45)
[2017-01-12] VITALS (40 sets, daily range): BP systolic 28–146; BP diastolic 25–92; PULSE 101; TEMP 36.5–36.7; O2SAT 78–100
[2017-01-12] MEDS ORDERED: DIGOXIN IV 250 MCG in SYRINGE 9 ML IV ONE
[2017-01-12] MEDS ORDERED: POTASSIUM PHOSPHATE INJ 15 MMOL in SODIUM CHLORIDE 0.9% 250ML 250 ML IV STA (00:20)
[2017-01-12] MEDS ORDERED: ALBUMIN 25% 50 ML with FUROSEMIDE INJ 40 MG IV ONE ×2 (00:30)
[2017-01-12] MEDS ORDERED: ACETAZOLAMIDE IV PUSH 500 MG in SYRINGE 0 ML IV ONE (00:30)
[2017-01-12] MEDS: D5W AND 1/4NSS + 20MEQ KCL 1,000 ML IV SCH ×2 (01:02→13:48)
[2017-01-12] MEDS: CEFEPIME IV 1,000 MG in DEXTROSE 5% 100ML 100 ML IV SCH ×2 (02:59→13:58)
[2017-01-12] MEDS: METRONIDAZOLE / NSS 500 MG in PREMIXED NSS 100 ML IV SCH (03:00)
[2017-01-12] MEDS ORDERED: VANCOMYCIN INJ 1,500 MG in SODIUM CHLORIDE 0.9% 500ML 500 ML IV STA (03:25)
[2017-01-12] MEDS ORDERED: VANCOMYCIN CONSULT ACTIVE PRN (05:15)
[2017-01-12] MEDS: DIGOXIN IV 125 MCG in SYRINGE 9.5 ML IV SCH ×2 (06:05→17:25)
[2017-01-12 06:11] LABS: HEMATOCRIT 32.5 % (42-52); MEAN CELL VOLUME 93.1 fL (80-100); MEAN CORPUSCULAR HEMOGLOBIN 29.8 pg (25-34); MEAN PLATELET VOLUME 10.1 fL (7.4-10.4); PLATELET COUNT 151 K/uL (130-400); RED BLOOD COUNT 3.49 M/uL (4.7-6.1); WHITE BLOOD COUNT 17.77 K/uL (4.8-10.8)
[2017-01-12 06:25] LABS: PARTIAL THROMBOPLASTIN RATIO 1.8
[2017-01-12 06:31] LABS: BASO % 0.1 %; BASO ABS # 0.02 K/uL (0-0.2); COMPLETE YES; EOS % 0.6 %; IG% 0.3 %; LYMPH % 3.7 %; LYMPH ABS # 0.66 K/uL (1.2-3.4); MONO % 5.1 %; NEUT % 90.2 %; OVALOCYTES 1+
[2017-01-12 06:44] LABS: BUN/CREATININE RATIO 22.4 (10-20); CALCIUM 8.7 mg/dl (8.5-10.1); CREATININE 0.96 mg/dl (0.60-1.40); MAGNESIUM 1.9 mg/dl (1.8-2.4); POTASSIUM 3.2 mmol/L (3.5-5.1)
[2017-01-12 07:07] LABS: PHOSPHORUS 3.3 mg/dl (2.5-4.9); PREALBUMIN 10.9 mg/dl (20-40)
--- NOTE | 2017-01-12 07:07 | DIAGNOSTIC IMAGING REPORT ---
KUB CLINICAL HISTORY: Examination for nasogastric tube placement COMPARISON STUDY: 01/11/2017 FINDINGS: There has been interval placement of a nasogastric tube which is positioned within the stomach. There is a staghorn left renal calculus. Right renal calculi are also visualized. There is no pathologic bowel dilatation. IMPRESSION: 1. Bilateral nephrolithiasis 2. Nasogastric tube within the stomach Electronically signed by: Naveen Parks M.D. 01/12/2017 7:05 AM Dictated Date/Time: 01/12/2017 7:04 AM
--- NOTE | 2017-01-12 07:09 | DIAGNOSTIC IMAGING REPORT ---
CHEST ONE VIEW PORTABLE CLINICAL HISTORY: respiratory distress COMPARISON STUDY: 01/11/2017 FINDINGS: There is a right subclavian central venous catheter. The tip projects of the right atrium. There is a nasogastric tube within the stomach. The cardiac and mediastinal contours remain stable. There is diffuse elevation of the interstitium. Mild pulmonary vascular congestion is suspected. There are bibasilar opacities, atelectatic versus inflammatory. There is a old proximal right humeral fracture.[ IMPRESSION: 1. Mild pulmonary vascular congestion 2. Bibasal airspace opacities, atelectatic versus inflammatory 3. Interval placement of a nasogastric tube. Electronically signed by: Naveen Parks M.D. 01/12/2017 7:07 AM Dictated Date/Time: 01/12/2017 7:06 AM
[2017-01-12] MEDS ORDERED: RAPID SEQUENCE INDUCTION BAG ONE (07:11)
[2017-01-12] MEDS: CARBIDOPA/LEVODOPA 25/100MG TAB PO SCH ×4 (07:15→21:00)
--- NOTE | 2017-01-12 07:15 | Hospitalist Progress Note ---
Hospitalist Progress Note Date of Service Jan 11, 2017. Medications Medications (Trade) Dose Ordered Sig/Aiden Route Start Time Stop Time Status Last Admin Dose Admin Potassium Chloride/Sodium Chloride 1,000 ml @ 50 mls/hr Q20H IV 01/11/17 10:15 02/10/17 08:59 01/11/17 10:36 50 MLS/HR Heparin Sodium (Porcine)/Syringe (Heparin Iv Bolus/Syringe) 3 ml @ 10 mls/min NOW ONCE IV 01/11/17 10:15 01/11/17 10:16 DC 01/11/17 10:42 10 MLS/MIN Objective Vital Signs Date Time Temp Pulse Resp B/P Pulse Ox O2 Delivery O2 Flow Rate FiO2 01/11/17 12:00 Room Air 01/11/17 11:45 37.1 72 16 134/87 95 Nasal Cannula 3.0 01/11/17 08:00 Room Air 01/11/17 07:36 37.0 96 16 121/80 90 Nasal Cannula 3.0 01/11/17 05:11 36.5 93 18 132/87 90 Room Air 01/11/17 04:00 Room Air 01/11/17 00:49 36.6 93 18 118/83 91 Room Air 01/11/17 00:09 Room Air 01/10/17 20:00 Room Air 01/10/17 19:13 36.5 96 20 132/94 90 Room Air 01/10/17 16:00 Nasal Cannula 2.0 Laboratory Results Last 24 Hours Test 01/11/17 05:27 White Blood Count 11.87 K/uL Red Blood Count 3.60 M/uL Hemoglobin 10.8 g/dL Hematocrit 32.6 % Mean Corpuscular Volume 90.6 fL Mean Corpuscular Hemoglobin 30.0 pg Mean Corpuscular Hemoglobin Concent 33.1 g/dl Platelet Count 150 K/uL Mean Platelet Volume 10.0 fL Neutrophils (%) (Auto) 82.1 % Lymphocytes (%) (Auto) 7.2 % Monocytes (%) (Auto) 5.8 % Eosinophils (%) (Auto) 4.4 % Basophils (%) (Auto) 0.2 % Neutrophils # (Auto) 9.75 K/uL Lymphocytes # (Auto) 0.85 K/uL Monocytes # (Auto) 0.69 K/uL Eosinophils # (Auto) 0.52 K/uL Basophils # (Auto) 0.02 K/uL RDW Standard Deviation 50.9 fL RDW Coefficient of Variation 15.4 % Immature Granulocyte % (Auto) 0.3 % Immature Granulocyte # (Auto) 0.04 K/uL Activated Partial Thromboplast Time 43.6 SECONDS Partial Thromboplastin Ratio 1.7 Sodium Level 151 mmol/L Potassium Level 3.1 mmol/L Chloride Level 117 mmol/L Carbon Dioxide Level 28 mmol/L Anion Gap 6.0 mmol/L Blood Urea Nitrogen 21 mg/dl Creatinine 0.78 mg/dl Est Creatinine Clear Calc Drug Dose 74.5 ml/min Estimated GFR () 100.9 Estimated GFR (Non- 87.1 BUN/Creatinine Ratio 27.2 Random Glucose 91 mg/dl Calcium Level 9.0 mg/dl Diagnostic Results 01/11/17 05:27 Red Blood Count 3.60, Mean Corpuscular Volume 90.6, Mean Corpuscular Hemoglobin 30.0, Mean Corpuscular Hemoglobin Concent 33.1, Mean Platelet Volume 10.0, Neutrophils (%) (Auto) 82.1, Lymphocytes (%) (Auto) 7.2, Monocytes (%) (Auto) 5.8, Eosinophils (%) (Auto) 4.4, Basophils (%) (Auto) 0.2, Neutrophils # (Auto) 9.75, Lymphocytes # (Auto) 0.85, Monocytes # (Auto) 0.69, Eosinophils # (Auto) 0.52, Basophils # (Auto) 0.02 01/11/17 05:27 Test 01/06/17 14:15 01/06/17 15:00 01/06/17 15:45 01/07/17 05:40 Troponin I < 0.015 ng/ml (0-0.045) Thyroid Stimulating Hormone (TSH) 6.360 uIu/ml (0.300-4.500) Lactic Acid Level 0.7 mmol/L (0.4-2.0) Urine Color DK YELLOW Urine Appearance CLOUDY (CLEAR) Urine pH 5.0 (4.5-7.5) Urine Specific [place] 1.022 (1.000-1.030) Urine Protein 2+ (NEG) Urine Glucose (UA) NEG (NEG) Urine Ketones NEG (NEG) Urine Occult Blood 2+ (NEG) Urine Nitrite POS (NEG) Urine Bilirubin NEG (NEG) Urine Urobilinogen NEG (NEG) Urine Leukocyte Esterase MODERATE (NEG) Urine WBC (Auto) >30 /hpf (0-5) Urine RBC (Auto) 10-30 /hpf (0-4) Urine Hyaline Casts (Auto) 5-10 /lpf (0-5) Urine Epithelial Cells (Auto) >30 /lpf (0-5) Urine Bacteria (Auto) NEG (NEG) Urine Renal Epithelial Cells /lpf (0-5) Urine Pathogenic Casts /lpf (0) Magnesium Level 2.0 mg/dl (1.8-2.4) Free Thyroxine 1.41 ng/dl (0.80-1.60) Free Triiodothyronine 1.28 pg/ml (2.30-4.20) Test 01/07/17 14:44 01/08/17 12:50 01/09/17 04:35 01/11/17 05:27 Prothrombin Time 12.0 SECONDS (9.0-12.0) Prothromb Time International Ratio 1.1 (0.9-1.1) Lactate Dehydrogenase 579 U/L (87-241) Total Bilirubin 0.6 mg/dl (0.2-1) Aspartate Amino Transf (AST/SGOT) 21 U/L (15-37) Alanine Aminotransferase (ALT/SGPT) 9 U/L (12-78) Alkaline Phosphatase 105 U/L (45-117) Total Protein 6.1 gm/dl (6.4-8.2) Albumin 2.3 gm/dl (3.4-5.0) Globulin 3.8 gm/dl (2.5-4.0) Albumin/Globulin Ratio 0.6 (0.9-2) White Blood Count 11.87 K/uL (4.8-10.8) Red Blood Count 3.60 M/uL (4.7-6.1) Hemoglobin 10.8 g/dL (14.0-18.0) Hematocrit 32.6 % (42-52) Mean Corpuscular Volume 90.6 fL (80-100) Mean Corpuscular Hemoglobin 30.0 pg (25-34) Mean Corpuscular Hemoglobin Concent 33.1 g/dl (32-36) Platelet Count 150 K/uL (130-400) Mean Platelet Volume 10.0 fL (7.4-10.4) Neutrophils (%) (Auto) 82.1 % Lymphocytes (%) (Auto) 7.2 % Monocytes (%) (Auto) 5.8 % Eosinophils (%) (Auto) 4.4 % Basophils (%) (Auto) 0.2 % Neutrophils # (Auto) 9.75 K/uL (1.4-6.5) Lymphocytes # (Auto) 0.85 K/uL (1.2-3.4) Monocytes # (Auto) 0.69 K/uL (0.11-0.59) Eosinophils # (Auto) 0.52 K/uL (0-0.5) Basophils # (Auto) 0.02 K/uL (0-0.2) RDW Standard Deviation 50.9 fL (36.4-46.3) RDW Coefficient of Variation 15.4 % (11.5-14.5) Immature Granulocyte % (Auto) 0.3 % Immature Granulocyte # (Auto) 0.04 K/uL (0.00-0.02) Activated Partial Thromboplast Time 43.6 SECONDS (21.0-31.0) Partial Thromboplastin Ratio 1.7 Anion Gap 6.0 mmol/L (3-11) Est Creatinine Clear Calc Drug Dose 74.5 ml/min Estimated GFR () 100.9 Estimated GFR (Non- 87.1 BUN/Creatinine Ratio 27.2 (10-20) Calcium Level 9.0 mg/dl (8.5-10.1) Date/Time Source Procedure Growth Status 01/06/17 15:00 Blood Blood Culture - Preliminary NO GROWTH TO DATE. Resulted 01/06/17 15:45 Urine,Catheterized Urine Culture - Final Pseudomonas Aeruginosa Complete [~ rep ct add3]] CT OF THE LUMBAR SPINE WITH AND WITHOUT CONTRAST CT DOSE: 3289.04 mGy.cm CLINICAL HISTORY: Back pain. Evaluate for metastatic disease. TECHNIQUE: Images of the lumbar spine were obtained before and after intravenous administration 93 cc Optiray 320 IV. Sagittal and coronal reconstructed reviewed. COMPARISON STUDY: Lumbar spine radiographs November 29, 2016. FINDINGS: Alignment of lumbar spine is anatomic. There is mild loss of height of the L3 vertebral body. There is a Schmorl's node involving the superior endplate of L5. There is slight loss of height of L4. These fractures are age indeterminate although likely chronic. No acute fracture is identified within the lumbar spine by CT. No osseous lesion is identified by CT. The central canal and neural foramen are suboptimally assessed by CT but no epidural mass is identified. Mild multilevel degenerative disc disease and facet arthrosis is present. Note is again made of the large necrotic retroperitoneal mass which was shown on abdominal CT of January 06, 2017. This mass encases the celiac axis and superior mesenteric artery. Innumerable liver metastases are noted. There is a left renal cyst. There is a left staghorn calculus. Right renal calculi are noted. There is a calculus within the right renal pelvis. There is mild dilatation of the right renal pelvis. A small amount of retroperitoneal fluid is noted. IMPRESSION: 1. Mild L3 compression fracture with slight loss of height of L4. These compression fractures are age indeterminate although probably chronic. Although suboptimally evaluated by CT, a benign etiology for these fractures is favored. No convincing evidence for pathologic fracture. 2. Mild multilevel degenerative disc disease and facet arthrosis of the lumbar spine. 3. Redemonstration of the large necrotic retroperitoneal mass consistent with malignancy with innumerable liver metastases. 4. Bilateral renal calculi, including a left staghorn calculus. Electronically signed by: Sae Gregorio M.D. 01/11/2017 12:[address] OF THE THORACIC SPINE WITH AND WITHOUT CONTRAST CLINICAL HISTORY: Severe back pain. Evaluate for metastatic disease. TECHNIQUE: Axial images of the thoracic spine were obtained before and after intravenous ministration of 93 cc Optiray 320 IV. Sagittal and coronal reconstructions were viewed. COMPARISON STUDY: None. FINDINGS: Exaggerated kyphosis of the thoracic spine is noted. No acute thoracic spine fracture is identified. No osseous lesion is identified within the thoracic spine by CT. The central canal and neural foramen are suboptimally assessed by CT technique but no epidural mass is identified. By CT, the central canal is patent. Mild multilevel degenerative disc disease is present. There are small bilateral pleural effusions with associated bilateral lower lobe airspace opacities. Multiple pulmonary nodules are noted, the largest of which is a 1.2 cm left lower lobe nodule. There is mild dilatation of the ascending aorta. The heart is moderately enlarged. Innumerable liver metastases are noted as well as a necrotic retroperitoneal mass. There is mild right hydronephrosis. Renal calculi are noted bilaterally. Several pathologically enlarged thoracic lymph nodes are noted, including a 1.1 cm AP window lymph node. IMPRESSION: 1. No acute thoracic spine fracture or subluxation. 2. No evidence of metastatic disease within the thoracic spine by CT. 3. Redemonstration of the large necrotic retroperitoneal mass consistent with malignancy. Innumerable liver metastases with multiple small suspected pulmonary metastases. 4. Small bilateral pleural effusions with lower lobe opacities which could reflect atelectasis or consolidation. Electronically signed by: Sae Gregorio M.D. 01/11/2017 12:49 PM Assessment and Plan (1) Acute kidney failure (2) Hypertension (3) Chronic kidney disease, stage 2, mildly decreased GFR IN ERROR: PLEASE SEE HOSPITALIST PROGRESS NOTE FROM TODAY. The patient is a 76-year-old male with a history of nephrolithiasis with a left staghorn calculus, chronic low back pain, hypertension, parkinsonian syndrome, hypothyroidism, GERD, and severe depression, who presents to the ER with some confusion the last 2 days and weakness with 2 falls in the last week. The EMS reports his blood pressure was in the 60s over 40s. When he presented to the ER , he was relatively hypotensive with a systolic blood pressure of 90, and a right-sided subclavian central line was placed by the ER physician and he was bolused with 2 L of normal saline. The son noted that patient's fingertips seemed to had one episode of vomiting prior to coming to the ER, and had new onset lower extremity edema in the last several days. He was found to be in acute renal failure with a creatinine of 5.2 up from a baseline of 1.0 from 2 months ago. Acute kidney injury/nephrolithiasis/UTI/lower extremity edema-creatinine 5.2 up from baseline of 1.0. He is oliguric and hypotensive and despite the edema in his lower extremities, he is clinically dry. He has known large kidney stones including a left staghorn calculus in his urine appears infected. He is not hyperkalemic or acidotic at this time and no urgent dialysis is needed. White blood cell count is mildly elevated at 11,000 and he was hypotensive and mildly tachycardic. Lactate is normal and he is afebrile. Suspect prerenal azotemia from dehydration but there may be a component of intrinsic renal failure due to infection and stones.Likely YUSUF with ATN -Renal function has improved with IV fluids. Appreciate Renal input. Cont. with IV fluids. -Rodriguez placed, monitor strict I's and O's -Start Levaquin renally dosed for urinary tract infection and follow urine cultures and blood cultures -Urine Cx are positive for Gram neg. rods, Pseudomonas aeruginosa -Avoid nephrotoxins and renally dose all meds Bilateral lower extremities DVT -Doppler of the lower extremities + for extensive bilateral DVT- Continue heparin gtt, consider overlap with coumadin or NOAC (renally dosed) tomorrow. -Check echo to rule out congestive heart failure as cause of lower extremity edema and renal failure Mesenteric lymphadenopathy -Will ask Radiology for biopsy of inguinal lymph nodes under US guidance if possible today. Need to stop heparin 2 hours prior to biopsy. -Appreciate Onc and Surg. input Altered MS Likely multifactorial-Metabolic encephalopathy in the setting of UTI, ARF, hypotension Improving. Rapid atrial fibrillation/hypertension-rate is now controlled in the 80s after IV fluid boluses were given for hypotension. This is new in onset for him. Unable to start beta edie at this time due to hypotension. Troponin was negative -Hold his BABAK inhibitor -Check echo -Consult cardiology appreciated. Renal stones/Staghorn calculus left kidney. Appreciate urology input. No indication for stenting at the present time. Parkinsonism/history of severe depression-stable at this time, has a history of electroconvulsive therapy with last maintenance treatment in July 2016. Has a history of hospitalization for severe parkinsonism symptoms causing failure to thrive requiring PEG tube placement which has since been removed. -Continue Sinemet and Effexor Hypothyroidism-TSH is mildly elevated at 6 here -Check free T3 and free T4 in the morning Continue levothyroxine at home dose for now GERD-stable -Continue PPI
--- NOTE | 2017-01-12 07:21 | Hospitalist Progress Note ---
Hospitalist Progress Note Date of Service Jan 12, 2017. Subjective Pt evaluation today including: physical exam, chart review Intubated this am due to resp.distress and hypoxia. Currently sedated and on vent. Medications Medications (Trade) Dose Ordered Sig/Aiden Route Start Time Stop Time Status Last Admin Dose Admin Potassium Chloride/Sodium Chloride 1,000 ml @ 50 mls/hr Q20H IV 01/11/17 10:15 01/12/17 00:17 DC 01/11/17 10:36 50 MLS/HR Heparin Sodium (Porcine) 3000 unit/Syringe 3 ml @ 10 mls/min NOW ONCE IV 01/11/17 10:15 01/11/17 10:16 DC 01/11/17 10:42 10 MLS/MIN Metronidazole 500 mg/Prmx 100 ml @ 100 mls/hr Q8@0200,1000,1800 IV 01/11/17 17:30 01/18/17 17:29 01/12/17 03:00 100 MLS/HR Magnesium Sulfate 1 gm/Prmx 100 ml @ 100 mls/hr 1730 ONCE IV 01/11/17 17:30 01/11/17 18:29 DC 01/11/17 17:30 100 MLS/HR Digoxin 250 mcg/ Syringe 10 ml @ 2 mls/min NOW ONCE IV 01/12/17 00:00 01/12/17 00:04 DC 01/12/17 00:02 2 MLS/MIN Digoxin 125 mcg/ Syringe 10 ml @ 2 mls/min DAILY@16 IV 01/12/17 06:00 02/11/17 05:59 01/12/17 06:05 2 MLS/MIN Furosemide/ Albumin Human (Lasix Inj/ Albumin 25%) 54 ml @ 54 mls/hr ONE ONCE IV 01/12/17 00:30 01/12/17 01:29 DC 01/12/17 01:05 54 MLS/HR Albumin Human 25 gm 25 gm ONE ONCE IV 01/11/17 23:45 01/12/17 00:18 DC 01/12/17 01:03 25 GM Acetazolamide Sodium 500 mg/ Syringe 5 ml @ 5 mls/min ONE ONCE IV 01/12/17 00:30 01/12/17 00:31 DC 01/12/17 01:04 5 MLS/MIN Potassium Chloride/Dextrose/ Sod Cl 1,000 ml @ 75 mls/hr [id number] IV 01/12/17 00:30 02/11/17 00:29 01/12/17 01:02 75 MLS/HR Potassium Phosphate 15 mmol/ Sodium Chloride 255 ml @ 125 mls/hr ONE STAT IV 01/12/17 00:20 01/12/17 02:22 DC 01/12/17 01:04 125 MLS/HR Cefepime HCl 1000 mg/Dextrose 111.3 ml @ 200 mls/hr Q12H IV 01/12/17 02:00 01/18/17 14:34 01/12/17 02:59 200 MLS/HR Vancomycin HCl/ Sodium Chloride (Vancomycin Inj/ Nss 500ml) 530 ml @ 200 mls/hr NOW STAT IV 01/12/17 03:25 01/12/17 06:03 DC 01/12/17 04:00 200 MLS/HR Objective Vital Signs Date Time Temp Pulse Resp B/P Pulse Ox O2 Delivery O2 Flow Rate FiO2 01/12/17 06:05 115 01/12/17 04:00 36.5 29 114/82 94 15.0 01/12/17 04:00 97 Mask 15.0 01/12/17 02:00 28 146/92 94 10.0 01/12/17 00:02 134 01/12/17 00:00 25 119/92 94 10.0 01/11/17 23:59 97 Mask 15.0 01/11/17 22:00 37.3 119 30 114/80 92 10.0 01/11/17 20:00 Nasal Cannula 6.0 01/11/17 20:00 37.2 142 27 110/70 97 Nasal Cannula 6.0 01/11/17 16:00 Nasal Cannula 6.0 01/11/17 12:00 Room Air 01/11/17 11:45 37.1 72 16 134/87 95 Nasal Cannula 3.0 01/11/17 08:00 Room Air 01/11/17 07:36 37.0 96 16 121/80 90 Nasal Cannula 3.0 Physical Exam General Appearance: + cachetic, + thin Neck: supple, no adenopathy, no JVD Respiratory/Chest: + decreased breath sounds, + pertinent finding (Intubated. ) Cardiovascular: + systolic murmur, + irregularly irregular Abdomen: + pertinent finding (minimally distended, scant BS, +NGT) Extremities: + pedal edema, + swelling Neurologic/Psychiatric: + pertinent finding (sedated on vent) Skin: + pallor Laboratory Results Last 24 Hours Test 01/11/17 16:00 01/11/17 17:31 01/12/17 00:42 01/12/17 05:38 White Blood Count 15.07 K/uL 17.77 K/uL Red Blood Count 3.95 M/uL 3.49 M/uL Hemoglobin 11.9 g/dL 10.4 g/dL Hematocrit 35.5 % 32.5 % Mean Corpuscular Volume 89.9 fL 93.1 fL Mean Corpuscular Hemoglobin 30.1 pg 29.8 pg Mean Corpuscular Hemoglobin Concent 33.5 g/dl 32.0 g/dl Platelet Count 186 K/uL 151 K/uL Mean Platelet Volume 9.5 fL 10.1 fL Neutrophils (%) (Auto) 84.2 % 90.2 % Lymphocytes (%) (Auto) 6.7 % 3.7 % Monocytes (%) (Auto) 5.9 % 5.1 % Eosinophils (%) (Auto) 2.5 % 0.6 % Basophils (%) (Auto) 0.2 % 0.1 % Neutrophils # (Auto) 12.69 K/uL 16.02 K/uL Lymphocytes # (Auto) 1.01 K/uL 0.66 K/uL Monocytes # (Auto) 0.89 K/uL 0.91 K/uL Eosinophils # (Auto) 0.37 K/uL 0.10 K/uL Basophils # (Auto) 0.03 K/uL 0.02 K/uL RDW Standard Deviation 50.7 fL 53.3 fL RDW Coefficient of Variation 15.5 % 15.7 % Immature Granulocyte % (Auto) 0.5 % 0.3 % Immature Granulocyte # (Auto) 0.08 K/uL 0.06 K/uL Activated Partial Thromboplast Time 54.4 SECONDS 45.5 SECONDS Partial Thromboplastin Ratio 2.1 1.8 Sodium Level 150 mmol/L 151 mmol/L Potassium Level 3.5 mmol/L 3.2 mmol/L Chloride Level 117 mmol/L 117 mmol/L Carbon Dioxide Level 26 mmol/L 26 mmol/L Anion Gap 7.0 mmol/L 8.0 mmol/L Blood Urea Nitrogen 22 mg/dl 22 mg/dl Creatinine 0.96 mg/dl 0.96 mg/dl Est Creatinine Clear Calc Drug Dose 60.4 ml/min 58.6 ml/min Estimated GFR () 88.0 88.0 Estimated GFR (Non- 75.9 75.9 BUN/Creatinine Ratio 22.4 22.4 Random Glucose 92 mg/dl 108 mg/dl Calcium Level 9.2 mg/dl 8.7 mg/dl Magnesium Level 1.7 mg/dl 1.9 mg/dl Total Bilirubin 0.8 mg/dl Aspartate Amino Transf (AST/SGOT) 23 U/L Alanine Aminotransferase (ALT/SGPT) 18 U/L Alkaline Phosphatase 138 U/L Total Protein 6.7 gm/dl Albumin 2.3 gm/dl Globulin 4.4 gm/dl Albumin/Globulin Ratio 0.5 Blood Gas Sample Site R Radial Bedside Blood Gas pH (LAB) 7.43 Bedside Blood Gas pCO2 (LAB) 36 mmHg Bedside Blood Gas pO2 (LAB) 78 mmHg Bedside Blood Gas HCO3 (LAB) 24 meq/L Bedside Blood Gas Total CO2 25 mEq/l Bedside Blood Gas Base Excess (LAB) 0.0 meq/L Bedside Blood Gas O2 Saturation 96.0 % Poli Test Pass Oxygen Delivery Device Cannula Phosphorus Level 2.4 mg/dl 3.3 mg/dl Ovalocytes 1+ Prealbumin 10.9 mg/dl Procalcitonin 0.40 ng/mL Diagnostic Results [~ rep ct add3]] KUB CLINICAL HISTORY: Examination for nasogastric tube placement COMPARISON STUDY: 01/11/2017 FINDINGS: There has been interval placement of a nasogastric tube which is positioned within the stomach. There is a staghorn left renal calculus. Right renal calculi are also visualized. There is no pathologic bowel dilatation. IMPRESSION: 1. Bilateral nephrolithiasis 2. Nasogastric tube within the stomach Electronically signed by: Naveen Parks M.D. 01/12/2017 7:05 AM Dictated Date/Time: 01/12/2017 7:04 AM [~ rep ct add3]] CHEST ONE VIEW PORTABLE CLINICAL HISTORY: respiratory distress COMPARISON STUDY: 01/11/2017 FINDINGS: There is a right subclavian central venous catheter. The tip projects of the right atrium. There is a nasogastric tube within the stomach. The cardiac and mediastinal contours remain stable. There is diffuse elevation of the interstitium. Mild pulmonary vascular congestion is suspected. There are bibasilar opacities, atelectatic versus inflammatory. There is a old proximal right humeral fracture.[ IMPRESSION: 1. Mild pulmonary vascular congestion 2. Bibasal airspace opacities, atelectatic versus inflammatory 3. Interval placement of a nasogastric tube. Electronically signed by: Naveen Parks M.D. 01/12/2017 7:07 AM [~ rep ct add3]] CHEST ONE VIEW PORTABLE CLINICAL HISTORY: Respiratory failure COMPARISON STUDY: Earlier in the day FINDINGS: There is been interval placement of endotracheal tube positioned 26 mm above the sandeep. The heart is mildly enlarged. There is a right subclavian central venous catheter unchanged in position. There is a nasogastric tube positioned within the stomach. There is bony vascular congestion. There is no lobar consolidation.[ IMPRESSION: 1. Interval placement of endotracheal tube 26 mm above the sandeep 2. Persistent pulmonary vascular congestion Electronically signed by: Naveen Parks M.D. 01/12/2017 8:28 AM Dictated Date/Time: 01/12/2017 8:27 AM Assessment and Plan (1) Acute kidney failure (2) Hypertension (3) Chronic kidney disease, stage 2, mildly decreased GFR The patient is a 76-year-old male with a history of nephrolithiasis with a left staghorn calculus, chronic low back pain, hypertension, parkinsonian syndrome, hypothyroidism, GERD, and severe depression, who presents to the ER with some confusion the last 2 days and weakness with 2 falls in the last week. The EMS reports his blood pressure was in the 60s over 40s. When he presented to the ER , he was relatively hypotensive with a systolic blood pressure of 90, and a right-sided subclavian central line was placed by the ER physician and he was bolused with 2 L of normal saline. The son noted that patient's fingertips seemed to had one episode of vomiting prior to coming to the ER, and had new onset lower extremity edema in the last several days. He was found to be in acute renal failure with a creatinine of 5.2 up from a baseline of 1.0 from 2 months ago. ARF secondary to pre renal azotemia -Renal function has improved with IV fluids. Appreciate Renal input. Cont. with IV fluids. -On D5 1/2hypernatremia. Serum sodium up to 151 today. -Rodriguez placed, monitor strict I's and O's -Started on IV Cefepime for Pseudomonas UTI. Bilateral lower extremities DVT -Doppler of the lower extremities + for extensive bilateral DVT- Continue heparin gtt. -Check echo to rule out congestive heart failure as cause of lower extremity edema and renal failure. Echo is pending Mesenteric lymphadenopathy -s/p Liver biopsy. Await pathology report -Appreciate Onc and Surg. input Back pain Obtained CT of T-L spine which shows no spinal mets and no evidence of spinal cord compression. Altered MS Likely multifactorial-Metabolic encephalopathy in the setting of UTI, ARF, hypotension Improving. Swallowing dysfunction Currently intubated. Reassess once extubated. Rapid atrial fibrillation/hypertension-rate is now controlled in the 80s after IV fluid boluses were given for hypotension. This is new in onset for him. Unable to start beta edie at this time due to hypotension. Troponin was negative -Started on cardizem gtt for better rate control. Also on IV digoxin 125mcg daily. Renal stones/Staghorn calculus left kidney. Appreciate urology input. No indication for stenting at the present time. Parkinsonism/history of severe depression-stable at this time, has a history of electroconvulsive therapy with last maintenance treatment in July 2016. Has a history of hospitalization for severe parkinsonism symptoms causing failure to thrive requiring PEG tube placement which has since been removed. -Continue Sinemet and Effexor Hypothyroidism- -Continue IV Synthroid. GERD-stable -Continue PPI Condition: Critical Called son, Aron Perez at [phone] and informed about father's critical illness.
[2017-01-12] MEDS: LEVOTHYROXINE SODIUM INJ 100 MCG in SYRINGE 0 ML IV SCH (08:29)
--- NOTE | 2017-01-12 08:30 | DIAGNOSTIC IMAGING REPORT ---
CHEST ONE VIEW PORTABLE CLINICAL HISTORY: Respiratory failure COMPARISON STUDY: Earlier in the day FINDINGS: There is been interval placement of endotracheal tube positioned 26 mm above the sandeep. The heart is mildly enlarged. There is a right subclavian central venous catheter unchanged in position. There is a nasogastric tube positioned within the stomach. There is bony vascular congestion. There is no lobar consolidation.[ IMPRESSION: 1. Interval placement of endotracheal tube 26 mm above the sandeep 2. Persistent pulmonary vascular congestion Electronically signed by: Naveen Parks M.D. 01/12/2017 8:28 AM Dictated Date/Time: 01/12/2017 8:27 AM
[2017-01-12] MEDS: PANTOprazole SOD 40 MG TAB PO SCH (09:00)
[2017-01-12] MEDS: DOCUSATE SODIUM 100 MG CAP PO SCH ×2 (09:00→21:00)
[2017-01-12] MEDS ORDERED: HEPARIN IV BOLUS 3,000 UNIT in SYRINGE 0 ML IV ONE (09:00)
[2017-01-12] MEDS: VENLAFAXINE HCL XR 75 MG CAPXR PO SCH (09:00)
[2017-01-12] MEDS ORDERED: DILTIAZEM BOLUS / DRIP IV STA (09:02)
--- NOTE | 2017-01-12 09:03 | Pharmacy Progress Note ---
Pharmacy Antibiotic Consult Date of Service: Jan 12, 2017. Pharmacy Dosing Scope Pharmacy is consulted to initiate vancomycin IV dosing therapy, order appropriate labs and adjust drug dose/frequency. Subjective The patient is a 76 year old male admitted on Jan 06, 2017 at 16:51 with hypotension and a fall. He was being treated with oral levofloxacin for complicated UTI Pseudomonas (S to all antibiotics listed except Azactam). Last night the patient developed emesis and possible aspirated. His heart rate was extremely elevated and he was sent to the ICU. Eventually this morning the patient was intubated. Objective Height (Feet): 5 Height (Inches): 4.00 Weight (Kilograms): 72.000 Lab Results (24hrs): Laboratory Tests Test 01/11/17 16:00 01/12/17 05:38 BUN/Creatinine Ratio 22.4 22.4 Blood Urea Nitrogen 22 mg/dl 22 mg/dl Creatinine 0.96 mg/dl 0.96 mg/dl White Blood Count 15.07 K/uL 17.77 K/uL Red Blood Count 3.95 M/uL 3.49 M/uL Hemoglobin 11.9 g/dL 10.4 g/dL Hematocrit 35.5 % 32.5 % Mean Corpuscular Volume 89.9 fL 93.1 fL Mean Corpuscular Hemoglobin 30.1 pg 29.8 pg Mean Corpuscular Hemoglobin Concent 33.5 g/dl 32.0 g/dl Platelet Count 186 K/uL 151 K/uL Mean Platelet Volume 9.5 fL 10.1 fL Neutrophils (%) (Auto) 84.2 % 90.2 % Lymphocytes (%) (Auto) 6.7 % 3.7 % Monocytes (%) (Auto) 5.9 % 5.1 % Eosinophils (%) (Auto) 2.5 % 0.6 % Basophils (%) (Auto) 0.2 % 0.1 % Neutrophils # (Auto) 12.69 K/uL 16.02 K/uL Lymphocytes # (Auto) 1.01 K/uL 0.66 K/uL Monocytes # (Auto) 0.89 K/uL 0.91 K/uL Eosinophils # (Auto) 0.37 K/uL 0.10 K/uL Basophils # (Auto) 0.03 K/uL 0.02 K/uL Assessment & Plan Loading dose: vancomycin 1500 mg (21 mg/kg) IV X 1 dose then: vancomycin 1100 mg IV every 14 hours (this was started 2 hours early as full loading dose was not given. Population pharmacokinetics suggest a half-life of 12.8 hours with an elimination constant of 0.054 hr-1). Goal peak level estimate: between 35 - 40 mcg/mL. Goal trough level estimate: between 15 - 20 mcg/mL (indication: pneumonia with MRSA nasal swab ordered). Trough has been ordered for: prior to 1000 dose. Pharmacy will continue to follow and will adjust dose/frequency as necessary. Thank you
[2017-01-12] MEDS ORDERED: MIDAZOLAM 125MG/250ML D5W 250 ML IV PRN (09:07)
[2017-01-12] MEDS ORDERED: DILTIAZEM HCL INJ 125 MG in DEXTROSE 5% 100ML IV PRN (09:15)
[2017-01-12] MEDS ORDERED: MAGNESIUM SULFATE 1GM / D5W 1 GM BAG IV STA (09:22)
[2017-01-12] MEDS ORDERED: POTASSIUM PHOS 3 MMOL/1 ML INFUSION IV STA (09:22)
[2017-01-12] MEDS ORDERED: GENTAMICIN CONSULT ACTIVE PRN (09:30)
[2017-01-12] MEDS ORDERED: CALCIUM GLUCONATE 10% 1,000 MG in SODIUM CHLORIDE 0.9% 50ML 50 ML IV ONE (09:30)
[2017-01-12 09:42] LABS: ISTAT ARTERIAL BLOOD GAS HCO3 21 meq/L (19-24); ISTAT ARTERIAL BLOOD GAS PCO2 34 mmHg (35-46); ISTAT ARTERIAL BLOOD GAS PO2 114 mmHg (80-95); ISTAT ARTERIAL BLOOD GAS pH 7.41 (7.35-7.45); ISTAT CARBON DIOXIDE 22 mEq/l (24-31); ISTAT DELIVERY SYSTEM Ventilator; ISTAT FIO2 80 %; ISTAT PEEP 10; ISTAT RATE 20; ISTAT SITE Art Line; VE 10; Vt 500
[2017-01-12] MEDS ORDERED: GENTAMICIN INJ 440 MG in DEXTROSE 5% 100ML 100 ML IV ONE (09:45)
--- NOTE | 2017-01-12 10:20 | Progress Note ---
Progress Note Date of Service Jan 12, 2017. Progress Note ID Consult Dictated #[id number] A/P: 1. 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 Leukocytosis - likely multifactorial -Continue cefepime, would give 14 day course -Will follow, thank you, please see consult for details
[2017-01-12] MEDS: PANTOprazole INJ 40 MG in SYRINGE 0 ML IV SCH (10:55)
[2017-01-12] MEDS: MAGNESIUM SULFATE 1GM / D5W 1 GM in PREMIXED IN D5W 100 ML IV SCH ×2 (10:57→12:16)
[2017-01-12] MEDS: POTASSIUM CHLR 20 MEQ / WTR 20 MEQ in PREMIXED WATER 100 ML IV SCH ×3 (10:57→15:22)
[2017-01-12] MEDS ORDERED: CHLOROTHIAZIDE INJ 500 MG in DEXTROSE 5% 50ML 50 ML IV ONE (11:00)
[2017-01-12] MEDS ORDERED: THIAMINE HCL 100 MG/ML 2 ML VIAL IM ONE (11:00)
[2017-01-12] MEDS ORDERED: POTASSIUM PHOSPHATE INJ 9 MMOL in SODIUM CHLORIDE 0.9% 250ML 250 ML IV ONE (11:00)
--- NOTE | 2017-01-12 12:56 | ECHOCARDIOGRAM REPORT ---
*NOTICE TO RECEIVING CONSTITUTION PARTY AGENCY This information is strictly Confidential and protected under [place] law. [place] law prohibits you from making any further disclosure of this information unless further disclosure is expressly permitted by the written consent of the person to whom it pertains or is authorized by law. A general authorization for the release of medical or other information is not sufficient for this purpose. Hospital accepts no responsibility if the information is made available to any other person, INCLUDING THE PATIENT. Interpretation Summary * Name: ИВАН VALENCIA Study Date: 01/12/2017 10:36 AM BP: 114/82 mmHg * Patient Location: .[facility]ICU\[id number]\E107\S\1 HR: 115 * : 1940 (M/d/yyy) Gender: Male Height: 64 in * Age: 76 yrs Ethnicity: CA Weight: 158 lb * Ordering Physician: Olman Valle * Performed By: Shu Allen RDCS * * Reason For Study: Atrial fibrillation * BSA: 1.8 m2 * -- Conclusions -- * 1. Study severely technically limited. * 2. LV is grossly normal in size and LV function appears to be low normal. Regional wall motion abnormalities could not be excluded. * 3. RV not well visualized * 4. Aortic valve sclerosis without stenosis. * 5. Moderate mitral annular calcification. * 6. Normal estimated RA pressure. * 7. Compared with prior study on 11/24/2014: Current study more limited. No significant changes noted. Procedure Details * A complete two-dimensional transthoracic echocardiogram was performed (2D, M-mode, Doppler and color flow Doppler). Left Ventricle * The left ventricle is grossly normal size. * There is normal left ventricular wall thickness. * Ejection Fraction = 50-55%. * Regional wall motion abnormalities cannot be excluded due to limited visualization. Right Ventricle * The right ventricle is not well visualized. * The right ventricle is grossly normal size. Atria * No ASD detected; PFO is not assessed. Mitral Valve * There is moderate mitral annular calcification. * The mitral valve is not well visualized. * There is no mitral valve stenosis. * Significant mitral regurgitation is absent. Tricuspid Valve * The tricuspid valve is not well visualized. * There is trace tricuspid regurgitation. Aortic Valve * Aortic valve sclerosis moderate, without significant aortic valvular stenosis. * No hemodynamically significant valvular aortic stenosis. * There is no significant aortic regurgitation. Pulmonic Valve * The pulmonary valve is inadequately visualized, but the Doppler data is adequate for interpretation. * Pulmonic stenosis is absent. * There is no significant pulmonary regurgitation. Great Vessels * The aortic root and proximal ascending aorta are normal sized. Pericardium/Pleural * There is no pericardial effusion. Great Vessels * Normal inferior vena cava size and collapsability with sniff indicates a normal right atrial pressure of 3 mmHg MMode 2D Measurements and Calculations IVSd 1.1 cm LVIDd 3.6 cm LVIDs 2.6 cm LVPWd 1.1 cm IVS/LVPW 10 FS 27.7 % EDV(Teich) 53.8 ml ESV(Teich) 24.4 ml EF(Teich) 54.7 % EDV(cubed) 46.0 ml ESV(cubed) 17.4 ml EF(cubed) 62.2 % LV mass(C)d 120.7 grams LV mass(C)dI 68.2 grams/m\S\2 SV(Teich) 29.4 ml SI(Teich) 16.6 ml/m\S\2 SV(cubed) 28.6 ml SI(cubed) 16.2 ml/m\S\2 Ao root diam 3.9 cm Ao root area 12.0 cm\S\2 LA dimension 2.0 cm asc Aorta Diam 3.4 cm LA/Ao 0.52 LVOT diam 2.0 cm LVOT area 3.3 cm\S\2 Doppler Measurements and Calculations MV E max tammi 52.4 cm/sec MV A max tammi 95.6 cm/sec MV E/A 0.55 MV dec time 0.52 sec Ao V2 max 110.3 cm/sec Ao max PG 4.9 mmHg Ao max PG (full) 2.8 mmHg NERISSA(V,A) 2.1 cm\S\2 NERISSA(V,D) 2.1 cm\S\2 LV V1 max PG 2.0 mmHg LV V1 max 71.3 cm/sec TR max tammi 126.0 cm/sec
--- NOTE | 2017-01-12 12:59 | Critical Care Progress Note ---
Critical Care Progress Note Date of Service Jan 12, 2017. Critical Care Progress Note I was able to discuss the patient's condition with his power of lead producer, son, Aron Perez at [phone]. He states his father does have a advanced directive in which an end-stage terminal condition he would not want heroic life sustaining measures undertaken, Aron particular he stated he would not want to undergo dialysis. I explained that the patient was in multi-system organ failure including bilateral DVTs necessitating lifelong anticoagulation, parkinsonism with esophageal dysmotility being at risk for falls and recurrent aspiration, atrial fibrillation with rapid ventricular response which would also necessitate lifelong anticoagulation, complicated urinary tract infection, possible bacteremia, possible pulmonary embolism. Aron stated his father has been progressively declining in health since 2014 and the family has been concerned about his overall prognosis for the past several months. He has had increasing bouts of severe depression necessitating electroconvulsive therapy, he is currently not a candidate for electroconvulsive therapy as he is a major anesthesia risk. In light of the above findings he believes the patient would not want to be a full resuscitation in event of cardiac arrest, I am in agreement with this. This conversation was witnessed by resident physician Dr. Tigre Calhoun.
--- NOTE | 2017-01-12 13:25 | Procedure Note ---
Procedure Note Date of Service Jan 12, 2017. Procedure Note Procedure Date: 01/12/2017 Procedure: Endotracheal intubation Pre-procedure Diagnosis: Hypoxic respiratory failure secondary to probable aspiration Post-procedure Diagnosis: same as above Prior to Procedure: Informed Consent: emergent Attending Staff: Memo Valle DO Indications: Patient continued to have likely aspiration events secondary to emesis as we were unable to easily place a NG tube. He became hypoxic into the 70s required supplemental oxygen was placed on a nonrebreather which did not improve his oxygen saturation sufficiently and he was emergently intubated. The identity of the patient was confirmed and a bedside time out was performed. Description of Procedure: Patient was evaluated and required intubation for respiratory failure. The patient was prepared in the usual fashion. A Mac 3 laryngoscope was used. A 8- 0 Fr endotrachial tube was placed tracheally to when he 3 cm at the teeth. A grade 1 view was obtained. The endotracheal tube was noted to pass through the vocal cords. Chest rise was bilateral. Bilateral breath sounds were heard without air sounds in the abdomen. Mist was noted in the endotracheal tube. End -tidal CO2 measurement was positive. Chest x-ray shows proper endotracheal tube placement. Complications: None Findings: hyperemic vocal cords and arytenoid cartilage consistent with probable chronic aspiration Specimens: not applicable Estimated blood loss: Zero
--- NOTE | 2017-01-12 13:30 | Procedure Note ---
Procedure Note Procedure Date Jan 12, 2017. Procedure Description Procedure Name: Radial arterial line Procedure time out: side/site verified, patient ID confirmed, correct procedure Consent obtained: emergent consent implied Time of procedure: 10:00 Performed by: resident Indications: diagnostic, therapeutic Contraindications: other (heparin infusion) Description: Patient was prepped with chlorhexidine and draped in sterile fashion, dynamic ultrasound guidance was employed. The left radial artery was visualized 1 mL of 1% lidocaine was instilled for anesthesia. Again using dynamic ultrasound guidance the right radial artery was cannulated with a 20-gauge arrow arterial line kit by a modified Seldinger technique. Ultrasound images were obtained and saved. Complications: none Patient tolerated procedure: well, other (trace blood loss) Post-procedure vital signs: reviewed and stable Comments: Procedure was performed by the resident physician Dr. Calhoun I was physically present during the entire procedure and assisted
--- NOTE | 2017-01-12 13:49 | Critical Care Progress Note ---
Critical Care Progress Note Date of Service Jan 12, 2017. ICU Day ICU Day Number: [address] Valle Subjective Patient intubated and sedated No history of obtainable New onset Afib with RVR Objective Constitutional: Vital signs below. Eyes: Pupils equal, round, and reactive to light. Extraocular muscles are intact. No proptosis. No photophobia. ENT: Mucous membranes are moist. Oropharynx is clear. No sinus tenderness. TMs are clear bilaterally. Cardiovascular: Heart with a regular rate and rhythm. Pulses are palpable and symmetric in all 4 extremities. No pedal edema appreciated. Irregularly irregular Respiratory: Coarse bilaterally ET tube in place; blood-streaked GI: Abdomen soft, nontender, nondistended. Normal active bowel sounds. No abdominal hernias appreciated. No rebound. No guarding. : No CVA tenderness appreciated. Musculoskeletal: No midline cervical or vertebral tenderness. No gross deformities. No bony tenderness. No calf swelling or tenderness. Integumentary: Warm, dry, no rashes appreciated. Neurological: Could not assess adequately as patient is sedated at this time RASS -4 Lymph: No cervical lymphadenopathy appreciated. Assessment & Plan 76 year old male on day 2 of ICU admission for respiratory distress and concern for possible aspiration. Patient was intubated early this morning and is currently sedated. Patient is being evaluated for probably malignancy of unknown source with pathological evaluation of multiple biopsy sites pending. His problem list includes: (1) Malnutrition (2) Inability to swallow (3) Dysphagia (4) Urinary tract infection (5) Shock (6) Dehydration (7) Acute kidney injury (8) Chronic kidney disease, stage 2, mildly decreased GFR (9) Hypertension (10) Kidney stones (11) Sepsis (12) Parkinsonian syndrome Our plan for him is as follows: NEUROLOGICAL - RASS-4 - Currently on Versed infusion Goal RASS today: -1 - Parkinsonian Syndrome Hold Sinemet as it cannot be crushed through the tube Hold Tinazidine - Depression: Hold Venlafaxine - Pain regimen: Start Fentanyl 25 mcg q 2 hours IV PRN for pain CARDIAC - BP: Maintaining goal MAP > 65 - Arterial line inserted at bedside, see separate procedure note - Vasopressor support: None currently - New onset Afib with RVR - Start Cardizem infusion with 10 mg IV bolus - Continue Digoxin - Patient started on IV heparin for DVT - Prolong QT - EKG this morning to follow - Hold/avoid any QT prolonging medications - IV Fluids: 1/4 NSS + D5 and 2 mEq KCl @ 75 ml/hr RESPIRATORY - Intubated and ventilated for hypercapnic respiratory failure, see procedure note - Ventilator settings: RR 20 / PEEP 10 / Tv 500 / FiO2 80 - Aspiration Pneumonia vs Pneumonitis Ventilator as above; repeat ABG at 1600 - Concern for possible PE Patient on IV heparin infusion CTPA cannot be done at this time due to recently resolved YUSUF GASTROINTESTINAL - Diet: NPO - GI Prophylaxis: Protonix 40 mg IV daily - Bowel regimen: No BM since 12/09 No evidence of abdominal distension No evidence of bowel obstruction RENAL//ENDOCRINE - Fluid Balance + 8397 ml globally Urine output 0.57 so far today; goal > 0.5 ml/kg/hr - Cr: 0.96 (Baseline: 1.0 - 1.1) - Electrolytes: Hypernatremia: Na 151; 500 mg IV diuril x 1; Continue maintenance with /4 NSS + D5 and 2 mEq Hypokalemia: K 3.2; 60 mEq KCl via central line; 9 mmol KPhos Hypomagnesemia 1.9; 2 g Mag sulfate 1 g Calcium gluconate - Repeat BMP at 1600 - BSG: within range; continue to follow with daily labs HEMATOLOGY / INFECTIOUS DISEASE - Tmax: 37.3 WBC: 17. increased from 15 - Hb/Hct 10.4/32.5 stable - Antibiotics: IV Cefepime Pseudomonas UTI from urine cultures from 01/06; Gram positive Bacilli from blood cultures Vancomycin and Flagyl discontinued ID consulted Repeat blood cultures x 2 with AM labs - Acute Bilateral DVT - IV heparin infusion - Concern for metastatic cancer - Primary unknown at this time - s/p hepatic lesion aspiration; right groin FNA; report pending LINES/IV ACCESS - Right subclavian triple lumen central venous catheter - Left radial artery catheter CODE STATUS - DNR DISPOSITION - OT and PT consulted - Patient requires continued ICU stay for mechanical ventilation Resident Physician Supervision Note: Dr. Calhoun was resident physician during care of patient. I separately evaluated patient and did history and exam. I discussed the case with the resident and generally agree with the findings and plan. Further hypoxia since last evaluation at 12 AM in the morning, required emergent intubation. Updated the family patient critically ill with multisystem organ dysfunction, poor prognosis, likely malignancy. I have personally spent 20 minutes of critical care time in the direct management of this patient. This is a life/limb threatening event. This includes time spent evaluating patient, direct bedside care, chart review, placing orders, interpretation of diagnostic studies, discussion with consultants, patient, and family members, as well as other required patient management activities. This time is exclusive of all separately billable procedures, and teaching time and separate from and in addition to any other critical care service time. Documented By: Olman Valle DO Consults & Procedures Consultants: cardiology gen surgery heme/onc urology Procedures: Intubation with artieral line done at bedside today Data Medications: Current Inpatient Medications Medications (Trade) Dose Ordered Sig/Aiden Route Start Time Stop Time Status Last Admin Dose Admin Acetaminophen (Tylenol Tab) 650 mg Q4H PRN PO 01/06/17 16:45 02/05/17 16:44 Carbidopa/Levodopa (Sinemet 25/ 100MG Tab) 1 tab TIDM PO 01/07/17 08:00 02/06/17 07:59 01/10/17 17:31 1 TAB Carbidopa/Levodopa (Sinemet 25/ 100MG Tab) 2 tab HS PO 01/06/17 21:00 02/05/17 20:59 01/09/17 19:23 2 TAB Docusate Sodium (coLACE CAP) 100 mg BID PO 01/06/17 21:00 02/05/17 20:59 01/10/17 08:30 100 MG Menthol/Zinc Oxide (Calmoseptine Oint) 1 appln BID PRN EXT 01/06/17 17:00 02/05/17 16:59 Oxycodone/ Acetaminophen (Percocet 5-325mg Tab) 1 tab Q6 PRN PO 01/06/17 17:00 01/20/17 16:59 01/10/17 17:42 1 TAB Tizanidine HCl (Zanaflex Tab) 2 mg Q12 PRN PO 01/06/17 17:00 02/05/17 16:59 01/10/17 08:28 2 MG Venlafaxine HCl (effeXOR EXTENDED REL CAP) 75 mg DAILY PO 01/07/17 09:00 02/06/17 08:59 01/10/17 08:28 75 MG Heparin Sodium (Porcine) 5 ml 5 ml PRN PRN FLUSH 01/07/17 00:15 02/06/17 00:14 01/11/17 05:30 5 ML Heparin Sodium/ Dextrose 500 ml @ 26 mls/hr [id number] PRN IV 01/07/17 14:30 02/06/17 14:29 01/10/17 22:08 20 MLS/HR Digoxin 125 mcg/ Syringe 10 ml @ 2 mls/min DAILY@16 IV 01/12/17 06:00 02/11/17 05:59 01/12/17 06:05 2 MLS/MIN Potassium Chloride/Dextrose/ Sod Cl 1,000 ml @ 75 mls/hr [id number] IV 01/12/17 00:30 02/11/17 00:29 01/12/17 01:02 75 MLS/HR Cefepime HCl 1000 mg/Dextrose 111.3 ml @ 200 mls/hr Q12H IV 01/12/17 02:00 01/25/17 14:34 01/12/17 02:59 200 MLS/HR Levothyroxine Sodium 100 mcg/ Syringe 5 ml @ 2 mls/min DAILY@09 IV 01/12/17 09:00 02/11/17 08:59 01/12/17 08:29 2 MLS/MIN Diltiazem HCl 125 mg/Dextrose 125 ml @ 0 mls/hr Q0M PRN IV 01/12/17 09:15 02/11/17 09:14 01/12/17 09:47 5 MLS/HR Midazolam HCl 250 ml @ 0 mls/hr Q0M PRN IV 01/12/17 09:07 02/11/17 09:06 Pantoprazole Sodium 40 mg/ Syringe 10 ml @ 5 mls/min DAILY@11 IV 01/12/17 11:00 02/11/17 10:59 01/12/17 10:55 5 MLS/MIN Potassium Chloride/Prmx (Kcl 20 Meq / Wtr/Premixed Water) 100 ml @ 50 mls/hr Q2H IV 01/12/17 10:00 01/12/17 15:59 01/12/17 10:57 50 MLS/HR Thiamine HCl (Vitamin B-1 Inj) 100 mg QAM IM 01/13/17 09:00 02/12/17 08:59 I & O: 24-Hour Column 01/12/17 08:00 Intake Total 3129 ml Output Total 1775 ml Balance 1354 ml Vital Signs: Date Time Temp Pulse Resp B/P Pulse Ox O2 Delivery O2 Flow Rate FiO2 01/12/17 12:00 36.7 29 92/63 100 01/12/17 12:00 80 01/12/17 12:00 100 Mechanical Ventilator 80 01/12/17 11:45 29 115/51 99 01/12/17 11:30 29 89/69 99 01/12/17 11:15 30 120/49 100 01/12/17 11:15 60 01/12/17 11:01 104/50 99 01/12/17 11:00 113/50 99 01/12/17 10:45 27 119/53 99 01/12/17 10:30 30 112/61 99 01/12/17 10:15 30 110/48 99 01/12/17 10:00 29 84/57 99 01/12/17 10:00 29 84/57 99 01/12/17 09:45 32 112/55 100 01/12/17 09:30 29 101/63 100 01/12/17 09:15 30 119/51 100 01/12/17 09:00 28 100/64 99 01/12/17 08:46 31 110/49 100 01/12/17 08:45 29 28/25 86 01/12/17 08:30 25 116/64 97 01/12/17 08:20 80 01/12/17 08:15 30 101/72 100 01/12/17 08:00 99 Mechanical Ventilator 80 01/12/17 08:00 36.7 33 90/61 78 01/12/17 08:00 80 01/12/17 06:05 115 01/12/17 04:00 36.5 29 114/82 94 15.0 01/12/17 04:00 97 Mask 15.0 01/12/17 02:00 28 146/92 94 10.0 01/12/17 00:02 134 01/12/17 00:00 25 119/92 94 10.0 01/11/17 23:59 97 Mask 15.0 01/11/17 22:00 37.3 119 30 114/80 92 10.0 01/11/17 20:00 Nasal Cannula 6.0 01/11/17 20:00 37.2 142 27 110/70 97 Nasal Cannula 6.0 01/11/17 16:00 Nasal Cannula 6.0 Laboratory Results: Last 24 Hours Test 01/11/17 16:00 01/11/17 17:31 01/12/17 00:42 01/12/17 05:38 White Blood Count 15.07 K/uL 17.77 K/uL Red Blood Count 3.95 M/uL 3.49 M/uL Hemoglobin 11.9 g/dL 10.4 g/dL Hematocrit 35.5 % 32.5 % Mean Corpuscular Volume 89.9 fL 93.1 fL Mean Corpuscular Hemoglobin 30.1 pg 29.8 pg Mean Corpuscular Hemoglobin Concent 33.5 g/dl 32.0 g/dl Platelet Count 186 K/uL 151 K/uL Mean Platelet Volume 9.5 fL 10.1 fL Neutrophils (%) (Auto) 84.2 % 90.2 % Lymphocytes (%) (Auto) 6.7 % 3.7 % Monocytes (%) (Auto) 5.9 % 5.1 % Eosinophils (%) (Auto) 2.5 % 0.6 % Basophils (%) (Auto) 0.2 % 0.1 % Neutrophils # (Auto) 12.69 K/uL 16.02 K/uL Lymphocytes # (Auto) 1.01 K/uL 0.66 K/uL Monocytes # (Auto) 0.89 K/uL 0.91 K/uL Eosinophils # (Auto) 0.37 K/uL 0.10 K/uL Basophils # (Auto) 0.03 K/uL 0.02 K/uL RDW Standard Deviation 50.7 fL 53.3 fL RDW Coefficient of Variation 15.5 % 15.7 % Immature Granulocyte % (Auto) 0.5 % 0.3 % Immature Granulocyte # (Auto) 0.08 K/uL 0.06 K/uL Activated Partial Thromboplast Time 54.4 SECONDS 45.5 SECONDS Partial Thromboplastin Ratio 2.1 1.8 Sodium Level 150 mmol/L 151 mmol/L Potassium Level 3.5 mmol/L 3.2 mmol/L Chloride Level 117 mmol/L 117 mmol/L Carbon Dioxide Level 26 mmol/L 26 mmol/L Anion Gap 7.0 mmol/L 8.0 mmol/L Blood Urea Nitrogen 22 mg/dl 22 mg/dl Creatinine 0.96 mg/dl 0.96 mg/dl Est Creatinine Clear Calc Drug Dose 60.4 ml/min 58.6 ml/min Estimated GFR () 88.0 88.0 Estimated GFR (Non- 75.9 75.9 BUN/Creatinine Ratio 22.4 22.4 Random Glucose 92 mg/dl 108 mg/dl Calcium Level 9.2 mg/dl 8.7 mg/dl Magnesium Level 1.7 mg/dl 1.9 mg/dl Total Bilirubin 0.8 mg/dl Aspartate Amino Transf (AST/SGOT) 23 U/L Alanine Aminotransferase (ALT/SGPT) 18 U/L Alkaline Phosphatase 138 U/L Total Protein 6.7 gm/dl Albumin 2.3 gm/dl Globulin 4.4 gm/dl Albumin/Globulin Ratio 0.5 Blood Gas Sample Site R Radial Bedside Blood Gas pH (LAB) 7.43 Bedside Blood Gas pCO2 (LAB) 36 mmHg Bedside Blood Gas pO2 (LAB) 78 mmHg Bedside Blood Gas HCO3 (LAB) 24 meq/L Bedside Blood Gas Total CO2 25 mEq/l Bedside Blood Gas Base Excess (LAB) 0.0 meq/L Bedside Blood Gas O2 Saturation 96.0 % Poli Test Pass Oxygen Delivery Device Cannula Phosphorus Level 2.4 mg/dl 3.3 mg/dl Ovalocytes 1+ Prealbumin 10.9 mg/dl Procalcitonin 0.40 ng/mL Random Cortisol 38.03 mcg/dl Test 01/12/17 09:28 01/12/17 10:34 Blood Gas Sample Site Art Line Bedside Blood Gas pH (LAB) 7.41 Bedside Blood Gas pCO2 (LAB) 34 mmHg Bedside Blood Gas pO2 (LAB) 114 mmHg Bedside Blood Gas HCO3 (LAB) 21 meq/L Bedside Blood Gas Total CO2 22 mEq/l Bedside Blood Gas Base Excess (LAB) -3.0 meq/L Bedside Blood Gas O2 Saturation 99.0 % Poli Test NA Oxygen Delivery Device Ventilator Bedside Oxygen Rate (breaths/min) 20 Blood Gas Minute Ventilation 10 Bedside FiO2 80 % Blood Gas Tidal Volume 500 Blood Gas PEEP 10 Lactic Acid Level 2.4 mmol/L
[2017-01-12 15:37] LABS: PARTIAL THROMBOPLASTIN RATIO 2.7
[2017-01-12 15:47] LABS: BUN/CREATININE RATIO 20.8 (10-20); CALCIUM 8.5 mg/dl (8.5-10.1); MAGNESIUM 2.2 mg/dl (1.8-2.4)
[2017-01-12 15:49] LABS: PHOSPHORUS 2.3 mg/dl (2.5-4.9)
[2017-01-12] MEDS ORDERED: VANCOMYCIN INJ 1,100 MG in SODIUM CHLORIDE 0.9% 250ML 250 ML IV SCH (16:00)
[2017-01-12 16:10] LABS: ISTAT ARTERIAL BLOOD GAS HCO3 22 meq/L (19-24); ISTAT ARTERIAL BLOOD GAS PCO2 31 mmHg (35-46); ISTAT ARTERIAL BLOOD GAS PO2 81 mmHg (80-95); ISTAT ARTERIAL BLOOD GAS pH 7.45 (7.35-7.45); ISTAT CARBON DIOXIDE 22 mEq/l (24-31); ISTAT DELIVERY SYSTEM Ventilator; ISTAT FIO2 60 %; ISTAT PEEP 5; ISTAT RATE 20; ISTAT SITE Art Line; VE 10; Vt 500
[2017-01-12] MEDS: PHENYLEPHRINE HCL INJ 20 MG in DEXTROSE 5% 500ML 500 ML IV PRN (17:23)
[2017-01-12] MEDS: HEPARIN 25,000 UNIT/500ML D5W 500 ML IV PRN (20:44)
--- NOTE | 2017-01-12 22:19 | INFECT. DISEASE CONSULTATION ---
DATE OF CONSULTATION: 01/12/2017 HISTORY OF PRESENT ILLNESS: This is a 76-year-old gentleman who was admitted to the hospital after he had worsening low back pain. He has had confusion and falls in the recent week, leading up to admission. His history is obtained from the chart as he is now in the intensive care unit, intubated. He did have imaging of his back upon arrival to the hospital by way of abdomen and pelvis CAT scan. This did show bulky lymphadenopathy concerning for underlying malignancy. He also had a staghorn calculus in the left kidney which was previously diagnosed. It appears per the chart, he has been on multiple antibiotic regimens recently by his urologist secondary to recurrent urinary tract infections and feeling of infected staghorn calculus. Per the H\T\P, he was on ciprofloxacin in November. He is also being followed by pain management. He did have reportedly urinary symptoms and change in color of his urine on admission to the hospital. He did undergo lumbar and thoracic spine CAT scan on the , which did show compression fractures. 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 He is being followed by surgery and heme/onc. He did undergo a lymph node biopsy as well as biopsy of a liver lesion. Pathology is pending. He did have some respiratory distress post his biopsies and was subsequently brought to the intensive care unit and intubated. Infectious diseases was asked to see this patient in consultation for pseudomonas bacteremia; however, upon review of his cultures, he did have 1/2 sets from the 27th growing gram-positive rods. The urine culture is growing pseudomonas with intermediate sensitivities to aztreonam. It appears that he was on Levaquin; however, this was discontinued secondary to a prolonged QT interval. He was then transitioned to cefepime and gentamicin was added today. He has been afebrile. He did have an initial white count of 8 and this has increased to 17,000. His urinalysis on admission had greater than 30 wbc's, however, there was no bacteria. Currently, I am unable to obtain any review of systems from the patient as he is intubated and sedated. PAST MEDICAL HISTORY: Significant for degenerative disk disease, hyperlipidemia, hypertension, hypothyroidism, kidney stones with staghorn calculus, osteoporosis, Parkinson, depression with psychosis, GERD, and BPH. PAST SURGICAL HISTORY: Significant for appendectomy, cholecystectomy, inguinal hernia repair, PEG placement, tonsillectomy, and lithotripsy. FAMILY HISTORY: Noncontributory. SOCIAL HISTORY: Significant for history of tobacco use. He currently lives at a nursing facility. There is no alcohol or drug use. ALLERGIES: HE HAS A REPORTED ALLERGY TO PENICILLIN. CURRENT MEDICATIONS: Include thiamine, Protonix, chlorothiazide, magnesium, potassium, diltiazem, levothyroxine, digoxin, cefepime, heparin, Effexor, Sinemet, subQ heparin, Colace, Zanaflex, Percocet, and Tylenol. PHYSICAL EXAMINATION: VITAL SIGNS: He is afebrile. Respiratory rate is in the 20s, pulse 115, his blood pressure is 84/57, and oxygen saturation is 99% on the ventilator. GENERAL: He is sedated on the vent. HEART: Regular. LUNGS: Clear bilaterally with decreased breath sounds at the bases. ABDOMEN: Nondistended. There is no edema. There is a right subclavian triple lumen catheter. LABORATORY STUDIES: CBC today reveals a white blood cell count of 17.7, hemoglobin 10.4, platelets are 151. Chemistry panel reveals a sodium of 151, potassium 3.2, chloride 117, bicarbonate 26, BUN 22, creatinine 0.9, glucose is 108. Urinalysis is as reviewed. Again, blood cultures from the , / bottles with gram-positive cocci and remaining cultures are negative and final. A urine culture from the is growing pseudomonas and a repeat urine culture from today is pending. IMAGING DATA: Chest x-ray from today shows vascular congestion. KUB done today shows stones bilaterally. ASSESSMENT AND PLAN: Urinary tract infection, likely infected staghorn calculus. He is certainly okay to continue with cefepime. He will likely require a prolonged course in the area of 14 days if there is concern for infected stone; however, I think the larger issue is management of his newly diagnosed retroperitoneal mass with metastatic disease. Goals of care will be established pending pathology. His white blood cell count is elevated and I suspect that this is multifactorial, considering his recent biopsies, need for intubation and underlying urine infection. If there is concern for bacteremia, repeat blood cultures can be obtained; however, I suspect that the gram-positive myrna from his initial blood cultures represents a skin contamination. He can remain on cefepime. His Levaquin has been discontinued secondary to prolonged QT. We will follow along with you. Thank you for this consultation. ROXANNE
[2017-01-13] VITALS (19 sets, daily range): BP systolic 86–127; BP diastolic 55–73; PULSE 69–90; TEMP 36.5–37.9; O2SAT 97–100
[2017-01-13] MEDS: CEFEPIME IV 1,000 MG in DEXTROSE 5% 100ML 100 ML IV SCH ×2 (02:29→14:22)
[2017-01-13] MEDS: PHENYLEPHRINE HCL INJ 20 MG in DEXTROSE 5% 500ML 500 ML IV PRN ×2 (02:40→11:12)
[2017-01-13] MEDS: D5W AND 1/4NSS + 20MEQ KCL 1,000 ML IV SCH ×2 (02:57→16:37)
[2017-01-13 06:08] LABS: PARTIAL THROMBOPLASTIN RATIO 2.4
[2017-01-13 06:39] LABS: CREATININE 0.84 mg/dl (0.60-1.40)
[2017-01-13] MEDS: CARBIDOPA/LEVODOPA 25/100MG TAB PO SCH ×6 (08:05→21:00)
[2017-01-13] MEDS: FENTANYL CITRATE INJ 50 MCG/1 ML 2 ML VIAL IV PRN ×3 (08:05→20:44)
[2017-01-13] MEDS: VENLAFAXINE HCL XR 75 MG CAPXR PO SCH (09:00)
[2017-01-13] MEDS: DOCUSATE SODIUM 100 MG CAP PO SCH ×2 (09:00→20:39)
[2017-01-13] MEDS ORDERED: THIAMINE HCL 100 MG/ML 2 ML VIAL IM SCH (09:00)
[2017-01-13 09:04] LABS: BASO % 0.2 %; BASO ABS # 0.04 K/uL (0-0.2); EOS % 7.5 %; IG% 0.5 %; LYMPH % 6.2 %; LYMPH ABS # 1.34 K/uL (1.2-3.4); MEAN CELL VOLUME 90.9 fL (80-100); MEAN CORPUSCULAR HEMOGLOBIN 30.3 pg (25-34); MEAN PLATELET VOLUME 9.8 fL (7.4-10.4); MONO % 5.2 %; NEUT % 80.4 %; PLATELET COUNT 170 K/uL (130-400); WHITE BLOOD COUNT 21.49 K/uL (4.8-10.8)
[2017-01-13 09:10] LABS: COMPLETE YES; MEAN CORPUSCULAR HGB CONC 33.3 g/dl (32-36)
[2017-01-13] MEDS ORDERED: SUCCINYLCHOLINE CHLORIDE 20 MG/ML 10 ML VIAL IV ONE (09:11)
[2017-01-13] MEDS ORDERED: ETOMIDATE 2 MG/ML 20 ML VIAL IV ONE (09:11)
[2017-01-13] MEDS: LEVOTHYROXINE SODIUM INJ 100 MCG in SYRINGE 0 ML IV SCH (09:14)
[2017-01-13] MEDS: PANTOprazole INJ 40 MG in SYRINGE 0 ML IV SCH (09:14)
[2017-01-13 09:26] LABS: BUN/CREATININE RATIO 23.8 (10-20); CALCIUM 8.3 mg/dl (8.5-10.1); CREATININE 0.81 mg/dl (0.60-1.40); MAGNESIUM 1.8 mg/dl (1.8-2.4); POTASSIUM 3.3 mmol/L (3.5-5.1)
[2017-01-13 09:29] LABS: ALB/GLOB RATIO 0.6 (0.9-2)
[2017-01-13] MEDS ORDERED: POTASSIUM PHOS 3 MMOL/1 ML INFUSION IV STA (10:29)
--- NOTE | 2017-01-13 10:37 | Progress Note ---
Subjective Date of Service: Jan 13, 2017. Subjective pt remains sedated on vent. no overnight events, path pending. repeat blood cultures and urine culture pending. tolerating cefepime. afebrile overnight. wbc 21 today. Problem List Medical Problems: (1) Proximal humerus fracture Status: Acute (2) Renal failure Status: Acute (3) Shock Status: Acute (4) Urinary tract infection Permanent Comment: Pseudomonas aeruginosa intermediate susceptibility to aztreonam culture date 01/06/2017 Status: Acute Objective Vital Signs Date Time Temp Pulse Resp B/P Pulse Ox O2 Delivery O2 Flow Rate FiO2 01/13/17 08:21 Mechanical Ventilator 60 01/13/17 07:45 60 01/13/17 06:00 82 33 97/63 98 Mechanical Ventilator 60 01/13/17 04:00 36.5 83 26 113/62 98 Mechanical Ventilator 60 01/13/17 04:00 60 01/13/17 04:00 99 Mechanical Ventilator 60 01/13/17 02:00 26 91/70 100 Mechanical Ventilator 60 01/13/17 01:13 60 01/13/17 00:00 36.7 28 100/71 99 Mechanical Ventilator 60 01/12/17 23:59 60 01/12/17 23:59 100 Mechanical Ventilator 60 01/12/17 22:03 60 01/12/17 22:00 26 104/71 98 Mechanical Ventilator 60 01/12/17 20:00 36.6 25 88/58 98 Mechanical Ventilator 60 01/12/17 20:00 60 01/12/17 20:00 99 Mechanical Ventilator 60 01/12/17 20:00 60 01/12/17 19:00 27 100/63 100 Mechanical Ventilator 60 01/12/17 17:53 60 01/12/17 17:25 83 01/12/17 17:00 28 94/57 98 01/12/17 16:45 27 82/49 97 01/12/17 16:35 27 82/50 97 01/12/17 16:30 26 80/58 97 01/12/17 16:15 29 90/53 97 01/12/17 16:00 60 01/12/17 16:00 98 Mechanical Ventilator 60 01/12/17 16:00 36.7 28 89/59 97 01/12/17 15:45 60 01/12/17 15:45 28 90/57 98 01/12/17 15:30 29 85/61 99 01/12/17 15:15 29 89/53 99 01/12/17 15:00 29 93/51 99 01/12/17 14:45 29 94/50 99 01/12/17 14:30 29 99/47 100 01/12/17 14:15 30 105/50 100 01/12/17 14:00 29 108/52 100 01/12/17 14:00 101 20 91/61 100 Mechanical Ventilator 60 110/49 01/12/17 12:00 36.7 29 92/63 100 01/12/17 12:00 80 01/12/17 12:00 100 Mechanical Ventilator 80 01/12/17 11:45 29 115/51 99 01/12/17 11:30 29 89/69 99 01/12/17 11:15 30 120/49 100 01/12/17 11:15 60 01/12/17 11:01 104/50 99 01/12/17 11:00 113/50 99 01/12/17 10:45 27 119/53 99 Physical Exam General Appearance: + pertinent finding (sedated on vent) Respiratory/Chest: lungs clear, + decreased breath sounds Cardiovascular: regular rate, rhythm, no edema Abdomen: soft Extremities: no pedal edema Skin: normal color Laboratory Results Item Value Date Time Urine Culture - Final Complete 01/06/17 1545 Urine,Catheterized Pseudomonas Aeruginosa Last 24 Hours Test 01/12/17 15:10 01/12/17 15:57 01/12/17 23:42 01/13/17 05:35 Activated Partial Thromboplast Time 68.9 SECONDS 62.3 SECONDS Partial Thromboplastin Ratio 2.7 2.4 Sodium Level 147 mmol/L Potassium Level 4.0 mmol/L Chloride Level 113 mmol/L Carbon Dioxide Level 25 mmol/L Anion Gap 9.0 mmol/L Blood Urea Nitrogen 21 mg/dl Creatinine 1.00 mg/dl 0.84 mg/dl Est Creatinine Clear Calc Drug Dose 56.3 ml/min 67.0 ml/min Estimated GFR () 83.8 97.9 Estimated GFR (Non- 72.3 84.5 BUN/Creatinine Ratio 20.8 Random Glucose 128 mg/dl Lactic Acid Level 1.9 mmol/L 1.6 mmol/L Calcium Level 8.5 mg/dl Phosphorus Level 2.3 mg/dl Magnesium Level 2.2 mg/dl Blood Gas Sample Site Art Line Bedside Blood Gas pH (LAB) 7.45 Bedside Blood Gas pCO2 (LAB) 31 mmHg Bedside Blood Gas pO2 (LAB) 81 mmHg Bedside Blood Gas HCO3 (LAB) 22 meq/L Bedside Blood Gas Total CO2 22 mEq/l Bedside Blood Gas Base Excess (LAB) -3.0 meq/L Bedside Blood Gas O2 Saturation 97.0 % Poli Test NA Oxygen Delivery Device Ventilator Bedside Oxygen Rate (breaths/min) 20 Blood Gas Minute Ventilation 10 Bedside FiO2 60 % Blood Gas Tidal Volume 500 Blood Gas PEEP 5 Bedside Glucose (other) 120 mg/dl Digoxin Level 0.7 ng/ml Test 01/13/17 06:15 01/13/17 08:50 Bedside Glucose (other) 113 mg/dl White Blood Count 21.49 K/uL Red Blood Count 3.30 M/uL Hemoglobin 10.0 g/dL Hematocrit 30.0 % Mean Corpuscular Volume 90.9 fL Mean Corpuscular Hemoglobin 30.3 pg Mean Corpuscular Hemoglobin Concent 33.3 g/dl Platelet Count 170 K/uL Mean Platelet Volume 9.8 fL Neutrophils (%) (Auto) 80.4 % Lymphocytes (%) (Auto) 6.2 % Monocytes (%) (Auto) 5.2 % Eosinophils (%) (Auto) 7.5 % Basophils (%) (Auto) 0.2 % Neutrophils # (Auto) 17.26 K/uL Lymphocytes # (Auto) 1.34 K/uL Monocytes # (Auto) 1.12 K/uL Eosinophils # (Auto) 1.62 K/uL Basophils # (Auto) 0.04 K/uL RDW Standard Deviation 52.2 fL RDW Coefficient of Variation 15.8 % Immature Granulocyte % (Auto) 0.5 % Immature Granulocyte # (Auto) 0.11 K/uL Sodium Level 142 mmol/L Potassium Level 3.3 mmol/L Chloride Level 109 mmol/L Carbon Dioxide Level 25 mmol/L Anion Gap 8.0 mmol/L Blood Urea Nitrogen 19 mg/dl Creatinine 0.81 mg/dl Est Creatinine Clear Calc Drug Dose 74.1 ml/min Estimated GFR () 99.4 Estimated GFR (Non- 85.7 BUN/Creatinine Ratio 23.8 Random Glucose 109 mg/dl Lactic Acid Level 1.4 mmol/L Calcium Level 8.3 mg/dl Phosphorus Level 2.0 mg/dl Magnesium Level 1.8 mg/dl Total Bilirubin 0.9 mg/dl Aspartate Amino Transf (AST/SGOT) 23 U/L Alanine Aminotransferase (ALT/SGPT) 17 U/L Alkaline Phosphatase 87 U/L Total Creatine Kinase 63 U/L Total Protein 5.8 gm/dl Albumin 2.1 gm/dl Globulin 3.7 gm/dl Albumin/Globulin Ratio 0.6
[2017-01-13] MEDS ORDERED: POTASSIUM PHOSPHATE INJ 15 MMOL in SODIUM CHLORIDE 0.9% 250ML 250 ML IV SCH (10:45)
[2017-01-13] MEDS ORDERED: DexMEDEtomidine IV DRIP IV STA (12:05)
--- NOTE | 2017-01-13 12:23 | Critical Care Progress Note ---
Critical Care Progress Note Date of Service Jan 13, 2017. ICU Day ICU Day Number: [address] Jones Subjective Remains on ventilator Still on pressors No further blood suctioned from the ET tube and the bleeding from the subglottic suction diminished significantly. 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 Assessment & Plan (1) Malnutrition (2) Inability to swallow (3) Dysphagia (4) Urinary tract infection (5) Shock (6) Dehydration (7) Acute kidney injury (8) Chronic kidney disease, stage 2, mildly decreased GFR (9) Hypertension (10) Kidney stones (11) Sepsis (12) Parkinsonian syndrome 76 year old male with severe depression (requiring ECT), parkinson, esophageal dysmotility/dysphagia, progressive deterioration and malnutrition, found to have abdominal mass with multiple liver and lung determinations (s/p biopsy of the mass and the liver), now intubated for airway protection, possible aspiration. Developed a-fib, also found to have b/l DVT (likely secondary to a malignancy). Plan: COAL TOWER OPERATOR: On Versed sedation. Change to Precedex, since he remains intubated, in the long run Versed may accumulate Off Sinemet (not crushable) Pulmonary: Continue vent support Not a weaning candidate, still in shock Possible PE, no need for CTA for now, just continue anticoagulation. He is just recovering from YUSUF Titrate down FiO2 as tolerated CVS: Fully anticoagulated for the new onset a-fib Not a alf AC candidate though due to falls On Micah-synephrine Digoxin for rate control Renal/metabolic Creatinine improved Urine output borderline Supplement Kphos Hypernatremia improving with 1/4 NSS ID: Abx changed to Cefepime yesterday. Has Pseudomonas UTI Heme/Onc:WBC rising, maybe secondary to sepsis, the abdominal mass may also contribute Awaiting biopsy report Fully AC for now for b/l DVT GI: Start Reglan to try to improve motility. No BM since admission. NGT to suction Endo: Euglycemic Resume levothyroxine Overall prognosis is poor. It will be very difficult to safely extubate the patient. DNR issued by the family. Further decisions to made based on the results and his clinical course Critical care time spent greater than 35 minutes Consults & Procedures Consultants: cardiology gen surgery heme/onc urology Procedures: Intubation 01/11 A-line 01/11 Data Medications: Current Inpatient Medications Medications (Trade) Dose Ordered Sig/Aiden Route Start Time Stop Time Status Last Admin Dose Admin Acetaminophen (Tylenol Tab) 650 mg Q4H PRN PO 01/06/17 16:45 02/05/17 16:44 Carbidopa/Levodopa (Sinemet 25/ 100MG Tab) 1 tab TIDM PO 01/07/17 08:00 02/06/17 07:59 01/10/17 17:31 1 TAB Carbidopa/Levodopa (Sinemet 25/ 100MG Tab) 2 tab HS PO 01/06/17 21:00 02/05/17 20:59 01/09/17 19:23 2 TAB Docusate Sodium (coLACE CAP) 100 mg BID PO 01/06/17 21:00 02/05/17 20:59 01/10/17 08:30 100 MG Menthol/Zinc Oxide (Calmoseptine Oint) 1 appln BID PRN EXT 01/06/17 17:00 02/05/17 16:59 Oxycodone/ Acetaminophen (Percocet 5-325mg Tab) 1 tab Q6 PRN PO 01/06/17 17:00 01/20/17 16:59 01/10/17 17:42 1 TAB Tizanidine HCl (Zanaflex Tab) 2 mg Q12 PRN PO 01/06/17 17:00 02/05/17 16:59 01/10/17 08:28 2 MG Venlafaxine HCl (effeXOR EXTENDED REL CAP) 75 mg DAILY PO 01/07/17 09:00 02/06/17 08:59 01/10/17 08:28 75 MG Heparin Sodium (Porcine) 5 ml 5 ml PRN PRN FLUSH 01/07/17 00:15 02/06/17 00:14 01/11/17 05:30 5 ML Heparin Sodium/ Dextrose 500 ml @ 26 mls/hr [id number] PRN IV 01/07/17 14:30 02/06/17 14:29 01/12/17 20:44 26 MLS/HR Digoxin 125 mcg/ Syringe 10 ml @ 2 mls/min DAILY@16 IV 01/12/17 06:00 02/11/17 05:59 01/12/17 17:25 2 MLS/MIN Potassium Chloride/Dextrose/ Sod Cl 1,000 ml @ 75 mls/hr [id number] IV 01/12/17 00:30 02/11/17 00:29 01/13/17 02:57 75 MLS/HR Cefepime HCl 1000 mg/Dextrose 111.3 ml @ 200 mls/hr Q12H IV 01/12/17 02:00 01/25/17 14:34 01/13/17 02:29 200 MLS/HR Levothyroxine Sodium 100 mcg/ Syringe 5 ml @ 2 mls/min DAILY@09 IV 01/12/17 09:00 02/11/17 08:59 01/13/17 09:14 2 MLS/MIN Midazolam HCl 250 ml @ 0 mls/hr Q0M PRN IV 01/12/17 09:07 02/11/17 09:06 Pantoprazole Sodium/Syringe (Protonix Inj/ Syringe) 10 ml @ 5 mls/min DAILY@11 IV 01/12/17 11:00 02/11/17 10:59 01/13/17 09:14 5 MLS/MIN Thiamine HCl (Vitamin B-1 Inj) 100 mg QAM IM 01/13/17 09:00 02/12/17 08:59 01/13/17 09:15 100 MG Fentanyl Citrate 25 mcg 25 mcg Q2H PRN IV 01/12/17 13:30 01/26/17 13:29 01/13/17 08:05 25 MCG Phenylephrine HCl 20 mg/Dextrose 502 ml @ 0 mls/hr Q0M PRN IV 01/12/17 16:47 02/11/17 16:46 01/13/17 11:12 54 MLS/HR Potassium Phosphate/Sodium Chloride (Potassium Phosphate Inj/Nss 250ml) 255 ml @ 127 mls/hr TODAY@1045 IV 01/13/17 10:45 01/13/17 12:46 01/13/17 11:12 127 MLS/HR I & O: 24-Hour Column 01/13/17 07:59 Intake Total 4878 ml Output Total 2050 ml Balance 2828 ml Vital Signs: Date Time Temp Pulse Resp B/P Pulse Ox O2 Delivery O2 Flow Rate FiO2 01/13/17 10:40 60 01/13/17 08:21 Mechanical Ventilator 60 01/13/17 08:00 Mechanical Ventilator 60 01/13/17 07:45 60 01/13/17 06:00 82 33 97/63 98 Mechanical Ventilator 60 01/13/17 04:00 36.5 83 26 113/62 98 Mechanical Ventilator 60 01/13/17 04:00 60 01/13/17 04:00 99 Mechanical Ventilator 60 01/13/17 02:00 26 91/70 100 Mechanical Ventilator 60 01/13/17 01:13 60 01/13/17 00:00 36.7 28 100/71 99 Mechanical Ventilator 60 01/12/17 23:59 60 01/12/17 23:59 100 Mechanical Ventilator 60 01/12/17 22:03 60 01/12/17 22:00 26 104/71 98 Mechanical Ventilator 60 01/12/17 20:00 36.6 25 88/58 98 Mechanical Ventilator 60 01/12/17 20:00 60 01/12/17 20:00 99 Mechanical Ventilator 60 01/12/17 20:00 60 01/12/17 19:00 27 100/63 100 Mechanical Ventilator 60 01/12/17 17:53 60 01/12/17 17:25 83 01/12/17 17:00 28 94/57 98 01/12/17 16:45 27 82/49 97 01/12/17 16:35 27 82/50 97 01/12/17 16:30 26 80/58 97 01/12/17 16:15 29 90/53 97 01/12/17 16:00 60 01/12/17 16:00 98 Mechanical Ventilator 60 01/12/17 16:00 36.7 28 89/59 97 01/12/17 15:45 60 01/12/17 15:45 28 90/57 98 01/12/17 15:30 29 85/61 99 01/12/17 15:15 29 89/53 99 01/12/17 15:00 29 93/51 99 01/12/17 14:45 29 94/50 99 01/12/17 14:30 29 99/47 100 01/12/17 14:15 30 105/50 100 01/12/17 14:00 29 108/52 100 01/12/17 14:00 101 20 91/61 100 Mechanical Ventilator 60 110/49 01/12/17 12:00 36.7 29 92/63 100 01/12/17 12:00 80 01/12/17 12:00 100 Mechanical Ventilator 80 Laboratory Results: Last 24 Hours Test 01/12/17 15:10 01/12/17 15:57 01/12/17 23:42 01/13/17 05:35 Activated Partial Thromboplast Time 68.9 SECONDS 62.3 SECONDS Partial Thromboplastin Ratio 2.7 2.4 Sodium Level 147 mmol/L Potassium Level 4.0 mmol/L Chloride Level 113 mmol/L Carbon Dioxide Level 25 mmol/L Anion Gap 9.0 mmol/L Blood Urea Nitrogen 21 mg/dl Creatinine 1.00 mg/dl 0.84 mg/dl Est Creatinine Clear Calc Drug Dose 56.3 ml/min 67.0 ml/min Estimated GFR () 83.8 97.9 Estimated GFR (Non- 72.3 84.5 BUN/Creatinine Ratio 20.8 Random Glucose 128 mg/dl Lactic Acid Level 1.9 mmol/L 1.6 mmol/L Calcium Level 8.5 mg/dl Phosphorus Level 2.3 mg/dl Magnesium Level 2.2 mg/dl Blood Gas Sample Site Art Line Bedside Blood Gas pH (LAB) 7.45 Bedside Blood Gas pCO2 (LAB) 31 mmHg Bedside Blood Gas pO2 (LAB) 81 mmHg Bedside Blood Gas HCO3 (LAB) 22 meq/L Bedside Blood Gas Total CO2 22 mEq/l Bedside Blood Gas Base Excess (LAB) -3.0 meq/L Bedside Blood Gas O2 Saturation 97.0 % Poli Test NA Oxygen Delivery Device Ventilator Bedside Oxygen Rate (breaths/min) 20 Blood Gas Minute Ventilation 10 Bedside FiO2 60 % Blood Gas Tidal Volume 500 Blood Gas PEEP 5 Bedside Glucose (other) 120 mg/dl Digoxin Level 0.7 ng/ml Test 01/13/17 06:15 01/13/17 08:50 Bedside Glucose (other) 113 mg/dl White Blood Count 21.49 K/uL Red Blood Count 3.30 M/uL Hemoglobin 10.0 g/dL Hematocrit 30.0 % Mean Corpuscular Volume 90.9 fL Mean Corpuscular Hemoglobin 30.3 pg Mean Corpuscular Hemoglobin Concent 33.3 g/dl Platelet Count 170 K/uL Mean Platelet Volume 9.8 fL Neutrophils (%) (Auto) 80.4 % Lymphocytes (%) (Auto) 6.2 % Monocytes (%) (Auto) 5.2 % Eosinophils (%) (Auto) 7.5 % Basophils (%) (Auto) 0.2 % Neutrophils # (Auto) 17.26 K/uL Lymphocytes # (Auto) 1.34 K/uL Monocytes # (Auto) 1.12 K/uL Eosinophils # (Auto) 1.62 K/uL Basophils # (Auto) 0.04 K/uL RDW Standard Deviation 52.2 fL RDW Coefficient of Variation 15.8 % Immature Granulocyte % (Auto) 0.5 % Immature Granulocyte # (Auto) 0.11 K/uL Sodium Level 142 mmol/L Potassium Level 3.3 mmol/L Chloride Level 109 mmol/L Carbon Dioxide Level 25 mmol/L Anion Gap 8.0 mmol/L Blood Urea Nitrogen 19 mg/dl Creatinine 0.81 mg/dl Est Creatinine Clear Calc Drug Dose 74.1 ml/min Estimated GFR () 99.4 Estimated GFR (Non- 85.7 BUN/Creatinine Ratio 23.8 Random Glucose 109 mg/dl Lactic Acid Level 1.4 mmol/L Calcium Level 8.3 mg/dl Phosphorus Level 2.0 mg/dl Magnesium Level 1.8 mg/dl Total Bilirubin 0.9 mg/dl Aspartate Amino Transf (AST/SGOT) 23 U/L Alanine Aminotransferase (ALT/SGPT) 17 U/L Alkaline Phosphatase 87 U/L Total Creatine Kinase 63 U/L Total Protein 5.8 gm/dl Albumin 2.1 gm/dl Globulin 3.7 gm/dl Albumin/Globulin Ratio 0.6
--- NOTE | 2017-01-13 14:12 | Progress Note ---
Subjective Date of Service: Jan 13, 2017. Subjective Pt evaluation today including: physical exam, chart review, lab review, review of studies, conversation w/ storage consultant, review of inpatient medication list Still on the Vent support, with pressure medication, remains critical, Tmax was 37.9 last 24 hour, urine output is more than 2000, Problem List Medical Problems: (1) Proximal humerus fracture Status: Acute (2) Renal failure Status: Acute (3) Shock Status: Acute (4) Urinary tract infection Permanent Comment: Pseudomonas aeruginosa intermediate susceptibility to aztreonam culture date 01/06/2017 Status: Acute Review of Systems Constitutional: + problem reported (not able to obtain the patient is not wake up) Objective Vital Signs Date Time Temp Pulse Resp B/P Pulse Ox O2 Delivery O2 Flow Rate FiO2 01/13/17 12:00 Mechanical Ventilator 60 01/13/17 12:00 60 01/13/17 11:00 90 29 116/59 98 Mechanical Ventilator 60 01/13/17 10:40 60 01/13/17 10:00 37.2 88 28 125/66 100 Mechanical Ventilator 60 01/13/17 08:21 Mechanical Ventilator 60 01/13/17 08:00 60 01/13/17 08:00 37.9 82 24 92/70 98 Mechanical Ventilator 60 01/13/17 08:00 Mechanical Ventilator 60 01/13/17 07:45 60 01/13/17 06:00 82 33 97/63 98 Mechanical Ventilator 60 01/13/17 04:00 36.5 83 26 113/62 98 Mechanical Ventilator 60 01/13/17 04:00 60 01/13/17 04:00 99 Mechanical Ventilator 60 01/13/17 02:00 26 91/70 100 Mechanical Ventilator 60 01/13/17 01:13 60 01/13/17 00:00 36.7 28 100/71 99 Mechanical Ventilator 60 01/12/17 23:59 60 01/12/17 23:59 100 Mechanical Ventilator 60 01/12/17 22:03 60 01/12/17 22:00 26 104/71 98 Mechanical Ventilator 60 01/12/17 20:00 36.6 25 88/58 98 Mechanical Ventilator 60 01/12/17 20:00 60 01/12/17 20:00 99 Mechanical Ventilator 60 01/12/17 20:00 60 01/12/17 19:00 27 100/63 100 Mechanical Ventilator 60 01/12/17 17:53 60 01/12/17 17:25 83 01/12/17 17:00 28 94/57 98 01/12/17 16:45 27 82/49 97 01/12/17 16:35 27 82/50 97 01/12/17 16:30 26 80/58 97 01/12/17 16:15 29 90/53 97 01/12/17 16:00 60 01/12/17 16:00 98 Mechanical Ventilator 60 01/12/17 16:00 36.7 28 89/59 97 01/12/17 15:45 60 01/12/17 15:45 28 90/57 98 01/12/17 15:30 29 85/61 99 01/12/17 15:15 29 89/53 99 01/12/17 15:00 29 93/51 99 01/12/17 14:45 29 94/50 99 01/12/17 14:30 29 99/47 100 01/12/17 14:15 30 105/50 100 Physical Exam General Appearance: + pertinent finding (on when support) Eyes: sclerae normal, + pertinent finding (tawny pupils equal round, watery sluggish to light) ENT: normal ENT inspection, hearing grossly normal, pharynx normal Neck: supple, no adenopathy, thyroid normal, no JVD, no carotid bruits, trachea midline Respiratory/Chest: chest non-tender, normal breath sounds, no respiratory distress, no accessory muscle use, + decreased breath sounds Cardiovascular: regular rate, rhythm, no edema, no gallop, no JVD, no murmur Abdomen: normal bowel sounds, non tender, soft, no organomegaly, no pulsatile mass Extremities: normal range of motion, non-tender, normal inspection, no pedal edema, no calf tenderness, normal capillary refill, pelvis stable Neurologic/Psychiatric: major account representative II-XII nml as tested, no motor/sensory deficits, alert, normal mood/affect, oriented x 3 Skin: normal color, warm/dry, no rash Lymphatic: no adenopathy Laboratory Results Last 24 Hours Test 01/12/17 15:10 01/12/17 15:57 01/12/17 23:42 01/13/17 05:35 Activated Partial Thromboplast Time 68.9 SECONDS 62.3 SECONDS Partial Thromboplastin Ratio 2.7 2.4 Sodium Level 147 mmol/L Potassium Level 4.0 mmol/L Chloride Level 113 mmol/L Carbon Dioxide Level 25 mmol/L Anion Gap 9.0 mmol/L Blood Urea Nitrogen 21 mg/dl Creatinine 1.00 mg/dl 0.84 mg/dl Est Creatinine Clear Calc Drug Dose 56.3 ml/min 67.0 ml/min Estimated GFR () 83.8 97.9 Estimated GFR (Non- 72.3 84.5 BUN/Creatinine Ratio 20.8 Random Glucose 128 mg/dl Lactic Acid Level 1.9 mmol/L 1.6 mmol/L Calcium Level 8.5 mg/dl Phosphorus Level 2.3 mg/dl Magnesium Level 2.2 mg/dl Blood Gas Sample Site Art Line Bedside Blood Gas pH (LAB) 7.45 Bedside Blood Gas pCO2 (LAB) 31 mmHg Bedside Blood Gas pO2 (LAB) 81 mmHg Bedside Blood Gas HCO3 (LAB) 22 meq/L Bedside Blood Gas Total CO2 22 mEq/l Bedside Blood Gas Base Excess (LAB) -3.0 meq/L Bedside Blood Gas O2 Saturation 97.0 % Poli Test NA Oxygen Delivery Device Ventilator Bedside Oxygen Rate (breaths/min) 20 Blood Gas Minute Ventilation 10 Bedside FiO2 60 % Blood Gas Tidal Volume 500 Blood Gas PEEP 5 Bedside Glucose (other) 120 mg/dl Digoxin Level 0.7 ng/ml Test 01/13/17 06:15 01/13/17 08:50 Bedside Glucose (other) 113 mg/dl White Blood Count 21.49 K/uL Red Blood Count 3.30 M/uL Hemoglobin 10.0 g/dL Hematocrit 30.0 % Mean Corpuscular Volume 90.9 fL Mean Corpuscular Hemoglobin 30.3 pg Mean Corpuscular Hemoglobin Concent 33.3 g/dl Platelet Count 170 K/uL Mean Platelet Volume 9.8 fL Neutrophils (%) (Auto) 80.4 % Lymphocytes (%) (Auto) 6.2 % Monocytes (%) (Auto) 5.2 % Eosinophils (%) (Auto) 7.5 % Basophils (%) (Auto) 0.2 % Neutrophils # (Auto) 17.26 K/uL Lymphocytes # (Auto) 1.34 K/uL Monocytes # (Auto) 1.12 K/uL Eosinophils # (Auto) 1.62 K/uL Basophils # (Auto) 0.04 K/uL RDW Standard Deviation 52.2 fL RDW Coefficient of Variation 15.8 % Immature Granulocyte % (Auto) 0.5 % Immature Granulocyte # (Auto) 0.11 K/uL Sodium Level 142 mmol/L Potassium Level 3.3 mmol/L Chloride Level 109 mmol/L Carbon Dioxide Level 25 mmol/L Anion Gap 8.0 mmol/L Blood Urea Nitrogen 19 mg/dl Creatinine 0.81 mg/dl Est Creatinine Clear Calc Drug Dose 74.1 ml/min Estimated GFR () 99.4 Estimated GFR (Non- 85.7 BUN/Creatinine Ratio 23.8 Random Glucose 109 mg/dl Lactic Acid Level 1.4 mmol/L Calcium Level 8.3 mg/dl Phosphorus Level 2.0 mg/dl Magnesium Level 1.8 mg/dl Total Bilirubin 0.9 mg/dl Aspartate Amino Transf (AST/SGOT) 23 U/L Alanine Aminotransferase (ALT/SGPT) 17 U/L Alkaline Phosphatase 87 U/L Total Creatine Kinase 63 U/L Total Protein 5.8 gm/dl Albumin 2.1 gm/dl Globulin 3.7 gm/dl Albumin/Globulin Ratio 0.6 Assessment and Plan (1) Acute kidney failure (2) Hypertension (3) Chronic kidney disease, stage 2, mildly decreased GFR 76-year-old male with a history of nephrolithiasis with a left staghorn calculus , chronic low back pain, hypertension, parkinsonian syndrome, hypothyroidism, GERD, and severe depression, admitted on 01/06/2017 Per report prior to arriving to ER with some confusion for 2 days and weakness with 2 falls in the last week. The EMS reports his blood pressure was in the 60s over 40s. When he presented to the ER, he was relatively hypotensive with a systolic blood pressure of 90, and a right-sided subclavian central line was placed by the ER physician and he was bolused with 2 L of normal saline. The son noted that patient's fingertips seemed to had one episode of vomiting prior to the ER, and had new onset lower extremity edema in the last several days. He was found to be in acute renal failure with a creatinine of 5.2 up from a baseline of 1.0 from 2 months ago. Acute renal failure secondary to pre renal azotemia -Renal function has improved with IV fluids. Appreciate Renal input. Cont. with IV fluids. -Rodriguez placed, monitor strict I's and O's, fair urine output -Started on IV Cefepime for Pseudomonas UTI. Bilateral lower extremities DVT -Doppler of the lower extremities + for extensive bilateral DVT- Continue heparin gtt. -Checked echo ( . LV is grossly normal in size and LV function appears to be low normal on 01/12/2017), Urinary tract infection, likely infected staghorn calculus. continue with cefepime. , Will follow-up on the culture results, Levaquin was discontinued because of prolonged QT Mesenteric lymphadenopathy -s/p Liver biopsy. Await pathology report -Appreciate Onc and Surg. input Back pain Obtained CT of T-L spine which shows no spinal mets and no evidence of spinal cord compression. Altered MS Likely multifactorial-Metabolic encephalopathy in the setting of UTI, acute respiratory failure, hypotension Swallowing dysfunction Currently intubated. Reassess once extubated. Rapid atrial fibrillation/hypertension-rate is now controlled in the 80s after IV fluid boluses were given for hypotension. This is new in onset for him. Unable to start beta edie at this time due to hypotension. Troponin was negative -Started on cardizem gtt for better rate control. Also on IV digoxin 125mcg daily. Patient is hypotensive need to pressure support Renal stones/Staghorn calculus left kidney. Appreciate urology input. No indication for stenting at the present time. Parkinsonism/history of severe depression-stable at this time, has a history of electroconvulsive therapy with last maintenance treatment in July 2016. Has a history of hospitalization for severe parkinsonism symptoms causing failure to thrive requiring PEG tube placement which has since been removed. Was on Sinemet and Effexor, Sinemet possible not able to be crushed Hypothyroidism- -Continue IV Synthroid. No nutrition support for now, continue IV fluid GERD-stable -Continue PPI Patient remains very critical possible poor prognosis, his conditions possible has been declining for several months prior to admission Continued [facility] stay due to: multiple IV medications needed Discharge planning: uncertain
[2017-01-13] MEDS: METOCLOPRAMIDE HCL INJ 5 MG/ML 2 ML VIAL IV SCH ×2 (14:22→21:14)
[2017-01-13] MEDS: DIGOXIN IV 125 MCG in SYRINGE 9.5 ML IV SCH (16:37)
[2017-01-13] MEDS: HEPARIN 25,000 UNIT/500ML D5W 500 ML IV PRN (17:19)
[2017-01-14] VITALS (48 sets, daily range): BP systolic 76–142; BP diastolic 45–93; PULSE 72–105; TEMP 36.3–37.1; O2SAT 93–100
[2017-01-14] MEDS: CEFEPIME IV 1,000 MG in DEXTROSE 5% 100ML 100 ML IV SCH ×2 (01:37→14:00)
[2017-01-14] MEDS: METOCLOPRAMIDE HCL INJ 5 MG/ML 2 ML VIAL IV SCH ×4 (01:37→20:42)
[2017-01-14] MEDS: D5W AND 1/4NSS + 20MEQ KCL 1,000 ML IV SCH (05:37)
[2017-01-14 05:48] LABS: BASO % 0.1 %; BASO ABS # 0.02 K/uL (0-0.2); COMPLETE YES; EOS % 6.8 %; HEMATOCRIT 31.5 % (42-52); IG% 0.5 %; LYMPH % 5.7 %; LYMPH ABS # 0.87 K/uL (1.2-3.4); MEAN CELL VOLUME 90.3 fL (80-100); MEAN CORPUSCULAR HEMOGLOBIN 30.1 pg (25-34); MEAN CORPUSCULAR HGB CONC 33.3 g/dl (32-36); MEAN PLATELET VOLUME 10.3 fL (7.4-10.4); MONO % 5.1 %; NEUT % 81.8 %; PLATELET COUNT 118 K/uL (130-400); RED BLOOD COUNT 3.49 M/uL (4.7-6.1); WHITE BLOOD COUNT 15.21 K/uL (4.8-10.8)
[2017-01-14] MEDS ORDERED: LEVOTHYROXINE 137 MCG TAB PO SCH (06:00)
[2017-01-14 06:08] LABS: PARTIAL THROMBOPLASTIN RATIO 2.1
[2017-01-14 06:22] LABS: BUN/CREATININE RATIO 22.7 (10-20); CALCIUM 8.1 mg/dl (8.5-10.1); CREATININE 0.73 mg/dl (0.60-1.40); MAGNESIUM 1.6 mg/dl (1.8-2.4); POTASSIUM 3.5 mmol/L (3.5-5.1)
[2017-01-14 06:24] LABS: ALB/GLOB RATIO 0.6 (0.9-2); PHOSPHORUS 2.4 mg/dl (2.5-4.9)
[2017-01-14 07:02] LABS: ISTAT ARTERIAL BLOOD GAS HCO3 21 meq/L (19-24); ISTAT ARTERIAL BLOOD GAS PCO2 32 mmHg (35-46); ISTAT ARTERIAL BLOOD GAS PO2 98 mmHg (80-95); ISTAT ARTERIAL BLOOD GAS pH 7.43 (7.35-7.45); ISTAT CARBON DIOXIDE 22 mEq/l (24-31); ISTAT DELIVERY SYSTEM Ventilator; ISTAT FIO2 60 %; ISTAT PEEP 5; ISTAT RATE 20; ISTAT SITE Art Line; VE 9.8; Vt 500
[2017-01-14] MEDS: CARBIDOPA/LEVODOPA 25/100MG TAB PO SCH ×4 (07:15→20:37)
--- NOTE | 2017-01-14 07:49 | DIAGNOSTIC IMAGING REPORT ---
CHEST ONE VIEW PORTABLE HISTORY: Respiratory failure, aspiration COMPARISON: Chest 01/12/2017. FINDINGS: Patient is rotated on this study. Endotracheal tube terminates approximately 2 cm from the sandeep. Nasogastric tube terminates in the proximal stomach. No pneumothorax. The heart remains mildly enlarged. Perihilar interstitial thickening consistent with mild pulmonary edema. This remains unchanged. Mild elevation the right hemidiaphragm. Suspect trace bilateral pleural effusions. Right subclavian central venous catheter terminates at the right atrium. Low lung volumes. IMPRESSION: 1. Mild interstitial pulmonary edema persists. 2. Elevation of the right hemidiaphragm. 3. Suspect trace bilateral pleural effusions. 4. Support lines and tubes remain unchanged in position. Electronically signed by: Ryan Rodrigez M.D. 01/14/2017 7:47 AM Dictated Date/Time: 01/14/2017 7:45 AM
[2017-01-14] MEDS ORDERED: POTASSIUM PHOS 3 MMOL/1 ML INFUSION IV STA (08:17)
[2017-01-14] MEDS ORDERED: POTASSIUM PHOSPHATE INJ 15 MMOL in SODIUM CHLORIDE 0.9% 250ML 250 ML IV SCH (08:30)
[2017-01-14] MEDS ORDERED: NORMOSOL R 1,000 ML IV SCH (08:45)
[2017-01-14] MEDS: DOCUSATE SODIUM 100 MG CAP PO SCH ×2 (09:00→20:37)
[2017-01-14] MEDS: VENLAFAXINE HCL XR 75 MG CAPXR PO SCH (09:00)
[2017-01-14] MEDS: LEVOTHYROXINE SODIUM INJ 100 MCG in SYRINGE 0 ML IV SCH (09:25)
[2017-01-14] MEDS: FENTANYL CITRATE INJ 50 MCG/1 ML 2 ML VIAL IV PRN ×5 (09:25→23:22)
[2017-01-14] MEDS: MAGNESIUM SULFATE 1GM / D5W 1 GM in PREMIXED IN D5W 100 ML IV SCH ×2 (09:26→11:37)
[2017-01-14] MEDS ORDERED: VANCOMYCIN TROUGH SCH (09:30)
[2017-01-14] MEDS: NORMOSOL R 1,000 ML IV SCH ×2 (09:45→21:18)
--- NOTE | 2017-01-14 10:05 | Critical Care Progress Note ---
Critical Care Progress Note Date of Service Jan 14, 2017. Attending Dr. Jones Subjective Unable to obtain as patient is currently intubated Objective GENERAL: Patient is in no acute distress, intubated HEENT: normocephalic atraumatic, ET tube in place LUNGS: coarse breath sounds HEART: Irregularly irregular ABDOMEN: Soft, nontender, EXTREMITIES: b/l LE edema NEUROLOGIC: Sedated but responds to voice commands Assessment & Plan 69-year-old male with a history of renal calculus ,depression, Parkinson's disease , esophageal dysmotility/dysphagia, progressive deterioration and malnutrition, found to have abdominal mass with multiple liver and lung determinations (s/p biopsy of the mass and the liver), currently intubated for possible aspiration . Was admitted with hypotension, pseudomonal UTI and found to be in A. fib and had DVTs in bilateral extremities Neuro: - Currently on Versed - Parkinsonian Syndrome Hold Sinemet - Pain control with Fentanyl CARDIAC - On neosynephrine - Afib with RVR - Continue Digoxin - AC with IV heparin ( started for DVT RESPIRATORY - Currently intubated - Ventilator settings: RR 20 / PEEP 5 / Tv 500 / FiO2 40 - Concern for possible PE( DVT on B/l LE) Patient on IV heparin infusion CTPA avoided( recent YUSUF) GASTROINTESTINAL - Diet: NPO - GI Prophylaxis: Protonix 40 mg IV daily - Bowel regimen: No BM since 12/09 - Reglan for motility RENAL//ENDOCRINE - Cr at 0.7 - Electrolytes: Hypernatremia: resolved, Na at 137 K at 3.5, Mg at 1.6, Phos at 2.4 - Euglycemic ID Pseudomonas UTI - IV Cefepime - ID consulted- appreciate input Heme/Onc - Acute Bilateral DVT - IV heparin infusion - Concern for metastatic cancer - Primary unknown - s/p hepatic lesion aspiration; right groin FNA; omental fat FNA- not diagnostic. Liver pending CODE STATUS - DNR - palliative consult Resident Physician Supervision Note: I was present with Dr. Regine Lopez during the history and exam. I discussed the case with the resident and agree with the findings and plan as documented in the note. Any exceptions or clarifications are listed here: Had a long discussion today with the son and the palliative care team, went over the medical problems. Patient is DNR, it seems unlikely that the son will proceed with trach/PEG if the patient does not improve. Awaiting the liver biopsy results for the time being. Critical care time spent greater than 45 minutes Documented By: Evert Jones MD Consults & Procedures Consultants: cardiology gen surgery heme/onc/ urology/ Infectious disease Procedures: Intubation 01/11 A-line 01/11 Data Medications: Current Inpatient Medications Medications (Trade) Dose Ordered Sig/Aiden Route Start Time Stop Time Status Last Admin Dose Admin Acetaminophen (Tylenol Tab) 650 mg Q4H PRN PO 01/06/17 16:45 02/05/17 16:44 Carbidopa/Levodopa (Sinemet 25/ 100MG Tab) 1 tab TIDM PO 01/07/17 08:00 02/06/17 07:59 01/10/17 17:31 1 TAB Carbidopa/Levodopa (Sinemet 25/ 100MG Tab) 2 tab HS PO 01/06/17 21:00 02/05/17 20:59 01/09/17 19:23 2 TAB Docusate Sodium (coLACE CAP) 100 mg BID PO 01/06/17 21:00 02/05/17 20:59 01/10/17 08:30 100 MG Menthol/Zinc Oxide (Calmoseptine Oint) 1 appln BID PRN EXT 01/06/17 17:00 02/05/17 16:59 Oxycodone/ Acetaminophen (Percocet 5-325mg Tab) 1 tab Q6 PRN PO 01/06/17 17:00 01/20/17 16:59 01/10/17 17:42 1 TAB Tizanidine HCl (Zanaflex Tab) 2 mg Q12 PRN PO 01/06/17 17:00 02/05/17 16:59 01/10/17 08:28 2 MG Venlafaxine HCl (effeXOR EXTENDED REL CAP) 75 mg DAILY PO 01/07/17 09:00 02/06/17 08:59 01/10/17 08:28 75 MG Heparin Sodium (Porcine) 5 ml 5 ml PRN PRN FLUSH 01/07/17 00:15 02/06/17 00:14 01/11/17 05:30 5 ML Heparin Sodium/ Dextrose 500 ml @ 26 mls/hr [id number] PRN IV 01/07/17 14:30 02/06/17 14:29 01/13/17 17:19 26 MLS/HR Digoxin 125 mcg/ Syringe 10 ml @ 2 mls/min DAILY@16 IV 01/12/17 06:00 02/11/17 05:59 01/13/17 16:37 2 MLS/MIN Cefepime HCl 1000 mg/Dextrose 111.3 ml @ 200 mls/hr Q12H IV 01/12/17 02:00 01/25/17 14:34 01/14/17 01:37 200 MLS/HR Levothyroxine Sodium 100 mcg/ Syringe 5 ml @ 2 mls/min DAILY@09 IV 01/12/17 09:00 02/11/17 08:59 01/14/17 09:25 2 MLS/MIN Pantoprazole Sodium/Syringe (Protonix Inj/ Syringe) 10 ml @ 5 mls/min DAILY@11 IV 01/12/17 11:00 02/11/17 10:59 01/13/17 09:14 5 MLS/MIN Fentanyl Citrate 25 mcg 25 mcg Q2H PRN IV 01/12/17 13:30 01/26/17 13:29 01/14/17 09:25 25 MCG Phenylephrine HCl 20 mg/Dextrose 502 ml @ 0 mls/hr Q0M PRN IV 01/12/17 16:47 02/11/17 16:46 01/13/17 11:12 54 MLS/HR Dexmedetomidine HCl/Sodium Chloride (PreCEDEX INJ/ Nss 50ml) 50 ml @ 0 mls/hr Q0M PRN IV 01/13/17 12:15 01/17/17 12:14 Metoclopramide HCl 10 mg 10 mg Q6H IV 01/13/17 14:00 02/12/17 12:44 01/14/17 09:24 10 MG Magnesium Sulfate 1 gm/Prmx 100 ml @ 100 mls/hr Q1H IV 01/14/17 08:45 01/14/17 10:44 01/14/17 09:26 100 MLS/HR Potassium Phosphate 15 mmol/ Sodium Chloride 255 ml @ 127 mls/hr TODAY@0830 IV 01/14/17 08:30 01/14/17 10:31 01/14/17 09:26 127 MLS/HR Parenteral Electrolyte Solution (Normosol R) 1,000 ml @ 75 mls/hr [id number] IV 01/14/17 08:45 02/13/17 08:44 01/14/17 09:26 75 MLS/HR I & O: 24-Hour Column 01/14/17 07:58 Intake Total 3961 ml Output Total 1325 ml Balance 2636 ml Vital Signs: Date Time Temp Pulse Resp B/P Pulse Ox O2 Delivery O2 Flow Rate FiO2 01/14/17 07:45 40 01/14/17 07:40 60 01/14/17 06:06 60 01/14/17 06:00 72 20 94/72 100 94/72 01/14/17 05:30 78 21 97/69 97 01/14/17 05:00 74 27 142/63 99 01/14/17 04:01 36.4 88 26 118/54 98 92/63 01/14/17 04:00 86 25 116/53 99 01/14/17 04:00 100 Mechanical Ventilator 60.0 60 01/14/17 04:00 60 01/14/17 03:00 80 25 112/48 100 01/14/17 02:00 60 01/14/17 02:00 94 27 108/52 95 111/78 01/14/17 01:00 89 24 103/54 99 01/14/17 00:00 36.3 81 26 100/64 98 100/64 01/14/17 00:00 98 Mechanical Ventilator 60.0 60 01/14/17 00:00 60 01/13/17 23:45 87 26 123/64 100 105/72 01/13/17 23:00 76 22 127/64 100 98/73 01/13/17 23:00 60 01/13/17 22:00 78 20 98/73 100 Mechanical Ventilator 60 01/13/17 20:00 98 Mechanical Ventilator 60.0 60 01/13/17 20:00 37.3 80 29 94/67 97 Mechanical Ventilator 60 119/59 01/13/17 20:00 60 01/13/17 19:30 60 01/13/17 18:00 87 29 101/72 98 Mechanical Ventilator 60 01/13/17 17:00 89 28 115/66 98 Mechanical Ventilator 60 01/13/17 16:37 104 01/13/17 16:23 60 01/13/17 16:00 36.9 82 27 104/70 100 Mechanical Ventilator 60 01/13/17 16:00 60 01/13/17 16:00 Mechanical Ventilator 60 01/13/17 15:00 71 27 86/61 97 Mechanical Ventilator 60 01/13/17 14:25 60 01/13/17 14:01 79 28 102/69 100 Mechanical Ventilator 60 01/13/17 14:00 37.2 89 28 116/61 100 Mechanical Ventilator 60 01/13/17 13:00 77 25 102/56 100 Mechanical Ventilator 60 01/13/17 12:00 Mechanical Ventilator 60 01/13/17 12:00 37.0 69 22 114/55 99 Mechanical Ventilator 60 01/13/17 12:00 60 01/13/17 11:00 90 29 116/59 98 Mechanical Ventilator 60 01/13/17 10:40 60 01/13/17 10:00 37.2 88 28 125/66 100 Mechanical Ventilator 60 Laboratory Results: Last 24 Hours Test 01/14/17 05:38 01/14/17 06:49 01/14/17 09:23 White Blood Count 15.21 K/uL Red Blood Count 3.49 M/uL Hemoglobin 10.5 g/dL Hematocrit 31.5 % Mean Corpuscular Volume 90.3 fL Mean Corpuscular Hemoglobin 30.1 pg Mean Corpuscular Hemoglobin Concent 33.3 g/dl Platelet Count 118 K/uL Mean Platelet Volume 10.3 fL Neutrophils (%) (Auto) 81.8 % Lymphocytes (%) (Auto) 5.7 % Monocytes (%) (Auto) 5.1 % Eosinophils (%) (Auto) 6.8 % Basophils (%) (Auto) 0.1 % Neutrophils # (Auto) 12.45 K/uL Lymphocytes # (Auto) 0.87 K/uL Monocytes # (Auto) 0.77 K/uL Eosinophils # (Auto) 1.03 K/uL Basophils # (Auto) 0.02 K/uL RDW Standard Deviation 51.0 fL RDW Coefficient of Variation 15.7 % Immature Granulocyte % (Auto) 0.5 % Immature Granulocyte # (Auto) 0.07 K/uL Activated Partial Thromboplast Time 54.4 SECONDS Partial Thromboplastin Ratio 2.1 Sodium Level 137 mmol/L Potassium Level 3.5 mmol/L Chloride Level 106 mmol/L Carbon Dioxide Level 21 mmol/L Anion Gap 10.0 mmol/L Blood Urea Nitrogen 17 mg/dl Creatinine 0.73 mg/dl Est Creatinine Clear Calc Drug Dose 81.9 ml/min Estimated GFR () 103.7 Estimated GFR (Non- 89.5 BUN/Creatinine Ratio 22.7 Random Glucose 104 mg/dl Lactic Acid Level 1.5 mmol/L Calcium Level 8.1 mg/dl Phosphorus Level 2.4 mg/dl Magnesium Level 1.6 mg/dl Total Bilirubin 1.2 mg/dl Aspartate Amino Transf (AST/SGOT) 43 U/L Alanine Aminotransferase (ALT/SGPT) 18 U/L Alkaline Phosphatase 90 U/L Total Protein 5.6 gm/dl Albumin 2.0 gm/dl Globulin 3.6 gm/dl Albumin/Globulin Ratio 0.6 Blood Gas Sample Site Art Line Bedside Blood Gas pH (LAB) 7.43 Bedside Blood Gas pCO2 (LAB) 32 mmHg Bedside Blood Gas pO2 (LAB) 98 mmHg Bedside Blood Gas HCO3 (LAB) 21 meq/L Bedside Blood Gas Total CO2 22 mEq/l Bedside Blood Gas Base Excess (LAB) -4.0 meq/L Bedside Blood Gas O2 Saturation 98.0 % Poli Test NA Oxygen Delivery Device Ventilator Bedside Oxygen Rate (breaths/min) 20 Blood Gas Minute Ventilation 9.8 Bedside FiO2 60 % Blood Gas Tidal Volume 500 Blood Gas PEEP 5
[2017-01-14] MEDS: PANTOprazole INJ 40 MG in SYRINGE 0 ML IV SCH (11:37)
--- NOTE | 2017-01-14 13:25 | Palliative Care Consultation ---
Consultation Date of Consultation: Jan 14, 2017. Requesting Physician: Dr. Jones Attending Physician: Dr. Dhillon, Dr. Jones Reason for Consultation: Goals of care History of Present Illness This 76 year old male patient presented to the ED eight days ago with complaints of confusion, weakness, and 2 falls occurring in one week. History obtained from report. EMS found patient to be hypotensive, 60/40s. In ED, SBP in 90s, right subclavian triple lumen CVC inserted and a 2 liter bolus was given. Patient was also in new onset atrial fibrillation, rate controlled and improved with rehydration. His creatinine was 5.2 upon admission, baseline 1.0 two months ago. Apparently the patient had been having issues with his chronic back pain, was not moving much to the point of developing a decubitus ulcer, and was taking NSAIDs for the pain. this patient has a very complicated past medical history including severe depression and psychosis for which he's received ECT, 4cm left staghorn renal calculus, Parkinson's disease, PEG tube in the past, and others listed below. This admission, CT negative for hydronephrosis or ureteral stones, but did show bulky adenopathy within the retroperitoneum of abdomen and mesenteric region, liver lesion. Inguinal ultrasound also showed lymphadenopathy. Needle biopsy of the right groin showed no diagnostic cells, liver lesion biopsy still pending. Oncology consulted and following. Patient also has nephrology, urology, and cardiology consults as well. A few days ago, patient had an acute event of possible aspiration and required transfer to ICU-- in acute hypoxic respiratory failure 2/2 possible lung mets. He is now intubated, was requiring pressors for BP support which were discontinued this morning. He was shown to have extensive bilateral DVTs, on IV heparin for that now but is not long-term anticoagulation candidate. Also being treated for pseudomonas UTI, repeat culture of urine negative. Repeat blood cultures pending. Echo shows EF of 50-55%, aortic sclerosis without stenosis. No treatment for the afib at this time as he is rate controlled. Patient has not had BM since admission per record, is putting out very large amounts of blue/green bile from OGT. KUB on 01/11 showed no evidence of obstruction. Given the patient's multi-organ system failure and overall very poor prognosis, palliative care consulted to help establish goals of care. I met with the patient in the room. He was spontaneously awake, following commands and moving all extremities. Nodded head "yes" to pain. He was coughing with ETT in place and i noted a large amount of brown/blood-tinged, thick sputum coming from ETT which I did suction until clear. He is no longer on pressors, SBP 90-110s. Patient appears uncomfortable, deconditioned, and has multiple skin issues. He could not provide a ROS. I called the son/POA, Aron, who will be coming in this afternoon. I will meet and discuss goals of care. Apparently the patient does have a living will which states he would not want heroic measures in the case he is in an end-stage medical condition. 1450: Met with patient's son/POA, Aron Patel, and Dr. Jones. Aron stated his understanding of the patient's condition. Questions/concerns were answered by myself or Dr. Jones. He understands that his father is still not able to come off the ventilator, and when talking about trach/PEG and possible LTACH, he does not believe his father would want those things. However , given the progress that his father has made even from yesterday, such as increased alertness/following commands and no longer on pressors, Aron would like to continue to attempt weaning the ventilator to give his father a better fighting chance. He does understand that in his father's current condition, he likely would not do well if he were extubated. If there is no progress made in the next couple days, Aron believes that he will most likely choose to make his father comfort measures only and allow natural . We are also still waiting on the liver biopsy results to further help make decisions. Past Medical/Surgical History Medical History: Nephrolithiasis with left staghorn calculus Chronic low back pain Htn Parkinson's Disease Hypothyroidism GERD Severe depression with psychosis- ECT Degenerative disc disease Osteoporosis BPH Surgical History: Lithotripsy Appendectomy Cholecystectomy Social History Smoking Status: Former Smoker History of Alcohol Use: No Drug Use: none Housing Status: [facility] Occupation Status: retired Review of Systems unable to obtain due to patient condition Allergies Coded Allergies: Penicillins (Verified Allergy, Unknown, HIVES, 10/16/16) Medications Current Inpatient Medications Medications (Trade) Dose Ordered Sig/Aiden Route Start Time Stop Time Status Last Admin Dose Admin Acetaminophen (Tylenol Tab) 650 mg Q4H PRN PO 01/06/17 16:45 02/05/17 16:44 Carbidopa/Levodopa (Sinemet 25/ 100MG Tab) 1 tab TIDM PO 01/07/17 08:00 02/06/17 07:59 01/10/17 17:31 1 TAB Carbidopa/Levodopa (Sinemet 25/ 100MG Tab) 2 tab HS PO 01/06/17 21:00 02/05/17 20:59 01/09/17 19:23 2 TAB Docusate Sodium (coLACE CAP) 100 mg BID PO 01/06/17 21:00 02/05/17 20:59 01/10/17 08:30 100 MG Menthol/Zinc Oxide (Calmoseptine Oint) 1 appln BID PRN EXT 01/06/17 17:00 02/05/17 16:59 Oxycodone/ Acetaminophen (Percocet 5-325mg Tab) 1 tab Q6 PRN PO 01/06/17 17:00 01/20/17 16:59 01/10/17 17:42 1 TAB Tizanidine HCl (Zanaflex Tab) 2 mg Q12 PRN PO 01/06/17 17:00 02/05/17 16:59 01/10/17 08:28 2 MG Venlafaxine HCl (effeXOR EXTENDED REL CAP) 75 mg DAILY PO 01/07/17 09:00 02/06/17 08:59 01/10/17 08:28 75 MG Heparin Sodium (Porcine) 5 ml 5 ml PRN PRN FLUSH 01/07/17 00:15 02/06/17 00:14 01/11/17 05:30 5 ML Heparin Sodium/ Dextrose 500 ml @ 26 mls/hr [id number] PRN IV 01/07/17 14:30 02/06/17 14:29 01/13/17 17:19 26 MLS/HR Digoxin 125 mcg/ Syringe 10 ml @ 2 mls/min DAILY@16 IV 01/12/17 06:00 02/11/17 05:59 01/13/17 16:37 2 MLS/MIN Cefepime HCl 1000 mg/Dextrose 111.3 ml @ 200 mls/hr Q12H IV 01/12/17 02:00 01/25/17 14:34 01/14/17 01:37 200 MLS/HR Levothyroxine Sodium 100 mcg/ Syringe 5 ml @ 2 mls/min DAILY@09 IV 01/12/17 09:00 02/11/17 08:59 01/14/17 09:25 2 MLS/MIN Pantoprazole Sodium/Syringe (Protonix Inj/ Syringe) 10 ml @ 5 mls/min DAILY@11 IV 01/12/17 11:00 02/11/17 10:59 01/14/17 11:37 5 MLS/MIN Fentanyl Citrate 25 mcg 25 mcg Q2H PRN IV 01/12/17 13:30 01/26/17 13:29 01/14/17 09:25 25 MCG Phenylephrine HCl 20 mg/Dextrose 502 ml @ 0 mls/hr Q0M PRN IV 01/12/17 16:47 02/11/17 16:46 01/13/17 11:12 54 MLS/HR Dexmedetomidine HCl/Sodium Chloride (PreCEDEX INJ/ Nss 50ml) 50 ml @ 0 mls/hr Q0M PRN IV 01/13/17 12:15 01/17/17 12:14 Metoclopramide HCl 10 mg 10 mg Q6H IV 01/13/17 14:00 02/12/17 12:44 01/14/17 09:24 10 MG Parenteral Electrolyte Solution 1,000 ml @ 75 mls/hr [id number] IV 01/14/17 08:45 02/13/17 08:44 01/14/17 09:26 75 MLS/HR Parenteral Electrolyte Solution (Normosol R) 1,000 ml @ 75 mls/hr [id number] IV 01/14/17 09:45 02/13/17 09:44 01/14/17 09:45 75 MLS/HR Physical Exam Date Time Temp Pulse Resp B/P Pulse Ox O2 Delivery O2 Flow Rate FiO2 01/14/17 11:20 40 01/14/17 10:00 97 20 87/65 97 Mechanical Ventilator 60 98/51 01/14/17 08:00 Mechanical Ventilator 40 01/14/17 08:00 100 Mechanical Ventilator 60 01/14/17 08:00 36.7 105 23 94/72 100 Mechanical Ventilator 60 115/60 01/14/17 08:00 60 01/14/17 07:45 40 01/14/17 07:40 60 01/14/17 06:06 60 01/14/17 06:00 72 20 94/72 100 94/72 01/14/17 05:30 78 21 97/69 97 01/14/17 05:00 74 27 142/63 99 01/14/17 04:01 36.4 88 26 118/54 98 92/63 01/14/17 04:00 86 25 116/53 99 01/14/17 04:00 100 Mechanical Ventilator 60.0 60 01/14/17 04:00 60 01/14/17 03:00 80 25 112/48 100 01/14/17 02:00 60 01/14/17 02:00 94 27 108/52 95 111/78 01/14/17 01:00 89 24 103/54 99 01/14/17 00:00 36.3 81 26 100/64 98 100/64 01/14/17 00:00 98 Mechanical Ventilator 60.0 60 01/14/17 00:00 60 01/13/17 23:45 87 26 123/64 100 105/72 01/13/17 23:00 76 22 127/64 100 98/73 01/13/17 23:00 60 01/13/17 22:00 78 20 98/73 100 Mechanical Ventilator 60 01/13/17 20:00 98 Mechanical Ventilator 60.0 60 01/13/17 20:00 37.3 80 29 94/67 97 Mechanical Ventilator 60 119/59 01/13/17 20:00 60 01/13/17 19:30 60 01/13/17 18:00 87 29 101/72 98 Mechanical Ventilator 60 01/13/17 17:00 89 28 115/66 98 Mechanical Ventilator 60 01/13/17 16:37 104 01/13/17 16:23 60 01/13/17 16:00 36.9 82 27 104/70 100 Mechanical Ventilator 60 01/13/17 16:00 60 01/13/17 16:00 Mechanical Ventilator 60 01/13/17 15:00 71 27 86/61 97 Mechanical Ventilator 60 01/13/17 14:25 60 01/13/17 14:01 79 28 102/69 100 Mechanical Ventilator 60 01/13/17 14:00 37.2 89 28 116/61 100 Mechanical Ventilator 60 01/13/17 13:00 77 25 102/56 100 Mechanical Ventilator 60 General Appearance: no apparent distress, + pertinent finding (critically ill in ICU) ENT: + pertinent finding (tongue has scabs/bleeding. ETT present) Neck: no JVD, trachea midline Respiratory: + rhonchi (extremely coarse throughout), + pertinent finding ( large amount of thick brown secretions from ETT. ) Cardiovascular: + irregularly irregular (distant heart sounds) Abdomen: soft, + abnormal bowel sounds (hypoactive), + distended, + pertinent finding (OGT draining a large amount of dark green bile.) Musculoskeletal: pertinent finding (deconditioned, poor muscle mass) Neurologic/Psychiatric: + pertinent finding (opened eyes, moved all extremities , follows commands) Laboratory Results Last 24 Hours Test 01/14/17 05:38 01/14/17 06:49 01/14/17 09:23 White Blood Count 15.21 K/uL Red Blood Count 3.49 M/uL Hemoglobin 10.5 g/dL Hematocrit 31.5 % Mean Corpuscular Volume 90.3 fL Mean Corpuscular Hemoglobin 30.1 pg Mean Corpuscular Hemoglobin Concent 33.3 g/dl Platelet Count 118 K/uL Mean Platelet Volume 10.3 fL Neutrophils (%) (Auto) 81.8 % Lymphocytes (%) (Auto) 5.7 % Monocytes (%) (Auto) 5.1 % Eosinophils (%) (Auto) 6.8 % Basophils (%) (Auto) 0.1 % Neutrophils # (Auto) 12.45 K/uL Lymphocytes # (Auto) 0.87 K/uL Monocytes # (Auto) 0.77 K/uL Eosinophils # (Auto) 1.03 K/uL Basophils # (Auto) 0.02 K/uL RDW Standard Deviation 51.0 fL RDW Coefficient of Variation 15.7 % Immature Granulocyte % (Auto) 0.5 % Immature Granulocyte # (Auto) 0.07 K/uL Activated Partial Thromboplast Time 54.4 SECONDS Partial Thromboplastin Ratio 2.1 Sodium Level 137 mmol/L Potassium Level 3.5 mmol/L Chloride Level 106 mmol/L Carbon Dioxide Level 21 mmol/L Anion Gap 10.0 mmol/L Blood Urea Nitrogen 17 mg/dl Creatinine 0.73 mg/dl Est Creatinine Clear Calc Drug Dose 81.9 ml/min Estimated GFR () 103.7 Estimated GFR (Non- 89.5 BUN/Creatinine Ratio 22.7 Random Glucose 104 mg/dl Lactic Acid Level 1.5 mmol/L Calcium Level 8.1 mg/dl Phosphorus Level 2.4 mg/dl Magnesium Level 1.6 mg/dl Total Bilirubin 1.2 mg/dl Aspartate Amino Transf (AST/SGOT) 43 U/L Alanine Aminotransferase (ALT/SGPT) 18 U/L Alkaline Phosphatase 90 U/L Total Protein 5.6 gm/dl Albumin 2.0 gm/dl Globulin 3.6 gm/dl Albumin/Globulin Ratio 0.6 Blood Gas Sample Site Art Line Bedside Blood Gas pH (LAB) 7.43 Bedside Blood Gas pCO2 (LAB) 32 mmHg Bedside Blood Gas pO2 (LAB) 98 mmHg Bedside Blood Gas HCO3 (LAB) 21 meq/L Bedside Blood Gas Total CO2 22 mEq/l Bedside Blood Gas Base Excess (LAB) -4.0 meq/L Bedside Blood Gas O2 Saturation 98.0 % Poli Test NA Oxygen Delivery Device Ventilator Bedside Oxygen Rate (breaths/min) 20 Blood Gas Minute Ventilation 9.8 Bedside FiO2 60 % Blood Gas Tidal Volume 500 Blood Gas PEEP 5 Vancomycin Level Trough 1.7 mcg/ml Assessment & Plan Palliative Performance Scale: 20 % Problem list: Malnutrition Dysphagia Aspiration UTI- Pseudomonas, repeat culture negative Shock- improving, no longer on pressors Dehydration ?Neoplastic process/malignancy- liver biopsy pending. Right groin biopsy nondiagnostic. YUSUF on CKD- resolved with creatinine of 0.73 Htn Kidney stones Sepsis Parkinsonism Constipation- no BM since admission Goals of care (Z51.5) Palliative care plan: discussed with patient's son/POA, Aron Patel, and Dr. Jones. -DNR/DNI as previously discussed -Continue current medical treatment in hopes of weaning ventilator -Increase focus on comfort as discussed with Aron and Dr. Jones. Recommend increasing fentanyl to 50mcg Q2h PRN. Patient's son understands that we can give too much pain medication if there are hopes of patient waking up and weaning the ventilator. -Waiting for liver biopsy results- ?metastatic cancer. If no improvement in next few days, son/POA states that he will probably make the decision to transition to [employer]. Thank you kindly for this consult. I will follow as needed.
[2017-01-14] MEDS: DIGOXIN IV 125 MCG in SYRINGE 9.5 ML IV SCH (16:13)
--- NOTE | 2017-01-14 16:20 | Progress Note ---
Subjective Date of Service: Jan 14, 2017. Subjective Pt evaluation today including: conversation w/ patient, physical exam, chart review, lab review, review of studies, conversation w/ [employer] security consultant, review of inpatient medication list Voiding: no voiding problems Off pressor support in 6 AM, blood pressure continue to be good, has off sedation, per report was able to wake up and respond to sons worse, but he did not response to me, NG suctioning is going on with green drainages, continue on the when support, no spiking fever Problem List Medical Problems: (1) Proximal humerus fracture Status: Acute (2) Renal failure Status: Acute (3) Shock Status: Acute (4) Urinary tract infection Permanent Comment: Pseudomonas aeruginosa intermediate susceptibility to aztreonam culture date 01/06/2017 Status: Acute Review of Systems Constitutional: + problem reported (not able to obtain because patient not responsive) Objective Vital Signs Date Time Temp Pulse Resp B/P Pulse Ox O2 Delivery O2 Flow Rate FiO2 01/14/17 14:10 40 01/14/17 12:00 99 24 99/47 99 Mechanical Ventilator 107/54 01/14/17 12:00 94 BiPAP 65 01/14/17 12:00 60 01/14/17 11:20 40 01/14/17 10:00 97 20 87/65 97 Mechanical Ventilator 60 98/51 01/14/17 08:00 Mechanical Ventilator 40 01/14/17 08:00 100 Mechanical Ventilator 60 01/14/17 08:00 36.7 105 23 94/72 100 Mechanical Ventilator 60 115/60 01/14/17 08:00 60 01/14/17 07:45 40 01/14/17 07:40 60 01/14/17 06:06 60 01/14/17 06:00 72 20 94/72 100 94/72 01/14/17 05:30 78 21 97/69 97 01/14/17 05:00 74 27 142/63 99 01/14/17 04:01 36.4 88 26 118/54 98 92/63 01/14/17 04:00 86 25 116/53 99 01/14/17 04:00 100 Mechanical Ventilator 60.0 60 01/14/17 04:00 60 01/14/17 03:00 80 25 112/48 100 01/14/17 02:00 60 01/14/17 02:00 94 27 108/52 95 111/78 01/14/17 01:00 89 24 103/54 99 01/14/17 00:00 36.3 81 26 100/64 98 100/64 01/14/17 00:00 98 Mechanical Ventilator 60.0 60 01/14/17 00:00 60 01/13/17 23:45 87 26 123/64 100 105/72 01/13/17 23:00 76 22 127/64 100 98/73 01/13/17 23:00 60 01/13/17 22:00 78 20 98/73 100 Mechanical Ventilator 60 01/13/17 20:00 98 Mechanical Ventilator 60.0 60 01/13/17 20:00 37.3 80 29 94/67 97 Mechanical Ventilator 60 119/59 01/13/17 20:00 60 01/13/17 19:30 60 01/13/17 18:00 87 29 101/72 98 Mechanical Ventilator 60 01/13/17 17:00 89 28 115/66 98 Mechanical Ventilator 60 01/13/17 16:37 104 01/13/17 16:23 60 Physical Exam General Appearance: + pertinent finding (unresponsive) Eyes: sclerae normal ENT: + pertinent finding (check tube in place) Neck: supple Respiratory/Chest: + decreased breath sounds, + rales Cardiovascular: regular rate, rhythm, + pertinent finding (know her extremity edema 2+) Abdomen: + guarding (mild), + pertinent finding (a little withdrwaral when I press harder) Extremities: non-tender, + pedal edema Neurologic/Psychiatric: + pertinent finding (unresponsive droop) Laboratory Results Last 24 Hours Test 01/14/17 05:38 01/14/17 06:49 01/14/17 09:23 White Blood Count 15.21 K/uL Red Blood Count 3.49 M/uL Hemoglobin 10.5 g/dL Hematocrit 31.5 % Mean Corpuscular Volume 90.3 fL Mean Corpuscular Hemoglobin 30.1 pg Mean Corpuscular Hemoglobin Concent 33.3 g/dl Platelet Count 118 K/uL Mean Platelet Volume 10.3 fL Neutrophils (%) (Auto) 81.8 % Lymphocytes (%) (Auto) 5.7 % Monocytes (%) (Auto) 5.1 % Eosinophils (%) (Auto) 6.8 % Basophils (%) (Auto) 0.1 % Neutrophils # (Auto) 12.45 K/uL Lymphocytes # (Auto) 0.87 K/uL Monocytes # (Auto) 0.77 K/uL Eosinophils # (Auto) 1.03 K/uL Basophils # (Auto) 0.02 K/uL RDW Standard Deviation 51.0 fL RDW Coefficient of Variation 15.7 % Immature Granulocyte % (Auto) 0.5 % Immature Granulocyte # (Auto) 0.07 K/uL Activated Partial Thromboplast Time 54.4 SECONDS Partial Thromboplastin Ratio 2.1 Sodium Level 137 mmol/L Potassium Level 3.5 mmol/L Chloride Level 106 mmol/L Carbon Dioxide Level 21 mmol/L Anion Gap 10.0 mmol/L Blood Urea Nitrogen 17 mg/dl Creatinine 0.73 mg/dl Est Creatinine Clear Calc Drug Dose 81.9 ml/min Estimated GFR () 103.7 Estimated GFR (Non- 89.5 BUN/Creatinine Ratio 22.7 Random Glucose 104 mg/dl Lactic Acid Level 1.5 mmol/L Calcium Level 8.1 mg/dl Phosphorus Level 2.4 mg/dl Magnesium Level 1.6 mg/dl Total Bilirubin 1.2 mg/dl Aspartate Amino Transf (AST/SGOT) 43 U/L Alanine Aminotransferase (ALT/SGPT) 18 U/L Alkaline Phosphatase 90 U/L Total Protein 5.6 gm/dl Albumin 2.0 gm/dl Globulin 3.6 gm/dl Albumin/Globulin Ratio 0.6 Blood Gas Sample Site Art Line Bedside Blood Gas pH (LAB) 7.43 Bedside Blood Gas pCO2 (LAB) 32 mmHg Bedside Blood Gas pO2 (LAB) 98 mmHg Bedside Blood Gas HCO3 (LAB) 21 meq/L Bedside Blood Gas Total CO2 22 mEq/l Bedside Blood Gas Base Excess (LAB) -4.0 meq/L Bedside Blood Gas O2 Saturation 98.0 % Poli Test NA Oxygen Delivery Device Ventilator Bedside Oxygen Rate (breaths/min) 20 Blood Gas Minute Ventilation 9.8 Bedside FiO2 60 % Blood Gas Tidal Volume 500 Blood Gas PEEP 5 Vancomycin Level Trough 1.7 mcg/ml Assessment and Plan (1) Acute kidney failure (2) Hypertension (3) Chronic kidney disease, stage 2, mildly decreased GFR 76-year-old male with a history of nephrolithiasis with a left staghorn calculus , chronic low back pain, hypertension, parkinsonian syndrome, hypothyroidism, GERD, and severe depression, admitted on 01/06/2017 Per report prior to arriving to ER with some confusion for 2 days and weakness with 2 falls in the last week. The EMS reports his blood pressure was in the 60s over 40s. When he presented to the ER, he was relatively hypotensive with a systolic blood pressure of 90, and a right-sided subclavian central line was placed by the ER physician and he was bolused with 2 L of normal saline. The son noted that patient's fingertips seemed to had one episode of vomiting prior to the ER, and had new onset lower extremity edema in the last several days. He was found to be in acute renal failure with a creatinine of 5.2 up from a baseline of 1.0 from 2 months ago. Acute respiratory failure likely secondary to sepsis on the vent Acute renal failure secondary to pre renal azotemia Continue improving and resolving, creatinine normalized Continue Rodriguez monitor strict I's and O's, fair urine output Pseudomonas UTI, continue cefepime Urinary tract infection, likely infected staghorn calculus. Renal stones/Staghorn calculus left kidney. Appreciate urology input. No indication for stenting at the present time. Will follow-up on the culture results, Levaquin was discontinued because of prolonged QT Bilateral lower extremities DVT -Doppler of the lower extremities + for extensive bilateral DVT- Continue heparin gtt. Mesenteric lymphadenopathy -s/p Liver biopsy. Await pathology report -Appreciate Onc and Surg. input Back pain, we'll continue try best because the goal on the care will be pain control, most focus on comfort methods Obtained CT of T-L spine which shows no spinal mets and no evidence of spinal cord compression. Altered MS Likely multifactorial-Metabolic encephalopathy in the setting of UTI, acute respiratory failure, hypotension Swallowing dysfunction Currently intubated. Reassess once extubated. Rapid atrial fibrillation/hypertension-rate is now controlled was on cardizem gtt Now is on IV digoxin 125mcg daily. Parkinsonism/history of severe depression-stable at this time, has a history of electroconvulsive therapy with last maintenance treatment in July 2016. Has a history of hospitalization for severe parkinsonism symptoms causing failure to thrive requiring PEG tube placement which has since been removed. Was on Sinemet and Effexor, Sinemet possible not able to be crushed Hypothyroidism- -Continue IV Synthroid. No nutrition support for now, continue IV fluid GERD-stable -Continue PPI Patient remains very critical possible poor prognosis, his conditions possible has been declining for several months prior to admission, palliative care saw the patient we'll continue follow-up, goal on the future will be comfort methods and pain release Continued [facility] stay due to: multiple IV medications needed Discharge planning: uncertain
[2017-01-14] MEDS: PHENYLEPHRINE HCL INJ 20 MG in DEXTROSE 5% 500ML 500 ML IV PRN (21:17)
[2017-01-15] VITALS (17 sets, daily range): BP systolic 82–137; BP diastolic 48–83; PULSE 56–96; TEMP 36.7–37.6; O2SAT 91–99
[2017-01-15] MEDS: CEFEPIME IV 1,000 MG in DEXTROSE 5% 100ML 100 ML IV SCH ×2 (01:35→13:45)
[2017-01-15] MEDS: METOCLOPRAMIDE HCL INJ 5 MG/ML 2 ML VIAL IV SCH ×4 (02:06→19:52)
[2017-01-15] MEDS: FENTANYL CITRATE INJ 50 MCG/1 ML 2 ML VIAL IV PRN ×5 (02:22→21:30)
[2017-01-15] MEDS: HEPARIN 25,000 UNIT/500ML D5W 500 ML IV PRN (05:10)
[2017-01-15 05:25] LABS: PARTIAL THROMBOPLASTIN RATIO 2.3
[2017-01-15 05:31] LABS: BUN/CREATININE RATIO 25.5 (10-20); CALCIUM 7.9 mg/dl (8.5-10.1); CREATININE 0.66 mg/dl (0.60-1.40); POTASSIUM 3.7 mmol/L (3.5-5.1)
[2017-01-15 05:33] LABS: ALB/GLOB RATIO 0.5 (0.9-2); PHOSPHORUS 2.5 mg/dl (2.5-4.9)
[2017-01-15 06:05] LABS: HEMATOCRIT 31.1 % (42-52); MEAN CELL VOLUME 89.4 fL (80-100); MEAN CORPUSCULAR HEMOGLOBIN 29.9 pg (25-34); MEAN CORPUSCULAR HGB CONC 33.4 g/dl (32-36); MEAN PLATELET VOLUME 10.4 fL (7.4-10.4); PLATELET COUNT 203 K/uL (130-400); RED BLOOD COUNT 3.48 M/uL (4.7-6.1); WHITE BLOOD COUNT 20.08 K/uL (4.8-10.8)
[2017-01-15 06:08] LABS: BASO % 0.2 %; BASO ABS # 0.04 K/uL (0-0.2); COMPLETE YES; EOS % 4.1 %; IG% 0.8 %; LYMPH % 5.4 %; LYMPH ABS # 1.09 K/uL (1.2-3.4); MONO % 6.1 %; NEUT % 83.4 %; OVALOCYTES 1+; TOXIC GRANULATION 1+
[2017-01-15 06:09] LABS: ISTAT ARTERIAL BLOOD GAS HCO3 22 meq/L (19-24); ISTAT ARTERIAL BLOOD GAS PCO2 32 mmHg (35-46); ISTAT ARTERIAL BLOOD GAS PO2 80 mmHg (80-95); ISTAT ARTERIAL BLOOD GAS pH 7.44 (7.35-7.45); ISTAT CARBON DIOXIDE 23 mEq/l (24-31); ISTAT DELIVERY SYSTEM Ventilator; ISTAT FIO2 40 %; ISTAT PEEP 5; ISTAT SITE Art Line
[2017-01-15] MEDS: CARBIDOPA/LEVODOPA 25/100MG TAB PO SCH ×4 (07:15→19:52)
[2017-01-15] MEDS: VENLAFAXINE HCL XR 75 MG CAPXR PO SCH (07:57)
[2017-01-15] MEDS: DOCUSATE SODIUM 100 MG CAP PO SCH ×2 (07:57→19:52)
[2017-01-15] MEDS: ERYTHROMYCIN IV 250 MG in SODIUM CHLORIDE 0.9% 250ML 250 ML IV SCH ×3 (09:26→19:52)
[2017-01-15] MEDS: LEVOTHYROXINE SODIUM INJ 100 MCG in SYRINGE 0 ML IV SCH (09:26)
[2017-01-15] MEDS: DexMEDEtomidine HCL IV 200 MCG in SODIUM CHLORIDE 0.9% 50ML 48 ML IV PRN ×2 (09:36→19:21)
[2017-01-15] MEDS: PANTOprazole INJ 40 MG in SYRINGE 0 ML IV SCH (10:15)
[2017-01-15] MEDS: PHENYLEPHRINE HCL INJ 20 MG in DEXTROSE 5% 500ML 500 ML IV PRN ×2 (10:15→22:35)
--- NOTE | 2017-01-15 10:48 | Progress Note ---
Subjective Date of Service: Jan 15, 2017. Subjective pt remains on cefepime, tolerating well. repeat blood cultures negative to date x 2. Initial urine culture with pseudomonas. repeat negative .s/p liver biopsy, results pending. palliative care consult noted, family awaiting path results/pt response to therapy prior to making further decisions regarding goals of care. afebrile. wbc remains elevated. Problem List Medical Problems: (1) Proximal humerus fracture Status: Acute (2) Renal failure Status: Acute (3) Shock Status: Acute (4) Urinary tract infection Permanent Comment: Pseudomonas aeruginosa intermediate susceptibility to aztreonam culture date 01/06/2017 Status: Acute Objective Vital Signs Date Time Temp Pulse Resp B/P Pulse Ox O2 Delivery O2 Flow Rate FiO2 01/15/17 10:00 80 16 96/69 94 CPAP 40 Mechanical Ventilator 01/15/17 08:00 96 Mechanical Ventilator 40 01/15/17 08:00 36.7 96 30 102/75 96 CPAP 40 92/59 Mechanical Ventilator 01/15/17 08:00 40 01/15/17 07:50 40 01/15/17 06:00 94 23 92/82 92 Mechanical Ventilator 40 01/15/17 05:33 40 01/15/17 04:00 37.1 92 23 97/60 97 Mechanical Ventilator 40 101/69 01/15/17 04:00 40 01/15/17 04:00 97 Mechanical Ventilator 40 01/15/17 02:00 81 28 137/77 99 Mechanical Ventilator 40 119/83 01/15/17 01:54 40 01/15/17 00:00 37.3 74 21 100/65 97 Mechanical Ventilator 40 94/50 01/14/17 23:59 Mechanical Ventilator 40 01/14/17 23:59 40 01/14/17 23:19 40 01/14/17 22:11 37.1 01/14/17 22:02 96 26 96 91/51 01/14/17 22:01 77 27 98/65 96 108/57 01/14/17 21:47 82 22 96 94/52 01/14/17 21:32 94 20 96 101/56 01/14/17 21:17 79 22 95 82/49 01/14/17 21:16 82 22 95 78/49 01/14/17 21:01 77 20 96 76/46 4/4/17 20:46 79 22 95 77/47 4/17 20:39 40 4/4/17 20:31 75 26 95 90/48 4//17 20:16 87 29 97 118/64 4//17 20:01 91 24 97 94/47 17 20:00 Mechanical Ventilator 60 17 20:00 89 24 87/59 95 92/49 01/14/17 20:00 36.6 417 20:00 40 4/17 19:46 73 25 96 98/48 4/17 19:31 100 22 96 96/50 17 19:16 84 22 97 107/50 01/14/17 19:01 80 21 97 95/49 01/14/17 18:46 94 20 96 91/46 17 18:45 96 21 96 87/45 01/14/17 18:30 92 20 96 91/49 01/14/17 18:28 40 17 18:15 79 21 98 94/52 17 18:01 78 19 94/63 97 95/51 01/14/17 18:00 36.6 4/17 18:00 90 20 98 101/53 //17 17:45 91 24 95 107/51 //17 17:30 88 26 96 107/52 //17 17:15 82 25 95 113/57 01/14/17 17:00 82 23 96 118/58 01/14/17 16:45 77 22 94 107/52 //17 16:30 77 22 94 106/54 //17 16:15 83 22 95 100/56 4/4/17 16:13 99 //17 16:01 89 24 127/93 93 127/63 //17 16:00 36.5 4//17 16:00 40 4/17 16:00 81 21 94 126/69 //17 16:00 Mechanical Ventilator 60 17 15:45 85 24 96 111/57 //17 15:30 83 25 98 118/56 4/4/17 15:15 89 24 96 113/59 01/14/17 15:00 80 23 97 119/55 //17 14:10 40 4/4/17 12:00 99 24 99/47 99 Mechanical Ventilator 107/54 01/14/17 12:00 94 BiPAP 65 01/14/17 12:00 60 01/14/17 11:20 40 Laboratory Results Item Value Date Time Blood Culture - Preliminary Resulted 01/13/17 0543 Blood NO GROWTH TO DATE. Blood Culture - Preliminary Resulted 01/13/17 0535 Blood NO GROWTH TO DATE. Urine Culture - Final Complete 01/06/17 1545 Urine,Catheterized Pseudomonas Aeruginosa Last 24 Hours Test 01/14/17 17:44 01/14/17 23:34 01/15/17 04:50 01/15/17 05:57 Bedside Glucose 83 mg/dl Bedside Glucose (other) 87 mg/dl White Blood Count 20.08 K/uL Red Blood Count 3.48 M/uL Hemoglobin 10.4 g/dL Hematocrit 31.1 % Mean Corpuscular Volume 89.4 fL Mean Corpuscular Hemoglobin 29.9 pg Mean Corpuscular Hemoglobin Concent 33.4 g/dl Platelet Count 203 K/uL Mean Platelet Volume 10.4 fL Neutrophils (%) (Auto) 83.4 % Lymphocytes (%) (Auto) 5.4 % Monocytes (%) (Auto) 6.1 % Eosinophils (%) (Auto) 4.1 % Basophils (%) (Auto) 0.2 % Neutrophils # (Auto) 16.73 K/uL Lymphocytes # (Auto) 1.09 K/uL Monocytes # (Auto) 1.22 K/uL Eosinophils # (Auto) 0.83 K/uL Basophils # (Auto) 0.04 K/uL RDW Standard Deviation 50.4 fL RDW Coefficient of Variation 15.6 % Immature Granulocyte % (Auto) 0.8 % Immature Granulocyte # (Auto) 0.17 K/uL Toxic Granulation 1+ Ovalocytes 1+ Activated Partial Thromboplast Time 60.5 SECONDS Partial Thromboplastin Ratio 2.3 Sodium Level 139 mmol/L Potassium Level 3.7 mmol/L Chloride Level 106 mmol/L Carbon Dioxide Level 24 mmol/L Anion Gap 9.0 mmol/L Blood Urea Nitrogen 17 mg/dl Creatinine 0.66 mg/dl Est Creatinine Clear Calc Drug Dose 90.6 ml/min Estimated GFR () 108.1 Estimated GFR (Non- 93.3 BUN/Creatinine Ratio 25.5 Random Glucose 86 mg/dl Calcium Level 7.9 mg/dl Phosphorus Level 2.5 mg/dl Magnesium Level 2.0 mg/dl Total Bilirubin 1.5 mg/dl Aspartate Amino Transf (AST/SGOT) 50 U/L Alanine Aminotransferase (ALT/SGPT) 24 U/L Alkaline Phosphatase 94 U/L Total Protein 5.5 gm/dl Albumin 1.9 gm/dl Globulin 3.6 gm/dl Albumin/Globulin Ratio 0.5 Blood Gas Sample Site Art Line Bedside Blood Gas pH (LAB) 7.44 Bedside Blood Gas pCO2 (LAB) 32 mmHg Bedside Blood Gas pO2 (LAB) 80 mmHg Bedside Blood Gas HCO3 (LAB) 22 meq/L Bedside Blood Gas Total CO2 23 mEq/l Bedside Blood Gas Base Excess (LAB) -2.0 meq/L Bedside Blood Gas O2 Saturation 97.0 % Poli Test NA Oxygen Delivery Device Ventilator Bedside FiO2 40 % Blood Gas PEEP 5 Assessment and Plan (1) UTI (lower urinary tract infection) Assessment & Plan: can continue cefepime, would give 14 days total secondary to suspicion of infected stone, however, now with mass and likely evidence of metastatic disease prognosis poor overall. Family to make additional decision regarding further care vs comfort. would continue abx for now pending family decision regarding end of life care. No new Id recs at this time. All repeat cultures negative. (2) Kidney stones Continued [facility] stay due to: multiple IV medications needed Discharge planning: uncertain
--- NOTE | 2017-01-15 11:27 | Progress Note ---
Subjective Date of Service: Jan 15, 2017. Subjective Pt evaluation today including: physical exam, chart review Remains on vent. Problem List Medical Problems: (1) Proximal humerus fracture Status: Acute (2) Renal failure Status: Acute (3) Shock Status: Acute (4) Urinary tract infection Permanent Comment: Pseudomonas aeruginosa intermediate susceptibility to aztreonam culture date 01/06/2017 Status: Acute Medications Medications (Trade) Dose Ordered Sig/Aiden Route Start Time Stop Time Status Last Admin Dose Admin Fentanyl Citrate 50 mcg 50 mcg Q2H PRN IV 01/14/17 19:30 01/28/17 19:29 01/15/17 10:20 50 MCG Erythromycin Lactobionate/ Sodium Chloride (Erythrocin IV/ Nss 250ml) 255 ml @ 250 mls/hr Q6H IV 01/15/17 09:00 01/25/17 08:44 01/15/17 09:26 250 MLS/HR Objective Vital Signs Date Time Temp Pulse Resp B/P Pulse Ox O2 Delivery O2 Flow Rate FiO2 01/15/17 10:00 80 16 96/69 94 CPAP 40 Mechanical Ventilator 01/15/17 08:00 96 Mechanical Ventilator 40 01/15/17 08:00 36.7 96 30 102/75 96 CPAP 40 92/59 Mechanical Ventilator 01/15/17 08:00 40 01/15/17 07:50 40 01/15/17 06:00 94 23 92/82 92 Mechanical Ventilator 40 01/15/17 05:33 40 01/15/17 04:00 37.1 92 23 97/60 97 Mechanical Ventilator 40 101/69 01/15/17 04:00 40 01/15/17 04:00 97 Mechanical Ventilator 40 01/15/17 02:00 81 28 137/77 99 Mechanical Ventilator 40 119/83 01/15/17 01:54 40 01/15/17 00:00 37.3 74 21 100/65 97 Mechanical Ventilator 40 94/50 01/14/17 23:59 Mechanical Ventilator 40 01/14/17 23:59 40 01/14/17 23:19 40 01/14/17 22:11 37.1 01/14/17 22:02 96 26 96 91/51 01/14/17 22:01 77 27 98/65 96 108/57 01/14/17 21:47 82 22 96 94/52 01/14/17 21:32 94 20 96 101/56 4/4/17 21:17 79 22 95 82/49 4/4/17 21:16 82 22 95 78/49 4/4/17 21:01 77 20 96 76/46 4/4/17 20:46 79 22 95 77/47 4/4/17 20:39 40 4/4/17 20:31 75 26 95 90/48 4/4/17 20:16 87 29 97 118/64 4/4/17 20:01 91 24 97 94/47 4/4/17 20:00 Mechanical Ventilator 60 4//17 20:00 89 24 87/59 95 92/49 4/4/17 20:00 36.6 4/4/17 20:00 40 4//17 19:46 73 25 96 98/48 4//17 19:31 100 22 96 96/50 4//17 19:16 84 22 97 107/50 4//17 19:01 80 21 97 95/49 4//17 18:46 94 20 96 91/46 4//17 18:45 96 21 96 87/45 4/4/17 18:30 92 20 96 91/49 4/4/17 18:28 40 4//17 18:15 79 21 98 94/52 4/4/17 18:01 78 19 94/63 97 95/51 4/4/17 18:00 36.6 4/4/17 18:00 90 20 98 101/53 4/4/17 17:45 91 24 95 107/51 4/4/17 17:30 88 26 96 107/52 4/4/17 17:15 82 25 95 113/57 4/4/17 17:00 82 23 96 118/58 4/4/17 16:45 77 22 94 107/52 4/4/17 16:30 77 22 94 106/54 4/4/17 16:15 83 22 95 100/56 4/4/17 16:13 99 4/4/17 16:01 89 24 127/93 93 127/63 4/4/17 16:00 36.5 4/4/17 16:00 40 4/4/17 16:00 81 21 94 126/69 4/4/17 16:00 Mechanical Ventilator 60 01/14/17 15:45 85 24 96 111/57 01/14/17 15:30 83 25 98 118/56 01/14/17 15:15 89 24 96 113/59 01/14/17 15:00 80 23 97 119/55 01/14/17 14:10 40 01/14/17 12:00 99 24 99/47 99 Mechanical Ventilator 107/54 01/14/17 12:00 94 BiPAP 65 01/14/17 12:00 60 Physical Exam General Appearance: + mild distress, + thin Eyes: normal inspection ENT: hearing grossly normal Neck: supple, no JVD Respiratory/Chest: chest non-tender, + pertinent finding (intubated, sedated on vent) Cardiovascular: regular rate, rhythm, + pertinent finding (tele NSR) Abdomen: normal bowel sounds, soft Extremities: + pedal edema Neurologic/Psychiatric: + pertinent finding (Opens eyes to verbal commands) Skin: + pallor Laboratory Results Last 24 Hours Test 01/14/17 17:44 01/14/17 23:34 01/15/17 04:50 01/15/17 05:57 Bedside Glucose 83 mg/dl Bedside Glucose (other) 87 mg/dl White Blood Count 20.08 K/uL Red Blood Count 3.48 M/uL Hemoglobin 10.4 g/dL Hematocrit 31.1 % Mean Corpuscular Volume 89.4 fL Mean Corpuscular Hemoglobin 29.9 pg Mean Corpuscular Hemoglobin Concent 33.4 g/dl Platelet Count 203 K/uL Mean Platelet Volume 10.4 fL Neutrophils (%) (Auto) 83.4 % Lymphocytes (%) (Auto) 5.4 % Monocytes (%) (Auto) 6.1 % Eosinophils (%) (Auto) 4.1 % Basophils (%) (Auto) 0.2 % Neutrophils # (Auto) 16.73 K/uL Lymphocytes # (Auto) 1.09 K/uL Monocytes # (Auto) 1.22 K/uL Eosinophils # (Auto) 0.83 K/uL Basophils # (Auto) 0.04 K/uL RDW Standard Deviation 50.4 fL RDW Coefficient of Variation 15.6 % Immature Granulocyte % (Auto) 0.8 % Immature Granulocyte # (Auto) 0.17 K/uL Toxic Granulation 1+ Ovalocytes 1+ Activated Partial Thromboplast Time 60.5 SECONDS Partial Thromboplastin Ratio 2.3 Sodium Level 139 mmol/L Potassium Level 3.7 mmol/L Chloride Level 106 mmol/L Carbon Dioxide Level 24 mmol/L Anion Gap 9.0 mmol/L Blood Urea Nitrogen 17 mg/dl Creatinine 0.66 mg/dl Est Creatinine Clear Calc Drug Dose 90.6 ml/min Estimated GFR () 108.1 Estimated GFR (Non- 93.3 BUN/Creatinine Ratio 25.5 Random Glucose 86 mg/dl Calcium Level 7.9 mg/dl Phosphorus Level 2.5 mg/dl Magnesium Level 2.0 mg/dl Total Bilirubin 1.5 mg/dl Aspartate Amino Transf (AST/SGOT) 50 U/L Alanine Aminotransferase (ALT/SGPT) 24 U/L Alkaline Phosphatase 94 U/L Total Protein 5.5 gm/dl Albumin 1.9 gm/dl Globulin 3.6 gm/dl Albumin/Globulin Ratio 0.5 Blood Gas Sample Site Art Line Bedside Blood Gas pH (LAB) 7.44 Bedside Blood Gas pCO2 (LAB) 32 mmHg Bedside Blood Gas pO2 (LAB) 80 mmHg Bedside Blood Gas HCO3 (LAB) 22 meq/L Bedside Blood Gas Total CO2 23 mEq/l Bedside Blood Gas Base Excess (LAB) -2.0 meq/L Bedside Blood Gas O2 Saturation 97.0 % Poli Test NA Oxygen Delivery Device Ventilator Bedside FiO2 40 % Blood Gas PEEP 5 Assessment and Plan (1) Acute kidney failure (2) Hypertension (3) Chronic kidney disease, stage 2, mildly decreased GFR 76-year-old male with a history of nephrolithiasis with a left staghorn calculus , chronic low back pain, hypertension, parkinsonian syndrome, hypothyroidism, GERD, and severe depression, admitted on 01/06/2017 Per report prior to arriving to ER with some confusion for 2 days and weakness with 2 falls in the last week. The EMS reports his blood pressure was in the 60s over 40s. When he presented to the ER, he was relatively hypotensive with a systolic blood pressure of 90, and a right-sided subclavian central line was placed by the ER physician and he was bolused with 2 L of normal saline. The son noted that patient's fingertips seemed to had one episode of vomiting prior to the ER, and had new onset lower extremity edema in the last several days. He was found to be in acute renal failure with a creatinine of 5.2 up from a baseline of 1.0 from 2 months ago. Acute respiratory failure likely secondary to sepsis on the vent . Mgt per IM. Acute renal failure secondary to pre renal azotemia Continue improving and resolving, creatinine normalized Continue Rodriguez monitor strict I's and O's, fair urine output Pseudomonas UTI, continue cefepime Urinary tract infection, likely infected staghorn calculus. Renal stones/Staghorn calculus left kidney. Appreciate urology input. No indication for stenting at the present time. Will follow-up on the culture results, Levaquin was discontinued because of prolonged QT Bilateral lower extremities DVT -Doppler of the lower extremities + for extensive bilateral DVT- Continue heparin gtt. Mesenteric lymphadenopathy -s/p Liver biopsy. Await pathology report -Appreciate Onc and Surg. input Back pain, we'll continue try best because the goal on the care will be pain control, most focus on comfort methods Obtained CT of T-L spine which shows no spinal mets and no evidence of spinal cord compression. Altered MS Likely multifactorial-Metabolic encephalopathy in the setting of UTI, acute respiratory failure, hypotension Swallowing dysfunction Currently intubated. Reassess once extubated. Rapid atrial fibrillation/hypertension-rate is now controlled was on cardizem gtt Now is on IV digoxin 125mcg daily. Parkinsonism/history of severe depression-stable at this time, has a history of electroconvulsive therapy with last maintenance treatment in July 2016. Has a history of hospitalization for severe parkinsonism symptoms causing failure to thrive requiring PEG tube placement which has since been removed. Was on Sinemet and Effexor, Sinemet possible not able to be crushed Hypothyroidism- -Continue IV Synthroid. No nutrition support for now, continue IV fluid GERD-stable -Continue PPI Patient remains very critical possible poor prognosis, his conditions possible has been declining for several months prior to admission, palliative care saw the patient we'll continue follow-up, goal on the future will be comfort methods and pain release Continued [facility] stay due to: multiple IV medications needed Discharge planning: uncertain
[2017-01-15] MEDS: NORMOSOL R 1,000 ML IV SCH (12:48)
[2017-01-15] MEDS: NORMOSOL R 500 ML IV SCH ×3 (13:38→14:32)
[2017-01-15] MEDS: DIGOXIN IV 125 MCG in SYRINGE 9.5 ML IV SCH (16:00)
--- NOTE | 2017-01-15 16:36 | Critical Care Progress Note ---
Critical Care Progress Note Date of Service Jan 15, 2017. Attending Dr. Jones Subjective More awake today, following commands Still significant NG bilious output. Now we are also suctioning similar material from the ET tube. Tolerated CPAP all day so far. BM x 2 last night Objective GENERAL: Patient is in no acute distress, intubated HEENT: normocephalic atraumatic, ET tube in place LUNGS: coarse breath sounds HEART: Irregularly irregular ABDOMEN: Soft, nontender, EXTREMITIES: b/l LE edema NEUROLOGIC: Awake, alert, follows commands b/l Current SOFA Score SOFA Score Response (Comments) Value PaO2/FiO2 (mmHg) < 300 2 SaO2 / FIO2 221 - 301 1 Bilirubin (mg/dL) 1.2 - 1.9 1 Level of Hypotension Dopamine < 5 mcq / dobutamine 2 Total 6 Assessment & Plan (1) Malnutrition (2) Inability to swallow (3) Dysphagia (4) Urinary tract infection (5) Shock (6) Dehydration (7) Acute kidney injury (8) Chronic kidney disease, stage 2, mildly decreased GFR (9) Hypertension (10) Kidney stones (11) Sepsis (12) Parkinsonian syndrome 76 year old male with severe depression (requiring ECT), parkinson, esophageal dysmotility/dysphagia, progressive deterioration and malnutrition, found to have abdominal mass with multiple liver and lung determinations (s/p biopsy of the mass and the liver), now intubated for airway protection, possible aspiration. Developed a-fib, also found to have b/l DVT (likely secondary to a malignancy). Plan: [employer]: Mental status improving significantly Now started on Precedex drip. Has been off Versed drip for more than 48 hours Off Sinemet (not crushable), off venlafaxine as well. In fact, he cannot receive any enteric meds due to GI dysmotility Pulmonary: Continue vent support Aspirating GI secretions. Elevate head Continue Reglan. Add Erythromycin for GI motility Doing great on CPAP. Would not extubate him though because of significant aspiration, would not be able to handle it. Possible PE, no need for CTA for now, just continue anticoagulation. He is just recovering from YUSUF Titrate down FiO2 as tolerated CVS: Fully anticoagulated for the new onset a-fib and DVT Not a custodial AC candidate for a-fib though due to falls. We'll clarify this later On Micah-synephrine Digoxin for rate control. Less tachycardic today, probably on the account of Precedex Renal/metabolic: YUSUF resolved Urine output borderline Hypernatremia resolved Continue Normosol ID: Continue Cefepime for Pseudomonas UTI. Has Pseudomonas UTI Prior blood culture with Corynebacterium likely a contaminant Heme/Onc:WBC still elevated maybe secondary to sepsis, the abdominal mass may also contribute Awaiting biopsy report. The inguinal biopsy was not conclusive. Awaiting liver biopsy Fully AC for now for b/l DVT GI: Continue Reglan. Add Erythromycin for GI motility Had BM x 2 last night NGT to suction Endo: Euglycemic IV levothyroxine Overall prognosis is poor. It will be very difficult to safely extubate the patient. DNR issued by the family. Further decisions to made based on the results and his clinical course Critical care time spent greater than 35 minutes Consults & Procedures Consultants: cardiology gen surgery heme/onc/ urology/ Infectious disease Procedures: Intubation 01/11 A-line 01/11 Data Medications: Current Inpatient Medications Medications (Trade) Dose Ordered Sig/Aiden Route Start Time Stop Time Status Last Admin Dose Admin Acetaminophen (Tylenol Tab) 650 mg Q4H PRN PO 01/06/17 16:45 02/05/17 16:44 Carbidopa/Levodopa (Sinemet 25/ 100MG Tab) 1 tab TIDM PO 01/07/17 08:00 02/06/17 07:59 01/10/17 17:31 1 TAB Carbidopa/Levodopa (Sinemet 25/ 100MG Tab) 2 tab HS PO 01/06/17 21:00 02/05/17 20:59 01/09/17 19:23 2 TAB Docusate Sodium (coLACE CAP) 100 mg BID PO 01/06/17 21:00 02/05/17 20:59 01/10/17 08:30 100 MG Menthol/Zinc Oxide (Calmoseptine Oint) 1 appln BID PRN EXT 01/06/17 17:00 02/05/17 16:59 Oxycodone/ Acetaminophen (Percocet 5-325mg Tab) 1 tab Q6 PRN PO 01/06/17 17:00 01/20/17 16:59 01/10/17 17:42 1 TAB Tizanidine HCl (Zanaflex Tab) 2 mg Q12 PRN PO 01/06/17 17:00 02/05/17 16:59 01/10/17 08:28 2 MG Venlafaxine HCl (effeXOR EXTENDED REL CAP) 75 mg DAILY PO 01/07/17 09:00 02/06/17 08:59 01/10/17 08:28 75 MG Heparin Sodium (Porcine) 5 ml 5 ml PRN PRN FLUSH 01/07/17 00:15 02/06/17 00:14 01/11/17 05:30 5 ML Heparin Sodium/ Dextrose 500 ml @ 26 mls/hr [id number] PRN IV 01/07/17 14:30 02/06/17 14:29 01/15/17 05:10 26 MLS/HR Digoxin 125 mcg/ Syringe 10 ml @ 2 mls/min DAILY@16 IV 01/12/17 06:00 02/11/17 05:59 01/14/17 16:13 2 MLS/MIN Cefepime HCl 1000 mg/Dextrose 111.3 ml @ 200 mls/hr Q12H IV 01/12/17 02:00 01/25/17 14:34 01/15/17 13:45 200 MLS/HR Levothyroxine Sodium 100 mcg/ Syringe 5 ml @ 2 mls/min DAILY@09 IV 01/12/17 09:00 02/11/17 08:59 01/15/17 09:26 2 MLS/MIN Pantoprazole Sodium 40 mg/ Syringe 10 ml @ 5 mls/min DAILY@11 IV 01/12/17 11:00 02/11/17 10:59 01/15/17 10:15 5 MLS/MIN Phenylephrine HCl 20 mg/Dextrose 502 ml @ 0 mls/hr Q0M PRN IV 01/12/17 16:47 02/11/17 16:46 01/15/17 10:15 40.6 MLS/HR Dexmedetomidine HCl/Sodium Chloride (PreCEDEX INJ/ Nss 50ml) 50 ml @ 0 mls/hr Q0M PRN IV 01/13/17 12:15 01/17/17 12:14 01/15/17 09:36 8.2 MLS/HR Metoclopramide HCl 10 mg 10 mg Q6H IV 01/13/17 14:00 02/12/17 12:44 01/15/17 13:45 10 MG Parenteral Electrolyte Solution (Normosol R) 1,000 ml @ 75 mls/hr [id number] IV 01/14/17 09:45 02/13/17 09:44 01/15/17 12:48 75 MLS/HR Fentanyl Citrate 50 mcg 50 mcg Q2H PRN IV 01/14/17 19:30 01/28/17 19:29 01/15/17 10:20 50 MCG Erythromycin Lactobionate 250 mg/Sodium Chloride 255 ml @ 250 mls/hr Q6H IV 01/15/17 09:00 01/25/17 08:44 01/15/17 13:45 250 MLS/HR Parenteral Electrolyte Solution (Normosol R) 500 ml @ 999 mls/hr Q31M IV 01/15/17 13:30 02/14/17 13:29 01/15/17 13:45 999 MLS/HR I & O: 24-Hour Column 01/15/17 08:00 Intake Total 4406 ml Output Total 1135 ml Balance 3271 ml Vital Signs: Date Time Temp Pulse Resp B/P Pulse Ox O2 Delivery O2 Flow Rate FiO2 01/15/17 14:45 40 01/15/17 14:00 56 19 92/61 96 CPAP 40 101/52 Mechanical Ventilator 01/15/17 12:00 65 20 82/57 98 CPAP 40 107/53 01/15/17 12:00 Mechanical Ventilator 01/15/17 12:00 40 01/15/17 11:37 40 01/15/17 10:00 80 16 96/69 94 CPAP 40 Mechanical Ventilator 01/15/17 08:00 96 Mechanical Ventilator 40 01/15/17 08:00 36.7 96 30 102/75 96 CPAP 40 92/59 Mechanical Ventilator 01/15/17 08:00 40 01/15/17 08:00 Mechanical Ventilator 40 01/15/17 07:50 40 01/15/17 06:00 94 23 92/82 92 Mechanical Ventilator 40 01/15/17 05:33 40 01/15/17 04:00 37.1 92 23 97/60 97 Mechanical Ventilator 40 101/69 01/15/17 04:00 40 01/15/17 04:00 97 Mechanical Ventilator 40 01/15/17 02:00 81 28 137/77 99 Mechanical Ventilator 40 119/83 01/15/17 01:54 40 01/15/17 00:00 37.3 74 21 100/65 97 Mechanical Ventilator 40 94/50 01/14/17 23:59 Mechanical Ventilator 40 01/14/17 23:59 40 01/14/17 23:19 40 01/14/17 22:11 37.1 01/14/17 22:02 96 26 96 91/51 01/14/17 22:01 77 27 98/65 96 108/57 01/14/17 21:47 82 22 96 94/52 01/14/17 21:32 94 20 96 101/56 01/14/17 21:17 79 22 95 82/49 01/14/17 21:16 82 22 95 78/49 01/14/17 21:01 77 20 96 76/46 01/14/17 20:46 79 22 95 77/47 01/14/17 20:39 40 01/14/17 20:31 75 26 95 90/48 01/14/17 20:16 87 29 97 118/64 01/14/17 20:01 91 24 97 94/47 01/14/17 20:00 Mechanical Ventilator 60 01/14/17 20:00 89 24 87/59 95 92/49 01/14/17 20:00 36.6 01/14/17 20:00 40 01/14/17 19:46 73 25 96 98/48 01/14/17 19:31 100 22 96 96/50 01/14/17 19:16 84 22 97 107/50 17 19:01 80 21 97 95/49 01/14/17 18:46 94 20 96 91/46 01/14/17 18:45 96 21 96 87/45 17 18:30 92 20 96 91/49 17 18:28 40 17 18:15 79 21 98 94/52 01/14/17 18:01 78 19 94/63 97 95/51 17 18:00 36.6 417 18:00 90 20 98 101/53 17 17:45 91 24 95 107/51 17 17:30 88 26 96 107/52 17 17:15 82 25 95 113/57 17 17:00 82 23 96 118/58 01/14/17 16:45 77 22 94 107/52 01/14/17 16:30 77 22 94 106/54 01/14/17 16:15 83 22 95 100/56 01/14/17 16:13 99 Laboratory Results: Last 24 Hours Test 01/14/17 17:44 01/14/17 23:34 01/15/17 04:50 01/15/17 05:57 Bedside Glucose 83 mg/dl Bedside Glucose (other) 87 mg/dl White Blood Count 20.08 K/uL Red Blood Count 3.48 M/uL Hemoglobin 10.4 g/dL Hematocrit 31.1 % Mean Corpuscular Volume 89.4 fL Mean Corpuscular Hemoglobin 29.9 pg Mean Corpuscular Hemoglobin Concent 33.4 g/dl Platelet Count 203 K/uL Mean Platelet Volume 10.4 fL Neutrophils (%) (Auto) 83.4 % Lymphocytes (%) (Auto) 5.4 % Monocytes (%) (Auto) 6.1 % Eosinophils (%) (Auto) 4.1 % Basophils (%) (Auto) 0.2 % Neutrophils # (Auto) 16.73 K/uL Lymphocytes # (Auto) 1.09 K/uL Monocytes # (Auto) 1.22 K/uL Eosinophils # (Auto) 0.83 K/uL Basophils # (Auto) 0.04 K/uL RDW Standard Deviation 50.4 fL RDW Coefficient of Variation 15.6 % Immature Granulocyte % (Auto) 0.8 % Immature Granulocyte # (Auto) 0.17 K/uL Toxic Granulation 1+ Ovalocytes 1+ Activated Partial Thromboplast Time 60.5 SECONDS Partial Thromboplastin Ratio 2.3 Sodium Level 139 mmol/L Potassium Level 3.7 mmol/L Chloride Level 106 mmol/L Carbon Dioxide Level 24 mmol/L Anion Gap 9.0 mmol/L Blood Urea Nitrogen 17 mg/dl Creatinine 0.66 mg/dl Est Creatinine Clear Calc Drug Dose 90.6 ml/min Estimated GFR () 108.1 Estimated GFR (Non- 93.3 BUN/Creatinine Ratio 25.5 Random Glucose 86 mg/dl Calcium Level 7.9 mg/dl Phosphorus Level 2.5 mg/dl Magnesium Level 2.0 mg/dl Total Bilirubin 1.5 mg/dl Aspartate Amino Transf (AST/SGOT) 50 U/L Alanine Aminotransferase (ALT/SGPT) 24 U/L Alkaline Phosphatase 94 U/L Total Protein 5.5 gm/dl Albumin 1.9 gm/dl Globulin 3.6 gm/dl Albumin/Globulin Ratio 0.5 Blood Gas Sample Site Art Line Bedside Blood Gas pH (LAB) 7.44 Bedside Blood Gas pCO2 (LAB) 32 mmHg Bedside Blood Gas pO2 (LAB) 80 mmHg Bedside Blood Gas HCO3 (LAB) 22 meq/L Bedside Blood Gas Total CO2 23 mEq/l Bedside Blood Gas Base Excess (LAB) -2.0 meq/L Bedside Blood Gas O2 Saturation 97.0 % Poli Test NA Oxygen Delivery Device Ventilator Bedside FiO2 40 % Blood Gas PEEP 5
[2017-01-16] VITALS (13 sets, daily range): BP systolic 82–116; BP diastolic 59–71; PULSE 55–88; TEMP 36.6–37.1; O2SAT 92–100
[2017-01-16] MEDS: FENTANYL CITRATE INJ 50 MCG/1 ML 2 ML VIAL IV PRN ×4 (00:11→08:11)
[2017-01-16] MEDS: METOCLOPRAMIDE HCL INJ 5 MG/ML 2 ML VIAL IV SCH ×2 (01:34→08:09)
[2017-01-16] MEDS: NORMOSOL R 1,000 ML IV SCH (01:34)
[2017-01-16] MEDS: CEFEPIME IV 1,000 MG in DEXTROSE 5% 100ML 100 ML IV SCH (01:34)
[2017-01-16] MEDS: ERYTHROMYCIN IV 250 MG in SODIUM CHLORIDE 0.9% 250ML 250 ML IV SCH ×2 (03:00→08:09)
[2017-01-16] MEDS: HEPARIN 25,000 UNIT/500ML D5W 500 ML IV PRN (03:40)
[2017-01-16] MEDS: CARBIDOPA/LEVODOPA 25/100MG TAB PO SCH (03:59)
[2017-01-16 05:41] LABS: PARTIAL THROMBOPLASTIN RATIO 2.2
[2017-01-16 05:43] LABS: CALCIUM 7.9 mg/dl (8.5-10.1); CREATININE 0.7 mg/dl (0.60-1.40); MAGNESIUM 1.8 mg/dl (1.8-2.4); POTASSIUM 3.5 mmol/L (3.5-5.1)
[2017-01-16 05:46] LABS: ALB/GLOB RATIO 0.5 (0.9-2); PHOSPHORUS 2.5 mg/dl (2.5-4.9)
[2017-01-16 07:14] LABS: HEMATOCRIT 29.2 % (42-52); MEAN CELL VOLUME 88.2 fL (80-100); MEAN CORPUSCULAR HEMOGLOBIN 29.9 pg (25-34); MEAN CORPUSCULAR HGB CONC 33.9 g/dl (32-36); MEAN PLATELET VOLUME 10.8 fL (7.4-10.4); PLATELET COUNT 207 K/uL (130-400); RED BLOOD COUNT 3.31 M/uL (4.7-6.1)
--- NOTE | 2017-01-16 07:54 | DIAGNOSTIC IMAGING REPORT ---
CHEST ONE VIEW PORTABLE HISTORY: Respiratory failure COMPARISON: Chest 01/14/2017. FINDINGS: The endotracheal tube terminates 2.7 cm from the sandeep. Nasogastric tube terminates in the stomach. There are low lung volumes with right greater than left bibasilar densities. There is mild pulmonary vascular congestion without overt edema. No pneumothorax. A right subclavian central venous catheter terminates in the right atrium. The heart remains orally enlarged. IMPRESSION: 1. Mild pulmonary vascular congestion is again noted. 2. Bibasilar densities persist. 3. Support lines and tubes remain unchanged in position. Electronically signed by: Ryan Rodrigez M.D. 01/16/2017 7:52 AM Dictated Date/Time: 01/16/2017 7:50 AM
[2017-01-16] MEDS: LEVOTHYROXINE SODIUM INJ 100 MCG in SYRINGE 0 ML IV SCH (08:28)
[2017-01-16 11:14] LABS: ISTAT ARTERIAL BLOOD GAS PCO2 34 mmHg (35-46); ISTAT ARTERIAL BLOOD GAS PO2 105 mmHg (80-95); ISTAT ARTERIAL BLOOD GAS pH 7.44 (7.35-7.45)
[2017-01-16 11:15] LABS: ISTAT ARTERIAL BLOOD GAS HCO3 23 meq/L (19-24); ISTAT FIO2 40 %; ISTAT SAMPLE TYPE ARTERIAL; ISTAT SITE Art Line
[2017-01-16 11:16] LABS: ISTAT DELIVERY SYSTEM Ventilator; ISTAT PEEP 5
[2017-01-16 11:17] LABS: ISTAT CARBON DIOXIDE 24 mEq/l (24-31); ISTAT SPO2 98 %; PRESSURE 5
[2017-01-16] MEDS: PANTOprazole INJ 40 MG in SYRINGE 0 ML IV SCH (11:43)
--- NOTE | 2017-01-16 13:35 | Progress Note ---
Subjective Date of Service: Jan 16, 2017. Subjective Pt evaluation today including: physical exam, chart review Pt remains intubated. Weaning trials as per Pulm/CC Problem List Medical Problems: (1) Proximal humerus fracture Status: Acute (2) Renal failure Status: Acute (3) Shock Status: Acute (4) Urinary tract infection Permanent Comment: Pseudomonas aeruginosa intermediate susceptibility to aztreonam culture date 01/06/2017 Status: Acute Review of Systems unable to obtain as pt on vent Medications Medications (Trade) Dose Ordered Sig/Aiden Route Start Time Stop Time Status Last Admin Dose Admin Parenteral Electrolyte Solution (Normosol R) 500 ml @ 999 mls/hr Q31M IV 01/15/17 13:30 01/15/17 16:12 DC 01/15/17 14:32 999 MLS/HR Objective Vital Signs Date Time Temp Pulse Resp B/P Pulse Ox O2 Delivery O2 Flow Rate FiO2 01/16/17 10:00 56 18 98/63 100 CPAP 40 Mechanical Ventilator 01/16/17 08:00 71 20 98/63 95 CPAP 40 Mechanical Ventilator 01/16/17 08:00 40 01/16/17 08:00 CPAP 40 Mechanical Ventilator 01/16/17 07:40 40 01/16/17 06:00 79 22 101/71 99 CPAP 40 Mechanical Ventilator 01/16/17 06:00 64 15 101/71 98 01/16/17 05:30 40 01/16/17 05:00 67 22 102/67 99 01/16/17 04:00 40 01/16/17 04:00 68 20 112/68 98 01/16/17 04:00 98 Mechanical Ventilator 40 01/16/17 04:00 37.1 01/16/17 03:00 74 21 101/64 98 01/16/17 02:30 40 01/16/17 02:00 73 20 116/70 98 01/16/17 01:00 61 20 97/65 98 01/16/17 00:01 37.1 01/16/17 00:00 55 20 104/63 99 01/16/17 00:00 37.1 55 20 104/63 99 Mechanical Ventilator 40 01/15/17 23:59 98 Mechanical Ventilator 40 01/15/17 23:59 40 01/15/17 23:04 40 01/15/17 23:00 56 20 101/65 99 01/15/17 22:00 36.8 01/15/17 22:00 62 20 94/63 96 01/15/17 21:26 40 01/15/17 21:00 77 18 106/72 96 01/15/17 20:01 69 21 126/80 99 132/66 01/15/17 20:00 37.6 71 19 126/80 95 CPAP 40 Mechanical Ventilator 01/15/17 20:00 40 01/15/17 20:00 64 16 126/64 97 01/15/17 20:00 95 CPAP 40 Mechanical Ventilator 01/15/17 19:00 72 23 111/54 91 01/15/17 18:00 66 18 105/71 96 CPAP 40 Mechanical Ventilator 01/15/17 18:00 40 01/15/17 16:00 36.8 58 16 110/73 97 CPAP 40 97/48 Mechanical Ventilator 01/15/17 16:00 97 CPAP Mechanical Ventilator 01/15/17 16:00 61 01/15/17 16:00 40 01/15/17 14:45 40 01/15/17 14:00 56 19 92/61 96 CPAP 40 101/52 Mechanical Ventilator Physical Exam General Appearance: + mild distress, + thin Eyes: normal inspection ENT: normal ENT inspection Neck: supple Respiratory/Chest: chest non-tender, + pertinent finding (intubated) Cardiovascular: + systolic murmur, + irregularly irregular Abdomen: normal bowel sounds Extremities: + pedal edema Neurologic/Psychiatric: alert Skin: + pallor Laboratory Results Last 24 Hours Test 01/16/17 00:08 01/16/17 05:04 01/16/17 05:38 01/16/17 06:15 Bedside Glucose (other) 101 mg/dl 99 mg/dl White Blood Count 18.80 K/uL Red Blood Count 3.31 M/uL Hemoglobin 9.9 g/dL Hematocrit 29.2 % Mean Corpuscular Volume 88.2 fL Mean Corpuscular Hemoglobin 29.9 pg Mean Corpuscular Hemoglobin Concent 33.9 g/dl RDW Standard Deviation 51.2 fL RDW Coefficient of Variation 15.7 % Platelet Count 207 K/uL Mean Platelet Volume 10.8 fL Activated Partial Thromboplast Time 56.0 SECONDS Partial Thromboplastin Ratio 2.2 Sodium Level 137 mmol/L Potassium Level 3.5 mmol/L Chloride Level 103 mmol/L Carbon Dioxide Level 25 mmol/L Anion Gap 9.0 mmol/L Blood Urea Nitrogen 16 mg/dl Creatinine 0.70 mg/dl Est Creatinine Clear Calc Drug Dose 85.4 ml/min Estimated GFR () 105.5 Estimated GFR (Non- 91.0 BUN/Creatinine Ratio 23.0 Random Glucose 100 mg/dl Calcium Level 7.9 mg/dl Phosphorus Level 2.5 mg/dl Magnesium Level 1.8 mg/dl Total Bilirubin 1.5 mg/dl Aspartate Amino Transf (AST/SGOT) 40 U/L Alanine Aminotransferase (ALT/SGPT) 21 U/L Alkaline Phosphatase 91 U/L Total Protein 5.2 gm/dl Albumin 1.8 gm/dl Globulin 3.4 gm/dl Albumin/Globulin Ratio 0.5 Blood Gas Specimen Type ARTERIAL Blood Gas Sample Site Art Line Blood Gas Patient Temperature 36.7 Bedside Blood Gas pH (LAB) 7.44 Bedside Blood Gas pCO2 (LAB) 34 mmHg Bedside Blood Gas pO2 (LAB) 105 mmHg Bedside Blood Gas HCO3 (LAB) 23 meq/L Bedside Blood Gas Total CO2 24 mEq/l Bedside Blood Gas Base Excess (LAB) -1.0 meq/L Bedside Blood Gas O2 Saturation 98.0 % Oxygen Saturation (Pulse Oximetry) 98 % Poli Test NA Oxygen Delivery Device Ventilator Bedside FiO2 40 % Blood Gas PEEP 5 Blood Gas Pressure Support 5 Assessment and Plan (1) Acute kidney failure (2) Hypertension (3) Chronic kidney disease, stage 2, mildly decreased GFR 76-year-old male with a history of nephrolithiasis with a left staghorn calculus , chronic low back pain, hypertension, parkinsonian syndrome, hypothyroidism, GERD, and severe depression, admitted on 01/06/2017 Per report prior to arriving to ER with some confusion for 2 days and weakness with 2 falls in the last week. The EMS reports his blood pressure was in the 60s over 40s. When he presented to the ER, he was relatively hypotensive with a systolic blood pressure of 90, and a right-sided subclavian central line was placed by the ER physician and he was bolused with 2 L of normal saline. The son noted that patient's fingertips seemed to had one episode of vomiting prior to the ER, and had new onset lower extremity edema in the last several days. He was found to be in acute renal failure with a creatinine of 5.2 up from a baseline of 1.0 from 2 months ago. Acute respiratory failure likely secondary to sepsis on the vent . Mgt per IM. Acute renal failure secondary to pre renal azotemia Continue improving and resolving, creatinine normalized Continue Rodriguez monitor strict I's and O's, fair urine output Pseudomonas UTI, continue cefepime Urinary tract infection, likely infected staghorn calculus. Renal stones/Staghorn calculus left kidney. Appreciate urology input. No indication for stenting at the present time. Will follow-up on the culture results, Levaquin was discontinued because of prolonged QT Bilateral lower extremities DVT -Doppler of the lower extremities + for extensive bilateral DVT- Continue heparin gtt. Mesenteric lymphadenopathy -s/p Liver biopsy. Biopsy is positive for met. adenocarcinoma. -Appreciate Palliative care input Back pain, we'll continue try best because the goal on the care will be pain control, most focus on comfort methods Obtained CT of T-L spine which shows no spinal mets and no evidence of spinal cord compression. Altered MS Likely multifactorial-Metabolic encephalopathy in the setting of UTI, acute respiratory failure, hypotension Swallowing dysfunction Currently intubated. Reassess once extubated. Rapid atrial fibrillation/hypertension-rate is now controlled was on cardizem gtt Now is on IV digoxin 125mcg daily. Parkinsonism/history of severe depression-stable at this time, has a history of electroconvulsive therapy with last maintenance treatment in July 2016. Has a history of hospitalization for severe parkinsonism symptoms causing failure to thrive requiring PEG tube placement which has since been removed. Was on Sinemet and Effexor, Sinemet possible not able to be crushed Hypothyroidism- -Continue IV Synthroid. No nutrition support for now, continue IV fluid GERD-stable -Continue PPI Patient remains very critical possible poor prognosis, his conditions possible has been declining for several months prior to admission, palliative care saw the patient we'll continue follow-up, goal on the future will be comfort methods and pain release Continued [facility] stay due to: multiple IV medications needed Discharge planning: uncertain
[2017-01-16] MEDS ORDERED: NURSING VERBAL MED ORDER ONE (14:45)
--- NOTE | 2017-01-16 14:52 | Palliative Care Progress Note ---
Palliative Care Progress Note Date of Service Jan 16, 2017. Subjective Pt evaluation today including: conversation w/ patient, conversation w/ family , physical exam, chart review, conversation w/ [employer] consultant Pain: nods head yes PO Intake: none Voiding: chaves catheter in place -Patient's biopsy results came back as metastatic adenocarcinoma. Son/POA Aron , his , and the patient are aware. -Decision has been made by Aron and the patient to make patient comfort measures only and terminally extubate. -The patient and family are aware that the patient will likely pass away rather quickly, but they have made the decision to focus only on comfort and to relieve pain/suffering. Review of Systems unable to obtain ROS Objective Vital Signs Date Time Temp Pulse Resp B/P Pulse Ox O2 Delivery O2 Flow Rate FiO2 01/16/17 14:00 73 26 82/59 100 CPAP 40 Mechanical Ventilator 01/16/17 12:00 88 21 93/62 98 CPAP 40 Mechanical Ventilator 01/16/17 12:00 98 CPAP Mechanical Ventilator 01/16/17 12:00 40 01/16/17 11:40 40 01/16/17 10:00 56 18 98/63 100 CPAP 40 Mechanical Ventilator 01/16/17 08:00 71 20 98/63 95 CPAP 40 Mechanical Ventilator 01/16/17 08:00 40 01/16/17 08:00 CPAP 40 Mechanical Ventilator 01/16/17 07:40 40 01/16/17 06:00 79 22 101/71 99 CPAP 40 Mechanical Ventilator 01/16/17 06:00 64 15 101/71 98 01/16/17 05:30 40 01/16/17 05:00 67 22 102/67 99 01/16/17 04:00 40 01/16/17 04:00 68 20 112/68 98 01/16/17 04:00 98 Mechanical Ventilator 40 01/16/17 04:00 37.1 01/16/17 03:00 74 21 101/64 98 01/16/17 02:30 40 01/16/17 02:00 73 20 116/70 98 01/16/17 01:00 61 20 97/65 98 01/16/17 00:01 37.1 01/16/17 00:00 55 20 104/63 99 01/16/17 00:00 37.1 55 20 104/63 99 Mechanical Ventilator 40 01/15/17 23:59 98 Mechanical Ventilator 40 01/15/17 23:59 40 01/15/17 23:04 40 01/15/17 23:00 56 20 101/65 99 01/15/17 22:00 36.8 01/15/17 22:00 62 20 94/63 96 01/15/17 21:26 40 01/15/17 21:00 77 18 106/72 96 01/15/17 20:01 69 21 126/80 99 132/66 01/15/17 20:00 37.6 71 19 126/80 95 CPAP 40 Mechanical Ventilator 01/15/17 20:00 40 01/15/17 20:00 64 16 126/64 97 01/15/17 20:00 95 CPAP 40 Mechanical Ventilator 01/15/17 19:00 72 23 111/54 91 01/15/17 18:00 66 18 105/71 96 CPAP 40 Mechanical Ventilator 01/15/17 18:00 40 01/15/17 16:00 36.8 58 16 110/73 97 CPAP 40 97/48 Mechanical Ventilator 01/15/17 16:00 97 CPAP Mechanical Ventilator 01/15/17 16:00 61 01/15/17 16:00 40 01/15/17 14:45 40 Physical Exam General Appearance: no apparent distress (but does appear uncomfortable and in pain.) ENT: hearing grossly normal Neck: no JVD Respiratory/Chest: + rhonchi (very coarse throughout), + pertinent finding ( ETT present. large amount of brown thick secretions from in-line suction) Cardiovascular: + bradycardia, + irregularly irregular Abdomen: + pertinent finding (OGT putting out dark brown secretions) Neurologic/Psychiatric: alert, + pertinent finding (ETT present, unable to speak. Does nod head appropriately to yes and no questions.) Laboratory Results Last 24 Hours Test 01/16/17 00:08 01/16/17 05:04 01/16/17 05:38 01/16/17 06:15 Bedside Glucose (other) 101 mg/dl 99 mg/dl White Blood Count 18.80 K/uL Red Blood Count 3.31 M/uL Hemoglobin 9.9 g/dL Hematocrit 29.2 % Mean Corpuscular Volume 88.2 fL Mean Corpuscular Hemoglobin 29.9 pg Mean Corpuscular Hemoglobin Concent 33.9 g/dl RDW Standard Deviation 51.2 fL RDW Coefficient of Variation 15.7 % Platelet Count 207 K/uL Mean Platelet Volume 10.8 fL Activated Partial Thromboplast Time 56.0 SECONDS Partial Thromboplastin Ratio 2.2 Sodium Level 137 mmol/L Potassium Level 3.5 mmol/L Chloride Level 103 mmol/L Carbon Dioxide Level 25 mmol/L Anion Gap 9.0 mmol/L Blood Urea Nitrogen 16 mg/dl Creatinine 0.70 mg/dl Est Creatinine Clear Calc Drug Dose 85.4 ml/min Estimated GFR () 105.5 Estimated GFR (Non- 91.0 BUN/Creatinine Ratio 23.0 Random Glucose 100 mg/dl Calcium Level 7.9 mg/dl Phosphorus Level 2.5 mg/dl Magnesium Level 1.8 mg/dl Total Bilirubin 1.5 mg/dl Aspartate Amino Transf (AST/SGOT) 40 U/L Alanine Aminotransferase (ALT/SGPT) 21 U/L Alkaline Phosphatase 91 U/L Total Protein 5.2 gm/dl Albumin 1.8 gm/dl Globulin 3.4 gm/dl Albumin/Globulin Ratio 0.5 Blood Gas Specimen Type ARTERIAL Blood Gas Sample Site Art Line Blood Gas Patient Temperature 36.7 Bedside Blood Gas pH (LAB) 7.44 Bedside Blood Gas pCO2 (LAB) 34 mmHg Bedside Blood Gas pO2 (LAB) 105 mmHg Bedside Blood Gas HCO3 (LAB) 23 meq/L Bedside Blood Gas Total CO2 24 mEq/l Bedside Blood Gas Base Excess (LAB) -1.0 meq/L Bedside Blood Gas O2 Saturation 98.0 % Oxygen Saturation (Pulse Oximetry) 98 % Poli Test NA Oxygen Delivery Device Ventilator Bedside FiO2 40 % Blood Gas PEEP 5 Blood Gas Pressure Support 5 Assessment and Plan Problem list: Malnutrition Dysphagia Aspiration UTI- Pseudomonas, repeat culture negative Shock- improving, no longer on pressors Dehydration ?Neoplastic process/malignancy- liver biopsy pending. Right groin biopsy nondiagnostic. YUSUF on CKD- resolved with creatinine of 0.73 Htn Kidney stones Sepsis Parkinsonism Constipation- no BM since admission Goals of care (Z51.5) Palliative care plan: discussed with patient's son/POA, Aron Patel, and Dr. Jones. -Terminally extubate patient. -Discontinue all medications unrelated to comfort including isreal-synephrine, heparin and antibiotics. -Discontinue IV fentanyl -Start morphine 2mg IV Q1h PRN pain or SOB -Scopolamine patch -Atropine 1% oph soln 4 drops PO Q1h PRN secretions -Oxygen via nasal cannula- titrate to comfort -May want to transfer [facility] depending on patient's condition. Thank you for allowing me to participate in the care of this patient. Please contact me with any further palliative care needs. Palliative Performance Scale: 10 % Continued [facility] stay due to: multiple IV medications needed
[2017-01-16] MEDS ORDERED: MoRPHine SULFATE 2 MG/ML CARP IV PRN (15:00)
[2017-01-16] MEDS ORDERED: SCOPOLAMINE 1.5 MG TDSY TD SCH (15:00)
[2017-01-16] MEDS: ATROPINE SULFATE 1% OP SOLN 5 ML BTL PO PRN ×2 (15:06→22:18)
[2017-01-16] MEDS: MoRPHine SULFATE 4 MG/ML 1 ML CARP\\VIAL IV PRN ×2 (15:35→17:11)
[2017-01-16] MEDS: CHECK SCOPOLAMINE PATCH PLACEMENT SCH (16:00)
--- NOTE | 2017-01-16 17:41 | Critical Care Progress Note ---
Critical Care Progress Note Date of Service Jan 16, 2017. Attending Dr. Jones Subjective After further discussion with the family, they asked for the patient to be extubated and focus on comfort care only. Extubated this afternoon, on Morphine currently Objective GENERAL: Patient is in no acute distress,lethargic HEENT: normocephalic atraumatic LUNGS: coarse breath sounds HEART: Irregularly irregular ABDOMEN: Soft, nontender, EXTREMITIES: b/l LE edema NEUROLOGIC: Opens eyes, tracks, lethargic now Current SOFA Score SOFA Score Response (Comments) Value PaO2/FiO2 (mmHg) < 300 2 SaO2 / FIO2 221 - 301 1 Bilirubin (mg/dL) 1.2 - 1.9 1 Level of Hypotension Dopamine < 5 mcq / dobutamine 2 Total 6 Assessment & Plan (1) Malnutrition (2) Inability to swallow (3) Dysphagia (4) Urinary tract infection (5) Shock (6) Dehydration (7) Acute kidney injury (8) Chronic kidney disease, stage 2, mildly decreased GFR (9) Hypertension (10) Kidney stones (11) Sepsis (12) Parkinsonian syndrome Metastatic adenocarcinoma to the liver Malnutrition Inability to swallow Dysphagia Urinary tract infection Shock Dehydration Acute kidney injury Chronic kidney disease, stage 2, mildly decreased GFR Hypertension Kidney stones Sepsis Parkinsonian syndrome 76 year old male with severe depression (requiring ECT), parkinson, esophageal dysmotility/dysphagia, progressive deterioration and malnutrition, found to have abdominal mass with multiple liver and lung determinations (s/p biopsy of the mass and the liver), intubated for airway protection, possible aspiration. Developed a-fib, also found to have b/l DVT (likely secondary to a malignancy). Liver biopsy consistent with metastatic adenocarcinoma. Given the poor prognosis and the patient's condition, the family decided to remove the patient from life support and change goals of care to comfort care only. Patient extubated, now on Morphine Palliative care follow up appreciated. Will transfer to regular floor. Critical care time spent greater than 35 minutes Consults & Procedures Consultants: cardiology gen surgery heme/onc/ urology/ Infectious disease Procedures: Intubation 01/11 A-line 01/11 Data Medications: Current Inpatient Medications Medications (Trade) Dose Ordered Sig/Aiden Route Start Time Stop Time Status Last Admin Dose Admin Acetaminophen (Tylenol Tab) 650 mg Q4H PRN PO 01/06/17 16:45 02/05/17 16:44 Docusate Sodium (coLACE CAP) 100 mg BID PO 01/06/17 21:00 02/05/17 20:59 Future Hold 01/10/17 08:30 100 MG Oxycodone/ Acetaminophen (Percocet 5-325mg Tab) 1 tab Q6 PRN PO 01/06/17 17:00 01/20/17 16:59 01/10/17 17:42 1 TAB Tizanidine HCl (Zanaflex Tab) 2 mg Q12 PRN PO 01/06/17 17:00 02/05/17 16:59 01/10/17 08:28 2 MG Atropine Sulfate (Atropine Sulfate 1% Oph Soln) 4 drops Q4H PRN PO 01/16/17 15:00 02/15/17 14:59 01/16/17 15:06 4 DROPS Scopolamine (Transderm-Scop Patch) 1.5 mg Q3D@1500 TD 01/16/17 15:00 02/15/17 14:59 01/16/17 15:07 1.5 MG Miscellaneous (Remove Transderm-Scop Patch) 1 ea Q3D@1459 N/A 01/19/17 14:59 02/18/17 14:58 Miscellaneous Information (Check Scopolamine Patch Placement) 1 ea QS N/A 01/16/17 16:00 02/15/17 15:59 01/16/17 16:00 1 EA Morphine Sulfate (MoRPHine SULFATE INJ) 4 mg Q2H PRN IV 01/16/17 15:30 01/30/17 15:29 01/16/17 17:11 4 MG I & O: 24-Hour Column 01/16/17 08:00 Intake Total 4949 ml Output Total 1350 ml Balance 3599 ml Vital Signs: Date Time Temp Pulse Resp B/P Pulse Ox O2 Delivery O2 Flow Rate FiO2 01/16/17 15:48 36.6 75 20 92/63 92 Nasal Cannula 01/16/17 15:48 92 Nasal Cannula 01/16/17 14:00 73 26 82/59 100 CPAP 40 Mechanical Ventilator 01/16/17 12:00 88 21 93/62 98 CPAP 40 Mechanical Ventilator 01/16/17 12:00 98 CPAP Mechanical Ventilator 01/16/17 12:00 40 01/16/17 11:40 40 01/16/17 10:00 56 18 98/63 100 CPAP 40 Mechanical Ventilator 01/16/17 08:00 71 20 98/63 95 CPAP 40 Mechanical Ventilator 01/16/17 08:00 40 01/16/17 08:00 CPAP 40 Mechanical Ventilator 01/16/17 07:40 40 01/16/17 06:00 79 22 101/71 99 CPAP 40 Mechanical Ventilator 01/16/17 06:00 64 15 101/71 98 01/16/17 05:30 40 01/16/17 05:00 67 22 102/67 99 01/16/17 04:00 40 01/16/17 04:00 68 20 112/68 98 01/16/17 04:00 98 Mechanical Ventilator 40 01/16/17 04:00 37.1 01/16/17 03:00 74 21 101/64 98 01/16/17 02:30 40 01/16/17 02:00 73 20 116/70 98 01/16/17 01:00 61 20 97/65 98 01/16/17 00:01 37.1 01/16/17 00:00 55 20 104/63 99 01/16/17 00:00 37.1 55 20 104/63 99 Mechanical Ventilator 40 01/15/17 23:59 98 Mechanical Ventilator 40 01/15/17 23:59 40 01/15/17 23:04 40 01/15/17 23:00 56 20 101/65 99 01/15/17 22:00 36.8 01/15/17 22:00 62 20 94/63 96 01/15/17 21:26 40 01/15/17 21:00 77 18 106/72 96 01/15/17 20:01 69 21 126/80 99 132/66 01/15/17 20:00 37.6 71 19 126/80 95 CPAP 40 Mechanical Ventilator 01/15/17 20:00 40 01/15/17 20:00 64 16 126/64 97 01/15/17 20:00 95 CPAP 40 Mechanical Ventilator 01/15/17 19:00 72 23 111/54 91 01/15/17 18:00 66 18 105/71 96 CPAP 40 Mechanical Ventilator 01/15/17 18:00 40 Laboratory Results: Last 24 Hours Test 01/16/17 00:08 01/16/17 05:04 01/16/17 05:38 01/16/17 06:15 Bedside Glucose (other) 101 mg/dl 99 mg/dl White Blood Count 18.80 K/uL Red Blood Count 3.31 M/uL Hemoglobin 9.9 g/dL Hematocrit 29.2 % Mean Corpuscular Volume 88.2 fL Mean Corpuscular Hemoglobin 29.9 pg Mean Corpuscular Hemoglobin Concent 33.9 g/dl RDW Standard Deviation 51.2 fL RDW Coefficient of Variation 15.7 % Platelet Count 207 K/uL Mean Platelet Volume 10.8 fL Activated Partial Thromboplast Time 56.0 SECONDS Partial Thromboplastin Ratio 2.2 Sodium Level 137 mmol/L Potassium Level 3.5 mmol/L Chloride Level 103 mmol/L Carbon Dioxide Level 25 mmol/L Anion Gap 9.0 mmol/L Blood Urea Nitrogen 16 mg/dl Creatinine 0.70 mg/dl Est Creatinine Clear Calc Drug Dose 85.4 ml/min Estimated GFR () 105.5 Estimated GFR (Non- 91.0 BUN/Creatinine Ratio 23.0 Random Glucose 100 mg/dl Calcium Level 7.9 mg/dl Phosphorus Level 2.5 mg/dl Magnesium Level 1.8 mg/dl Total Bilirubin 1.5 mg/dl Aspartate Amino Transf (AST/SGOT) 40 U/L Alanine Aminotransferase (ALT/SGPT) 21 U/L Alkaline Phosphatase 91 U/L Total Protein 5.2 gm/dl Albumin 1.8 gm/dl Globulin 3.4 gm/dl Albumin/Globulin Ratio 0.5 Blood Gas Specimen Type ARTERIAL Blood Gas Sample Site Art Line Blood Gas Patient Temperature 36.7 Bedside Blood Gas pH (LAB) 7.44 Bedside Blood Gas pCO2 (LAB) 34 mmHg Bedside Blood Gas pO2 (LAB) 105 mmHg Bedside Blood Gas HCO3 (LAB) 23 meq/L Bedside Blood Gas Total CO2 24 mEq/l Bedside Blood Gas Base Excess (LAB) -1.0 meq/L Bedside Blood Gas O2 Saturation 98.0 % Oxygen Saturation (Pulse Oximetry) 98 % Poli Test NA Oxygen Delivery Device Ventilator Bedside FiO2 40 % Blood Gas PEEP 5 Blood Gas Pressure Support 5
[2017-01-16] MEDS: HYDROmorphone INJ 2 MG/ML SYR/VIAL IV PRN ×2 (19:39→22:14)
[2017-01-16] MEDS ORDERED: ATROPINE SULFATE 1% OP SOLN 2 ML BTL PO PRN (22:30)
[2017-01-17] MEDS: CHECK SCOPOLAMINE PATCH PLACEMENT SCH ×2 (00:10→08:20)
[2017-01-17] MEDS: HYDROmorphone INJ 2 MG/ML SYR/VIAL IV PRN ×2 (02:05→05:35)
--- NOTE | 2017-01-17 08:28 | Discharge Summary ---
Discharge Summary Date of Service Jan 17, 2017. Discharge Summary Admission Date: Jan 06, 2017 at 16:51 Discharge Date: Jan 17, 2017 Principal Diagnosis: Metastatic adenocarcinoma Problems/Secondary Diagnoses: Parkinsons disease, DVT both legs, Acute on CKD, Anemia of chronic kidney disease, Ventilator dependent respiratory failure, Ileus, Back pain, Mesenteric adenopathy, Immunizations: Have You Had Influenza Vaccine: No History of Tetanus Vaccine?: Yes History of Pneumococcal: Yes History of Hepatitis B Vaccine: Unknown Consultations: Surgery Oncology Critical Care Hospital Course (1) Acute kidney failure (2) Hypertension (3) Chronic kidney disease, stage 2, mildly decreased GFR 76-year-old male with a history of nephrolithiasis with a left staghorn calculus , chronic low back pain, hypertension, parkinsonian syndrome, hypothyroidism, GERD, and severe depression, admitted on 01/06/2017 Per report prior to arriving to ER with some confusion for 2 days and weakness with 2 falls in the last week. The EMS reports his blood pressure was in the 60s over 40s. When he presented to the ER, he was relatively hypotensive with a systolic blood pressure of 90, and a right-sided subclavian central line was placed by the ER physician and he was bolused with 2 L of normal saline. The son noted that patient's fingertips seemed to had one episode of vomiting prior to the ER, and had new onset lower extremity edema in the last several days. He was found to be in acute renal failure with a creatinine of 5.2 up from a baseline of 1.0 from 2 months ago. Acute respiratory failure likely secondary to sepsis on the vent . Mgt per IM. Acute renal failure secondary to pre renal azotemia Continue improving and resolving, creatinine normalized Continue Rodriguez monitor strict I's and O's, fair urine output Pseudomonas UTI, continue cefepime Urinary tract infection, likely infected staghorn calculus. Renal stones/Staghorn calculus left kidney. Appreciate urology input. No indication for stenting at the present time. Will follow-up on the culture results, Levaquin was discontinued because of prolonged QT Bilateral lower extremities DVT -Doppler of the lower extremities + for extensive bilateral DVT- Continue heparin gtt. Mesenteric lymphadenopathy -s/p Liver biopsy. Biopsy is positive for met. adenocarcinoma. -Appreciate Palliative care input Back pain, we'll continue try best because the goal on the care will be pain control, most focus on comfort methods Obtained CT of T-L spine which shows no spinal mets and no evidence of spinal cord compression. Altered MS Likely multifactorial-Metabolic encephalopathy in the setting of UTI, acute respiratory failure, hypotension Swallowing dysfunction Currently intubated. Reassess once extubated. Rapid atrial fibrillation/hypertension-rate is now controlled was on cardizem gtt Now is on IV digoxin 125mcg daily. Parkinsonism/history of severe depression-stable at this time, has a history of electroconvulsive therapy with last maintenance treatment in July 2016. Has a history of hospitalization for severe parkinsonism symptoms causing failure to thrive requiring PEG tube placement which has since been removed. Was on Sinemet and Effexor, Sinemet possible not able to be crushed Hypothyroidism- -Continue IV Synthroid. No nutrition support for now, continue IV fluid GERD-stable -Continue PPI Patient was extubated on january 16 2017 and following d/w family pt was made comfort care. Biopsy from liver was + for adenocarcinoma. Patient on January 17 2017 at 7.50am. Total Time Spent: Less than 30 minutes This includes examination of the patient, discharge planning, medication reconciliation, and communication with other providers. Discharge Instructions Please refer to the electronic Patient Visit Report (Discharge Instructions) for additional information.
== END 2017-01-17 10:37 | disposition expired | DRG 840 ==
LOC: ENRESERVTM → ENRESERVDT → EDBD 13:37 → C.EDB 13:37 → C.MED 16:51 → C.MSICU 01-11 17:08 → C.4E 01-16 18:00
PROVIDERS: ADMIT Family Medicine; ATTEND Hospitalist
PROC: 0T9B70Z Drainage of Bladder with Drainage Device, Via Natural or Artificial Opening (ICD-10-PCS; 2017-01-06)
PROC: 05H533Z Insertion of Infusion Device into Right Subclavian Vein, Percutaneous Approach (ICD-10-PCS; 2017-01-06)
PROC: 0F923ZX Drainage of Left Lobe Liver, Percutaneous Approach, Diagnostic (ICD-10-PCS; 2017-01-10)
PROC: 5A1955Z Respiratory Ventilation, Greater than 96 Consecutive Hours (ICD-10-PCS; principal; 2017-01-12)
PROC: 0BH17EZ Insertion of Endotracheal Airway into Trachea, Via Natural or Artificial Opening (ICD-10-PCS; principal; 2017-01-12)
PROC: 03HB33Z Insertion of Infusion Device into Right Radial Artery, Percutaneous Approach (ICD-10-PCS; principal; 2017-01-12)
DX: C85.98 Non-Hodgkin lymphoma, unspecified, lymph nodes of multiple sites (principal); N17.0 Acute kidney failure with tubular necrosis; G93.41 Metabolic encephalopathy; J96.01 Acute respiratory failure with hypoxia; N39.0 Urinary tract infection, site not specified; I82.413 Acute embolism and thrombosis of femoral vein, bilateral; K56.7 Ileus, unspecified; F32.2 Major depressive disorder, single episode, severe without psychotic features; E87.0 Hyperosmolality and hypernatremia; E46 Unspecified protein-calorie malnutrition; Z51.5 Encounter for palliative care; N20.0 Calculus of kidney; B96.5 Pseudomonas (aeruginosa) (mallei) (pseudomallei) as the cause of diseases classified elsewhere; I95.9 Hypotension, unspecified; I48.0 Paroxysmal atrial fibrillation; R01.1 Cardiac murmur, unspecified; K76.9 Liver disease, unspecified; I12.9 Hypertensive chronic kidney disease with stage 1 through stage 4 chronic kidney disease, or unspecified chronic kidney disease; N18.2 Chronic kidney disease, stage 2 (mild); K22.4 Dyskinesia of esophagus; G20 Parkinson's disease; E03.9 Hypothyroidism, unspecified; K21.9 Gastro-esophageal reflux disease without esophagitis; G89.29 Other chronic pain; M51.36 Other intervertebral disc degeneration, lumbar region; R29.6 Repeated falls; L89.159 Pressure ulcer of sacral region, unspecified stage; M81.0 Age-related osteoporosis without current pathological fracture; Z66 Do not resuscitate; Z87.891 Personal history of nicotine dependence; Z79.891 Long term (current) use of opiate analgesic; Z79.899 Other long term (current) drug therapy; Z88.0 Allergy status to penicillin; Z84.1 Family history of disorders of kidney and ureter; Z82.49 Family history of ischemic heart disease and other diseases of the circulatory system; Z82.5 Family history of asthma and other chronic lower respiratory diseases